=== PATIENT | male | born 1930 | race Caucasian/White ===

== ENCOUNTER 2016-11-01 16:31 | Inpatient (IN) | payer MEDICARE, OTHER ==
[~2016-11-01] VITALS: Ht 188 cm; Wt 74.1 kg
[2016-11-01] VITALS (8 sets, daily range): BP systolic 102–146; BP diastolic 54–77
[~2016-11-01 16:31] MED LIST: AC500T; ACET-2303; ACHD5005 PO; AMIO100T4 PO; AMIO200T PO; AMIO200T10; AMIO200T50 PO; AMIO400T5 PO; AMOX500C2; APIX5TAB2 PO; AREDS PO; ASP325T PO; ATOR80TA; ATRV10T PO; CALC60OI6 TP; CEFD300C PO; CEPH-507 PO; CLOP75TA; CYAN10006 PO; DIGO250T; DIGO250T15 PO; DIGO250T96; DILT120C PO; DILT300C51 PO; FLEC100T PO; FLEC100T2 PO; FLEC150T PO; FLEC50TA2 PO; FOLI0.8T PO; FOLIC ACID; FURO20TA4 PO; FURO40TA4; HYDR-757 PO; HYDR15CR36 TP; HYDR28CR45 TP; KCL20TCR; LACT1CAP62 PO; LASIX; LEVE500T PO; LISI10TA; LISI10TA2; LISI2.5T PO; LVT.05T PO; METH1TAB59 PO; MTF500T; MTP25TSR; MULT-608 PO; MULT1TAB53 PO; NEBI2.5T5; NF-METANX PO; NTR.4SL SL; PANT40TA PO; PNT40TEC PO; POTA10TA36 PO; PRD10T PO; PRD20T PO; PROBIOTIC; PROBIOTIC ADVANTAGE; SENN-36 PO; SENN1TAB76 PO; SNN187T; SULF1TAB38 PO; TACLONEX TOP; THYROID MEDICATION; VIT B 12; VIT1CAPS44 PO; VITAMIN B-12; WRF5T; [UNRECOGNIZED DRUG - CODE]
--- NOTE | 2016-11-01 17:46 | Diagnostic Imaging Report ---
INDICATION: Left rib pain after a fall approximately one hour ago. COMPARISON STUDY: Chest from April 23. FINDINGS: Frontal view of the chest demonstrates chronic fibrosis along the right minor fissure. Chronic interstitial disease is present, greatest in the lung bases. A left subclavian central venous catheter remains in place. Mild cardiomegaly, tortuosity and calcification of the aorta are again identified. IMPRESSION: Chronic lung disease with no acute findings. Dictated by: Dictated on workstation # [id number]
[2016-11-01] MEDS: SCOPOLAMINE 1.5 MG (TRANSDERM-SCOP) PATCH TD ONE ×2 (18:11→18:32)
[2016-11-01] MEDS: fentaNYL INJECTION 100 MCG/2 ML AMP IVP STA ×2 (18:11→18:32)
[2016-11-01] MEDS: ONDANSETRON 4 MG/2 ML (SDV) Z0FRAN IVP ONE ×2 (18:11→18:32)
[2016-11-01 18:12] LABS: BASOPHILS % (AUTO) 0 % (0-10); EOSINOPHILS # (AUTO) 0.2 10^3/uL (0.0-0.3); EOSINOPHILS % (AUTO) 1 % (0-10); LYMPHOCYTES # (AUTO) 1.8 X 10^3 (1.0-4.0); LYMPHOCYTES % (AUTO) 12 % (12-44); MEAN CORPUSCULAR HEMOGLOBIN 32 PG (25-34); MEAN CORPUSCULAR HGB CONC 34 G/DL (32-36); MEAN CORPUSCULAR VOLUME 93 FL (80-99); MEAN PLATELET VOLUME 10.7 FL (7.4-10.4); MONOCYTES # (AUTO) 0.9 X 10^3 (0.0-1.0); MONOCYTES % (AUTO) 6 % (0-12); NEUTROPHILS # (AUTO) 12.1 X 10^3 (1.8-7.8); NEUTROPHILS % (AUTO) 81 % (42-75); PLATELET COUNT 194 10^3/uL (130-400); RED BLOOD COUNT 4.29 10^6/uL (4.35-5.85); RED CELL DISTRIBUTION WIDTH 13.3 % (10.0-14.5); WHITE BLOOD COUNT 15.1 10^3/uL (4.3-11.0)
[2016-11-01 18:28] LABS: BAND NEUTROPHILS 4 %; BASOPHILS % (MANUAL) 1 %; EOSINOPHILS % (MANUAL) 2 %; INR 1.1 (0.8-1.4); LYMPHOCYTES % (MANUAL) 11 %; NEUTROPHILS % (MANUAL) 77 %; PROTHROMBIN TIME PATIENT 13.5 SEC (12.2-14.7)
[2016-11-01 18:39] LABS: ALANINE AMINOTRANSFERASE 17 U/L (0-55); AMYLASE 353 U/L (25-125); ANION GAP 11 MMOL/L (5-14); ASPARTATE AMINO TRANSFERASE 17 U/L (5-34); BILIRUBIN,TOTAL 0.7 MG/DL (0.1-1.0); BLOOD UREA NITROGEN 29 MG/DL (7-18); BUN/CREATININE RATIO 31; CALCIUM 9.6 MG/DL (8.5-10.1); CARBON DIOXIDE 25 MMOL/L (21-32); CHLORIDE 102 MMOL/L (98-107); CREATININE SERUM 0.93 MG/DL (0.60-1.30); GFR ESTIMATED > 60; GLUCOSE 143 MG/DL (70-105); LIPASE 39 U/L (8-78); MAGNESIUM 1.7 MG/DL (1.8-2.4); POTASSIUM 4.8 MMOL/L (3.6-5.0); SODIUM 138 MMOL/L (135-145); TOTAL PROTEIN 6.9 G/DL (6.4-8.2)
[2016-11-01 18:45] LABS: TROPONIN I < 0.30 NG/ML (<0.30)
[2016-11-01] MEDS ORDERED: NS 100 ML (IVPB) BAG IV ONE (19:00)
[2016-11-01] MEDS ORDERED: IOHEXOL 350 MG/ML 100 ML (OMNIPAQUE 350) VIAL IV ONE (19:00)
--- NOTE | 2016-11-01 19:24 | Diagnostic Imaging Report ---
PROCEDURE: CT head without contrast. TECHNIQUE: Multiple contiguous axial images were obtained through the brain without the use of intravenous contrast. INDICATION: Patient fell this evening COMPARISON STUDY: CT scan of the head from December 14, 2014. FINDINGS: A previous right frontal parietal temporal craniotomy is present. No mass effect, midline shift, hemorrhage or extra-axial fluid collections are seen. There is age-appropriate atrophy. No focal areas of ischemia are present. No fractures are present. The mastoid air cells and paranasal sinuses are clear. IMPRESSION: There are no acute findings. Dictated by: Dictated on workstation # [id number]
--- NOTE | 2016-11-01 19:47 | Diagnostic Imaging Report ---
INDICATION: Patient fell this p.m. on the left side, rib and back pain. FINDINGS: Postcontrast CT of the chest is compared to a chest from 06/05/16. Diffuse interstitial lung disease, subpleural blebs are present. Some small nodularities appear stable. There is a small area of nodularity in the right apex, measuring 12 x 5 mm. This was not present previously. Recommend a 3-4 month followup exam. Small left pleural effusion has developed. There is no pneumothorax. There are posterior left 12th, 11th, 10th and 9th rib fractures. Lateral 10th, 9th, 8th and 7th rib fractures are present. There are old right rib fractures. No pneumothorax is present. Dense calcification of the coronary arteries are present. 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 Calcifications are present in the aortic valve. Postcontrast CT of the abdomen and pelvis demonstrates an obstructing 11.6 mm calculus in the left ureteropelvic junction with left-sided hydronephrosis. A couple small calculi are present in the inferior pole of the left kidney. Several calculi are present in the right kidney without hydronephrosis or inflammation. The liver, gallbladder, spleen, pancreas and adrenal glands appear normal. No ascites or free air is present. Diverticula are present. Urinary bladder is normal. Degenerative changes are present in the spine with previous kyphoplasty changes. Diffuse arterial sclerosis is present. IMPRESSION: 1. Diffuse emphysematous changes with some stable nodules. There is a new small nodule in the right lung apex. Recommend a three-month followup. 2. Multiple left rib fractures with a small left pleural effusion. 3. Arterial sclerosis with dense calcifications of the coronary arteries and significant stenosis of the left subclavian artery. 4. Bilateral renolithiasis with an obstructing calculus in the left ureteropelvic junction. Dictated by: Dictated on workstation # [id number]
[2016-11-01] MEDS ORDERED: fentaNYL INJECTION 100 MCG/2 ML AMP IVP STA (20:04)
[2016-11-01] MEDS ORDERED: cefTRIAXone INJECTION 1,000 MG in NS (IVPB) 50 ML IV ONE (20:15)
[2016-11-01] MEDS: SCOPOLAMINE 1.5 MG (TRANSDERM-SCOP) PATCH TOP SCH (20:53)
[2016-11-01] MEDS ORDERED: D5 1/2 NS 1000 ML IV SOLUTION 1,000 ML IV ONE (21:13)
[2016-11-01] MEDS: D5 1/2 NS 1000 ML IV SOLUTION 1,000 ML IV SCH (21:44)
[2016-11-01 22:39] LABS: BILIRUBIN,URINE NEGATIVE (NEGATIVE); KETONES,URINE NEGATIVE (NEGATIVE); LEUKOCYTE ESTERASE ,URINE 3+ (NEGATIVE); NITRITE,URINE NEGATIVE (NEGATIVE); PH,URINE 6 (5-9); PROTEIN,URINE 1+ (NEGATIVE); UROBILINOGEN,URINE NORMAL (NORMAL)
[2016-11-01 22:47] LABS: WBC,URINE 50-100 /HPF; YEAST,URINE FEW /HPF
[2016-11-01] MEDS ORDERED: ONDANSETRON 4 MG/2 ML (SDV) Z0FRAN IV PRN (23:15)
[2016-11-01] MEDS ORDERED: AZITHROMYCIN 500 MG/NS 250 ML IVPB IV ONE ×2 (23:15)
[2016-11-01] MEDS ORDERED: CATHETER FLUSH 10 ML SYR IV PRN (23:15)
[2016-11-01] MEDS: fentaNYL INJECTION 100 MCG/2 ML AMP IV PRN (23:34)
[2016-11-02] VITALS (12 sets, daily range): BP systolic 91–149; BP diastolic 53–78
[2016-11-02] MEDS: fentaNYL INJECTION 100 MCG/2 ML AMP IV PRN ×6 (00:53→22:44)
[2016-11-02 04:51] LABS: BASOPHILS % (AUTO) 0 % (0-10); EOSINOPHILS # (AUTO) 0.1 10^3/uL (0.0-0.3); EOSINOPHILS % (AUTO) 1 % (0-10); LYMPHOCYTES # (AUTO) 1.5 X 10^3 (1.0-4.0); LYMPHOCYTES % (AUTO) 17 % (12-44); MEAN CORPUSCULAR HEMOGLOBIN 32 PG (25-34); MEAN CORPUSCULAR HGB CONC 34 G/DL (32-36); MEAN CORPUSCULAR VOLUME 94 FL (80-99); MEAN PLATELET VOLUME 10.6 FL (7.4-10.4); MONOCYTES # (AUTO) 0.7 X 10^3 (0.0-1.0); MONOCYTES % (AUTO) 7 % (0-12); NEUTROPHILS # (AUTO) 6.7 X 10^3 (1.8-7.8); NEUTROPHILS % (AUTO) 75 % (42-75); PLATELET COUNT 148 10^3/uL (130-400); RED BLOOD COUNT 3.62 10^6/uL (4.35-5.85); RED CELL DISTRIBUTION WIDTH 13.2 % (10.0-14.5); WHITE BLOOD COUNT 8.9 10^3/uL (4.3-11.0)
[2016-11-02 05:13] LABS: ALANINE AMINOTRANSFERASE 12 U/L (0-55); ALBUMIN 3.2 G/DL (3.2-4.5); ANION GAP 11 MMOL/L (5-14); ASPARTATE AMINO TRANSFERASE 15 U/L (5-34); BILIRUBIN,TOTAL 0.6 MG/DL (0.1-1.0); BLOOD UREA NITROGEN 20 MG/DL (7-18); BUN/CREATININE RATIO 26; CALCIUM 8.3 MG/DL (8.5-10.1); CARBON DIOXIDE 24 MMOL/L (21-32); CHLORIDE 102 MMOL/L (98-107); CREATININE SERUM 0.78 MG/DL (0.60-1.30); GFR ESTIMATED > 60; GLUCOSE 173 MG/DL (70-105); MAGNESIUM 1.6 MG/DL (1.8-2.4); SODIUM 137 MMOL/L (135-145); TOTAL PROTEIN 5.7 G/DL (6.4-8.2)
[2016-11-02] MEDS: CATHETER FLUSH 10 ML SYR IV SCH ×3 (06:00→22:00)
[2016-11-02] MEDS ORDERED: POTASSIUM CL 10MEQ/50ML IVPB 50 ML IV SCH (06:00)
[2016-11-02] MEDS ORDERED: MAGNESIUM 1 GM/100 ML IVPB 100 ML IV SCH (06:00)
[2016-11-02] MEDS ORDERED: KCL 20 MEQ TAB (K-DUR) PO SCH (06:00)
--- NOTE | 2016-11-02 06:14 | ED Fall/Injury ---
General Chief Complaint: Chest Wall/Rib Pain Stated Complaint: S/P FALL; MULT L RIB FXS; RECENT PNEUMONIA Nursing Triage Note: Pt reports falling approx 1 hour ago and hitting L ribs on a generator. Pt advises he thinks he may have broken several ribs. Source: patient History of Present Illness Time seen by provider: 17:55 Initial Comments PT ARRIVES VIA POV FROM HOME STATES HE HAS CHRONIC POOR BALANCE (SINCE HE HAD SUBDURAL HEMATOMA AND SUBSEQUENT CRANIOTOMY AND EVACUATION OF HEMATOMA, AND PRIOR EPISODE OF SEPSIS) AND TODAY WAS WALKING AND LOST BALANCE AND TRIPPED, AND FELL BACK, HITTING HIS LEFT CHEST/BACK ON THE GAS TANK OF A GENERATOR OCCURRED AT 1630 TODAY AT HOME DID NOT HIT HEAD AND NO LOSS OF CONSCIOUSNESS DENIES ANY OTHER INJURIES C/O PAIN TO ENTIRE LEFT SIDE OF TRUNK AND BACK, AND HURTS TO BREATHE OR COUGH DOES FEEL SHORT OF BREATH HAS HAD NAUSEA AND VOMITED ON ARRIVAL DENIES DIZZINESS PT STATES HE WAS DX WITH PNEUMONIA 2 WEEKS AGO AND IS STILL TAKING ANTIBIOTICS-- THOSE SYMPTOMS ARE BETTER, NOW WITH ONLY A MILD COUGH AND NO FEVER, AND NO SHORTNESS OF BREATH PRIOR TO THIS EPISODE PT HAS HISTORY OF LUNG CANCER, BUT WAS "CLEARED" LAST SUMMER PCP: DR. PHAM Allergies and Home Medications Allergies Coded Allergies: No Known Drug Allergies (Verified , 12/14/14) Home Medications Atorvastatin Calcium 10 Mg Tablet 10 MG PO HS (Reported) Calcipotriene/Betamethasone 60 Gm Oint...g. TP DAILY PRN PRN PSORIASIS (Reported ) Cyanocobalamin 1,000 Mcg Tablet 1,000 MCG PO DAILY (Reported) Digoxin 250 Mcg Tablet #30 0.25 MG PO DAILY Prescribed by: GUTIERREZ PHAM on 08/30/15 1053 Diltiazem HCl 300 Mg Cap.er.24h #30 300 MG PO DAILY Prescribed by: GUTIERREZ PHAM on 08/30/15 1053 Flecainide Acetate 100 Mg Tablet #30 50 MG PO BID pt to take 1/2 of the 100mg pill twice daily (total dose of 50mg daily) Prescribed by: GUTIERREZ PHAM on 08/30/15 1053 Folic Acid 0.8 Mg Tablet 0.8 MG PO DAILY (Reported) Hydrocortisone Valerate 15 Gm Cream..g. TP DAILY (Reported) USES DAILY BEHIND EARS Lactobacillus Acidophilus 1 Each Capsule 1 CAP PO DAILY (Reported) Levetiracetam 500 Mg Tab 250 MG PO BID (Reported) TAKES 1/2 OF A (500 MG) TABLET Levothyroxine Sodium 50 Mcg Tablet 50 MCG PO DAILY (Reported) TAKE ON EMPTY STOMACH Methyl-B12/L-Mefolate/B6 Phos 1 Each Tablet 1 TAB PO DAILY (Reported) Nitroglycerin 0.4 Mg Tab 0 SL UD PRN PRN CHEST PAIN (Reported) 1 TABLET EVERY 5 MINUTES X 3 DOSES NEEDED FOR CHEST PAIN Pantoprazole Sodium 40 Mg Tablet.dr 40 MG PO HS (Reported) Sennosides 8.6 Mg Tablet 8.6 MG PO DAILY (Reported) Vit C/E/Zn/Coppr/Lutein/Zeaxan 1 Each Capsule 1 CAP PO BID (Reported) Constitutional: see HPINo dizziness, other (CHRONICALLY OFF BALANCE) Eyes: No Symptoms Reported Ears, Nose, Mouth, Throat: no symptoms reported Respiratory: see HPI cough short of breathNo wheezing Cardiovascular: see HPI chest pain (LEFT LATERAL AND POSTERIOR CHEST)No edema , No palpitations, No syncope, No vascular heart diseas Gastrointestinal: see HPINo abdominal pain, nausea vomiting Genitourinary: no symptoms reported Musculoskeletal: see HPI back painNo neck pain Skin: no symptoms reported Psychiatric/Neurological: See HPI (CHRONIC POOR BALANCE)Denies Headache, Denies Numbness, Denies Paresthesia, Denies Seizure, Denies Tingling, Denies Tremors, Denies Weakness Past Llrwjsd-Tejoyp-Cdhakh Hx Patient Social History Alcohol Use: Denies Use Recreational Drug Use: No Smoking Status: Former Smoker Type Used: Pipe Former Smoker/When Quit: Sep 27, 1996 2nd Hand Smoke Exposure: No Recent Foreign Travel: No Contact w/Someone Who Travel: No Recent Infectious Disease Expo: No Recent Hopitalizations: No Physical Abuse Screen: No Sexual Abuse: No Immunizations Up To Date Tetanus Booster (TDap): More than 5yrs PED Vaccines UTD: No Date of Pneumonia Vaccine: Jul 17, 2012 Date of Influenza Vaccine: Aug 27, 2016 Seasonal Allergies Seasonal Allergies: No Surgeries HX Surgeries: Yes (VASECTOMY,HAND SURGERY, CARDIAC STENTS X 4 AT [facility] [place] LEFT CHEST, PROSTATE; CRANIOTOMY WITH EVACUTION OF SUBDURAL HEMATOMA) Surgeries: Cardiac, Coronary Stent, Neurological, Orthopedic, Transurethral Resection, Vasectomy Respiratory Hx Respiratory Disorders: Yes Respiratory Disorders: Pneumonia Cardiovascular Hx Cardiac Disorders: Yes (MITRAL REGURGITATION, STENTS X4) Cardiac Disorders: Atrial Fibrillation, Coronary Artery Disease, Hypertension Neurological Hx Neurological Disorders: Yes (SUBDURAL HEMATOMA WITH CRANIOTOMY AND EVACUATION OF HEMATOMA) Neurological Disorders: Traumatic Brain Injury, Vertigo Reproductive System Hx Reproductive Disorders: No Sexually Transmitted Disease: No HIV/AIDS: No Genitourinary Hx Genitourinary Disorders: Yes (BLADDER/PROSTATE CANCER) Genitourinary Disorders: Prostate Problems Gastrointestinal Hx Gastrointestinal Disorders: No Musculoskeletal Hx Musculoskeletal Disorders: Yes (L1 COMPRESSION FRACTURE) Musculoskeletal Disorders: Fractures Endocrine Hx Endocrine Disorders: Yes Endocrine Disorders: Diabetes, Non-Insulin dep HEENT HX ENT Disorders: Yes (MISSING TEETH) HEENT Disorders: Cataract Loss of Vision: Denies Hearing Impairment: Hard of Hearing Cancer Hx Cancer: Yes Cancer: Bladder, Prostate, Lung Psychosocial Hx Psychiatric Problems: Yes Behavioral Health Disorders: Anxiety Integumentary HX Skin/Integumentary Disorder: Yes (SKIN CANCER) Skin/Integumentary Disorders: Psoriasis Blood Transfusions Hx Blood Disorders: No Adverse Reaction to a Blood Tr: No Family Medical History Significant Family History: Heart Disease, Hypertension Family Medial History: Chest pain 03 FATHER, Onset:Unknown Myocardial infarction 03 FATHER, Onset:60 years & older Physical Exam Vital Signs Vital Sign - Last 12Hours 11/01/16 17:02 Temp 98.2 Pulse 90 Resp 18 B/P 159/82 Pulse Ox 96 O2 Delivery Room Air Capillary Refill : Less Than 3 Seconds General Appearance: no apparent distress thin HEENT: PERRL/EOMI other (MISSING TEETH) Neck: non-tender full range of motion supple normal inspection Cardiovascular: normal peripheral pulses regular rate, rhythm no edema no JVD no murmur Respiratory: no respiratory distress no accessory muscle use rales rhonchi plerual rub other (MARKED LEFT LATERAL AND POSTERIOR CHEST TENDERNESS, WITH BONY CREPITANCE NOTED POSTERIORLY. NO SUBQ AIR NOTED. FAINT ERYTHEMA TO LEFT POSTERIOR CHEST. NO OPEN WOUNDS. ) Gastrointestinal: normal bowel sounds soft tenderness (LEFT LATERAL ABDOMEN AND LEFT FLANK WITH SIGNIFICANT TENDERNESS) Back: no vertebral tenderness CVA tenderness (L) decreased range of motionNo vertebral tenderness Extremities: normal range of motion non-tender normal inspection no pedal edema no calf tenderness normal capillary refill Neurologic/Psychiatric: jig borer II-XII nml as tested no motor/sensory deficits alert normal mood/affect oriented x 3 Skin: normal color warm/dry [place] Coma Score Best Eye Response: (4) Open Spontaneously Best Verbal Response: (5) Oriented Best Motor Response: (6) Obeys Commands [place] Total: 15 Progress/Results/Core Measures Results/Orders Lab Results Laboratory Tests Test 11/01/16 18:00 Range/Units Activated Partial Thromboplast Time 35 24-35 SEC Alanine Aminotransferase (ALT/SGPT) 17 0-55 U/L Albumin 4.0 3.2-4.5 G/DL Alkaline Phosphatase 81 40-136 U/L Amylase Level 353 H 25-125 U/L Anion Gap 11 5-14 MMOL/L Aspartate Amino Transf (AST/SGOT) 17 5-34 U/L BUN/Creatinine Ratio 31 Band Neutrophils 4 % Basophils # (Auto) 0.0 0.0-0.1 10^3/uL Basophils % (Manual) 1 % Basophils (%) (Auto) 0 0-10 % Blood Morphology Comment NORMAL Blood Urea Nitrogen 29 H 7-18 MG/DL Calcium Level 9.6 8.5-10.1 MG/DL Carbon Dioxide Level 25 21-32 MMOL/L Chloride Level 102 98-107 MMOL/L Creatinine 0.93 0.60-1.30 MG/DL Digoxin Level < 0.30 L 0.80-2.00 NG/ML Eosinophils # (Auto) 0.2 0.0-0.3 10^3/uL Eosinophils % (Manual) 2 % Eosinophils (%) (Auto) 1 0-10 % Estimat Glomerular Filtration Rate > 60 Glucose Level 143 H 70-105 MG/DL Hematocrit 40 40-54 % Hemoglobin 13.6 13.3-17.7 G/DL INR Comment 1.1 0.8-1.4 Lipase 39 8-78 U/L Lymphocytes # (Auto) 1.8 1.0-4.0 X 10^3 Lymphocytes % (Manual) 11 % Lymphocytes (%) (Auto) 12 12-44 % Magnesium Level 1.7 L 1.8-2.4 MG/DL Mean Corpuscular Hemoglobin 32 25-34 PG Mean Corpuscular Hemoglobin Concent 34 32-36 G/DL Mean Corpuscular Volume 93 80-99 FL Mean Platelet Volume 10.7 H 7.4-10.4 FL Monocytes # (Auto) 0.9 0.0-1.0 X 10^3 Monocytes % (Manual) 5 % Monocytes (%) (Auto) 6 0-12 % Neutrophils # (Auto) 12.1 H 1.8-7.8 X 10^3 Neutrophils % (Manual) 77 % Neutrophils (%) (Auto) 81 H 42-75 % Platelet Count 194 130-400 10^3/uL Potassium Level 4.8 3.6-5.0 MMOL/L Prothrombin Time 13.5 12.2-14.7 SEC Red Blood Count 4.29 L 4.35-5.85 10^6/uL Red Cell Distribution Width 13.3 10.0-14.5 % Sodium Level 138 135-145 MMOL/L Total Bilirubin 0.7 0.1-1.0 MG/DL Total Protein 6.9 6.4-8.2 G/DL Troponin I < 0.30 <0.30 NG/ML White Blood Count 15.1 H 4.3-11.0 10^3/uL My Orders Orders-ILDA SHAH DO Saline Lock/Iv-Start (11/01/16 18:04) Ekg Tracing (11/01/16 18:04) O2 (11/01/16 18:04) Monitor-Rhythm Ecg Trace Only (11/01/16 18:04) Ct Head Wo (11/01/16 18:04) Ondansetron Injection (Zofran Injectio (11/01/16 18:15) Amylase (11/01/16 18:04) Lipase (11/01/16 18:04) Magnesium (11/01/16 18:04) Protime With Inr (11/01/16 18:04) Partial Thromboplastin Time (11/01/16 18:04) Troponin I (11/01/16 18:04) Ua Culture If Indicated (11/01/16 18:04) Scopolamine Patch (Transderm-Scop Patch) (11/01/16 18:15) Ct Chest/Abdomen/Pelvis W (11/01/16 18:04) Fentanyl Injection (Sublimaze Injection (11/01/16 18:04) Iohexol Injection (Omnipaque 350 Mg/Ml 1 (11/01/16 19:00) Ns (Ivpb) (Sodium Chloride 0.9% Ivpb Bag (11/01/16 19:00) Digoxin (11/01/16 19:25) Medications Given in ED Current Medications Medications Dose Ordered Sig/Colt Route Start Time Stop Time Status Last Admin Dose Admin Iohexol 100 ml ONCE ONCE IV 11/01/16 19:00 11/01/16 23:01 DC 11/01/16 19:03 100 ML Sodium Chloride 100 ml ONCE ONCE IV 11/01/16 19:00 11/01/16 23:01 DC 11/01/16 19:04 80 ML Vital Signs/I&O Vital Sign - Last 12Hours 11/01/16 17:02 Temp 98.2 Pulse 90 Resp 18 B/P 159/82 Pulse Ox 96 O2 Delivery Room Air Blood Pressure Mean: 90 Progress Note : Progress Note NO DETERIORATION IN PT'S CONDITION DURING ER STAY ECG Initial ECG Impression Time: 18:34 Initial ECG Rate: 104 Initial ECG Rhythm: Normal Sinus Initial ECG Impression: Nonspecific Changes Initial ECG Comparisson: Unchanged Diagnostic Imaging Comments CXR--NO ACUTE PROCESS, PER RADIOLOGIST REPORT CT CHEST / ABDOMEN / PELVIS--POSTERIOR RIB FRACTURES OF 9,10,11,12; LATERAL RIB FRACTURES OF 7,8,9,10; SMALL LEFT PLEURAL EFFUSION; 12 X 5 MM NODULE RIGHT APEX ; BILATERAL RENAL LITHIASIS WITH 11.6 MM OBSTRUCTING STONE AT LEFT UPJ; ASVD-- PER RADIOLOGIST REPORT @ 1953 CT HEAD--NO ACUTE PROCESS, PER RADIOLOGIST REPORT @ 1953 Reviewed: Reviewed by Me Departure Communication Progress Notes 1954--SPOKE WITH DR. ALBARRAN, ACCEPTS PT FOR ADMIT 1955--SPOKE WITH DR. PHAM FOR MEDICAL MANAGEMENT. WILL GIVE IV ANTIBIOTICS IN LIGHT OF RECENT PNEUMONIA WITH ACUTE RIB FRACTURES, AND UTI Impression Impression: Primary Impression: Status post fall Additional Impressions: MULTIPLE LEFT RIB FRACTURES RECENT PNEUMONIA History of lung cancer COPD (chronic obstructive pulmonary disease) UTI (urinary tract infection) URETERAL LITHIASIS Disposition: ADMITTED INPATIENT Condition: Stable Decision to Admit Reason: Admit from ER (Trauma) Decision to Admit/Date: Nov 01, 2016 Time/Decision to Admit Time: 19:55 Departure-Patient Inst. Referrals: GUTIERREZ PHAM MD (PCP) Primary Care Physician ILDA SHAH DO Nov 02, 2016 06:14
[2016-11-02] MEDS: MAGNESIUM 1 GM/100 ML IVPB 100 ML IV SCH ×2 (06:15→07:26)
[2016-11-02] MEDS: HYDROcodone/APAP 5 MG/325 MG (LORTAB) TAB PO PRN ×4 (08:29→22:45)
[2016-11-02] MEDS: D5 1/2 NS 1000 ML IV SOLUTION 1,000 ML IV SCH ×2 (08:30→17:59)
[2016-11-02] MEDS ORDERED: METF500T4 PO (08:49)
[2016-11-02] MEDS ORDERED: PANT40TA3 PO (08:49)
[2016-11-02] MEDS ORDERED: ATOR10TA66 PO (08:49)
[2016-11-02] MEDS ORDERED: SOTA80TA PO (08:49)
[2016-11-02] MEDS ORDERED: CEFD300C3 PO (08:49)
[2016-11-02] MEDS ORDERED: DOCU100C37 PO (08:49)
[2016-11-02] MEDS ORDERED: LEVE500T6 PO (08:49)
[2016-11-02] MEDS ORDERED: LEVO50TA6 PO (08:49)
--- NOTE | 2016-11-02 08:55 | Diagnostic Imaging Report ---
INDICATION: Rib fracture. COMPARISON: 11/01/2016. FINDINGS: There are some worsened Eder B lines, likely interstitial edema. There is some discoid opacity in the right midlung, unchanged. The upper limits heart size is stable. There is no pneumothorax. IMPRESSION: Interstitial changes bilaterally show mild progression. The change itself is suspicious for at least mild interstitial edema. No acute pleural pathology. Dictated by: Dictated on workstation # [id number]
--- NOTE | 2016-11-02 10:41 | History & Physicial ---
History of Present Illness History of Present Illness Reason for visit/HPI fell at home, sustaining fracture of ribs on the left side requiring intubation management for pain control Date of Admission Nov 01, 2016 at 7:55 pm I consulted on this patient on 11/02/16 10:38 Attending Physician Monisha Lerma MD Admitting Physician Monisha Lerma MD Consult Allergies and Home Medications Allergies Coded Allergies: No Known Drug Allergies (Verified , 12/14/14) Home Medications Atorvastatin Calcium 10 Mg Tablet 10 MG PO HS (Reported) Calcipotriene/Betamethasone 60 Gm Oint...g. TP DAILY PRN PRN PSORIASIS (Reported ) Cefdinir 300 Mg Capsule 300 MG PO BID (Reported) FILLED 10/26/16 #10 FOR A 5 DAY THERAPY Cyanocobalamin 1,000 Mcg Tablet 1,000 MCG PO DAILY (Reported) Docusate Sodium 100 Mg Capsule 100 MG PO DAILY (Reported) Folic Acid 0.8 Mg Tablet 0.8 MG PO DAILY (Reported) Hydrocortisone Valerate 15 Gm Cream..g. TP DAILY (Reported) USES DAILY BEHIND EARS Lactobacillus Acidophilus 1 Each Capsule 1 CAP PO DAILY (Reported) Levetiracetam 500 Mg Tablet 250 MG PO BID (Reported) Levothyroxine Sodium 50 Mcg Tablet 25 MCG PO SuWe (Reported) TAKES 1/2 OF A (50 MCG) TABLET Levothyroxine Sodium 50 Mcg Tablet 50 MCG PO MoTuThFrSa (Reported) Metformin HCl 500 Mg Tablet 500 MG PO BID (Reported) Methyl-B12/L-Mefolate/B6 Phos 1 Each Tablet 1 TAB PO DAILY (Reported) Nitroglycerin 0.4 Mg Tab 0 SL UD PRN PRN CHEST PAIN (Reported) 1 TABLET EVERY 5 MINUTES X 3 DOSES NEEDED FOR CHEST PAIN Pantoprazole Sodium 40 Mg Tablet.dr 40 MG PO HS (Reported) Sotalol HCl 80 Mg Tablet 40 MG PO BID (Reported) Vit C/E/Zn/Coppr/Lutein/Zeaxan 1 Each Capsule 1 CAP PO BID (Reported) Past Impemhq-Zazbuk-Nphvgy Hx Patient Social History Marrital Status: Employed/Student: retired Alcohol Use: Denies Use Recreational Drug Use: No Smoking Status: Never a Smoker Former smoker/When Quit: Sep 27, 1996 Type Used: Pipe 2nd Hand Smoke Exposure: No Physical Abuse Screen: No Sexual Abuse: No Recent Foreign Travel: No Contact w/other who traveled: No Recent Hopitalizations: No Recent Infectious Disease Expo: No Immunizations Up To Date Tetanus Booster (TDap): More than 5yrs Date of Pneumonia Vaccine: Jul 17, 2012 Date of Influenza Vaccine: Aug 27, 2016 Seasonal Allergies Seasonal Allergies: No Surgeries HX Surgeries: Yes (VASECTOMY,[facility] [place] LEFT CHEST, PROSTATE; CRANIOTOMY WITH EVACUTION OF SUBDURAL HEMATOMA) Surgeries: Cardiac, Coronary Stent, Neurological, Orthopedic, Transurethral Resection, Vasectomy Respiratory Hx Respiratory Disorders: Yes Respiratory Disorders: COPD Cardiovascular Hx Cardiovascular Disorders: Yes (MITRAL REGURGITATION, STENTS X4) Cardiac Disorders: Atrial Fibrillation, Coronary Artery Disease, Hypertension Neurological Hx Neurological Disorders: Yes (SUBDURAL HEMATOMA WITH CRANIOTOMY AND EVACUATION OF HEMATOMA) Neurological Disorders: Traumatic Brain Injury, Vertigo Reproductive System Hx Reproductive Disorders: No Sexually Transmitted Disease: No HIV/AIDS: No Genitourinary Hx Genitourinary Disorders: Yes (BLADDER/PROSTATE CANCER) Genitourinary Disorders: Prostate Problems Gastrointestinal Hx Gastrointestinal Disorders: No Musculoskeletal Hx Musculoskeletal Disorders: Yes (L1 COMPRESSION FRACTURE) Musculoskeletal Disorders: Fractures Endocrine Hx Endocrine Disorders: Yes Endocrine Disorders: Diabetes, Non-Insulin dep HEENT HX ENT Disorders: Yes (MISSING TEETH) HEENT Disorders: Cataract Loss of Vision: Denies Hearing Impairment: Hard of Hearing Cancer Hx Cancer: Yes Cancer: Bladder, Prostate, Lung Psychosocial Hx Psychiatric Problems: Yes Behavioral Health Disorders: Anxiety Integumentary HX Skin/Integumentary Disorder: Yes (SKIN CANCER) Skin/Integumentary Disorders: Psoriasis Blood Transfusions Hx Blood Disorders: No Adverse Reaction to a Blood Tr: No Family Medical History Significant Family History: Heart Disease, Hypertension Family Hx: Chest pain 03 FATHER, Onset:Unknown Myocardial infarction 03 FATHER, Onset:60 years & older Constitutional: no symptoms reported EENTM: no symptoms reported Respiratory: cough dyspnea on exertion Cardiovascular: no symptoms reported Gastrointestinal: see HPI Genitourinary: see HPI Musculoskeletal: back pain muscle pain Skin: no symptoms reported Psychiatric/Neurological: No Symptoms Reported Physical Exam Vital Signs Vital Sign - Last 12Hours 11/01/16 11/01/16 17:02 20:46 Temp 98.2 Pulse 90 Resp 18 B/P 159/82 Pulse Ox 96 O2 Delivery Room Air O2 Flow Rate 2 Capillary Refill : Less Than 3 Seconds General Appearance: Mild Distress HEENT: PERRL/EOMI Neck: Normal Inspection Respiratory: Decreased Breath Sounds Cardiovascular: Regular Rate, Rhythm Gastrointestinal: Non Tender Soft Back: Normal Inspection Extremity: Normal Inspection Neurologic/Psychiatric: Alert Oriented x3 Skin: Warm/Dry Assessment/Plan Assessment and Plan gentleman with left-sided fractures. Small pleural effusion/hemothorax. No pneumothorax. Resolving pneumonia. Advanced age. Continue pain management and encourage using incentive spirometry. Physical therapy to help with recovery. Admission Diagnosis fracture of ribs on the left side 4 Clinical Quality Measures DVT/VTE Risk/Contraindication: Risk Factor Score Per Nursin RFS Level Per Nursing on Admit: 4+=Very High SINDY ALBARRAN MD Nov 02, 2016 10:41 am
[2016-11-02] MEDS ORDERED: PATIENT MAY USE OWN MED,SINGLE MED PO SCH (11:15)
[2016-11-02] MEDS ORDERED: NITROGLYCERIN SUBLINGUAL 0.4 MG TAB (NITROSTAT) SL PRN (11:15)
--- NOTE | 2016-11-02 11:19 | Consultation ---
History of Present Illness History of Present Illness Patient Consulted On(alonzo/time) 11/02/16 11:12 Date of Admission 11/01/16 Reason for Visit: FALL AT HOME History of Present Illness PT IS AN 86 Y/O MALE WHO IS KNOWN TO ME FROM CLINIC. NELA HAS RECENTLY BEEN DEALING WITH PNEUMONIA, HAS BEEN HAVING INCREASED TROUBLE WITH DYSPNEA, AND WAS WALKING INTO HIS GARAGE, TURNING AROUND, LOST HIS BALANCE AND FELL INTO A GENERATOR AND GAS CAN IMMEDIATELY FEELING PAIN IN HIS RIBS. HE STATES THAT HE IS STILL HAVING QUITE A BIT OF PAIN, TROUBLE WITH DEEP INSPIRATION. Allergies and Home Medications Allergies Coded Allergies: No Known Drug Allergies (Verified , 12/14/14) Home Medications Atorvastatin Calcium 10 Mg Tablet 10 MG PO HS (Reported) Calcipotriene/Betamethasone 60 Gm Oint...g. TP DAILY PRN PRN PSORIASIS (Reported ) Cefdinir 300 Mg Capsule 300 MG PO BID (Reported) FILLED 10/26/16 #10 FOR A 5 DAY THERAPY Cyanocobalamin 1,000 Mcg Tablet 1,000 MCG PO DAILY (Reported) Docusate Sodium 100 Mg Capsule 100 MG PO DAILY (Reported) Folic Acid 0.8 Mg Tablet 0.8 MG PO DAILY (Reported) Hydrocortisone Valerate 15 Gm Cream..g. TP DAILY (Reported) USES DAILY BEHIND EARS Lactobacillus Acidophilus 1 Each Capsule 1 CAP PO DAILY (Reported) Levetiracetam 500 Mg Tablet 250 MG PO BID (Reported) Levothyroxine Sodium 50 Mcg Tablet 25 MCG PO SuWe (Reported) TAKES 1/2 OF A (50 MCG) TABLET Levothyroxine Sodium 50 Mcg Tablet 50 MCG PO MoTuThFrSa (Reported) Metformin HCl 500 Mg Tablet 500 MG PO BID (Reported) Methyl-B12/L-Mefolate/B6 Phos 1 Each Tablet 1 TAB PO DAILY (Reported) Nitroglycerin 0.4 Mg Tab 0 SL UD PRN PRN CHEST PAIN (Reported) 1 TABLET EVERY 5 MINUTES X 3 DOSES NEEDED FOR CHEST PAIN Pantoprazole Sodium 40 Mg Tablet.dr 40 MG PO HS (Reported) Sotalol HCl 80 Mg Tablet 40 MG PO BID (Reported) Vit C/E/Zn/Coppr/Lutein/Zeaxan 1 Each Capsule 1 CAP PO BID (Reported) Past Cwfyiof-Ojuxbk-Ggywaz Hx Patient Social History Alcohol Use: Denies Use Recreational Drug Use: No Smoking Status: Never a Smoker Type Used: Pipe Former Smoker/When Quit: Sep 27, 1996 2nd Hand Smoke Exposure: No Recent Foreign Travel: No Contact w/Someone Who Travel: No Recent Infectious Disease Expo: No Recent Hopitalizations: No Physical Abuse Screen: No Sexual Abuse: No Immunizations Up To Date Tetanus Booster (TDap): More than 5yrs PED Vaccines UTD: No Date of Pneumonia Vaccine: Jul 17, 2012 Date of Influenza Vaccine: Aug 27, 2016 Seasonal Allergies Seasonal Allergies: No Surgeries HX Surgeries: Yes (VASECTOMY,HAND SURGERY, CARDIAC STENTS X 4 AT [facility] [place] LEFT CHEST, PROSTATE; CRANIOTOMY WITH EVACUTION OF SUBDURAL HEMATOMA) Surgeries: Cardiac, Coronary Stent, Neurological, Orthopedic, Transurethral Resection, Vasectomy Respiratory Hx Respiratory Disorders: Yes Respiratory Disorders: Pneumonia Cardiovascular Hx Cardiac Disorders: Yes (MITRAL REGURGITATION, STENTS X4) Cardiac Disorders: Atrial Fibrillation, Coronary Artery Disease, Hypertension Neurological Hx Neurological Disorders: Yes (SUBDURAL HEMATOMA WITH CRANIOTOMY AND EVACUATION OF HEMATOMA) Neurological Disorders: Traumatic Brain Injury, Vertigo Reproductive System Hx Reproductive Disorders: No Sexually Transmitted Disease: No HIV/AIDS: No Genitourinary Hx Genitourinary Disorders: Yes (BLADDER/PROSTATE CANCER) Genitourinary Disorders: Prostate Problems Gastrointestinal Hx Gastrointestinal Disorders: No Musculoskeletal Hx Musculoskeletal Disorders: Yes (L1 COMPRESSION FRACTURE) Musculoskeletal Disorders: Fractures Endocrine Hx Endocrine Disorders: Yes Endocrine Disorders: Diabetes, Non-Insulin dep HEENT HX ENT Disorders: Yes (MISSING TEETH) HEENT Disorders: Cataract Loss of Vision: Denies Hearing Impairment: Hard of Hearing Cancer Hx Cancer: Yes Cancer: Bladder, Prostate, Lung Psychosocial Hx Psychiatric Problems: Yes Behavioral Health Disorders: Anxiety Integumentary HX Skin/Integumentary Disorder: Yes (SKIN CANCER) Skin/Integumentary Disorders: Psoriasis Blood Transfusions Hx Blood Disorders: No Adverse Reaction to a Blood Tr: No Reviewed Nursing Assessment Reviewed/Agree w Nursing PMH: Yes Family Medical History Significant Family History: Heart Disease, Hypertension Family Medial History: Chest pain 03 FATHER, Onset:Unknown Myocardial infarction 03 FATHER, Onset:60 years & older Review of Systems-General Constitutional: No chills, No diaphoresis, No fever, malaise weakness EENTM: hearing lossNo hoarseness, No mouth pain, No throat pain, No throat swelling Respiratory: cough dyspnea on exertion Cardiovascular: No chest pain, No edema Gastrointestinal: No abdominal pain, No loss of appetite, No nausea, No vomiting Genitourinary: no symptoms reported Musculoskeletal: back pain muscle weakness Skin: no symptoms reported Psychiatric/Neurological: Denies Anxiety, Denies Depressed All Other Systems Reviewed Negative Unless Noted: Yes Physical Exam-General Problems Physical Exam Vital Signs Vital Sign - Last 12Hours 11/01/16 11/01/16 17:02 20:46 Temp 98.2 Pulse 90 Resp 18 B/P 159/82 Pulse Ox 96 O2 Delivery Room Air O2 Flow Rate 2 Capillary Refill : Less Than 3 Seconds General Appearance: WD/WN no apparent distress Eyes: Bilateral Eye EOMI, Bilateral Eye Normal Inspection, Bilateral Eye PERRL HEENT: PERRL/EOMI pharynx normal Neck: non-tender normal inspection Respiratory: decreased breath sounds other (TTP OVER LEFT CHEST WALL) Cardiovascular: regular rate, rhythm no edema Gastrointestinal: normal bowel sounds non tender soft no organomegaly no pulsatile mass Rectal: deferred Extremities: non-tender no pedal edema Neurologic/Psychiatric: loan analyst II-XII nml as tested no motor/sensory deficits alert normal mood/affect oriented x 3 Skin: normal color warm/dry Lymphatic: no adenopathy Assessment/Plan Assessment/Plan Admission Diagnosis/Plan PNEUMONIA RIB PAIN ON LEFT RIB FRACTURES ATRIAL FIBRILLATION DIABETES MELLITUS 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 ATRIAL FIBRILLATION - RESTARTED HOME MEDS DIABETES MELLITUS - RESTARTED HOME MEDS - ACCU CHECKS BID HX LUNG CANCER WITH NEW NODULE ON CT SCAN CHRONIC DIZZINESS - WILL START THERAPY AGREE WITH TRANSFER TO THE FLOOR - WILL NEED TO CONSIDER INPATIENT REHAB VERSUS SENIOR CARE FOR SHORT STAY PT RESIDES AT HOME ALONE. Clinical Quality Measures DVT/VTE Risk/Contraindication: Risk Factor Score Per Nursin RFS Level Per Nursing on Admit: 4+=Very High GUTIERREZ PHAM MD Nov 02, 2016 11:19
--- NOTE | 2016-11-02 11:48 | Physical Therapy Evaluation ---
PT Evaluation-General Medical Diagnosis Admission Date Nov 01, 2016 at 19:55 Medical Diagnosis: rib fractures Onset Date: Nov 01, 2016 Therapy Diagnosis Therapy Diagnosis: debility Height/Weight Height (Feet): 6 Height (Inches): 2.00 Weight (Pounds): 165 Weight (Ounces): 2.0 Precautions Precautions/Isolations: Standard Precautions Referral Physician: Emeka Reason for Referral: Evaluation/Treatment Medical History Pertinent Medical History: Atrial Fib, CAD, COPD, DM, Prostate CA, Smoking, TBI Additional Medical History TBI (subdural hematoma with evacuation); lung cancer Current History Patient stated he was walking in his garage, which is cluttered, using his cane and fell over generator tank Reviewed History: Yes Social History Home: Single Level Current Living Status: Alone Entry Into Home: Stairs Without Railing PT Steps Into Home: 3 Prior/Core FIM Prior Level of Function Functional [place] Measure 0=Not Assessed/NA 4=Minimal Assistance 1=Total Assistance 5=Supervision or Setup 2=Maximal Assistance 6=Modified [place] 3=Moderate Assistance 7=Complete [place] Bed Mobility: 6 Transfers (B,C,W/C) (FIM): 6 Gait: 6 uses FWW in the home and cane outside the home PT Evaluation-Current Subjective Patient initially declined PT, however, PT educated patient on possible negative side effects of not increasing activity to prevent pneumonia and blood clots. Patient states, "I already have pneumonia." Pain Numeric Pain Scale: 5-Moderate Pain Location: Right Location Body Site: Side Pain Description: Acute Pt/Family Goals dismiss to NH Objective Patient Orientation: Person, Time, Situation Problem Solving: Good Attachments: Oxygen, IV ROM/Strength ROM Lower Extremities bilateral LE WFL Strenght Lower Extremities bilateral LE WNL Integumentary/Posture Integumentary refer to nursing notes Bowel Incontinence: No Bladder Incontinence: No Posture slightly kyphotic posture with FWW Neuromuscular (Tone, Coordination, Reflexes) slightly diminished coordination Sensory Vision: Functional Hearing: Impaired Sensation Right Lower Extremit: Impaired Sensation Left Lower Extremity: Impaired Transfers Functional [place] Measure 0=Not Assessed/NA 4=Minimal Assistance 1=Total Assistance 5=Supervision or Setup 2=Maximal Assistance 6=Modified [place] 3=Moderate Assistance 7=Complete [place] Transfers (B, C, W/C) (FIM): 5 Scootin Supine to/from Sit: 5 Sit to/from Stand: 5 patient adamantly declined use of gait belt for transfers and demanded no one touch him Gait Mode of Locomotion: Walk Anticipated Mode of Locomotion: Walk Gait (FIM): 1 Distance (FIM): 1=up to 49 ft Distance: 5 steps Gait Level of Assist: 5 Gait Persons Needed: 1 Gait Assistive Device: FWW Comments/Gait Description slow, steady Balance Sitting Static: Normal Sitting Dynamic: Normal Standing Static: Normal Standing Dynamic: Normal Assessment/Needs 86 y.o. independent male, will benefit from short term skilled PT to address functional mobility to ensure safe return to home or care facility. Patient has had multiple fall at home per his report and is very adamant to perform gross motor skills as independently as possible. Rehab Potential: Fair Post Rehab Potential-Barriers: compliance PT Combatant Swimmer Goals Combatant Swimmer Goals PT Combatant Swimmer Goals Time Frame: Nov 09, 2016 Transfers (B,C,W/C) (FIM): 5 Gait (FIM): 2 Gait distance (FIM): 7=328-50 ft Distance: 75' Gait Level of Assist: 5 Gait Assistive Device: FWW, Cane Single Point PT Plan Problem List Problem List: Activity Tolerance, Safety, Gait Treatment/Plan Treatment Plan: Continue Plan of Care Treatment Plan: Education, Functional Activity Sherrell, Functional Strength, Gait , Safety, Therapeutic Exercise Treatment Duration: Nov 09, 2016 # of days/week 5-6 Visits Per Week: 5-6 Pt/Family Agrees w/Plan: Yes Safety Risks/Education Patient Education: Safety Issues Teaching Recipient: Patient Teaching Methods: Discussion Response to Teaching: Verbalize Understanding Discharge Recommendations Therapy D/C Recommendations: Shelter (TCU/NH) Time/GCodes Time In: 1030 Time Out: 1050 Total Billed Treatment Time: 20 Total Billed Treatment 1 visit EVLowC 20 min G Codes Necessary: SAVAGE Marcos PT Nov 02, 2016 11:48
[2016-11-02] MEDS: LEVETIRACETAM 500 MG (KEPPRA) TAB PO SCH ×2 (12:55→22:44)
[2016-11-02] MEDS: AZITHROMYCIN 250 MG TAB (ZITHROMAX) PO SCH (12:55)
[2016-11-02] MEDS: LEVOTHYROXINE 50 MCG (LEVOTHROID) TAB PO SCH (12:55)
--- NOTE | 2016-11-02 14:30 | Diagnostic Imaging Report ---
INDICATION: Injury from a fall. Portable chest 2:20 PM. There is some linear atelectasis in the right midlung. 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 Left subclavian Port-A-Cath tip projects over the SVC. IMPRESSION: Interstitial fibrosis. No significant change compared to exam from earlier in the day. There appear to be nondisplaced fractures of the left lateral seventh, eighth, and ninth ribs. Dictated by: Dictated on workstation # [id number]
[2016-11-02] MEDS: CYANOCOBALAMIN 500 MCG TAB (VITAMIN B-12) PO SCH (17:59)
[2016-11-02] MEDS: HYDROCORTISONE 2.5% CREAM (ANUSOL-HC) 30 GM TOP SCH (22:30)
[2016-11-02] MEDS: ATORVASTATIN 10 MG (LIPITOR) TABLET PO SCH (22:45)
[2016-11-02] MEDS: PANTOPRAZOLE 40 MG (PROTONIX) TAB PO SCH (22:45)
[2016-11-02] MEDS: SOTALOL 80 MG (BETAPACE) TAB PO SCH (22:46)
[2016-11-02] MEDS: cefTRIAXone INJECTION 1,000 MG in NS (IVPB) 50 ML IV SCH (22:47)
[2016-11-02] MEDS: metFORMIN 500 MG (GLUCOPHAGE) TAB PO SCH (22:47)
[2016-11-03 00:10] VITALS: BP 122/62
[2016-11-03] MEDS: fentaNYL INJECTION 100 MCG/2 ML AMP IV PRN ×4 (01:54→11:37)
[2016-11-03 04:00] VITALS: BP 100/53
[2016-11-03 04:32] LABS: BASOPHILS % (AUTO) 0 % (0-10); EOSINOPHILS # (AUTO) 0.2 10^3/uL (0.0-0.3); EOSINOPHILS % (AUTO) 2 % (0-10); LYMPHOCYTES # (AUTO) 1.4 X 10^3 (1.0-4.0); LYMPHOCYTES % (AUTO) 14 % (12-44); MEAN CORPUSCULAR HEMOGLOBIN 32 PG (25-34); MEAN CORPUSCULAR HGB CONC 34 G/DL (32-36); MEAN CORPUSCULAR VOLUME 94 FL (80-99); MEAN PLATELET VOLUME 10.5 FL (7.4-10.4); MONOCYTES # (AUTO) 0.8 X 10^3 (0.0-1.0); MONOCYTES % (AUTO) 8 % (0-12); NEUTROPHILS # (AUTO) 7.7 X 10^3 (1.8-7.8); NEUTROPHILS % (AUTO) 76 % (42-75); PLATELET COUNT 148 10^3/uL (130-400); RED BLOOD COUNT 3.55 10^6/uL (4.35-5.85); RED CELL DISTRIBUTION WIDTH 13.3 % (10.0-14.5); WHITE BLOOD COUNT 10.1 10^3/uL (4.3-11.0)
[2016-11-03 05:00] LABS: ALANINE AMINOTRANSFERASE 14 U/L (0-55); ALBUMIN 3.1 G/DL (3.2-4.5); ANION GAP 7 MMOL/L (5-14); ASPARTATE AMINO TRANSFERASE 16 U/L (5-34); BILIRUBIN,TOTAL 0.6 MG/DL (0.1-1.0); BLOOD UREA NITROGEN 15 MG/DL (7-18); BUN/CREATININE RATIO 18; CALCIUM 8.2 MG/DL (8.5-10.1); CARBON DIOXIDE 25 MMOL/L (21-32); CHLORIDE 101 MMOL/L (98-107); CREATININE SERUM 0.82 MG/DL (0.60-1.30); GFR ESTIMATED > 60; GLUCOSE 162 MG/DL (70-105); MAGNESIUM 1.7 MG/DL (1.8-2.4); PHOSPHORUS 2.6 MG/DL (2.3-4.7); POTASSIUM 4.3 MMOL/L (3.6-5.0); SODIUM 133 MMOL/L (135-145); TOTAL PROTEIN 5.5 G/DL (6.4-8.2)
[2016-11-03] MEDS: D5 1/2 NS 1000 ML IV SOLUTION 1,000 ML IV SCH ×3 (05:04→23:29)
[2016-11-03] MEDS: CATHETER FLUSH 10 ML SYR IV SCH ×3 (06:00→21:50)
[2016-11-03] MEDS: CYANOCOBALAMIN 500 MCG TAB (VITAMIN B-12) PO SCH (06:44)
[2016-11-03] MEDS: MULTIVIT W/MINERALS TAB (THERAGRAN M) PO SCH (06:45)
[2016-11-03] MEDS: HYDROcodone/APAP 5 MG/325 MG (LORTAB) TAB PO PRN ×3 (06:45→18:07)
[2016-11-03 08:15] VITALS: BP 164/72
[2016-11-03] MEDS: FOLIC ACID 1 MG TAB PO SCH (08:55)
[2016-11-03] MEDS: LACTOBACILLUS Acidoph/Bulgar (LACTINEX/FLORANEX) TAB PO SCH (08:55)
[2016-11-03] MEDS: AZITHROMYCIN 250 MG TAB (ZITHROMAX) PO SCH (08:55)
[2016-11-03] MEDS: DOCUSATE SODIUM 100 MG (COLACE) CAP PO SCH (08:55)
[2016-11-03] MEDS: SOTALOL 80 MG (BETAPACE) TAB PO SCH ×2 (08:56→21:43)
[2016-11-03] MEDS: metFORMIN 500 MG (GLUCOPHAGE) TAB PO SCH ×2 (08:56→21:42)
[2016-11-03] MEDS: LEVETIRACETAM 500 MG (KEPPRA) TAB PO SCH ×2 (08:56→21:43)
[2016-11-03] MEDS: LIDOCAINE (LIDODERM) 5% PATCH TOP SCH (08:57)
[2016-11-03] MEDS: HYDROCORTISONE 2.5% CREAM (ANUSOL-HC) 30 GM TOP SCH ×2 (09:00→21:45)
--- NOTE | 2016-11-03 09:33 | Progress Note (SOAP) ---
Subjective Subjective/Events-last exam PT REPORTS THAT HE IS STILL HAVING QUITE A BIT OF PAIN - DOES NOT REMEMBER THE LIDODERM PATCH BEING PLACED. HE STATES THAT HE IS WILLING TO GO TO THEN [facility] THIS WEEK. Review of Systems General: Fatigue HEENT: No Head Aches Pulmonary: Dyspnea Cough Pleuritic Chest Pain Cardiovascular: No: Chest Pain Gastrointestinal: No: Abdominal Pain, Nausea Genitourinary: No Dysuria Neurological: : Weakness Objective Exam Vital Signs Date Time Temp Pulse Resp B/P Pulse Ox O2 Delivery O2 Flow Rate FiO2 11/03/16 08:15 98.4 86 20 164/72 94 Nasal Cannula 2.00 11/03/16 07:15 98.8 11/03/16 06:25 93 2.00 11/03/16 04:00 98.8 91 22 100/53 92 Nasal Cannula 2.00 11/03/16 00:10 97.4 99 20 122/62 92 Nasal Cannula 2.00 11/02/16 22:24 1.00 11/02/16 20:00 97.5 106 18 91/53 91 Nasal Cannula 2.00 11/02/16 16:39 97.3 77 18 101/58 92 Nasal Cannula 1.50 11/02/16 14:30 1.50 11/02/16 12:00 98.6 Nasal Cannula 1.50 11/02/16 12:00 95 1.50 11/02/16 09:37 96 1.00 I & O 11/03/16 07:00 Intake Total 3740 ml Output Total 650 ml Balance 3090 ml Capillary Refill : Less Than 3 Seconds General Appearance: WD/WN Mild Distress Neck: Full Range of Motion Supple Respiratory: Chest Non Tender Crackles Decreased Breath Sounds Cardiovascular: Regular Rate, Rhythm Gastrointestinal: normal bowel sounds non tender soft Extremity: Normal Capillary Refill No Pedal Edema Neurologic/Psychiatric: Alert Oriented x3 No Motor/Sensory Deficits Normal Mood/Affect Skin: Warm/Dry Lymphatic: No Adenopathy Results Lab Laboratory Tests 11/03/16 04:15: Alanine Aminotransferase (ALT/SGPT) 14, Albumin 3.1L, Alkaline Phosphatase 62, Anion Gap 7, Aspartate Amino Transf (AST/SGOT) 16, BUN/Creatinine Ratio 18, Basophils # (Auto) 0.0, Basophils (%) (Auto) 0, Blood Urea Nitrogen 15, Calcium Level 8.2L, Carbon Dioxide Level 25, Chloride Level 101, Creatinine 0.82, Eosinophils # (Auto) 0.2, Eosinophils (%) (Auto) 2, Estimat Glomerular Filtration Rate > 60, Glucose Level 162H, Hematocrit 34L, Hemoglobin 11.3L, Lymphocytes # (Auto) 1.4, Lymphocytes (%) (Auto) 14, Magnesium Level 1.7L, Mean Corpuscular Hemoglobin 32, Mean Corpuscular Hemoglobin Concent 34, Mean Corpuscular Volume 94, Mean Platelet Volume 10.5H, Monocytes # (Auto) 0.8, Monocytes (%) (Auto) 8, Neutrophils # (Auto) 7.7, Neutrophils (%) (Auto) 76H, Phosphorus Level 2.6, Platelet Count 148, Potassium Level 4.3, Red Blood Count 3.55L, Red Cell Distribution Width 13.3, Sodium Level 133L, Total Bilirubin 0.6 , Total Protein 5.5L, White Blood Count 10.1 Microbiology 11/01/16 Urine Culture - Preliminary, Resulted Assessment/Plan Assessment/Plan Assess & Plan/Chief Complaint PNEUMONIA RIB PAIN ON LEFT RIB FRACTURES ATRIAL FIBRILLATION DIABETES MELLITUS 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 ATRIAL FIBRILLATION - RESTARTED HOME MEDS DIABETES MELLITUS - RESTARTED HOME MEDS - ACCU CHECKS BID HX LUNG CANCER WITH NEW NODULE ON CT SCAN CHRONIC DIZZINESS - WILL START THERAPY AGREE WITH TRANSFER TO THE FLOOR - WILL NEED TO CONSIDER INPATIENT REHAB VERSUS LONG-TERM FOR SHORT STAY PT RESIDES AT HOME ALONE. Diagnosis/Problems: Clinical Quality Measures DVT/VTE Risk/Contraindication: Risk Factor Score Per Nursin RFS Level Per Nursing on Admit: 4+=Very High GUTIERREZ PHAM MD Nov 03, 2016 09:33
--- NOTE | 2016-11-03 10:17 | Physical Therapy Progress Note ---
Therapy Progress Note Patient is in bed and adamantly declined PT due to uncontrolled right side pain from rib fractures. Patient had been issued pain medication ~1hr prior to PT attempt. Patient states his pain is too intense to ambulate or exercise. Patient is on O2 and presents with a wet cough. PT educated patient on importance of mobility to prevent pneumonia and improve circulation, however, patient continued to decline PT. RN notified of patient c/o pain and PT refusal. 1 ref SAVAGE TREVINO PT Nov 03, 2016 10:17
--- NOTE | 2016-11-03 10:25 | Progress Note (SOAP) ---
Subjective Subjective/Events-last exam Pain from the fracture ribs continues. Review of Systems General: No Chills, No Night Sweats, No Fatigue, No Malaise HEENT: No Head Aches, No Eye Pain, No Ear Pain, No Dysphasia, No Sinus Congestion, No Post Nasal Drip, No Sore Throat Pulmonary: Dyspnea Cough Cardiovascular: No: Chest Pain, Edema, Lt Headedness, Orthopnea, Palpitations, Paroxysmal Noc. Dyspnea Gastrointestinal: No: Abdominal Pain, Constipation, Diarrhea, Hematochezia, Melena, Nausea, Vomiting Genitourinary: No Dysuria, No Frequency, No Incontinence, No Hematuria, No Retention Musculoskeletal: No: arm pain, back pain, foot pain, hand pain, leg pain, neck pain, other, shoulder pain Neurological: No: Change in speech, Confusion, Incoordination, Numbness, Other , Seizures, Weakness Objective Exam Vital Signs Date Time Temp Pulse Resp B/P Pulse Ox O2 Delivery O2 Flow Rate FiO2 11/03/16 09:26 98.4 11/03/16 08:15 98.4 86 20 164/72 94 Nasal Cannula 2.00 11/03/16 07:15 98.8 11/03/16 06:25 93 2.00 11/03/16 04:00 98.8 91 22 100/53 92 Nasal Cannula 2.00 11/03/16 00:10 97.4 99 20 122/62 92 Nasal Cannula 2.00 11/02/16 22:24 1.00 11/02/16 20:05 1.50 11/02/16 20:00 97.5 106 18 91/53 91 Nasal Cannula 2.00 11/02/16 16:39 97.3 77 18 101/58 92 Nasal Cannula 1.50 11/02/16 14:30 1.50 11/02/16 12:00 98.6 Nasal Cannula 1.50 11/02/16 12:00 95 1.50 I & O 11/03/16 07:00 Intake Total 4460 ml Output Total 1300 ml Balance 3160 ml Capillary Refill : Less Than 3 Seconds General Appearance: Mild Distress Neck: Normal Inspection Respiratory: Decreased Breath Sounds Cardiovascular: Regular Rate, Rhythm Gastrointestinal: non tender soft Extremity: Normal Inspection Results Lab Laboratory Tests 11/03/16 04:15: Alanine Aminotransferase (ALT/SGPT) 14, Albumin 3.1L, Alkaline Phosphatase 62, Anion Gap 7, Aspartate Amino Transf (AST/SGOT) 16, BUN/Creatinine Ratio 18, Basophils # (Auto) 0.0, Basophils (%) (Auto) 0, Blood Urea Nitrogen 15, Calcium Level 8.2L, Carbon Dioxide Level 25, Chloride Level 101, Creatinine 0.82, Eosinophils # (Auto) 0.2, Eosinophils (%) (Auto) 2, Estimat Glomerular Filtration Rate > 60, Glucose Level 162H, Hematocrit 34L, Hemoglobin 11.3L, Lymphocytes # (Auto) 1.4, Lymphocytes (%) (Auto) 14, Magnesium Level 1.7L, Mean Corpuscular Hemoglobin 32, Mean Corpuscular Hemoglobin Concent 34, Mean Corpuscular Volume 94, Mean Platelet Volume 10.5H, Monocytes # (Auto) 0.8, Monocytes (%) (Auto) 8, Neutrophils # (Auto) 7.7, Neutrophils (%) (Auto) 76H, Phosphorus Level 2.6, Platelet Count 148, Potassium Level 4.3, Red Blood Count 3.55L, Red Cell Distribution Width 13.3, Sodium Level 133L, Total Bilirubin 0.6 , Total Protein 5.5L, White Blood Count 10.1 Microbiology 11/01/16 Urine Culture - Preliminary, Resulted Assessment/Plan Assessment/Plan Assess & Plan/Chief Complaint Gentleman with fractured ribs on the left side. Previous lung carcinoma and recent pneumonia. Continue pain management. Physical therapy in progress. Diagnosis/Problems: Final Diagnosis Fracture of ribs on the left side Clinical Quality Measures DVT/VTE Risk/Contraindication: Risk Factor Score Per Nursin RFS Level Per Nursing on Admit: 4+=Very High SINDY ALBARRAN MD Nov 03, 2016 10:25
--- NOTE | 2016-11-03 11:50 | Physical Therapy Daily Note ---
PT Daily Note-Current Subjective Agrees to PT after much encouragement and after administration of pain meds. Reports moving hurts, hurting causing coughing and coughing causes more pain. Verbalized understanding of need to get out of bed but it is painful. Pain Numeric Pain Scale: 8 Location: Left Location Body Site: Side Pain Description: Stabbing Comment: specifically with movement Mental Status Patient Orientation: Person, Place, Time, Situation Transfers Functional [place] Measure 0=Not Assessed/NA 4=Minimal Assistance 1=Total Assistance 5=Supervision or Setup 2=Maximal Assistance 6=Modified [place] 3=Moderate Assistance 7=Complete IndependenceIRFPAI Quality Coding Scale 6 Independent with activity with or without an assistive device 5 Patient requires set up or clean up by helper. Patient completes activity by themselves 4 Supervision or touching assist (CGA). [place] provide cues , steadying assist 3 The helper provides less than half the effort to complete the activity 2 The helper provides more than half the effort to complete the activity 1 Dependent. The helper does all the effort to complete an activity 7 Patient refused to complete or attempt activity 9 The patient did not perform the activity before the current illness or injury 88 Not attempted due to Medical conditions or safety concerns Transfers (B, C, W/C) (FIM): 4 (CGA) Rollin Supine to/from Sit: 4 (steadying assist) Sit to/from Stand: 4 (CGA) CGA for safety and to steady his balance. Gait Training Gait (FIM): 4 Distance: 220 ft Gait Level of Assist: 4 (CGA for safety and balance) Gait Assistive Device: FWW wide DAVE; no noted LOB Treatments Spend much time educating on importance of getting out of bed to reduce the risk of pneumonia as well as optimal skin health. initially assisted with scooting up in bed and then finally convinced him to get up and sit in the chair. IV pain meds given by nursing and then pt agreeable. Pt in chair post treatment with needs met and oxygen in situ. Pt to request oral pain meds in approx 30 min and then return to bed when ready. Assessment Current Status: Good Progress Pain is significant limiting factor and makes movement difficult. high risk for pneumonia due to decreased mobility and difficulty with coughing. PT Shore Working Supervisor Goals Residential Goals PT Residential Goals Time Frame: Nov 09, 2016 Transfers (B,C,W/C) (FIM): 5 Gait (FIM): 2 Gait distance (FIM): 5=697-40 ft Distance: 75' Gait Level of Assist: 5 Gait Assistive Device: FWW, Cane Single Point PT Plan Problem List Problem List: Activity Tolerance, Functional Strength Treatment/Plan Treatment Plan: Continue Plan of Care Treatment Plan: Education, Functional Activity Sherrell, Functional Strength, Gait , Safety, Therapeutic Exercise Treatment Duration: Nov 09, 2016 Visits Per Week: 5-6 Safety Risks/Education Patient Education: Disease Process, Safety Issues Teaching Recipient: Patient Teaching Methods: Discussion Response to Teaching: Verbalize Understanding Discharge Recommendations Plan Pre medicate before therapy services. Time/GCodes Time In: 1115 Time Out: 1200 Total Billed Treatment Time: 45 Total Billed Treatment vsiit FA 45 ERIC MARI PT Nov 03, 2016 11:50
[2016-11-03 12:00] VITALS: BP 130/61
[2016-11-03] MEDS: KETOROLAC 15 MG/ML VIAL IVP SCH ×3 (12:09→23:29)
[2016-11-03] MEDS: LEVOTHYROXINE 50 MCG (LEVOTHROID) TAB PO SCH (12:19)
[2016-11-03] MEDS ORDERED: fentaNYL INJECTION 100 MCG/2 ML AMP IV PRN (14:00)
[2016-11-03 20:00] VITALS: BP 110/53
[2016-11-03] MEDS: cefTRIAXone INJECTION 1,000 MG in NS (IVPB) 50 ML IV SCH (21:39)
[2016-11-03] MEDS: ATORVASTATIN 10 MG (LIPITOR) TABLET PO SCH (21:42)
[2016-11-03] MEDS: PANTOPRAZOLE 40 MG (PROTONIX) TAB PO SCH (21:42)
[2016-11-03] MEDS: LIDOCAINE PATCH REMOVAL TP SCH (21:48)
[2016-11-04] VITALS: BP 119/56
[2016-11-04 04:00] VITALS: BP 130/58
[2016-11-04] MEDS: CATHETER FLUSH 10 ML SYR IV SCH ×3 (06:00→21:34)
[2016-11-04] MEDS: MULTIVIT W/MINERALS TAB (THERAGRAN M) PO SCH (06:50)
[2016-11-04] MEDS: KETOROLAC 15 MG/ML VIAL IVP SCH ×3 (06:50→18:52)
[2016-11-04] MEDS: CYANOCOBALAMIN 500 MCG TAB (VITAMIN B-12) PO SCH (06:50)
[2016-11-04 07:05] LABS: BASOPHILS % (AUTO) 0 % (0-10); EOSINOPHILS # (AUTO) 0.2 10^3/uL (0.0-0.3); EOSINOPHILS % (AUTO) 3 % (0-10); LYMPHOCYTES # (AUTO) 1.2 X 10^3 (1.0-4.0); LYMPHOCYTES % (AUTO) 16 % (12-44); MEAN CORPUSCULAR HEMOGLOBIN 32 PG (25-34); MEAN CORPUSCULAR HGB CONC 34 G/DL (32-36); MEAN CORPUSCULAR VOLUME 94 FL (80-99); MEAN PLATELET VOLUME 10.9 FL (7.4-10.4); MONOCYTES # (AUTO) 0.6 X 10^3 (0.0-1.0); MONOCYTES % (AUTO) 7 % (0-12); NEUTROPHILS # (AUTO) 5.5 X 10^3 (1.8-7.8); NEUTROPHILS % (AUTO) 74 % (42-75); PLATELET COUNT 132 10^3/uL (130-400); RED BLOOD COUNT 3.25 10^6/uL (4.35-5.85); RED CELL DISTRIBUTION WIDTH 12.9 % (10.0-14.5); WHITE BLOOD COUNT 7.5 10^3/uL (4.3-11.0)
[2016-11-04 07:29] LABS: ALANINE AMINOTRANSFERASE 12 U/L (0-55); ALBUMIN 2.9 G/DL (3.2-4.5); ANION GAP 8 MMOL/L (5-14); ASPARTATE AMINO TRANSFERASE 16 U/L (5-34); BILIRUBIN,TOTAL 0.7 MG/DL (0.1-1.0); BLOOD UREA NITROGEN 18 MG/DL (7-18); BUN/CREATININE RATIO 21; CALCIUM 8.2 MG/DL (8.5-10.1); CARBON DIOXIDE 25 MMOL/L (21-32); CHLORIDE 102 MMOL/L (98-107); CREATININE SERUM 0.85 MG/DL (0.60-1.30); GFR ESTIMATED > 60; GLUCOSE 149 MG/DL (70-105); MAGNESIUM 1.5 MG/DL (1.8-2.4); PHOSPHORUS 2.7 MG/DL (2.3-4.7); SODIUM 135 MMOL/L (135-145); TOTAL PROTEIN 5.2 G/DL (6.4-8.2)
[2016-11-04 08:00] VITALS: BP 134/60
--- NOTE | 2016-11-04 09:27 | Physical Therapy Daily Note ---
PT Daily Note-Current Subjective Agrees to PT. Complains of constipation. notified. Pain Numeric Pain Scale: 6 Location: Left Location Body Site: Side Pain Description: Stabbing Comment: took pain meds approx 45 min before Mental Status Patient Orientation: Person, Place, Time, Situation Transfers Functional Clarence Measure 0=Not Assessed/NA 4=Minimal Assistance 1=Total Assistance 5=Supervision or Setup 2=Maximal Assistance 6=Modified [place] 3=Moderate Assistance 7=Complete IndependenceIRFPAI Quality Coding Scale 6 Independent with activity with or without an assistive device 5 Patient requires set up or clean up by helper. Patient completes activity by themselves 4 Supervision or touching assist (CGA). [place] provide cues , steadying assist 3 The helper provides less than half the effort to complete the activity 2 The helper provides more than half the effort to complete the activity 1 Dependent. The helper does all the effort to complete an activity 7 Patient refused to complete or attempt activity 9 The patient did not perform the activity before the current illness or injury 88 Not attempted due to Medical conditions or safety concerns Treatments Pt agreeable to get out of bed and walk. Pt is SBA with bed mobility and transfers. Pt able to ambulate x 300 ft with fWW with wide DAVE with SBA. Pt able to manage turns and narrow path at foot of bed with FWW with sBA. Pt up in chair post treatment with needs met. Assessment Current Status: Good Progress Seems to feel a bit better this morning but notes the pain meds help. PT Intermediate Goals Intermediate Goals PT Intermediate Goals Time Frame: Nov 09, 2016 Transfers (B,C,W/C) (FIM): 5 Gait (FIM): 2 Gait distance (FIM): 7=349-48 ft Distance: 75' Gait Level of Assist: 5 Gait Assistive Device: FWW, Cane Single Point PT Plan Problem List Problem List: Activity Tolerance, Functional Strength Treatment/Plan Treatment Plan: Continue Plan of Care Treatment Plan: Education, Functional Activity Sherrell, Functional Strength, Gait , Safety, Therapeutic Exercise Treatment Duration: Nov 09, 2016 Visits Per Week: 5-6 Safety Risks/Education Patient Education: Safety Issues Teaching Recipient: Patient Teaching Methods: Discussion Response to Teaching: Reinforcement Needed Time/GCodes Time In: 858 Time Out: 924 Total Billed Treatment Time: 26 Total Billed Treatment visit GT 26 ERIC MARI PT Nov 04, 2016 09:27
[2016-11-04] MEDS: FOLIC ACID 1 MG TAB PO SCH (09:28)
[2016-11-04] MEDS: DOCUSATE SODIUM 100 MG (COLACE) CAP PO SCH (09:28)
[2016-11-04] MEDS: AZITHROMYCIN 250 MG TAB (ZITHROMAX) PO SCH (09:28)
[2016-11-04] MEDS: SOTALOL 80 MG (BETAPACE) TAB PO SCH ×2 (09:28→21:33)
[2016-11-04] MEDS: LACTOBACILLUS Acidoph/Bulgar (LACTINEX/FLORANEX) TAB PO SCH (09:28)
[2016-11-04] MEDS: LEVETIRACETAM 500 MG (KEPPRA) TAB PO SCH ×2 (09:28→21:34)
[2016-11-04] MEDS: metFORMIN 500 MG (GLUCOPHAGE) TAB PO SCH ×2 (09:28→21:34)
[2016-11-04] MEDS: D5 1/2 NS 1000 ML IV SOLUTION 1,000 ML IV SCH ×2 (09:29→20:02)
[2016-11-04] MEDS: LIDOCAINE (LIDODERM) 5% PATCH TOP SCH (09:31)
[2016-11-04] MEDS: HYDROCORTISONE 2.5% CREAM (ANUSOL-HC) 30 GM TOP SCH ×2 (09:34→21:34)
[2016-11-04] MEDS ORDERED: MINERAL OIL ENEMA 133 ML BTL PR PRN ×2 (10:30→17:15)
--- NOTE | 2016-11-04 10:33 | Progress Note (SOAP) ---
Objective Exam Vital Signs Date Time Temp Pulse Resp B/P Pulse Ox O2 Delivery O2 Flow Rate FiO2 11/04/16 09:27 94 11/04/16 09:27 94 2.00 11/04/16 04:00 97.6 72 20 130/58 96 Room Air 11/04/16 00:00 98.7 89 20 119/56 92 Room Air 11/03/16 23:01 2.00 11/03/16 20:00 1.50 11/03/16 20:00 98.6 78 18 110/53 95 Nasal Cannula 2.00 11/03/16 12:10 98.4 11/03/16 12:09 98.4 11/03/16 12:00 98.7 92 20 130/61 94 Nasal Cannula 2.00 I & O 11/04/16 07:00 Intake Total 3700 ml Output Total 1025 ml Balance 2675 ml Capillary Refill : Less Than 3 Seconds General Appearance: WD/WN Mild Distress Neck: Full Range of Motion Supple Respiratory: Chest Non Tender Lungs Clear Normal Breath Sounds Cardiovascular: Regular Rate, Rhythm Gastrointestinal: distended tenderness Extremity: Normal Capillary Refill No Pedal Edema Neurologic/Psychiatric: Alert Oriented x3 No Motor/Sensory Deficits Normal Mood/Affect Skin: Warm/Dry Lymphatic: No Adenopathy Results Lab Laboratory Tests 11/04/16 06:30: Alanine Aminotransferase (ALT/SGPT) 12, Albumin 2.9L, Alkaline Phosphatase 68, Anion Gap 8, Aspartate Amino Transf (AST/SGOT) 16, BUN/Creatinine Ratio 21, Basophils # (Auto) 0.0, Basophils (%) (Auto) 0, Blood Urea Nitrogen 18, Calcium Level 8.2L, Carbon Dioxide Level 25, Chloride Level 102, Creatinine 0.85, Eosinophils # (Auto) 0.2, Eosinophils (%) (Auto) 3, Estimat Glomerular Filtration Rate > 60, Glucose Level 149H, Hematocrit 31L, Hemoglobin 10.3L, Lymphocytes # (Auto) 1.2, Lymphocytes (%) (Auto) 16, Magnesium Level 1.5L, Mean Corpuscular Hemoglobin 32, Mean Corpuscular Hemoglobin Concent 34, Mean Corpuscular Volume 94, Mean Platelet Volume 10.9H, Monocytes # (Auto) 0.6, Monocytes (%) (Auto) 7, Neutrophils # (Auto) 5.5, Neutrophils (%) (Auto) 74, Phosphorus Level 2.7, Platelet Count 132, Potassium Level 4.0, Red Blood Count 3.25L, Red Cell Distribution Width 12.9, Sodium Level 135, Total Bilirubin 0.7, Total Protein 5.2L, White Blood Count 7.5 Microbiology 11/01/16 MRSA Screen - Final, Complete 11/01/16 Urine Culture - Final, Complete Yeast Species Assessment/Plan Assessment/Plan Assess & Plan/Chief Complaint PNEUMONIA RIB PAIN ON LEFT RIB FRACTURES ATRIAL FIBRILLATION DIABETES MELLITUS 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 Diagnosis/Problems: Clinical Quality Measures DVT/VTE Risk/Contraindication: Risk Factor Score Per Nursin RFS Level Per Nursing on Admit: 4+=Very High GUTIERREZ PHAM MD Nov 04, 2016 10:33
[2016-11-04] MEDS ORDERED: SENNA W/DOCUSATE (SENOKOT S) TABLET PO NR (10:40)
[2016-11-04] MEDS ORDERED: BISACODYL 10 MG SUPP (DULCOLAX) PR NR (10:41)
[2016-11-04] MEDS ORDERED: LEVOTHYROXINE 25 MCG (LEVOTHROID) TAB PO SCH (11:15)
[2016-11-04 12:00] VITALS: BP 149/70
[2016-11-04] MEDS: HYDROcodone/APAP 5 MG/325 MG (LORTAB) TAB PO PRN ×2 (12:19→18:53)
--- NOTE | 2016-11-04 15:12 | Progress Note-Standard ---
Standard Progress Note Progress Notes/Assess & Plan Progress/Assessment & Plan 11/04/16:pain control better. Reasonable to transfer care to Dr. Lerma, who was admitted to take O Final Diagnosis fractured ribs. Carcinoma lung. SINDY ALBARRAN MD Nov 04, 2016 3:12 pm
[2016-11-04 16:00] VITALS: BP 136/65
[2016-11-04] MEDS: SCOPOLAMINE 1.5 MG (TRANSDERM-SCOP) PATCH TOP SCH (21:31)
[2016-11-04] MEDS: cefTRIAXone INJECTION 1,000 MG in NS (IVPB) 50 ML IV SCH (21:32)
[2016-11-04] MEDS: ATORVASTATIN 10 MG (LIPITOR) TABLET PO SCH (21:33)
[2016-11-04] MEDS: SENNA W/DOCUSATE (SENOKOT S) TABLET PO SCH (21:33)
[2016-11-04] MEDS: PANTOPRAZOLE 40 MG (PROTONIX) TAB PO SCH (21:34)
[2016-11-04] MEDS: LIDOCAINE PATCH REMOVAL TP SCH (21:34)
[2016-11-05] VITALS: BP 115/58
[2016-11-05] MEDS: KETOROLAC 15 MG/ML VIAL IVP SCH ×3 (00:21→12:56)
[2016-11-05] MEDS: HYDROcodone/APAP 5 MG/325 MG (LORTAB) TAB PO PRN ×2 (00:21→04:17)
[2016-11-05] MEDS: D5 1/2 NS 1000 ML IV SOLUTION 1,000 ML IV SCH (06:12)
[2016-11-05] MEDS: MULTIVIT W/MINERALS TAB (THERAGRAN M) PO SCH (06:13)
[2016-11-05] MEDS: CYANOCOBALAMIN 500 MCG TAB (VITAMIN B-12) PO SCH (06:13)
[2016-11-05] MEDS: CATHETER FLUSH 10 ML SYR IV SCH (06:13)
[2016-11-05 06:35] LABS: BASOPHILS % (AUTO) 0 % (0-10); EOSINOPHILS # (AUTO) 0.3 10^3/uL (0.0-0.3); EOSINOPHILS % (AUTO) 4 % (0-10); LYMPHOCYTES # (AUTO) 1.2 X 10^3 (1.0-4.0); LYMPHOCYTES % (AUTO) 17 % (12-44); MEAN CORPUSCULAR HEMOGLOBIN 32 PG (25-34); MEAN CORPUSCULAR HGB CONC 34 G/DL (32-36); MEAN CORPUSCULAR VOLUME 94 FL (80-99); MEAN PLATELET VOLUME 10.7 FL (7.4-10.4); MONOCYTES # (AUTO) 0.6 X 10^3 (0.0-1.0); MONOCYTES % (AUTO) 9 % (0-12); NEUTROPHILS # (AUTO) 4.8 X 10^3 (1.8-7.8); NEUTROPHILS % (AUTO) 70 % (42-75); PLATELET COUNT 138 10^3/uL (130-400); RED BLOOD COUNT 3.25 10^6/uL (4.35-5.85); RED CELL DISTRIBUTION WIDTH 12.9 % (10.0-14.5); WHITE BLOOD COUNT 6.8 10^3/uL (4.3-11.0)
[2016-11-05 07:07] LABS: ALANINE AMINOTRANSFERASE 14 U/L (0-55); ALBUMIN 2.7 G/DL (3.2-4.5); ANION GAP 7 MMOL/L (5-14); ASPARTATE AMINO TRANSFERASE 24 U/L (5-34); BILIRUBIN,TOTAL 0.7 MG/DL (0.1-1.0); BLOOD UREA NITROGEN 14 MG/DL (7-18); BUN/CREATININE RATIO 18; CALCIUM 7.9 MG/DL (8.5-10.1); CARBON DIOXIDE 24 MMOL/L (21-32); CHLORIDE 104 MMOL/L (98-107); CREATININE SERUM 0.76 MG/DL (0.60-1.30); GFR ESTIMATED > 60; GLUCOSE 125 MG/DL (70-105); MAGNESIUM 1.5 MG/DL (1.8-2.4); PHOSPHORUS 2.6 MG/DL (2.3-4.7); POTASSIUM 4.3 MMOL/L (3.6-5.0); SODIUM 135 MMOL/L (135-145); TOTAL PROTEIN 5.1 G/DL (6.4-8.2)
[2016-11-05 08:00] VITALS: BP 99/52
--- NOTE | 2016-11-05 08:29 | Discharge Summary ---
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 NELA HAS RECENTLY BEEN DEALING WITH PNEUMONIA, HAS BEEN HAVING INCREASED TROUBLE WITH DYSPNEA, AND WAS WALKING INTO HIS GARAGE, TURNING AROUND, LOST HIS BALANCE AND FELL INTO A GENERATOR AND GAS CAN IMMEDIATELY FEELING PAIN IN HIS RIBS. HE STATES THAT HE IS STILL HAVING QUITE A BIT OF PAIN, TROUBLE WITH DEEP INSPIRATION. 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 Pending Labs Discharge Condition at discharge NEEDS THERAPY Instructions to patient/family Please see electonic discharge instructions given to patient. Discharge Medications Reviewed and agree with Discharge Medication list on patient's Discharge Instruction sheet Clinical Quality Measures DVT/VTE Risk/Contraindication: Risk Factor Score Per Nursin RFS Level Per Nursing on Admit: 4+=Very High GUTIERREZ PHAM MD Nov 05, 2016 08:29
[2016-11-05] MEDS ORDERED: AZIT250T5 PO (08:36)
[2016-11-05] MEDS ORDERED: LIDOCAINE 4% TOP (08:36)
[2016-11-05] MEDS ORDERED: HYDR-3812 PO (08:36)
[2016-11-05] MEDS ORDERED: SENN-20 PO (08:36)
[2016-11-05] MEDS ORDERED: IBUP-1773 PO (08:36)
[2016-11-05] MEDS ORDERED: lidocain (08:36)
--- NOTE | 2016-11-05 08:38 | Discharge Inst-Skilled Nursing ---
Discharge Inst-Skilled NF Patient Instructions Patient Problems: rib fracture status post fall pneumonia weakness gait instability - chronic hx lung cancer atrial fibrillation diabetes mellitus Consult/Follow Up/Orders Follow Up Appt.: 1 week with suni Persaud NF Admit to: [facility] ([facility]) I certify that SNF services are required to be given on an inpatient basis because of the above named patient's need for retirement care on a continuing basis for the conditions(s) for which he/she was receiving inpatient hospital services prior to his/her transfer to the SNF. Care Home Facility Order: Nursing Services, Hand Surgeon-Evaluate & Treat, Physical Therapy-Evaluate & Treat Discharge Diet: Regular Diet Daily Activity as Tolerated: Yes New & Resume Previous Orders Gutierrez Lerma Nov 05, 2016 08:37 Medication List: Active Scripts Active Ibuprofen 600 Mg Tablet 600 Mg PO Q6H Senna-Time S Tablet (Sennosides/Docusate Sodium) 1 Each Tablet 1 Ea PO BID [lidocaine4% patch] 2 Patch TOP DAILY salanpas OTC lidocaine4% patch; apply to skin in morning over site of rib fx (pt to direct placement) off at bedtime Hydrocodon -Acetaminophen 5-325 (Hydrocodone/Acetaminophen) 1 Each Tablet 1-2 Tab PO Q4H PRN Azithromycin 250 Mg Tablet 250 Mg PO DAILY Reported Docusate Sodium 100 Mg Capsule 100 Mg PO DAILY Cefdinir 300 Mg Capsule 300 Mg PO BID FILLED 10/26/16 #10 FOR A 5 DAY THERAPY Levothyroxine Sodium 50 Mcg Tablet 50 Mcg PO MOTUTHFRSA Metformin HCl 500 Mg Tablet 500 Mg PO BID Atorvastatin Calcium 10 Mg Tablet 10 Mg PO HS Pantoprazole Sodium 40 Mg Tablet.dr 40 Mg PO HS Levetiracetam 500 Mg Tablet 250 Mg PO BID Sotalol (Sotalol HCl) 80 Mg Tablet 40 Mg PO BID Hydrocortisone Valerate 15 Gm Cream..g. TP DAILY USES DAILY BEHIND EARS Preservision Areds 2 Softgel (Vit C/E/Zn/Coppr/Lutein/Zeaxan) 1 Each Capsule 1 Cap PO BID Calcipotriene-Betameth Dp Oint (Calcipotriene/Betamethasone) 60 Gm Oint...g. TP DAILY PRN Levothyroxine 50 Mcg Tab (Levothyroxine Sodium) 50 Mcg Tablet 25 Mcg PO SUWE TAKES 1/2 OF A (50 MCG) TABLET Nitrostat (Nitroglycerin) 0.4 Mg Tab 0 SL UD PRN 1 TABLET EVERY 5 MINUTES X 3 DOSES NEEDED FOR CHEST PAIN Vitamin B-12 (Cyanocobalamin) 1,000 Mcg Tablet 1,000 Mcg PO DAILY Foltanx Tablet (Methyl-B12/L-Mefolate/B6 Phos) 1 Each Tablet 1 Tab PO DAILY Folic Acid 0.8 Mg Tablet 0.8 Mg PO DAILY Probiotic (Lactobacillus Acidophilus) 1 Each Capsule 1 Cap PO DAILY Lab results: Laboratory Tests Test 11/04/16 21:02 11/05/16 06:07 Range/Units Glucometer 162 H 70-110 MG/DL Alanine Aminotransferase (ALT/SGPT) 14 0-55 U/L Albumin 2.7 L 3.2-4.5 G/DL Alkaline Phosphatase 61 40-136 U/L Anion Gap 7 5-14 MMOL/L Aspartate Amino Transf (AST/SGOT) 24 5-34 U/L BUN/Creatinine Ratio 18 Basophils # (Auto) 0.0 0.0-0.1 10^3/uL Basophils (%) (Auto) 0 0-10 % Blood Urea Nitrogen 14 7-18 MG/DL Calcium Level 7.9 L 8.5-10.1 MG/DL Carbon Dioxide Level 24 21-32 MMOL/L Chloride Level 104 98-107 MMOL/L Creatinine 0.76 0.60-1.30 MG/DL Eosinophils # (Auto) 0.3 0.0-0.3 10^3/uL Eosinophils (%) (Auto) 4 0-10 % Estimat Glomerular Filtration Rate > 60 Glucose Level 125 H 70-105 MG/DL Hematocrit 31 L 40-54 % Hemoglobin 10.4 L 13.3-17.7 G/DL Lymphocytes # (Auto) 1.2 1.0-4.0 X 10^3 Lymphocytes (%) (Auto) 17 12-44 % Magnesium Level 1.5 L 1.8-2.4 MG/DL Mean Corpuscular Hemoglobin 32 25-34 PG Mean Corpuscular Hemoglobin Concent 34 32-36 G/DL Mean Corpuscular Volume 94 80-99 FL Mean Platelet Volume 10.7 H 7.4-10.4 FL Monocytes # (Auto) 0.6 0.0-1.0 X 10^3 Monocytes (%) (Auto) 9 0-12 % Neutrophils # (Auto) 4.8 1.8-7.8 X 10^3 Neutrophils (%) (Auto) 70 42-75 % Phosphorus Level 2.6 2.3-4.7 MG/DL Platelet Count 138 130-400 10^3/uL Potassium Level 4.3 3.6-5.0 MMOL/L Red Blood Count 3.25 L 4.35-5.85 10^6/uL Red Cell Distribution Width 12.9 10.0-14.5 % Sodium Level 135 135-145 MMOL/L Total Bilirubin 0.7 0.1-1.0 MG/DL Total Protein 5.1 L 6.4-8.2 G/DL White Blood Count 6.8 4.3-11.0 10^3/uL My orders: Orders-GUTIERREZ LERMA MD Senna S Tablet (Senokot S Tablet) (11/04/16 10:40) Senna S Tablet (Senokot S Tablet) (11/04/16 21:00) Bisacodyl Suppository (Dulcolax Supposit (11/04/16 10:41) Mineral Oil Enema (Fleet Oil Enema) (11/04/16 10:30) Patient Visit (11/04/16 ) Gait Training, Ea 15 Min (11/04/16 ) Mineral Oil Enema (Fleet Oil Enema) (11/04/16 17:15) Attending Discharge (11/05/16 08:36) GUTIERREZ LERMA MD Nov 05, 2016 08:38
[2016-11-05] MEDS: DOCUSATE SODIUM 100 MG (COLACE) CAP PO SCH (09:00)
[2016-11-05] MEDS: LACTOBACILLUS Acidoph/Bulgar (LACTINEX/FLORANEX) TAB PO SCH (09:04)
[2016-11-05] MEDS: metFORMIN 500 MG (GLUCOPHAGE) TAB PO SCH (09:04)
[2016-11-05] MEDS: SENNA W/DOCUSATE (SENOKOT S) TABLET PO SCH (09:04)
[2016-11-05] MEDS: SOTALOL 80 MG (BETAPACE) TAB PO SCH (09:04)
[2016-11-05] MEDS: LEVETIRACETAM 500 MG (KEPPRA) TAB PO SCH (09:05)
[2016-11-05] MEDS: FOLIC ACID 1 MG TAB PO SCH (09:05)
[2016-11-05] MEDS: AZITHROMYCIN 250 MG TAB (ZITHROMAX) PO SCH (09:05)
[2016-11-05] MEDS: HYDROCORTISONE 2.5% CREAM (ANUSOL-HC) 30 GM TOP SCH (09:06)
[2016-11-05] MEDS: LIDOCAINE (LIDODERM) 5% PATCH TOP SCH (09:06)
[2016-11-05] MEDS: LEVOTHYROXINE 50 MCG (LEVOTHROID) TAB PO SCH (12:55)
[2016-11-05 13:43] VITALS: BP 99/52
[2016-11-17] MEDS ORDERED: LUTE20CA13 PO (14:29)
[2016-11-17] MEDS ORDERED: HYDR-3820 PO (14:29)
[2016-11-17] MEDS ORDERED: HYDR-3812 PO (14:29)
[2016-11-17] MEDS ORDERED: IPRA3AMP IH ×2 (14:29)
[2016-11-17] MEDS ORDERED: SENN-1 PO (14:29)
[2016-11-17] MEDS ORDERED: MAGN400O7 PO (14:29)
[2016-11-17] MEDS ORDERED: LIDO700A6 TP (14:29)
[2016-11-17] MEDS ORDERED: IBUP-1773 PO (14:29)
[2016-12-11] MEDS ORDERED: DILT180C84 PO (09:24)
[2016-12-11] MEDS ORDERED: ACID1TAB PO (09:24)
[2016-12-11] MEDS ORDERED: AMOX-358 PO (09:24)
[2016-12-11] MEDS ORDERED: GUAI600T43 PO (09:24)
[2016-12-11] MEDS ORDERED: NYST1000 PO (09:24)
[2016-12-11] MEDS ORDERED: HYDR-3820 PO (09:24)
[2016-12-11] MEDS ORDERED: Sotalol Hcl PO (09:24)
== END 2016-11-05 13:43 | DRG 183 ==
LOC: EDUNIT# 16:31 → ER 16:32 → ICU 19:55 → 4TH 11-02 13:53
PROVIDERS: ADMIT Surgery; ATTEND Family Medicine
DX: S22.42XA Multiple fractures of ribs, left side, initial encounter for closed fracture (principal); J44.0 Chronic obstructive pulmonary disease with (acute) lower respiratory infection; J18.9 Pneumonia, unspecified organism; I48.91 Unspecified atrial fibrillation; E11.9 Type 2 diabetes mellitus without complications; R11.2 Nausea with vomiting, unspecified; R91.1 Solitary pulmonary nodule; I25.10 Atherosclerotic heart disease of native coronary artery without angina pectoris; I10 Essential (primary) hypertension; F41.9 Anxiety disorder, unspecified; R42 Dizziness and giddiness; L40.9 Psoriasis, unspecified; Z85.118 Personal history of other malignant neoplasm of bronchus and lung; Z87.820 Personal history of traumatic brain injury; Z79.84 Long term (current) use of oral hypoglycemic drugs; Z87.891 Personal history of nicotine dependence; Z85.46 Personal history of malignant neoplasm of prostate; Z85.51 Personal history of malignant neoplasm of bladder; Z95.5 Presence of coronary angioplasty implant and graft; W01.111A Fall on same level from slipping, tripping and stumbling with subsequent striking against power tool or machine, initial encounter; Y92.008 Other place in unspecified non-institutional (private) residence as the place of occurrence of the external cause; Y99.8 Other external cause status
CPT/HCPCS: 36415; 70450; 71010; 71260; 74177; 80053; 80162; 81000; 82150; 82962; 83690; 83735; 84100; 84484; 85007; 85025; 85027; 85610; 85730; 87081; 87088; 93005; 93041; 94760; 96374; 96375; 96376

== ENCOUNTER → 2016-11-13 | Day surgery (SDC) | payer MEDICARE, OTHER ==
[~2016-11-13] MED LIST changes: +ACID1TAB PO; +AMOX-358 PO; +AMOX1TAB12 PO; +ATOR10TA66 PO; +ATOR20TA66 PO; +AZIT250T5 PO; +CEFD300C3 PO; +DILT180C PO; +DILT180C84 PO; +DOCU100C37 PO; +GUAI600T43 PO; +GUAI600T59 PO; +HYDR-3812 PO; +HYDR-3820 PO; +IBUP-1773 PO; +IPRA3AMP IH; +LEVE250T5 PO; +LEVE500T6 PO; +LEVO1CAP11 PO; +LEVO50TA6 PO; +LIDO700A6 TP; +LIDOCAINE 4% TOP; +LUTE20CA13 PO; +MAGN400O7 PO; +METF500T4 PO; +NYST1000 PO; +PANT40TA3 PO; +SENN-1 PO; +SENN-20 PO; +SOTA80TA PO; +Sotalol Hcl PO; +lidocain
--- NOTE | 2016-11-13 11:26 | Progress Note-Standard ---
Standard Progress Note Progress Notes/Assess & Plan Progress/Assessment & Plan Anesthesia Note Pt here for intercostal nerve block due to rib fractures. According to the patient, he fell on Oct.29 and sustained 5 rib fractures on the left. He said in the last week his pain has continued to improve, and he recently went 30 hours without a hydrocodone. I explained the intercostal nerve block procedure to the patient and he said he wanted no part of an injection, and that his pain has been improving. He has been constipated and all he wants is a "washout" per patient. He thought he was coming for an enema and does not wish to proceed with the intercostal nerve block at this time. I spoke with Paola at Dr. Lerma's office and explained the situation to her and she was aware and would try to get him an enema back at the long-term. Pt was aware and happy with that. We will arrange for transportation back to long-term and be available if needed in the future. IVANNA COREAS DO Nov 13, 2016 11:26
== END | disposition home or self-care (01) ==
LOC: SDC 10:25
PROVIDERS: ATTEND Anesthesiology
DX: S22.42XA Multiple fractures of ribs, left side, initial encounter for closed fracture (principal); W01.111A Fall on same level from slipping, tripping and stumbling with subsequent striking against power tool or machine, initial encounter; Y99.8 Other external cause status; Z53.20 Procedure and treatment not carried out because of patient's decision for unspecified reasons

== ENCOUNTER 2016-11-17 09:46 | Inpatient (IN) | payer MEDICARE, OTHER ==
[2016-11-17] VITALS (9 sets, daily range): BP systolic 91–129; BP diastolic 53–82
[~2016-11-17] VITALS: Ht 188 cm; Wt 78.5 kg
[~2016-11-17 09:46] MED LIST changes: -ACID1TAB PO; -AMOX-358 PO; -AMOX1TAB12 PO; -ATOR20TA66 PO; -DILT180C PO; -DILT180C84 PO; -GUAI600T43 PO; -GUAI600T59 PO; -HYDR-3820 PO; -IPRA3AMP IH; -LEVE250T5 PO; -LEVO1CAP11 PO; -LIDO700A6 TP; -LUTE20CA13 PO; -MAGN400O7 PO; -NYST1000 PO; -SENN-1 PO; -Sotalol Hcl PO
[2016-11-17] MEDS ORDERED: NS IV 1000 ML 1,000 ML IV ONE ×2 (10:19→11:00)
[2016-11-17 10:28] LABS: BASOPHILS % (AUTO) 0 % (0-10); EOSINOPHILS # (AUTO) 0.3 10^3/uL (0.0-0.3); EOSINOPHILS % (AUTO) 3 % (0-10); LYMPHOCYTES # (AUTO) 1.7 X 10^3 (1.0-4.0); LYMPHOCYTES % (AUTO) 19 % (12-44); MEAN CORPUSCULAR HEMOGLOBIN 32 PG (25-34); MEAN CORPUSCULAR HGB CONC 33 G/DL (32-36); MEAN CORPUSCULAR VOLUME 97 FL (80-99); MONOCYTES # (AUTO) 0.7 X 10^3 (0.0-1.0); MONOCYTES % (AUTO) 8 % (0-12); NEUTROPHILS # (AUTO) 6.2 X 10^3 (1.8-7.8); NEUTROPHILS % (AUTO) 69 % (42-75); PLATELET COUNT 334 10^3/uL (130-400); RED BLOOD COUNT 3.46 10^6/uL (4.35-5.85); RED CELL DISTRIBUTION WIDTH 14.5 % (10.0-14.5)
[2016-11-17] MEDS ORDERED: RT-ALBUTEROL/IPRATROPIUM 3 ML (DUONEB) VIAL ONE ×2 (10:29→12:54)
[2016-11-17] MEDS ORDERED: RT-ALBUTEROL/IPRATROPIUM 3 ML (DUONEB) VIAL INH ONE ×2 (10:30→13:00)
[2016-11-17] MEDS ORDERED: ASPIRIN 81 MG CHEW (CHILDREN'S ASA) PO ONE (10:30)
[2016-11-17] MEDS ORDERED: RX-NITROGLYCERIN 0.4 MG TAB BTL 25'S SL PRN (10:30)
[2016-11-17 10:31] LABS: PROTHROMBIN TIME PATIENT 13.2 SEC (12.2-14.7)
[2016-11-17 10:40] LABS: ALANINE AMINOTRANSFERASE 19 U/L (0-55); ALBUMIN 3.2 G/DL (3.2-4.5); AMYLASE 164 U/L (25-125); ANION GAP 11 MMOL/L (5-14); ASPARTATE AMINO TRANSFERASE 22 U/L (5-34); BILIRUBIN,TOTAL 0.7 MG/DL (0.1-1.0); BLOOD UREA NITROGEN 23 MG/DL (7-18); BUN/CREATININE RATIO 23; CALCIUM 8.7 MG/DL (8.5-10.1); CARBON DIOXIDE 27 MMOL/L (21-32); CHLORIDE 106 MMOL/L (98-107); CREATINE KINASE 40 U/L (30-200); CREATININE SERUM 0.98 MG/DL (0.60-1.30); GFR ESTIMATED > 60; GLUCOSE 231 MG/DL (70-105); LIPASE 22 U/L (8-78); MAGNESIUM 1.5 MG/DL (1.8-2.4); POTASSIUM 3.4 MMOL/L (3.6-5.0); SODIUM 144 MMOL/L (135-145); TOTAL PROTEIN 5.9 G/DL (6.4-8.2)
--- NOTE | 2016-11-17 10:40 | Diagnostic Imaging Report ---
INDICATION: Shortness of breath, irregular heart rate. EXAMINATION: Frontal chest obtained at 10:29 hrs am, and compared to 11/02/16. There is cardiomegaly. There is parenchymal scarring versus nodule in the right midlung similar to the prior study. There is worsening infiltrate in both lung bases compared to the prior study. There is no pneumothorax. There is some pleural fluid on the left side which has increased. Port-A-Cath is unchanged. IMPRESSION: Increasing bibasilar infiltrates compared to the previous study. Cardiomegaly is again noted. Increasing left pleural fluid. Stable scarring versus nodule in right midlung. Dictated by: Dictated on workstation # [id number]
[2016-11-17 11:00] LABS: TROPONIN I < 0.30 NG/ML (<0.30)
[2016-11-17] MEDS ORDERED: LEVOFLOXACIN 750 MG/150 ML IV 150 ML IV STA (11:10)
[2016-11-17] MEDS ORDERED: PIPERACILLIN/TAZOBACTAM 4.5 GM/NS 100 ML IV NR ×2 (14:00)
[2016-11-17] MEDS ORDERED: fentaNYL INJECTION 100 MCG/2 ML AMP IV PRN (14:15)
[2016-11-17] MEDS ORDERED: SENN-1 PO ×2 (14:29)
[2016-11-17] MEDS ORDERED: HYDR-3812 PO ×2 (14:29)
[2016-11-17] MEDS ORDERED: LIDO700A6 TP ×2 (14:29)
[2016-11-17] MEDS ORDERED: IPRA3AMP IH ×4 (14:29)
[2016-11-17] MEDS ORDERED: MAGN400O7 PO ×2 (14:29)
[2016-11-17] MEDS ORDERED: LUTE20CA13 PO ×2 (14:29)
[2016-11-17] MEDS ORDERED: HYDR-3820 PO ×2 (14:29)
[2016-11-17] MEDS ORDERED: IBUP-1773 PO ×2 (14:29)
[2016-11-17] MEDS ORDERED: CATHETER FLUSH 10 ML SYR IV PRN (14:30)
[2016-11-17] MEDS ORDERED: DILTIAZEM DRIP 100 MG in SODIUM CHLORIDE (ADD-VANTAGE) 100 ML IV SCH (14:30)
--- NOTE | 2016-11-17 15:21 | Consultation-Cardiology ---
HPI-Cardiology Cardiology Consultation: Date of Consultation 11/17/16 Date of Admission 11/17/16 Attending Physician Monisha Lerma MD Admitting Physician Monisha Lerma MD Consulting Physician ERIK DOWLING MD, FACP, FACC, FSCAI, CCDS HPI: Chief Complaint: Reason for consultation: Tachycardia 86 yo man who has been residing at a local [place] admitted to Dr Lerma with increasing malaise, shortness of breath and cough productive of yellowish sputum. Reports a feeling or palpitations consisting of a rapid irreg heart beat. Denies cp Review of Systems-Cardiology Review of Systems Constitutional: No malaise, No tiredness, No weight loss, No weight gain Eyes: No vision change Ears/Nose/Throat: No ear discharge, No nasal drainage, No recent hearing loss Respiratory: As described under HPI Cardiovascular: As described under HPI Gastrointestinal: No diarrhea, No nausea, No vomiting Genitourinary: No dysuria, No hematuria Musculoskeletal: back pain (Chronic back pain) other (Rib cage pain following a nonsyncopal fall leading to rib contusions/fractres recently, managed by pcp) Skin: No rash, No ulcerations Psychiatric/Neurological: No focal weakness, No seizure, No syncope Hematologic: No bleeding abnormalities KEY-[id number] Hx Patient Social History Alcohol Use: Denies Use Recreational Drug Use: No Smoking Status: Current Everyday Smoker Former smoker/When Quit: Sep 27, 1996 Type Used: Pipe 2nd Hand Smoke Exposure: No Recent Foreign Travel: No Recent Infectious Disease Expo: No Hospitalization with Isolation: Denies Immunizations Up To Date Tetanus Booster (TDap): More than 5yrs Date of Pneumonia Vaccine: Jul 17, 2012 Date of Influenza Vaccine: Aug 27, 2016 Past Medical History PMH As described under Assessment. Family Medical History Family History: Chest pain 03 FATHER, Onset:Unknown Myocardial infarction 03 FATHER, Onset:60 years & older Allergies and Home Medications Allergies Coded Allergies: No Known Drug Allergies (Verified , 12/14/14) Home Medications Atorvastatin Calcium 10 Mg Tablet 10 MG PO HS (Reported) Calcipotriene/Betamethasone 60 Gm Oint...g. TP DAILY PRN PRN PSORIASIS (Reported ) Cyanocobalamin 1,000 Mcg Tablet 1,000 MCG PO DAILY (Reported) Docusate Sodium 100 Mg Capsule 100 MG PO DAILY (Reported) Folic Acid 0.8 Mg Tablet 0.8 MG PO DAILY (Reported) Hydrocodone/Acetaminophen 1 Each Tablet 1 TAB PO Q4H PRN PRN PAIN (Reported) Hydrocodone/Acetaminophen 1 Each Tablet 1 TAB PO Q4H PRN PRN PAIN (Reported) Hydrocortisone Valerate 15 Gm Cream..g. TP DAILY (Reported) USES DAILY BEHIND EARS Ibuprofen 600 Mg Tablet 600 MG PO QID (Reported) Ipratropium/Albuterol Sulfate 3 Ml Ampul.neb 3 ML IH Q4H PRN PRN SHORTNESS OF BREATH (Reported) Ipratropium/Albuterol Sulfate 3 Ml Ampul.neb 3 ML IH TID (Reported) Lactobacillus Acidophilus 1 Each Capsule 1 CAP PO DAILY (Reported) Levetiracetam 500 Mg Tablet 250 MG PO BID (Reported) TAKES 1/2 (500MG) TABLET Levothyroxine Sodium 50 Mcg Tablet 25 MCG PO SuWe (Reported) TAKES 1/2 (50 MCG) TABLET Levothyroxine Sodium 50 Mcg Tablet 50 MCG PO MoTuThFrSa (Reported) Lidocaine 700 Mg Adh..patch TP DAILY (Reported) APPLY TO RIB FX SITE IN THE MORNING AND REMOVE AT BEDTIME Lutein 20 Mg Capsule 20 MG PO BID (Reported) Magnesium Hydroxide 400 Mg/5 Ml Oral.susp 30 ML PO DAILY PRN PRN CONSTIPATION ( Reported) Metformin HCl 500 Mg Tablet 500 MG PO BID (Reported) Methyl-B12/L-Mefolate/B6 Phos 1 Each Tablet 1 TAB PO DAILY (Reported) Nitroglycerin 0.4 Mg Tab 0.4 MG SL UD PRN PRN CHEST PAIN (Reported) 1 TABLET EVERY 5 MINUTES X 3 DOSES NEEDED FOR CHEST PAIN Pantoprazole Sodium 40 Mg Tablet.dr 40 MG PO HS (Reported) Sennosides/Docusate Sodium 1 Each Tablet 1 TAB PO BID (Reported) Sotalol HCl 80 Mg Tablet 40 MG PO BID (Reported) TAKES 1/2 (80MG) TABLET Physical Exam-Cardiology Physical Exam Vital Signs/I&O Vital Sign - Last 12Hours 11/17/16 11/17/16 11/17/16 11/17/16 09:55 09:58 10:34 12:58 Temp 98.6 Pulse 155 Resp 25 B/P 89/57 Pulse Ox 97 92 95 97 O2 Delivery Nasal Cannula Nasal Cannula O2 Flow Rate 2 2 2 11/17/16 13:25 Temp 98.6 Pulse 141 Resp 20 Pulse Ox 97 O2 Flow Rate 2 Capillary Refill : Less Than 3 Seconds Constitutional: AAO x 3 well-developed well-nourished HEENT: PERRL EOMINo hearing is well preserved, No xanthelasmas are seen Neck: No carotid bruit, carotid pulses are 2 + bilaterally with good upstrokes Respiratory: No accessory muscle use, other (good air entry, but diminished at bases with coarse basal crackles) Cardiovascular: irregularly irregular tachycardia S1 and S2 systolic murmur ( faint PABLO at cardiac base) Gastrointestinal: No tender, softNo guarding, No rebound, audible bowel sounds Extremities: No clubbing, No cyanosis, No significant edema Neurologic/Psychiatric: grossly intact power is 5/5 both on sides Skin: No rash on exposed areas, No ulcerations on exposed areas Data Review Labs Laboratory Tests 11/17/16 10:05: Activated Partial Thromboplast Time 29, Alanine Aminotransferase (ALT/SGPT) 19, Albumin 3.2, Alkaline Phosphatase 100, Amylase Level 164H, Anion Gap 11, Aspartate Amino Transf (AST/SGOT) 22, B-Type Natriuretic Peptide 681.0H, BUN/ Creatinine Ratio 23, Basophils # (Auto) 0.0, Basophils (%) (Auto) 0, Blood Urea Nitrogen 23H, Calcium Level 8.7, Carbon Dioxide Level 27, Chloride Level 106, Creatine Kinase MB 2.2, Creatinine 0.98, Eosinophils # (Auto) 0.3, Eosinophils ( %) (Auto) 3, Estimat Glomerular Filtration Rate > 60, Free Thyroxine 1.21, Glucose Level 231H, Hematocrit 34L, Hemoglobin 11.1L, INR Comment 1.0, Lactic Acid Level 1.7, Lipase 22, Lymphocytes # (Auto) 1.7, Lymphocytes (%) (Auto) 19, Magnesium Level 1.5L, Mean Corpuscular Hemoglobin 32, Mean Corpuscular Hemoglobin Concent 33, Mean Corpuscular Volume 97, Mean Platelet Volume 10.0, Monocytes # (Auto) 0.7, Monocytes (%) (Auto) 8, Neutrophils # (Auto) 6.2, Neutrophils (%) (Auto) 69, Platelet Count 334, Potassium Level 3.4L, Prothrombin Time 13.2, Red Blood Count 3.46L, Red Cell Distribution Width 14.5, Sodium Level 144, TSH Early Testing 5.06H, Total Bilirubin 0.7, Total Creatine Kinase 40, Total Protein 5.9L, Troponin I < 0.30, White Blood Count 9.0 Microbiology 11/17/16 Influenza Types A,B Antigen (HUY) - Final, Complete Laboratory Tests 11/17/16 10:05 A/P-Cardiology Assessment/Admission Diagnosis Atrial fibrillation with RVR. Has h/o PAF that is followed by Dr. Marsh at [facility] in [place], [place] Pneumonia with septicemia Hypokalemia R lung squamous cell CA diagnosed in 2014 that has been treated surgically in [place], according to the patient. Apparently a new lung nodule is being followed by pcp CAD with h/o stent placement to left Cx in August [address] Christensen in [place], [place] Echocardiogram from November [address] Guy showed LVEF 50-55%. mIld MR. Aortic valve sclerosis without evidence of stenosis H/o previous intracranial bleeding the details of which are unclear Propensity to falls (non-syncopal). A recent fall has led to rib contusions Discussion and Recomendations * Relatively complex management due to multiple comorbidities * iv dilt for vent rate control * Will provide stroke prophylaxis only with aspirin, given previous (albeit vague) history of ic bleeds and also given propensity to falls * Replenish K * Monitor labs * Management of pneumonia and lung CA and septicemia is with the Medical Service ERIK DOWLING MD FACP FAC CCDS Nov 17, 2016 15:21
[2016-11-17] MEDS: D5 1/2 NS 1000 ML IV SOLUTION 1,000 ML IV SCH ×2 (15:29→21:00)
[2016-11-17] MEDS ORDERED: KCL 20 MEQ TAB (K-DUR) PO NR (15:45)
[2016-11-17] MEDS ORDERED: ASPIRIN 81 MG CHEW (CHILDREN'S ASA) PO NR (15:45)
[2016-11-17] MEDS ORDERED: RT-ALBUTEROL SULF 2.5 MG/3 ML PRE-MIX VIAL INH PRN (16:15)
--- NOTE | 2016-11-17 17:55 | ED Respiratory ---
General Chief Complaint: Respiratory Problems Stated Complaint: BILATERAL PNEUMONIA SEPSIS RECENT RIB FXS Nursing Triage Note: [facility] WITH C/O SOA AND IRREGULAR HEART RATE. PT REPORTS HE BEGAN HAVING INCREASED SOA OVERNIGHT AND SNF STAFF PUT HIM ON 2L NC. PT REPORTS WHILE HE WAS EATING BREAKFAST THIS AM HE BECAME INCREASINGLY SOA. PT DOES NOT NORMALLY WEAR O2, BUT HAS RECENT HX OF RIB FX. Source: patient History of Present Illness Time seen by provider: 10:15 Initial Comments PT ARRIVES VIA POV FROM [facility] PT STATES SHE HAS BEEN SHORT OF BREATH SINCE 0800 THIS AM, WAS A LITTLE SHORT OF BREATH LAST NIGHT, THEN GOT MUCH WORSE AT 0800 TODAY HAS HAD IRREGULAR HEART RATE TODAY--PT WITH CHRONIC ATRIAL FIBRILLATION PT STATES HE HAS HAD A VERY WET COUGH SINCE SEPTEMBER--HAS BEEN RECENTLY TREATED FOR PNEUMONIA AND WAS GETTING BETTER, THEN FELL AND BROKE MULTIPLE LEFT RIBS. PT WAS SET UP TO HAVE EPIDURAL/NERVE BLOCK FOR RIB FRACTURES, THEN PT REFUSED. PT HAS NOT BEEN TAKING HIS PAIN MEDICATIONS BECAUSE OF CONSTIPATION THAT THEY CAUSE HAS BEEN SWEATY AND CLAMMY TODAY NO CHEST PAIN NO SWELLING IN LEGS/ FEET OR PAIN IN CALVES PT IS DNR/DNI PCP: DR. PHAM Allergies and Home Medications Allergies Coded Allergies: No Known Drug Allergies (Verified , 12/14/14) Home Medications Atorvastatin Calcium 10 Mg Tablet 10 MG PO HS (Reported) Calcipotriene/Betamethasone 60 Gm Oint...g. TP DAILY PRN PRN PSORIASIS (Reported ) Cyanocobalamin 1,000 Mcg Tablet 1,000 MCG PO DAILY (Reported) Docusate Sodium 100 Mg Capsule 100 MG PO DAILY (Reported) Folic Acid 0.8 Mg Tablet 0.8 MG PO DAILY (Reported) Hydrocodone/Acetaminophen 1 Each Tablet 1 TAB PO Q4H PRN PRN PAIN (Reported) Hydrocodone/Acetaminophen 1 Each Tablet 1 TAB PO Q4H PRN PRN PAIN (Reported) Hydrocortisone Valerate 15 Gm Cream..g. TP DAILY (Reported) USES DAILY BEHIND EARS Ibuprofen 600 Mg Tablet 600 MG PO QID (Reported) Ipratropium/Albuterol Sulfate 3 Ml Ampul.neb 3 ML IH Q4H PRN PRN SHORTNESS OF BREATH (Reported) Ipratropium/Albuterol Sulfate 3 Ml Ampul.neb 3 ML IH TID (Reported) Lactobacillus Acidophilus 1 Each Capsule 1 CAP PO DAILY (Reported) Levetiracetam 500 Mg Tablet 250 MG PO BID (Reported) TAKES 1/2 (500MG) TABLET Levothyroxine Sodium 50 Mcg Tablet 25 MCG PO SuWe (Reported) TAKES 1/2 (50 MCG) TABLET Levothyroxine Sodium 50 Mcg Tablet 50 MCG PO MoTuThFrSa (Reported) Lidocaine 700 Mg Adh..patch TP DAILY (Reported) APPLY TO RIB FX SITE IN THE MORNING AND REMOVE AT BEDTIME Lutein 20 Mg Capsule 20 MG PO BID (Reported) Magnesium Hydroxide 400 Mg/5 Ml Oral.susp 30 ML PO DAILY PRN PRN CONSTIPATION ( Reported) Metformin HCl 500 Mg Tablet 500 MG PO BID (Reported) Methyl-B12/L-Mefolate/B6 Phos 1 Each Tablet 1 TAB PO DAILY (Reported) Nitroglycerin 0.4 Mg Tab 0.4 MG SL UD PRN PRN CHEST PAIN (Reported) 1 TABLET EVERY 5 MINUTES X 3 DOSES NEEDED FOR CHEST PAIN Pantoprazole Sodium 40 Mg Tablet.dr 40 MG PO HS (Reported) Sennosides/Docusate Sodium 1 Each Tablet 1 TAB PO BID (Reported) Sotalol HCl 80 Mg Tablet 40 MG PO BID (Reported) TAKES 1/2 (80MG) TABLET Constitutional: weakness Respiratory: see HPI cough short of breath Cardiovascular: see HPI palpitations Gastrointestinal: no symptoms reportedNo abdominal pain, No nausea, No vomiting Genitourinary: no symptoms reported Musculoskeletal: see HPI Skin: other (ONGOING DECUBITUS ON SACRAL AREA. ) Psychiatric/Neurological: No Symptoms Reported Hematologic/Lymphatic: No Symptoms Reported Immunological/Allergic: no symptoms reported Past Apesksj-Kxfdxh-Vjohly Hx Patient Social History Alcohol Use: Denies Use Recreational Drug Use: No Smoking Status: Current Everyday Smoker Type Used: Pipe Former Smoker/When Quit: Sep 27, 1996 2nd Hand Smoke Exposure: No Recent Foreign Travel: No Contact w/Someone Who Travel: No Recent Infectious Disease Expo: No Recent Hopitalizations: No Physical Abuse Screen: No Sexual Abuse: No Immunizations Up To Date Tetanus Booster (TDap): More than 5yrs PED Vaccines UTD: No Date of Pneumonia Vaccine: Jul 17, 2012 Date of Influenza Vaccine: Aug 27, 2016 Seasonal Allergies Seasonal Allergies: No Surgeries HX Surgeries: Yes Surgeries: Cardiac, Coronary Stent, Neurological, Orthopedic, Transurethral Resection, Vasectomy Respiratory Hx Respiratory Disorders: Yes Respiratory Disorders: Pneumonia Cardiovascular Hx Cardiac Disorders: Yes (MITRAL REGURGITATION, STENTS X4) Cardiac Disorders: Atrial Fibrillation, Coronary Artery Disease, High Cholesterol, Hypertension Neurological Hx Neurological Disorders: Yes (SUBDURAL HEMATOMA WITH CRANIOTOMY AND EVACUATION OF HEMATOMA) Neurological Disorders: Seizure Disorder, Traumatic Brain Injury, Vertigo Reproductive System Hx Reproductive Disorders: No Sexually Transmitted Disease: No HIV/AIDS: No Genitourinary Hx Genitourinary Disorders: Yes (BLADDER/PROSTATE CANCER) Genitourinary Disorders: Prostate Problems Gastrointestinal Hx Gastrointestinal Disorders: Yes Gastrointestinal Disorders: Gastroesophageal Reflux, Chronic Constipation Musculoskeletal Hx Musculoskeletal Disorders: Yes (L1 COMPRESSION FRACTURE; MULTIPLE LEFT RIB FX'S 10/2016; GENERALIZED WEAKNESS) Musculoskeletal Disorders: Fractures Endocrine Hx Endocrine Disorders: Yes Endocrine Disorders: Hypothyroidsim, Diabetes, Non-Insulin dep HEENT HX ENT Disorders: Yes (MISSING TEETH) HEENT Disorders: Cataract Loss of Vision: Denies Hearing Impairment: Hard of Hearing Cancer Hx Cancer: Yes Cancer: Bladder, Prostate, Lung, Skin Psychosocial Hx Psychiatric Problems: Yes Behavioral Health Disorders: Anxiety Integumentary HX Skin/Integumentary Disorder: Yes (SKIN CANCER) Skin/Integumentary Disorders: Psoriasis Blood Transfusions Hx Blood Disorders: No Adverse Reaction to a Blood Tr: No Family Medical History Significant Family History: Heart Disease, Hypertension Family Medial History: Chest pain 03 FATHER, Onset:Unknown Myocardial infarction 03 FATHER, Onset:60 years & older Physical Exam Vital Signs Vital Sign - Last 12Hours 11/17/16 11/17/16 09:55 09:58 Temp 98.6 Pulse 155 Resp 25 B/P 89/57 Pulse Ox 97 O2 Delivery Nasal Cannula O2 Flow Rate 2 Capillary Refill : Less Than 3 SecondsLess Than 3 Seconds General Appearance: other (MILDLY LETHARGIC, MILDLY DYSPNEIC. PALE, CLAMMY) thin HEENT: PERRL/EOMI Neck: normal inspection Respiratory: decreased breath sounds (IN BASES BILATERALLY) rhonchi (DIFFUSE) other (MILDLY DYSPNEIC, LEFT CHEST WALL TENDERNESS OVER SITE OF RECENT RIB FRACTURES. ) Cardiovascular: no JVD tachycardia irregularly irregular Gastrointestinal: normal bowel sounds non tender soft no organomegaly Extremities: no pedal edema no calf tenderness normal capillary refill Neurologic/Psychiatric: no motor/sensory deficits alert oriented x 3 other ( MILDLY LETHARGIC) Skin: rash other (CLAMMY; REPORTED DECUBITUS ON SACRAL AREA) Progress/Results/Core Measures Results/Orders Lab Results Laboratory Tests Test 11/17/16 10:05 Range/Units Activated Partial Thromboplast Time 29 24-35 SEC Alanine Aminotransferase (ALT/SGPT) 19 0-55 U/L Albumin 3.2 3.2-4.5 G/DL Alkaline Phosphatase 100 40-136 U/L Amylase Level 164 H 25-125 U/L Anion Gap 11 5-14 MMOL/L Aspartate Amino Transf (AST/SGOT) 22 5-34 U/L B-Type Natriuretic Peptide 681.0 H <100.0 PG/ML BUN/Creatinine Ratio 23 Basophils # (Auto) 0.0 0.0-0.1 10^3/uL Basophils (%) (Auto) 0 0-10 % Blood Urea Nitrogen 23 H 7-18 MG/DL Calcium Level 8.7 8.5-10.1 MG/DL Carbon Dioxide Level 27 21-32 MMOL/L Chloride Level 106 98-107 MMOL/L Creatine Kinase MB 2.2 <6.6 NG/ML Creatinine 0.98 0.60-1.30 MG/DL Eosinophils # (Auto) 0.3 0.0-0.3 10^3/uL Eosinophils (%) (Auto) 3 0-10 % Estimat Glomerular Filtration Rate > 60 Free Thyroxine 1.21 0.70-1.48 NG/DL Glucose Level 231 H 70-105 MG/DL Hematocrit 34 L 40-54 % Hemoglobin 11.1 L 13.3-17.7 G/DL INR Comment 1.0 0.8-1.4 Lactic Acid Level 1.7 0.5-2.0 MMOL/L Lipase 22 8-78 U/L Lymphocytes # (Auto) 1.7 1.0-4.0 X 10^3 Lymphocytes (%) (Auto) 19 12-44 % Magnesium Level 1.5 L 1.8-2.4 MG/DL Mean Corpuscular Hemoglobin 32 25-34 PG Mean Corpuscular Hemoglobin Concent 33 32-36 G/DL Mean Corpuscular Volume 97 80-99 FL Mean Platelet Volume 10.0 7.4-10.4 FL Monocytes # (Auto) 0.7 0.0-1.0 X 10^3 Monocytes (%) (Auto) 8 0-12 % Neutrophils # (Auto) 6.2 1.8-7.8 X 10^3 Neutrophils (%) (Auto) 69 42-75 % Platelet Count 334 130-400 10^3/uL Potassium Level 3.4 L 3.6-5.0 MMOL/L Prothrombin Time 13.2 12.2-14.7 SEC Red Blood Count 3.46 L 4.35-5.85 10^6/uL Red Cell Distribution Width 14.5 10.0-14.5 % Sodium Level 144 135-145 MMOL/L TSH [place] Testing 5.06 H 0.35-4.94 UIU/ML Total Bilirubin 0.7 0.1-1.0 MG/DL Total Creatine Kinase 40 30-200 U/L Total Protein 5.9 L 6.4-8.2 G/DL Troponin I < 0.30 <0.30 NG/ML White Blood Count 9.0 4.3-11.0 10^3/uL Micro Results Microbiology 11/17/16 Influenza Types A,B Antigen (HUY) - Final, Complete My Orders Orders-ILDA SHAH DO Amylase (11/17/16 10:19) Cbc With Automated Diff (11/17/16 10:19) Comprehensive Metabolic Panel (11/17/16 10:19) Creatine Kinase (11/17/16 10:19) Creatine Kinase Mb (11/17/16 10:19) Lipase (11/17/16 10:19) Partial Thromboplastin Time (11/17/16 10:19) Protime With Inr (11/17/16 10:19) Troponin I (11/17/16 10:19) Chest 1 View, Ap/Pa Only (11/17/16 10:19) O2 (11/17/16 10:19) Ekg Tracing (11/17/16 10:19) Aspirin Chewable Tablet (Baby Aspirin Ch (11/17/16 10:30) Rx-Nitroglycerin Sl Tabs (Rx-Nitrostat S (11/17/16 10:30) BNP (11/17/16 10:19) Monitor-Rhythm Ecg Trace Only (11/17/16 10:19) Saline Lock/Iv-Start (11/17/16 10:19) Magnesium (11/17/16 10:19) Thyroid Analyzer (11/17/16 10:19) Saline Lock/Iv-Start (11/17/16 10:19) Ns Iv 1000 Ml (Sodium Chloride 0.9%) (11/17/16 10:19) Influenza A And B Antigens (11/17/16 10:28) Albuterol/Ipra Inhalation Soln (Duoneb I (11/17/16 10:30) Rt Request For Service (11/17/16 10:28) Svn Sm Volume Nebulizer Rt-Rfs (11/17/16 10:28) Albuterol/Ipra Inhalation Soln (Duoneb I (11/17/16 10:29) Free T4 (Free Thyroxine) (11/17/16 10:05) Lactic Acid Analyzer (11/17/16 11:00) Blood Culture (11/17/16 11:00) Saline Lock/Iv-Start (11/17/16 11:00) Ns Iv 1000 Ml (Sodium Chloride 0.9%) (11/17/16 11:00) Levofloxacin 750 Mg/150 Ml Iv (Levaquin (11/17/16 11:10) Medications Given in ED Current Medications Medications Dose Ordered Sig/Colt Route Start Time Stop Time Status Last Admin Dose Admin Albuterol/ Ipratropium 3 ml 3 ml STK-MED ONCE .ROUTE 11/17/16 10:29 11/17/16 10:32 DC 11/17/16 10:33 3 ML Sodium Chloride 1,000 ml @ 0 mls/hr Q0M ONCE IV 11/17/16 10:19 11/17/16 10:21 DC 11/17/16 10:26 0 MLS/HR Sodium Chloride 1,000 ml @ 0 mls/hr Q0M ONCE IV 11/17/16 11:00 11/17/16 11:04 DC 11/17/16 11:47 0 MLS/HR Vital Signs/I&O Vital Sign - Last 12Hours 11/17/16 11/17/16 11/17/16 09:55 09:58 10:34 Temp 98.6 Pulse 155 Resp 25 B/P 89/57 Pulse Ox 97 92 95 O2 Delivery Nasal Cannula Nasal Cannula O2 Flow Rate 2 2 Blood Pressure Mean: 72 Progress Note : Progress Note PT REPEATEDLY HAD DROPS IN BP INTO 70'S AND WAS GIVEN MULTIPLE FLUID BOLUSES. SYSTOLIC BP > 100 ON MULTIPLE READINGS PRIOR TO BEING TRANSFERRED TO FLOOR. HEART RATE DOWN O2 SATS REMAINED IN MID 90'S PT BEGAN TO HAVE WHEEZING AND INCREASED DYSPNEA AND WAS GIVEN NEB TREATMENT WITH DECREASED WHEEZING AND DECREASED DYSPNEA ECG Initial ECG Impression Time: 09:58 Initial ECG Rate: 147 Initial ECG Rhythm: A Fib/Flutter (WITH RVR) Initial ECG Comparisson: Unchanged (CHRONIC AFIB, NOT ALWAYS WITH RVR) Diagnostic Imaging Comments CXR--INCREASING BILATERAL INFILTRATES WITH PLEURAL EFFUSION--PER RADIOLOGIST REPORT @ 1058 Reviewed: Reviewed by Me Departure Communication Progress Notes 1100--SPOKE WITH DR. PHAM, ACCEPTS PT FOR ADMIT Impression Impression: Primary Impression: Bilateral pneumonia Additional Impressions: Severe sepsis RECENT LEFT RIB FRACTURES NIDDM Disposition: ADMITTED INPATIENT Condition: Stable Decision to Admit Reason: Admit from ER (General) Decision to Admit/Date: Nov 17, 2016 Time/Decision to Admit Time: 11:00 Departure-Patient Inst. Referrals: GUTIERREZ PHAM MD (PCP) Primary Care Physician ILDA SHAH DO Nov 17, 2016 17:54
--- NOTE | 2016-11-17 17:56 | History & Physicial ---
History of Present Illness History of Present Illness Reason for visit/HPI PT IS AN 86 Y/O MALE WHO IS KNOWN TO ME FROM CLINIC. NELA WAS DISCHARGED TO THE [facility] FOR [facility] AFTER FALLING AT HOME AND SUSTAINING RIB FRACTURES. NELA HAS KNOWN ATRIAL FIBRILLATION AND WAS HAVING AN ACUTE EPISODE OF AFIB AT THE [facility]IOR L[facility] WITH BLOOD PRESSURES IN THE 80/40'S. HE HAD A HEART RATE IN THE 150'S ON PRESENTATION TO THE HOSPITAL AND HAD OXYGEN SATURATION IN THE 80' S. HE HAD A CHEST XRAY THAT SHOWED BILATERAL PNEUMONIA. HE WAS STARTED ON SEPSIS PROTOCOL, PNEUMONIA PROTOCOL. HE STATES THAT HIS RIB FRACTURE PAIN IS SIGNIFICANTLY IMPROVED AND HE DOES NOT WANT TO GO BACK TO THE [facility]IOR [facility] ON DISCHARGE. Date of Admission Nov 17, 2016 at 11:32 I consulted on this patient on 11/17/16 17:56 Attending Physician Gutierrez Lerma MD Admitting Physician Gutierrez Lerma MD Consult ERIK DOWLING MD Allergies and Home Medications Allergies Coded Allergies: No Known Drug Allergies (Verified , 12/14/14) Home Medications Atorvastatin Calcium 10 Mg Tablet 10 MG PO HS (Reported) Calcipotriene/Betamethasone 60 Gm Oint...g. TP DAILY PRN PRN PSORIASIS (Reported ) Cyanocobalamin 1,000 Mcg Tablet 1,000 MCG PO DAILY (Reported) Docusate Sodium 100 Mg Capsule 100 MG PO DAILY (Reported) Folic Acid 0.8 Mg Tablet 0.8 MG PO DAILY (Reported) Hydrocodone/Acetaminophen 1 Each Tablet 1 TAB PO Q4H PRN PRN PAIN (Reported) Hydrocodone/Acetaminophen 1 Each Tablet 1 TAB PO Q4H PRN PRN PAIN (Reported) Hydrocortisone Valerate 15 Gm Cream..g. TP DAILY (Reported) USES DAILY BEHIND EARS Ibuprofen 600 Mg Tablet 600 MG PO QID (Reported) Ipratropium/Albuterol Sulfate 3 Ml Ampul.neb 3 ML IH Q4H PRN PRN SHORTNESS OF BREATH (Reported) Ipratropium/Albuterol Sulfate 3 Ml Ampul.neb 3 ML IH TID (Reported) Lactobacillus Acidophilus 1 Each Capsule 1 CAP PO DAILY (Reported) Levetiracetam 500 Mg Tablet 250 MG PO BID (Reported) TAKES 1/2 (500MG) TABLET Levothyroxine Sodium 50 Mcg Tablet 25 MCG PO SuWe (Reported) TAKES 1/2 (50 MCG) TABLET Levothyroxine Sodium 50 Mcg Tablet 50 MCG PO MoTuThFrSa (Reported) Lidocaine 700 Mg Adh..patch TP DAILY (Reported) APPLY TO RIB FX SITE IN THE MORNING AND REMOVE AT BEDTIME Lutein 20 Mg Capsule 20 MG PO BID (Reported) Magnesium Hydroxide 400 Mg/5 Ml Oral.susp 30 ML PO DAILY PRN PRN CONSTIPATION ( Reported) Metformin HCl 500 Mg Tablet 500 MG PO BID (Reported) Methyl-B12/L-Mefolate/B6 Phos 1 Each Tablet 1 TAB PO DAILY (Reported) Nitroglycerin 0.4 Mg Tab 0.4 MG SL UD PRN PRN CHEST PAIN (Reported) 1 TABLET EVERY 5 MINUTES X 3 DOSES NEEDED FOR CHEST PAIN Pantoprazole Sodium 40 Mg Tablet.dr 40 MG PO HS (Reported) Sennosides/Docusate Sodium 1 Each Tablet 1 TAB PO BID (Reported) Sotalol HCl 80 Mg Tablet 40 MG PO BID (Reported) TAKES 1/2 (80MG) TABLET Past Rqsurfa-Ntvxsk-Mvemgc Hx Patient Social History Marrital Status: Living Status: LIVES AT HOME ALONE [place] 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) Alcohol Use: Denies Use Recreational Drug Use: No Smoking Status: Former Smoker Former smoker/When Quit: Sep 27, 1996 Type Used: Pipe 2nd Hand Smoke Exposure: No Physical Abuse Screen: No Sexual Abuse: No Recent Foreign Travel: No Contact w/other who traveled: No Recent Hopitalizations: No Recent Infectious Disease Expo: No Immunizations Up To Date Tetanus Booster (TDap): More than 5yrs Date of Pneumonia Vaccine: Jul 17, 2012 Date of Influenza Vaccine: Aug 27, 2016 Seasonal Allergies Seasonal Allergies: No Surgeries HX Surgeries: Yes Surgeries: Cardiac, Coronary Stent, Neurological, Orthopedic, Transurethral Resection, Vasectomy Respiratory Hx Respiratory Disorders: Yes Respiratory Disorders: COPD Cardiovascular Hx Cardiovascular Disorders: Yes (MITRAL REGURGITATION, STENTS X4) Cardiac Disorders: Atrial Fibrillation, Coronary Artery Disease, Hypertension Neurological Hx Neurological Disorders: Yes (SUBDURAL HEMATOMA WITH CRANIOTOMY AND EVACUATION OF HEMATOMA) Neurological Disorders: Traumatic Brain Injury, Vertigo Reproductive System Hx Reproductive Disorders: No Sexually Transmitted Disease: No HIV/AIDS: No Genitourinary Hx Genitourinary Disorders: Yes (BLADDER/PROSTATE CANCER) Genitourinary Disorders: Prostate Problems Gastrointestinal Hx Gastrointestinal Disorders: No Musculoskeletal Hx Musculoskeletal Disorders: Yes (L1 COMPRESSION FRACTURE) Musculoskeletal Disorders: Fractures Endocrine Hx Endocrine Disorders: Yes Endocrine Disorders: Diabetes, Non-Insulin dep HEENT HX ENT Disorders: Yes (MISSING TEETH) HEENT Disorders: Cataract Loss of Vision: Denies Hearing Impairment: Hard of Hearing Cancer Hx Cancer: Yes Cancer: Bladder, Prostate, Lung Psychosocial Hx Psychiatric Problems: Yes Behavioral Health Disorders: Anxiety Integumentary HX Skin/Integumentary Disorder: Yes (SKIN CANCER) Skin/Integumentary Disorders: Psoriasis Blood Transfusions Hx Blood Disorders: No Adverse Reaction to a Blood Tr: No Reviewed Nursing Assessment Reviewed/Agree w Nursing PMH: Yes Family Medical History Significant Family History: Heart Disease, Hypertension Family Hx: Chest pain 03 FATHER, Onset:Unknown Myocardial infarction 03 FATHER, Onset:60 years & older Constitutional: No chills, No diaphoresis, No fever, malaise weakness EENTM: No hoarseness, No mouth pain, No nose pain, No throat pain, No throat swelling Respiratory: cough dyspnea on exertion short of breath (IMPROVED FROM ADMISSION) Cardiovascular: No chest pain, palpitations Gastrointestinal: No abdominal pain, constipationNo diarrhea Genitourinary: No frequency, No nocturia Musculoskeletal: No back pain, No joint pain Skin: other (SORE ON BUTTOCK) Psychiatric/Neurological: 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) Weakness All Other Systems Reviewed Negative Unless Noted: Yes Physical Exam Vital Signs Vital Sign - Last 12Hours 11/17/16 11/17/16 09:55 09:58 Temp 98.6 Pulse 155 Resp 25 B/P 89/57 Pulse Ox 97 O2 Delivery Nasal Cannula O2 Flow Rate 2 Capillary Refill : Less Than 3 SecondsLess Than 3 Seconds General Appearance: No Apparent Distress WD/WN Eyes: Bilateral Eye EOMI, Bilateral Eye Normal Inspection, Bilateral Eye PERRL HEENT: PERRL/EOMI Neck: Full Range of Motion Supple Respiratory: Chest Non Tender Crackles (IN BASES BILATERALLY) Decreased Breath Sounds Cardiovascular: Irregularly Irregular Gastrointestinal: Normal Bowel Sounds No Organomegaly Soft Rectal: Deferred Extremity: Normal Capillary Refill Normal Inspection Normal Range of Motion Non Tender No Calf Tenderness No Pedal Edema Neurologic/Psychiatric: Alert Oriented x3 No Motor/Sensory Deficits Normal 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 RIB PAIN ON LEFT - DUE TO RIB FRACTURES - LIDODERM PATCH, CONTINUE WITH PRN ORAL PAIN MEDICATIONS PT WITH IMPROVED SYMPTOMS. 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
[2016-11-17] MEDS ORDERED: NITROGLYCERIN SUBLINGUAL 0.4 MG TAB (NITROSTAT) SL PRN (18:30)
[2016-11-17] MEDS ORDERED: MILK OF MAGNESIA 400 MG/5 ML 30 ML UDC PO PRN (18:30)
[2016-11-17] MEDS ORDERED: RT-ALBUTEROL/IPRATROPIUM 3 ML (DUONEB) VIAL IH PRN (18:30)
[2016-11-17] MEDS ORDERED: PATIENT MAY USE OWN MED,SINGLE MED PO SCH (18:30)
[2016-11-17] MEDS ORDERED: HYDROcodone/APAP 10 MG/325 MG (LORTAB) TAB PO PRN (18:30)
[2016-11-17] MEDS ORDERED: RT-ALBUTEROL SULF 2.5 MG/3 ML PRE-MIX VIAL INH SCH (19:00)
[2016-11-17] MEDS: RT-ALBUTEROL/IPRATROPIUM 3 ML (DUONEB) VIAL IH SCH (19:15)
[2016-11-17] MEDS: metFORMIN 500 MG (GLUCOPHAGE) TAB PO SCH (19:34)
[2016-11-17] MEDS: PIPERACILLIN/TAZOBACTAM 4.5 GM/NS 100 ML IVPB IV SCH ×2 (19:34)
[2016-11-17] MEDS ORDERED: LUTEIN 20 MG PO SCH (21:00)
[2016-11-17] MEDS: IBUPROFEN 600 MG (MOTRIN) TAB PO SCH (21:01)
[2016-11-17] MEDS: SOTALOL 80 MG (BETAPACE) TAB PO SCH (21:01)
[2016-11-17] MEDS: ATORVASTATIN 10 MG (LIPITOR) TABLET PO SCH (21:01)
[2016-11-17] MEDS: POLYETHYLENE GLYCOL 17 GM (MIRALAX) PACK PO SCH (21:01)
[2016-11-17] MEDS: SENNA W/DOCUSATE (SENOKOT S) TABLET PO SCH (21:01)
[2016-11-17] MEDS: LEVETIRACETAM 500 MG (KEPPRA) TAB PO SCH (21:01)
[2016-11-17] MEDS: PANTOPRAZOLE 40 MG (PROTONIX) TAB PO SCH (21:01)
[2016-11-17] MEDS: LIDODERM PATCH REMOVAL TP SCH (21:02)
[2016-11-18] VITALS (7 sets, daily range): BP systolic 122–155; BP diastolic 69–81
[2016-11-18] MEDS: D5 1/2 NS 1000 ML IV SOLUTION 1,000 ML IV SCH ×3 (03:41→17:10)
[2016-11-18] MEDS: PIPERACILLIN/TAZOBACTAM 4.5 GM/NS 100 ML IVPB IV SCH ×2 (03:41)
[2016-11-18 04:51] LABS: BASOPHILS % (AUTO) 0 % (0-10); EOSINOPHILS # (AUTO) 0.3 10^3/uL (0.0-0.3); EOSINOPHILS % (AUTO) 4 % (0-10); LYMPHOCYTES # (AUTO) 1.2 X 10^3 (1.0-4.0); LYMPHOCYTES % (AUTO) 17 % (12-44); MEAN CORPUSCULAR HEMOGLOBIN 32 PG (25-34); MEAN CORPUSCULAR HGB CONC 33 G/DL (32-36); MEAN CORPUSCULAR VOLUME 98 FL (80-99); MEAN PLATELET VOLUME 9.8 FL (7.4-10.4); MONOCYTES # (AUTO) 0.8 X 10^3 (0.0-1.0); MONOCYTES % (AUTO) 11 % (0-12); NEUTROPHILS # (AUTO) 4.8 X 10^3 (1.8-7.8); NEUTROPHILS % (AUTO) 68 % (42-75); PLATELET COUNT 235 10^3/uL (130-400); RED BLOOD COUNT 2.79 10^6/uL (4.35-5.85); RED CELL DISTRIBUTION WIDTH 14.4 % (10.0-14.5); WHITE BLOOD COUNT 7.1 10^3/uL (4.3-11.0)
[2016-11-18 05:15] LABS: ALANINE AMINOTRANSFERASE 15 U/L (0-55); ALBUMIN 2.7 G/DL (3.2-4.5); ANION GAP 11 MMOL/L (5-14); ASPARTATE AMINO TRANSFERASE 17 U/L (5-34); BILIRUBIN,TOTAL 0.5 MG/DL (0.1-1.0); BLOOD UREA NITROGEN 20 MG/DL (7-18); BUN/CREATININE RATIO 27; CALCIUM 7.6 MG/DL (8.5-10.1); CARBON DIOXIDE 22 MMOL/L (21-32); CHLORIDE 108 MMOL/L (98-107); CREATININE SERUM 0.73 MG/DL (0.60-1.30); GFR ESTIMATED > 60; GLUCOSE 153 MG/DL (70-105); POTASSIUM 3.7 MMOL/L (3.6-5.0); SODIUM 141 MMOL/L (135-145); TOTAL PROTEIN 4.8 G/DL (6.4-8.2)
[2016-11-18] MEDS ORDERED: LEVOTHYROXINE 50 MCG (LEVOTHROID) TAB PO SCH (06:30)
--- NOTE | 2016-11-18 06:50 | Pulmonary Consultation ---
History of Present Illness History of Present Illness Date of Consultation 11/18/16 06:45 Date of Admission History of Present Illness 86yo from [facility]CF presented secondary to increasing SOB, weakness, palpitations. He was found to be hypoxic and Afib RVR. He was found to have bilateral pneumonia and hypotension in the 80/40's. PT converted back to sinus and is currently cardiac stepdown status. Hypotension is now also resolved. I am consulted for pulmonary management. Allergies and Home Medications Allergies Coded Allergies: No Known Drug Allergies (Verified , 12/14/14) Home Medications Atorvastatin Calcium 10 Mg Tablet 10 MG PO HS (Reported) Calcipotriene/Betamethasone 60 Gm Oint...g. TP DAILY PRN PRN PSORIASIS (Reported ) Cyanocobalamin 1,000 Mcg Tablet 1,000 MCG PO DAILY (Reported) Docusate Sodium 100 Mg Capsule 100 MG PO DAILY (Reported) Folic Acid 0.8 Mg Tablet 0.8 MG PO DAILY (Reported) Hydrocodone/Acetaminophen 1 Each Tablet 1 TAB PO Q4H PRN PRN PAIN (Reported) Hydrocodone/Acetaminophen 1 Each Tablet 1 TAB PO Q4H PRN PRN PAIN (Reported) Hydrocortisone Valerate 15 Gm Cream..g. TP DAILY (Reported) USES DAILY BEHIND EARS Ibuprofen 600 Mg Tablet 600 MG PO QID (Reported) Ipratropium/Albuterol Sulfate 3 Ml Ampul.neb 3 ML IH Q4H PRN PRN SHORTNESS OF BREATH (Reported) Ipratropium/Albuterol Sulfate 3 Ml Ampul.neb 3 ML IH TID (Reported) Lactobacillus Acidophilus 1 Each Capsule 1 CAP PO DAILY (Reported) Levetiracetam 500 Mg Tablet 250 MG PO BID (Reported) TAKES 1/2 (500MG) TABLET Levothyroxine Sodium 50 Mcg Tablet 25 MCG PO SuWe (Reported) TAKES 1/2 (50 MCG) TABLET Levothyroxine Sodium 50 Mcg Tablet 50 MCG PO MoTuThFrSa (Reported) Lidocaine 700 Mg Adh..patch TP DAILY (Reported) APPLY TO RIB FX SITE IN THE MORNING AND REMOVE AT BEDTIME Lutein 20 Mg Capsule 20 MG PO BID (Reported) Magnesium Hydroxide 400 Mg/5 Ml Oral.susp 30 ML PO DAILY PRN PRN CONSTIPATION ( Reported) Metformin HCl 500 Mg Tablet 500 MG PO BID (Reported) Methyl-B12/L-Mefolate/B6 Phos 1 Each Tablet 1 TAB PO DAILY (Reported) Nitroglycerin 0.4 Mg Tab 0.4 MG SL UD PRN PRN CHEST PAIN (Reported) 1 TABLET EVERY 5 MINUTES X 3 DOSES NEEDED FOR CHEST PAIN Pantoprazole Sodium 40 Mg Tablet.dr 40 MG PO HS (Reported) Sennosides/Docusate Sodium 1 Each Tablet 1 TAB PO BID (Reported) Sotalol HCl 80 Mg Tablet 40 MG PO BID (Reported) TAKES 1/2 (80MG) TABLET Past Catsmfc-Spghin-Mqflcf Hx Patient Social History Alcohol Use: Denies Use Recreational Drug Use: No Smoking Status: Former Smoker Type Used: Pipe Former Smoker/When Quit: Sep 27, 1996 2nd Hand Smoke Exposure: No Recent Foreign Travel: No Contact w/Someone Who Travel: No Recent Infectious Disease Expo: No Recent Hopitalizations: No Physical Abuse Screen: No Sexual Abuse: No Immunizations Up To Date Tetanus Booster (TDap): More than 5yrs PED Vaccines UTD: No Date of Pneumonia Vaccine: Jul 17, 2012 Date of Influenza Vaccine: Aug 27, 2016 Seasonal Allergies Seasonal Allergies: No Surgeries HX Surgeries: Yes Surgeries: Cardiac, Coronary Stent, Neurological, Orthopedic, Transurethral Resection, Vasectomy Respiratory Hx Respiratory Disorders: Yes Respiratory Disorders: Pneumonia Cardiovascular Hx Cardiac Disorders: Yes (MITRAL REGURGITATION, STENTS X4) Cardiac Disorders: Atrial Fibrillation, Coronary Artery Disease, High Cholesterol, Hypertension Neurological Hx Neurological Disorders: Yes (SUBDURAL HEMATOMA WITH CRANIOTOMY AND EVACUATION OF HEMATOMA) Neurological Disorders: Seizure Disorder, Traumatic Brain Injury, Vertigo Reproductive System Hx Reproductive Disorders: No Sexually Transmitted Disease: No HIV/AIDS: No Genitourinary Hx Genitourinary Disorders: Yes (BLADDER/PROSTATE CANCER) Genitourinary Disorders: Prostate Problems Gastrointestinal Hx Gastrointestinal Disorders: Yes Gastrointestinal Disorders: Gastroesophageal Reflux, Chronic Constipation Musculoskeletal Hx Musculoskeletal Disorders: Yes (L1 COMPRESSION FRACTURE; MULTIPLE LEFT RIB FX'S 10/2016; GENERALIZED WEAKNESS) Musculoskeletal Disorders: Fractures Endocrine Hx Endocrine Disorders: Yes Endocrine Disorders: Hypothyroidsim, Diabetes, Non-Insulin dep HEENT HX ENT Disorders: Yes (MISSING TEETH) HEENT Disorders: Cataract Loss of Vision: Denies Hearing Impairment: Hard of Hearing Cancer Hx Cancer: Yes Cancer: Bladder, Prostate, Lung, Skin Psychosocial Hx Psychiatric Problems: Yes Behavioral Health Disorders: Anxiety Integumentary HX Skin/Integumentary Disorder: Yes (SKIN CANCER) Skin/Integumentary Disorders: Psoriasis Blood Transfusions Hx Blood Disorders: No Adverse Reaction to a Blood Tr: No Reviewed Nursing Assessment Reviewed/Agree w Nursing PMH: Yes Family Medical History Significant Family History: Heart Disease, Hypertension Family Medial History: Chest pain 03 FATHER, Onset:Unknown Myocardial infarction 03 FATHER, Onset:60 years & older Exam Exam Vital Signs Date Time Temp Pulse Resp B/P Pulse Ox O2 Delivery O2 Flow Rate FiO2 11/18/16 05:31 96 2.00 11/18/16 03:40 97.6 78 20 129/79 94 Nasal Cannula 2.00 11/18/16 01:00 70 11/18/16 00:00 79 18 137/72 95 Nasal Cannula 2.00 11/17/16 23:00 77 18 122/58 97 Nasal Cannula 2.00 11/17/16 22:00 91 20 125/67 97 Nasal Cannula 2.00 11/17/16 21:00 92 20 113/55 96 Nasal Cannula 2.00 11/17/16 20:05 96 2.00 11/17/16 20:00 88 19 105/54 96 Nasal Cannula 2.00 11/17/16 19:15 2.00 11/17/16 19:00 97.4 94 18 115/53 96 Nasal Cannula 2.00 11/17/16 19:00 99 11/17/16 18:28 99 26 129/82 97 Nasal Cannula 2.00 11/17/16 17:11 101 24 91/63 99 Nasal Cannula 2.00 11/17/16 16:25 97.9 100 24 102/58 99 Nasal Cannula 2.00 11/17/16 16:00 96 11/17/16 16:00 2.00 11/17/16 16:00 2.00 11/17/16 15:25 97.7 109 22 91/73 97 Nasal Cannula 2.00 11/17/16 13:48 139 11/17/16 13:27 2.00 11/17/16 13:25 98.6 141 20 97 2 11/17/16 12:58 97 2 11/17/16 10:34 95 11/17/16 09:58 98.6 155 25 89/57 92 Nasal Cannula 2 11/17/16 09:55 97 Nasal Cannula 2 I & O 11/18/16 07:00 Intake Total 4760 ml Output Total 1000 ml Balance 3760 ml General Appearance: No Apparent Distress WD/WN HEENT: PERRL/EOMI Neck: Full Range of Motion Supple Respiratory: Chest Non Tender Crackles (IN BASES BILATERALLY) Decreased Breath Sounds Cardiovascular: Irregularly Irregular Capillary Refill: Less Than 3 Seconds Gastrointestinal: normal bowel sounds non tender soft no organomegaly Extremity: Normal Capillary Refill Normal Inspection Normal Range of Motion Non Tender No Calf Tenderness No Pedal Edema Neurologic/Psychiatric: Alert Oriented x3 No Motor/Sensory Deficits Normal Mood/Affect stem lead former II-XII Norm as Tested Skin: Warm/Dry Lymphatic: No Adenopathy Results Lab Laboratory Tests 11/17/16 10:05 11/18/16 03:50 Assessment/Plan Assessment/Plan pulmonary infiltrates Pneumonia vs pulmonary edema (No leukocytosis or fever) -Levaquin, and Zosyn -D/C zosyn Pulmonary edema with elevated BNP and pleural effusion -start lasix 40mg daily lung nodule RUL with Hx of lung cancer -Repeat CT scan in 3mo Afib Clinical Quality Measures DVT/VTE Risk/Contraindication: Risk Factor Score Per Nursin RFS Level Per Nursing on Admit: 4+=Very High CARMEN PEÑA DO Nov 18, 2016 06:50
--- NOTE | 2016-11-18 08:12 | Progress Note (SOAP) ---
Subjective Subjective/Events-last exam PT REPORTS INCREASED WORK OF BREATHING - HE STATES THAT HE IS INCREASINGLY FATIGUED THIS MORNING. HE REPORTS THAT HE HAS A LOOSE COUGH, BUT HE IS FEELING MORE FATIGUED FROM HIS COUGHING LAST NIGHT AND THE TROUBLE BREATHING. Review of Systems General: Fatigue HEENT: No Head Aches Pulmonary: Dyspnea Cough Cardiovascular: : Chest Pain Gastrointestinal: : NauseaNo: Abdominal Pain Genitourinary: No Dysuria Neurological: : WeaknessNo: Confusion Objective Exam Vital Signs Date Time Temp Pulse Resp B/P Pulse Ox O2 Delivery O2 Flow Rate FiO2 11/18/16 05:31 96 2.00 11/18/16 03:40 97.6 78 20 129/79 94 Nasal Cannula 2.00 11/18/16 01:00 70 11/18/16 00:00 79 18 137/72 95 Nasal Cannula 2.00 11/17/16 23:00 77 18 122/58 97 Nasal Cannula 2.00 11/17/16 22:00 91 20 125/67 97 Nasal Cannula 2.00 11/17/16 21:00 92 20 113/55 96 Nasal Cannula 2.00 11/17/16 20:05 96 2.00 11/17/16 20:00 88 19 105/54 96 Nasal Cannula 2.00 11/17/16 19:15 2.00 11/17/16 19:00 97.4 94 18 115/53 96 Nasal Cannula 2.00 11/17/16 19:00 99 11/17/16 18:28 99 26 129/82 97 Nasal Cannula 2.00 11/17/16 17:11 101 24 91/63 99 Nasal Cannula 2.00 11/17/16 16:25 97.9 100 24 102/58 99 Nasal Cannula 2.00 11/17/16 16:00 96 11/17/16 16:00 2.00 11/17/16 16:00 2.00 11/17/16 15:25 97.7 109 22 91/73 97 Nasal Cannula 2.00 11/17/16 13:48 139 11/17/16 13:27 2.00 11/17/16 13:25 98.6 141 20 97 2 11/17/16 12:58 97 2 11/17/16 10:34 95 11/17/16 09:58 98.6 155 25 89/57 92 Nasal Cannula 2 11/17/16 09:55 97 Nasal Cannula 2 I & O 11/18/16 07:00 Intake Total 4760 ml Output Total 1000 ml Balance 3760 ml Capillary Refill : Less Than 3 SecondsLess Than 3 Seconds General Appearance: WD/WN Mild Distress HEENT: PERRL/EOMI Pharynx Normal Neck: Full Range of Motion Respiratory: Crackles Decreased Breath Sounds Cardiovascular: Irregularly Irregular Gastrointestinal: normal bowel sounds non tender soft no organomegaly no pulsatile mass Extremity: Pedal Edema (TRACE) Neurologic/Psychiatric: Alert Oriented x3 No Motor/Sensory Deficits Normal Mood/Affect Skin: Warm/Dry Lymphatic: No Adenopathy Results Lab Laboratory Tests 11/17/16 10:05: Activated Partial Thromboplast Time 29, Alanine Aminotransferase (ALT/SGPT) 19, Albumin 3.2, Alkaline Phosphatase 100, Amylase Level 164H, Anion Gap 11, Aspartate Amino Transf (AST/SGOT) 22, B-Type Natriuretic Peptide 681.0H, BUN/ Creatinine Ratio 23, Basophils # (Auto) 0.0, Basophils (%) (Auto) 0, Blood Urea Nitrogen 23H, Calcium Level 8.7, Carbon Dioxide Level 27, Chloride Level 106, Creatine Kinase MB 2.2, Creatinine 0.98, Eosinophils # (Auto) 0.3, Eosinophils ( %) (Auto) 3, Estimat Glomerular Filtration Rate > 60, Free Thyroxine 1.21, Glucose Level 231H, Hematocrit 34L, Hemoglobin 11.1L, INR Comment 1.0, Lactic Acid Level 1.7, Lipase 22, Lymphocytes # (Auto) 1.7, Lymphocytes (%) (Auto) 19, Magnesium Level 1.5L, Mean Corpuscular Hemoglobin 32, Mean Corpuscular Hemoglobin Concent 33, Mean Corpuscular Volume 97, Mean Platelet Volume 10.0, Monocytes # (Auto) 0.7, Monocytes (%) (Auto) 8, Neutrophils # (Auto) 6.2, Neutrophils (%) (Auto) 69, Platelet Count 334, Potassium Level 3.4L, Prothrombin Time 13.2, Red Blood Count 3.46L, Red Cell Distribution Width 14.5, Sodium Level 144, TSH Gilbert Testing 5.06H, Total Bilirubin 0.7, Total Creatine Kinase 40, Total Protein 5.9L, Troponin I < 0.30, White Blood Count 9.0 11/18/16 03:50: Alanine Aminotransferase (ALT/SGPT) 15, Albumin 2.7L, Alkaline Phosphatase 81, Anion Gap 11, Aspartate Amino Transf (AST/SGOT) 17, BUN/Creatinine Ratio 27, Basophils # (Auto) 0.0, Basophils (%) (Auto) 0, Blood Urea Nitrogen 20H, Calcium Level 7.6L, Carbon Dioxide Level 22, Chloride Level 108H, Creatinine 0.73, Eosinophils # (Auto) 0.3, Eosinophils (%) (Auto) 4, Estimat Glomerular Filtration Rate > 60, Glucose Level 153H, Hematocrit 27L, Hemoglobin 8.9L, Lymphocytes # (Auto) 1.2, Lymphocytes (%) (Auto) 17, Mean Corpuscular Hemoglobin 32, Mean Corpuscular Hemoglobin Concent 33, Mean Corpuscular Volume 98, Mean Platelet Volume 9.8, Monocytes # (Auto) 0.8, Monocytes (%) (Auto) 11, Neutrophils # (Auto) 4.8, Neutrophils (%) (Auto) 68, Platelet Count 235, Potassium Level 3.7, Red Blood Count 2.79L, Red Cell Distribution Width 14.4, Sodium Level 141, Total Bilirubin 0.5, Total Protein 4.8L, White Blood Count 7.1 Microbiology 11/17/16 Influenza Types A,B Antigen (HUY) - Final, Complete Assessment/Plan Assessment/Plan Assess & Plan/Chief Complaint PNEUMONIA RIB PAIN ON LEFT RIB FRACTURES ATRIAL FIBRILLATION DIABETES MELLITUS 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 - STARTED MUCINEX RIB PAIN ON LEFT - DUE TO RIB FRACTURES - LIDODERM PATCH, CONTINUE WITH PRN ORAL PAIN MEDICATIONS PT WITH IMPROVED SYMPTOMS. ATRIAL FIBRILLATION - RESTARTED HOME MEDS DIABETES MELLITUS - RESTARTED HOME MEDS - ACCU CHECKS BID HX LUNG CANCER WITH NEW NODULE ON CT SCAN - REPEAT SCAN IN 2 MONTHS CHRONIC DIZZINESS - STABLE CONSTIPATION - START ON SENNA, AND MIRALAX - Diagnosis/Problems: Clinical Quality Measures DVT/VTE Risk/Contraindication: Risk Factor Score Per Nursin RFS Level Per Nursing on Admit: 4+=Very High GUTIERREZ PHAM MD Nov 18, 2016 08:12
[2016-11-18] MEDS ORDERED: ONDANSETRON 4 MG/2 ML (SDV) Z0FRAN IVP PRN (08:15)
[2016-11-18] MEDS: FUROSEMIDE 40 MG/4 ML INJ (LASIX) IVP SCH (08:34)
[2016-11-18] MEDS: SOTALOL 80 MG (BETAPACE) TAB PO SCH ×2 (08:37→21:09)
[2016-11-18] MEDS: ASPIRIN 81 MG CHEW (CHILDREN'S ASA) PO SCH (08:37)
[2016-11-18] MEDS: CYANOCOBALAMIN 500 MCG TAB (VITAMIN B-12) PO SCH (08:37)
[2016-11-18] MEDS: LACTOBACILLUS Acidoph/Bulgar (LACTINEX/FLORANEX) TAB PO SCH (08:37)
[2016-11-18] MEDS: LEVETIRACETAM 500 MG (KEPPRA) TAB PO SCH ×2 (08:38→21:09)
[2016-11-18] MEDS: metFORMIN 500 MG (GLUCOPHAGE) TAB PO SCH ×2 (08:38→17:09)
[2016-11-18] MEDS: IBUPROFEN 600 MG (MOTRIN) TAB PO SCH ×4 (08:38→21:08)
[2016-11-18] MEDS: DOCUSATE SODIUM 100 MG (COLACE) CAP PO SCH (08:38)
[2016-11-18] MEDS: FOLIC ACID 1 MG TAB PO SCH (08:38)
[2016-11-18] MEDS: SENNA W/DOCUSATE (SENOKOT S) TABLET PO SCH ×2 (08:38→21:08)
[2016-11-18] MEDS: LEVOFLOXACIN 750 MG/150 ML IV 150 ML IV SCH (08:45)
[2016-11-18] MEDS: guaiFENesin (MUCINEX) 600 MG TAB PO SCH ×2 (08:45→21:09)
[2016-11-18] MEDS: LIDOCAINE (LIDODERM) 5% PATCH TP SCH (08:45)
--- NOTE | 2016-11-18 08:55 | Diagnostic Imaging Report ---
INDICATION: Pneumonia. PA and lateral chest obtained at 8:27 a.m. and compared to 11/17/16. FINDINGS: Cardiomegaly is again noted. There is central vascular congestion. There are extensive patchy bibasilar infiltrates left worse than right with some left pleural fluid appearing similar to the prior study. There are multiple left-sided rib fractures inferiorly. Overall appearance has not changed from yesterday. The patient's Port-A-Cath is unchanged. IMPRESSION: Cardiomegaly and central vascular congestion with unchanged bibasilar infiltrates left greater than right and unchanged left pleural fluid. Multiple left-sided rib fractures are again noted. There is no new abnormality. Dictated by: Dictated on workstation # [id number]
[2016-11-18] MEDS: MULTIVIT W/MINERALS TAB (THERAGRAN M) PO SCH (08:56)
[2016-11-18] MEDS ORDERED: NON-FORMULARY MEDICATION 1 EA EA (Folic Acid 0.8 MG) PO SCH (09:00)
[2016-11-18] MEDS ORDERED: CYANOCOBALAMIN 1000 MCG PO SCH (09:00)
[2016-11-18] MEDS ORDERED: NON-FORMULARY MEDICATION 1 EA EA (Lactobacillus Acidophilus (Probiotic) 1 CAP) PO SCH (09:00)
[2016-11-18] MEDS: RT-ALBUTEROL/IPRATROPIUM 3 ML (DUONEB) VIAL IH SCH ×2 (15:08→19:45)
--- NOTE | 2016-11-18 17:38 | Progress Note-Cardiology ---
Cardiology SOAP Progress Note Subjective: Feels somewhat better than yesterday. Reports malaise but no shortness of breath at rest or cp Objective: I&O/Vital Signs Vital Sign - Last 12Hours 11/18/16 11/18/16 11/18/16 11/18/16 07:00 08:40 08:40 12:09 Temp 98.2 97.7 Pulse 75 80 75 Resp 22 20 B/P 155/81 122/73 Pulse Ox 99 94 99 O2 Delivery Nasal Cannula Nasal Cannula O2 Flow Rate 3.00 3.00 3.00 11/18/16 11/18/16 11/18/16 13:00 15:09 16:16 Temp 96.8 Pulse 83 90 Resp 24 B/P 134/74 Pulse Ox 97 95 O2 Delivery Nasal Cannula O2 Flow Rate 2.00 3.00 3.00 Intake and Output 11/18/16 00:00 Intake Total 2460 ml Output Total 500 ml Balance 1960 ml Weight (Pounds): 165 Weight (Ounces): 1.0 Weight (Calculated Kilograms): [id number] Constitutional: AAO x 3 well-developed well-nourished Respiratory: No accessory muscle use, other (good air entry, but diminished at bases with coarse basal crackles) Cardiovascular: irregularly irregular tachycardia S1 and S2 systolic murmur ( faint PABLO at cardiac base) Gastrointestional: No tender, softNo guarding, No rebound, audible bowel sounds Extremities: No clubbing, No cyanosis, No significant edema Neurologic/Psychiatric: grossly intact power is 5/5 both on sides Skin: No rash on exposed areas, No ulcerations on exposed areas Results/Procedures: Labs Laboratory Tests 11/18/16 03:50: Alanine Aminotransferase (ALT/SGPT) 15, Albumin 2.7L, Alkaline Phosphatase 81, Anion Gap 11, Aspartate Amino Transf (AST/SGOT) 17, BUN/Creatinine Ratio 27, Basophils # (Auto) 0.0, Basophils (%) (Auto) 0, Blood Urea Nitrogen 20H, Calcium Level 7.6L, Carbon Dioxide Level 22, Chloride Level 108H, Creatinine 0.73, Eosinophils # (Auto) 0.3, Eosinophils (%) (Auto) 4, Estimat Glomerular Filtration Rate > 60, Glucose Level 153H, Hematocrit 27L, Hemoglobin 8.9L, Lymphocytes # (Auto) 1.2, Lymphocytes (%) (Auto) 17, Mean Corpuscular Hemoglobin 32, Mean Corpuscular Hemoglobin Concent 33, Mean Corpuscular Volume 98, Mean Platelet Volume 9.8, Monocytes # (Auto) 0.8, Monocytes (%) (Auto) 11, Neutrophils # (Auto) 4.8, Neutrophils (%) (Auto) 68, Platelet Count 235, Potassium Level 3.7, Red Blood Count 2.79L, Red Cell Distribution Width 14.4, Sodium Level 141, Total Bilirubin 0.5, Total Protein 4.8L, White Blood Count 7.1 Microbiology 11/17/16 Blood Culture - Preliminary, Resulted No growth 11/17/16 Influenza Types A,B Antigen (HUY) - Final, Complete A/P: Assessment: Atrial fibrillation with RVR. Has h/o PAF that is followed by Dr. Marsh at [facility] in [place], [place] Contraindications to full oral anticoagulation: h/o intracranial bleed, multiple recent non-syncopal falls Pneumonia with septicemia Hypokalemia R lung squamous cell CA diagnosed in 2014 that has been treated surgically in [place], according to the patient. Apparently a new lung nodule is being followed by pcp CAD with h/o stent placement to left Cx in August [address] Christensen in [place], [place] Echocardiogram from November [address] Guy showed LVEF 50-55%. mIld MR. Aortic valve sclerosis without evidence of stenosis H/o previous intracranial bleeding the details of which are unclear Propensity to falls (non-syncopal). A recent fall has led to rib contusions Plan: * Relatively complex management due to multiple comorbidities * iv dilt for vent rate control * Will provide stroke prophylaxis only with aspirin, given previous (albeit vague) history of ic bleeds and also given propensity to falls * Replenish K * Monitor labs * Management of pneumonia and lung CA and septicemia is with the Medical Service ERIK DOWLING MD [facility] CCDS Nov 18, 2016 17:38
[2016-11-18] MEDS: POLYETHYLENE GLYCOL 17 GM (MIRALAX) PACK PO SCH (21:00)
[2016-11-18] MEDS: ATORVASTATIN 10 MG (LIPITOR) TABLET PO SCH (21:08)
[2016-11-18] MEDS: PANTOPRAZOLE 40 MG (PROTONIX) TAB PO SCH (21:09)
[2016-11-18] MEDS: LIDODERM PATCH REMOVAL TP SCH (21:10)
[2016-11-19] MEDS: D5 1/2 NS 1000 ML IV SOLUTION 1,000 ML IV SCH ×2 (00:20→07:57)
[2016-11-19 03:57] VITALS: BP 135/84
[2016-11-19] MEDS: LEVOTHYROXINE 50 MCG (LEVOTHROID) TAB PO SCH (05:57)
[2016-11-19] MEDS: metFORMIN 500 MG (GLUCOPHAGE) TAB PO SCH ×2 (05:58→16:38)
--- NOTE | 2016-11-19 07:54 | Pulmonary Progress Note ---
Subjective Subjective/Events-last exam Pt appears much improved. No complications noted currently. Exam Exam Vital Signs Date Time Temp Pulse Resp B/P Pulse Ox O2 Delivery O2 Flow Rate FiO2 11/19/16 03:57 97.4 76 18 135/84 97 Nasal Cannula 2.00 11/19/16 01:00 78 11/19/16 00:55 73 11/18/16 23:55 97.9 73 18 136/69 94 Nasal Cannula 2.00 11/18/16 20:11 97.2 91 20 134/74 97 Nasal Cannula 2.00 11/18/16 19:53 97 2.00 11/18/16 19:45 94 3.00 11/18/16 19:05 76 11/18/16 19:00 91 11/18/16 16:16 96.8 90 24 134/74 95 Nasal Cannula 3.00 3.00 11/18/16 15:09 97 2.00 11/18/16 13:00 83 11/18/16 12:09 97.7 75 20 122/73 99 Nasal Cannula 3.00 11/18/16 08:40 98.2 80 22 155/81 94 Nasal Cannula 3.00 11/18/16 08:40 99 3.00 I & O 11/19/16 07:00 Intake Total 3078 ml Output Total 4225 ml Balance -1147 ml General Appearance: No Apparent Distress WD/WN HEENT: PERRL/EOMI Pharynx Normal Neck: Full Range of Motion Respiratory: Crackles Decreased Breath Sounds Cardiovascular: Irregularly Irregular Capillary Refill: Less Than 3 Seconds Gastrointestinal: normal bowel sounds non tender soft no organomegaly no pulsatile mass Extremity: Pedal Edema (TRACE) Neurologic/Psychiatric: Alert Oriented x3 No Motor/Sensory Deficits Normal Mood/Affect Skin: Warm/Dry Lymphatic: No Adenopathy Results Lab Laboratory Tests 11/17/16 10:05 11/18/16 03:50 Assessment/Plan Assessment/Plan pulmonary infiltrates Pneumonia vs pulmonary edema (No leukocytosis or fever) -Levaquin Pulmonary edema with elevated BNP and pleural effusion - lasix 40mg daily lung nodule RUL with Hx of lung cancer -Repeat CT scan in 3mo Afib Transfer pt to 4th floor. Clinical Quality Measures DVT/VTE Risk/Contraindication: Risk Factor Score Per Nursin RFS Level Per Nursing on Admit: 4+=Very High CARMEN PEÑA DO Nov 19, 2016 07:54
[2016-11-19 08:00] VITALS: BP 136/71
--- NOTE | 2016-11-19 08:27 | Progress Note (SOAP) ---
Subjective Subjective/Events-last exam PT IS AN 86 Y/O MALE WHO IS HOSPITALIZED AFTER FALL AT HOME AND RESPIRATORY DISTRESS AFTER HAVING RIB FRACTURES. HE WAS AT THE INTERMEDIATE FOR A SHORT TIME, HE WAS IMPROVING, THEN STARTED TO WORSENING DYSPNEA. HE WAS TRANSFERRED BACK TO THE HOSPITAL AFTER RECURRENT RESPIRATORY DISTRESS. HE WAS ADMITTED WITH PNEUMONIA, DYSPNEA, AND UNCONTROLLED ATRIAL FIBRILLATION. Review of Systems General: No Chills, Fatigue Malaise Pulmonary: Dyspnea Cough Pleuritic Chest Pain Gastrointestinal: No: Abdominal Pain, Nausea Genitourinary: No Dysuria Musculoskeletal: : other (RIB PAIN)No: back pain Neurological: : WeaknessNo: Confusion Objective Exam Vital Signs Date Time Temp Pulse Resp B/P Pulse Ox O2 Delivery O2 Flow Rate FiO2 11/19/16 03:57 97.4 76 18 135/84 97 Nasal Cannula 2.00 11/19/16 01:00 78 11/19/16 00:55 73 11/18/16 23:55 97.9 73 18 136/69 94 Nasal Cannula 2.00 11/18/16 20:11 97.2 91 20 134/74 97 Nasal Cannula 2.00 11/18/16 19:53 97 2.00 11/18/16 19:45 94 3.00 11/18/16 19:05 76 11/18/16 19:00 91 11/18/16 16:16 96.8 90 24 134/74 95 Nasal Cannula 3.00 3.00 11/18/16 15:09 97 2.00 11/18/16 13:00 83 11/18/16 12:09 97.7 75 20 122/73 99 Nasal Cannula 3.00 11/18/16 08:40 98.2 80 22 155/81 94 Nasal Cannula 3.00 11/18/16 08:40 99 3.00 I & O 11/19/16 07:00 Intake Total 3078 ml Output Total 4225 ml Balance -1147 ml Capillary Refill : Less Than 3 SecondsLess Than 3 Seconds General Appearance: No Apparent Distress WD/WN HEENT: PERRL/EOMI Neck: Full Range of Motion Respiratory: Chest Non Tender Crackles (IN BASE ON LEFT) Decreased Breath Sounds Cardiovascular: Irregularly Irregular Gastrointestinal: normal bowel sounds non tender soft no organomegaly no pulsatile mass Extremity: Normal Capillary Refill No Pedal Edema Neurologic/Psychiatric: Alert Oriented x3 No Motor/Sensory Deficits Normal Mood/Affect Skin: Warm/Dry Lymphatic: No Adenopathy Results Lab Microbiology 11/17/16 Blood Culture - Preliminary, Resulted No growth 11/17/16 Influenza Types A,B Antigen (HUY) - Final, Complete Assessment/Plan Assessment/Plan Assess & Plan/Chief Complaint PNEUMONIA RIB PAIN ON LEFT RIB FRACTURES ATRIAL FIBRILLATION DIABETES MELLITUS 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 - STARTED MUCINEX RIB PAIN ON LEFT - DUE TO RIB FRACTURES - LIDODERM PATCH, CONTINUE WITH PRN ORAL PAIN MEDICATIONS PT WITH IMPROVED SYMPTOMS. ATRIAL FIBRILLATION - RESTARTED HOME MEDS DIABETES MELLITUS - RESTARTED HOME MEDS - ACCU CHECKS BID HX LUNG CANCER WITH NEW NODULE ON CT SCAN - REPEAT SCAN IN 2 MONTHS CHRONIC DIZZINESS - STABLE CONSTIPATION - START ON SENNA, AND MIRALAX - Diagnosis/Problems: Clinical Quality Measures DVT/VTE Risk/Contraindication: Risk Factor Score Per Nursin RFS Level Per Nursing on Admit: 4+=Very High GUTIERREZ PHAM MD Nov 19, 2016 08:27
[2016-11-19] MEDS: RT-ALBUTEROL/IPRATROPIUM 3 ML (DUONEB) VIAL IH SCH ×3 (08:38→20:38)
[2016-11-19] MEDS: FUROSEMIDE 40 MG/4 ML INJ (LASIX) IVP SCH (08:44)
[2016-11-19] MEDS: LEVOFLOXACIN 750 MG/150 ML IV 150 ML IV SCH (08:44)
[2016-11-19] MEDS: FOLIC ACID 1 MG TAB PO SCH (08:45)
[2016-11-19] MEDS: SOTALOL 80 MG (BETAPACE) TAB PO SCH ×2 (08:45→20:00)
[2016-11-19] MEDS: IBUPROFEN 600 MG (MOTRIN) TAB PO SCH (08:45)
[2016-11-19] MEDS: SENNA W/DOCUSATE (SENOKOT S) TABLET PO SCH ×2 (08:45→20:00)
[2016-11-19] MEDS: ASPIRIN 81 MG CHEW (CHILDREN'S ASA) PO SCH (08:45)
[2016-11-19] MEDS: guaiFENesin (MUCINEX) 600 MG TAB PO SCH ×2 (08:45→19:59)
[2016-11-19] MEDS: MULTIVIT W/MINERALS TAB (THERAGRAN M) PO SCH (08:45)
[2016-11-19] MEDS: DOCUSATE SODIUM 100 MG (COLACE) CAP PO SCH (08:45)
[2016-11-19] MEDS: LEVETIRACETAM 500 MG (KEPPRA) TAB PO SCH ×2 (08:46→20:01)
[2016-11-19] MEDS: CYANOCOBALAMIN 500 MCG TAB (VITAMIN B-12) PO SCH (08:46)
[2016-11-19] MEDS: LACTOBACILLUS Acidoph/Bulgar (LACTINEX/FLORANEX) TAB PO SCH (08:46)
--- NOTE | 2016-11-19 08:55 | Progress Note-Cardiology ---
Cardiology SOAP Progress Note Subjective: Loose cough. Feels breathing is better today. No c/o CP. Objective: I&O/Vital Signs Vital Sign - Last 12Hours 11/18/16 11/19/16 11/19/16 11/19/16 23:55 00:55 01:00 03:57 Temp 97.9 97.4 Pulse 73 73 78 76 Resp 18 18 B/P 136/69 135/84 Pulse Ox 94 97 O2 Delivery Nasal Cannula Nasal Cannula O2 Flow Rate 2.00 2.00 11/19/16 11/19/16 07:00 08:41 Pulse 83 Pulse Ox 93 O2 Flow Rate 3.00 Intake and Output 11/19/16 00:00 Intake Total 1628 ml Output Total 1625 ml Balance 3 ml Weight (Pounds): 173 Weight (Ounces): 5.0 Weight (Calculated Kilograms): 78.756597 Constitutional: AAO x 3 well-developed well-nourished Respiratory: No accessory muscle use, wheezing (exp wheezes) other (good air entry, but diminished at bases with coarse basal crackles) Cardiovascular: irregularly irregular tachycardia S1 and S2 systolic murmur ( faint PABLO at cardiac base) Gastrointestional: No tender, softNo guarding, No rebound, audible bowel sounds Extremities: No clubbing, No cyanosis, No significant edema Neurologic/Psychiatric: grossly intact power is 5/5 both on sides Skin: No rash on exposed areas, No ulcerations on exposed areas Results/Procedures: Labs Microbiology 11/17/16 Blood Culture - Preliminary, Resulted No growth 11/17/16 Influenza Types A,B Antigen (HUY) - Final, Complete A/P: Assessment: Atrial fibrillation with RVR. Has h/o PAF that is followed by Dr. Marsh at [facility] in [place], [place] Contraindications to full oral anticoagulation: h/o intracranial bleed, multiple recent non-syncopal falls Pneumonia with septicemia Hypokalemia - resolved R lung squamous cell CA diagnosed in 2014 that has been treated surgically in [place], according to the patient. Apparently a new lung nodule is being followed by pcp CAD with h/o stent placement to left Cx in [place] [address] Christensen in [place], [place] Echocardiogram from November [address] Guy showed LVEF 50-55%. mIld MR. Aortic valve sclerosis without evidence of stenosis H/o previous intracranial bleeding the details of which are unclear Propensity to falls (non-syncopal). A recent fall has led to rib contusions Plan: * Relatively complex management due to multiple comorbidities * Continue Sotalol * Will provide stroke prophylaxis only with aspirin, given previous (albeit vague) history of ic bleeds and also given propensity to falls * Monitor labs * Management of pneumonia and lung CA and septicemia is with the Medical Service Physician Assessment Physician Assessment Please see my note of the same date RADHA MCMAHON Nov 19, 2016 08:55 ERIK DOWLING MD FACP FAC CCDS Nov 19, 2016 09:15
--- NOTE | 2016-11-19 08:59 | Progress Note-Cardiology ---
Cardiology SOAP Progress Note Subjective: No cp or palp or syncope. Less short of breath Objective: I&O/Vital Signs Vital Sign - Last 12Hours 11/18/16 11/19/16 11/19/16 11/19/16 23:55 00:55 01:00 03:57 Temp 97.9 97.4 Pulse 73 73 78 76 Resp 18 18 B/P 136/69 135/84 Pulse Ox 94 97 O2 Delivery Nasal Cannula Nasal Cannula O2 Flow Rate 2.00 2.00 11/19/16 11/19/16 07:00 08:41 Pulse 83 Pulse Ox 93 O2 Flow Rate 3.00 Intake and Output 11/19/16 00:00 Intake Total 1628 ml Output Total 1625 ml Balance 3 ml Weight (Pounds): 173 Weight (Ounces): 5.0 Weight (Calculated Kilograms): 78.266486 Constitutional: AAO x 3 well-developed well-nourished Respiratory: No accessory muscle use, wheezing (exp wheezes) other (good air entry, but diminished at bases with coarse basal crackles) Cardiovascular: irregularly irregular tachycardia S1 and S2 systolic murmur ( faint PABLO at cardiac base) Gastrointestional: No tender, softNo guarding, No rebound, audible bowel sounds Extremities: No clubbing, No cyanosis, No significant edema Neurologic/Psychiatric: grossly intact power is 5/5 both on sides Skin: No rash on exposed areas, No ulcerations on exposed areas Results/Procedures: Labs Microbiology 11/17/16 Blood Culture - Preliminary, Resulted No growth 11/17/16 Influenza Types A,B Antigen (HUY) - Final, Complete A/P: Assessment: Atrial fibrillation with RVR. Has h/o PAF that is followed by Dr. Marsh at [facility] in [place], [place] Contraindications to full oral anticoagulation: h/o intracranial bleed requiring surgical intervention, multiple recent non-syncopal falls Pneumonia with septicemia Hypokalemia - resolved R lung squamous cell CA diagnosed in 2014 that has been treated surgically in [place], according to the patient. Apparently a new lung nodule is being followed by pcp CAD with h/o stent placement to left Cx in August [address] Christensen in [place], [place] Echocardiogram from November [address] Guy showed LVEF 50-55%. mIld MR. Aortic valve sclerosis without evidence of stenosis H/o previous intracranial bleeding the details of which are unclear Propensity to falls (non-syncopal). A recent fall has led to rib contusions Plan: * Relatively complex management due to multiple comorbidities * Continue Sotalol * Will provide stroke prophylaxis only with aspirin, given previous h/o intracranial bleed (requiring surgical intervention) and also given propensity to falls * Monitor labs * Management of pneumonia and lung CA and septicemia is with the Medical Service ERIK DOWLING MD FACP FAC CCDS Nov 19, 2016 08:59
[2016-11-19] MEDS: LIDOCAINE (LIDODERM) 5% PATCH TP SCH (09:37)
[2016-11-19] MEDS: DILTIAZEM 180 MG (CARDIZEM CD) CAP PO SCH (09:37)
[2016-11-19 12:00] VITALS: BP 103/61
[2016-11-19] MEDS ORDERED: IBUPROFEN 600 MG (MOTRIN) TAB PO PRN (13:00)
[2016-11-19 16:54] VITALS: BP 101/51
[2016-11-19 19:22] VITALS: BP 100/52
[2016-11-19] MEDS: POLYETHYLENE GLYCOL 17 GM (MIRALAX) PACK PO SCH (19:59)
[2016-11-19] MEDS: PANTOPRAZOLE 40 MG (PROTONIX) TAB PO SCH (20:00)
[2016-11-19] MEDS: ATORVASTATIN 10 MG (LIPITOR) TABLET PO SCH (20:00)
[2016-11-19] MEDS: LIDODERM PATCH REMOVAL TP SCH (20:02)
[2016-11-20] VITALS: BP 106/64
[2016-11-20 04:15] VITALS: BP 134/63
[2016-11-20] MEDS: MULTIVIT W/MINERALS TAB (THERAGRAN M) PO SCH (06:12)
[2016-11-20] MEDS: LEVOTHYROXINE 50 MCG (LEVOTHROID) TAB PO SCH (06:12)
[2016-11-20] MEDS: metFORMIN 500 MG (GLUCOPHAGE) TAB PO SCH (06:12)
[2016-11-20 06:23] LABS: BASOPHILS % (AUTO) 0 % (0-10); EOSINOPHILS # (AUTO) 0.1 10^3/uL (0.0-0.3); EOSINOPHILS % (AUTO) 2 % (0-10); LYMPHOCYTES % (AUTO) 13 % (12-44); MEAN CORPUSCULAR HEMOGLOBIN 32 PG (25-34); MEAN CORPUSCULAR HGB CONC 33 G/DL (32-36); MEAN CORPUSCULAR VOLUME 95 FL (80-99); MEAN PLATELET VOLUME 9.6 FL (7.4-10.4); MONOCYTES # (AUTO) 0.5 X 10^3 (0.0-1.0); MONOCYTES % (AUTO) 7 % (0-12); NEUTROPHILS # (AUTO) 5.8 X 10^3 (1.8-7.8); NEUTROPHILS % (AUTO) 78 % (42-75); PLATELET COUNT 255 10^3/uL (130-400); RED BLOOD COUNT 3.25 10^6/uL (4.35-5.85); RED CELL DISTRIBUTION WIDTH 14.1 % (10.0-14.5); WHITE BLOOD COUNT 7.4 10^3/uL (4.3-11.0)
[2016-11-20 06:39] LABS: ANION GAP 8 MMOL/L (5-14); BLOOD UREA NITROGEN 15 MG/DL (7-18); BUN/CREATININE RATIO 21; CALCIUM 8.4 MG/DL (8.5-10.1); CARBON DIOXIDE 30 MMOL/L (21-32); CHLORIDE 100 MMOL/L (98-107); CREATININE SERUM 0.72 MG/DL (0.60-1.30); GFR ESTIMATED > 60; GLUCOSE 138 MG/DL (70-105); MAGNESIUM 1.1 MG/DL (1.8-2.4); POTASSIUM 3.2 MMOL/L (3.6-5.0); SODIUM 138 MMOL/L (135-145)
--- NOTE | 2016-11-20 07:08 | Pulmonary Progress Note ---
Subjective Subjective/Events-last exam NO complications noted. Exam Exam Vital Signs Date Time Temp Pulse Resp B/P Pulse Ox O2 Delivery O2 Flow Rate FiO2 11/20/16 04:15 97.9 92 22 134/63 92 Nasal Cannula 3.00 11/20/16 01:00 89 11/20/16 00:00 98.9 92 18 106/64 93 Nasal Cannula 2.00 2.00 11/19/16 20:39 92 2.00 11/19/16 20:00 3.00 11/19/16 19:22 98.9 89 18 100/52 93 Room Air 11/19/16 19:00 88 11/19/16 16:54 97.1 80 18 101/51 95 Room Air 11/19/16 14:02 92 3.00 11/19/16 13:00 81 11/19/16 12:00 96.9 90 16 103/61 93 Room Air 11/19/16 08:41 93 3.00 11/19/16 08:00 97.0 85 22 136/71 96 Nasal Cannula 2.00 11/19/16 08:00 97 2.00 I & O 11/20/16 07:00 Intake Total 890 ml Output Total 1900 ml Balance -1010 ml General Appearance: No Apparent Distress WD/WN HEENT: PERRL/EOMI Pharynx Normal Neck: Full Range of Motion Respiratory: Crackles Decreased Breath Sounds Cardiovascular: Irregularly Irregular Capillary Refill: Less Than 3 Seconds Gastrointestinal: normal bowel sounds non tender soft no organomegaly no pulsatile mass Extremity: Pedal Edema (TRACE) Neurologic/Psychiatric: Alert Oriented x3 No Motor/Sensory Deficits Normal Mood/Affect Skin: Warm/Dry Lymphatic: No Adenopathy Results Lab Laboratory Tests 11/20/16 06:14 Assessment/Plan Assessment/Plan pulmonary infiltrates Pneumonia vs pulmonary edema (No leukocytosis or fever) - doubt pneumonia -Levaquin - D/C Pulmonary edema with elevated BNP and pleural effusion - lasix 40mg daily -repeat CXR 2 view lung nodule RUL with Hx of lung cancer -Repeat CT scan in 3mo Afib IF CXR appears stable pt is ok for discharge from pulm standpoint. Clinical Quality Measures DVT/VTE Risk/Contraindication: Risk Factor Score Per Nursin RFS Level Per Nursing on Admit: 4+=Very High CARMEN PEÑA DO Nov 20, 2016 07:08
[2016-11-20] MEDS: RT-ALBUTEROL/IPRATROPIUM 3 ML (DUONEB) VIAL IH SCH (07:58)
[2016-11-20 08:00] VITALS: BP 122/62
[2016-11-20] MEDS: SENNA W/DOCUSATE (SENOKOT S) TABLET PO SCH (08:04)
[2016-11-20] MEDS: DOCUSATE SODIUM 100 MG (COLACE) CAP PO SCH (08:04)
[2016-11-20] MEDS: CYANOCOBALAMIN 500 MCG TAB (VITAMIN B-12) PO SCH (08:13)
[2016-11-20] MEDS: DILTIAZEM 180 MG (CARDIZEM CD) CAP PO SCH (08:13)
[2016-11-20] MEDS: LACTOBACILLUS Acidoph/Bulgar (LACTINEX/FLORANEX) TAB PO SCH (08:13)
[2016-11-20] MEDS: FUROSEMIDE 40 MG/4 ML INJ (LASIX) IVP SCH (08:13)
[2016-11-20] MEDS: guaiFENesin (MUCINEX) 600 MG TAB PO SCH (08:13)
[2016-11-20] MEDS: SOTALOL 80 MG (BETAPACE) TAB PO SCH (08:14)
[2016-11-20] MEDS: ASPIRIN 81 MG CHEW (CHILDREN'S ASA) PO SCH (08:14)
[2016-11-20] MEDS: FOLIC ACID 1 MG TAB PO SCH (08:14)
[2016-11-20] MEDS: LEVETIRACETAM 500 MG (KEPPRA) TAB PO SCH (08:14)
[2016-11-20] MEDS: LIDOCAINE (LIDODERM) 5% PATCH TP SCH (08:14)
[2016-11-20] MEDS ORDERED: KCL 20 MEQ TAB (K-DUR) PO ONE (09:45)
--- NOTE | 2016-11-20 10:02 | Discharge Summary ---
Diagnosis/Chief Complaint Date of Admission Nov 17, 2016 at 11:32 Date of Discharge Discharge Date: Nov 20, 2016 Admission Diagnosis Admission Diagnosis PNEUMONIA RIB PAIN ON LEFT RIB FRACTURES ATRIAL FIBRILLATION DIABETES MELLITUS HX LUNG CANCER WITH NEW NODULE ON CT SCAN CHRONIC DIZZINESS Discharge Diagnosis PNEUMONIA RIB PAIN ON LEFT RIB FRACTURES ATRIAL FIBRILLATION DIABETES MELLITUS HX LUNG CANCER WITH NEW NODULE ON CT SCAN CHRONIC DIZZINESS Reason Hospital Visit PT IS AN 86 Y/O MALE WHO IS KNOWN TO ME FROM CLINIC. NELA WAS [facility]ED TO [facility] FOR [facility] AFTER FALLING AT HOME AND SUSTAINING RIB FRACTURES. NELA HAS KNOWN ATRIAL FIBRILLATION AND WAS HAVING AN ACUTE EPISODE OF AFIB AT THE [facility] WITH BLOOD PRESSURES IN THE 80/40'S. HE HAD A HEART RATE IN THE 150'S ON PRESENTATION TO THE HOSPITAL AND HAD OXYGEN SATURATION IN THE 80' S. HE HAD A CHEST XRAY THAT SHOWED BILATERAL PNEUMONIA. HE WAS STARTED ON SEPSIS PROTOCOL, PNEUMONIA PROTOCOL. HE STATES THAT HIS RIB FRACTURE PAIN IS SIGNIFICANTLY IMPROVED AND HE DOES NOT WANT TO GO BACK TO THE [facility] ON DISCHARGE. Discharge Summary Discharge Physical Examination Allergies: Coded Allergies: No Known Drug Allergies (Verified , 12/14/14) Vitals & I&Os Vital Signs Date Time Temp Pulse Resp B/P Pulse Ox O2 Delivery O2 Flow Rate FiO2 11/20/16 08:12 2.00 11/20/16 08:00 97.5 98 24 122/62 98 Nasal Cannula General Appearance: Alert, Oriented X3, Cooperative, Mild Distress HEENT: Atraumatic Respiratory: Other (DECREASED BREATH SOUNDS THROUGHOUT) Cardiovascular: Other (TACHYCARDIA, IRREGULARLY IRREGULAR) Abdominal: Normal Bowel Sounds, Soft, No Tenderness Neuro: Other (WEAKNESS, GAIT INSTABILITY) Psych/Mental Status: Mental Status NL, Mood NL Hospital Course PNEUMONIA RIB PAIN ON LEFT RIB FRACTURES ATRIAL FIBRILLATION DIABETES MELLITUS HX LUNG CANCER WITH NEW NODULE ON CT SCAN CHRONIC DIZZINESS PNEUMONIA -- DEFER TO DR. PEÑA - HE STOPPED ANTIBIOTICS - DID NOT FEEL PT HAD PNEUMONIA, BUT PULMONARY EDEMA - CONTINUE WITH MUCINEX RIB PAIN ON LEFT - DUE TO RIB FRACTURES - LIDODERM PATCH, CONTINUE WITH PRN ORAL PAIN MEDICATIONS PT WITH IMPROVED SYMPTOMS. ATRIAL FIBRILLATION - RESTARTED HOME MEDS DIABETES MELLITUS - RESTARTED HOME MEDS - ACCU CHECKS BID HX LUNG CANCER WITH NEW NODULE ON CT SCAN - REPEAT SCAN IN 2 MONTHS CHRONIC DIZZINESS - STABLE CONSTIPATION - START ON SENNA, AND MIRALAX - PULMONARY EDEMA - CONTINUE WITH LASIX START THERAPY ON SWING BED. Pending Labs Laboratory Tests 11/20/16 06:14: Anion Gap 8, BUN/Creatinine Ratio 21, Basophils # (Auto) 0.0, Basophils (%) ( Auto) 0, Blood Urea Nitrogen 15, Calcium Level 8.4, Carbon Dioxide Level 30, Chloride Level 100, Creatinine 0.72, Eosinophils # (Auto) 0.1, Eosinophils (%) ( Auto) 2, Estimat Glomerular Filtration Rate > 60, Glucose Level 138, Hematocrit 31, Hemoglobin 10.3, Lymphocytes # (Auto) 1.0, Lymphocytes (%) (Auto) 13, Magnesium Level 1.1, Mean Corpuscular Hemoglobin 32, Mean Corpuscular Hemoglobin Concent 33, Mean Corpuscular Volume 95, Mean Platelet Volume 9.6, Monocytes # (Auto) 0.5, Monocytes (%) (Auto) 7, Neutrophils # (Auto) 5.8, Neutrophils (%) (Auto) 78, Platelet Count 255, Potassium Level 3.2, Red Blood Count 3.25, Red Cell Distribution Width 14.1, Sodium Level 138, White Blood Count 7.4 Discharge Condition at discharge STABLE Instructions to patient/family Please see electonic discharge instructions given to patient. Discharge Medications Reviewed and agree with Discharge Medication list on patient's Discharge Instruction sheet Clinical Quality Measures DVT/VTE Risk/Contraindication: Risk Factor Score Per Nursin RFS Level Per Nursing on Admit: 4+=Very High GUTIERREZ PHAM MD Nov 20, 2016 10:01
--- NOTE | 2016-11-20 12:18 | Diagnostic Imaging Report ---
INDICATION: Pneumonia. PA and lateral chest obtained at 8:06 AM and compared with 11/18/2016. There is cardiomegaly. There is extensive bibasilar infiltrate again noted which appeared similar to the prior study. Left-sided rib fractures are again noted. There is no pneumothorax. Port-A-Cath is unchanged. There is some pleural fluid on the left side. IMPRESSION: Stable chest compared to yesterday with no change in bilateral infiltrates. There is some pleural fluid on the left side. Dictated by: Dictated on workstation # [id number]
[2016-12-11] MEDS ORDERED: ACID1TAB PO (09:24)
[2016-12-11] MEDS ORDERED: Sotalol Hcl PO (09:24)
[2016-12-11] MEDS ORDERED: DILT180C84 PO (09:24)
[2016-12-11] MEDS ORDERED: HYDR-3820 PO (09:24)
[2016-12-11] MEDS ORDERED: AMOX-358 PO (09:24)
[2016-12-11] MEDS ORDERED: GUAI600T43 PO (09:24)
[2016-12-11] MEDS ORDERED: NYST1000 PO (09:24)
== END 2016-11-20 10:17 | disposition swing bed (61) | DRG 190 ==
LOC: EDUNIT# 09:46 → ER 09:49 → ICU 11:32 → 4TH 11-19 11:34
PROVIDERS: ADMIT Family Medicine; ATTEND Family Medicine
DX: J44.0 Chronic obstructive pulmonary disease with (acute) lower respiratory infection (principal); J18.9 Pneumonia, unspecified organism; I48.0 Paroxysmal atrial fibrillation; S22.42XA Multiple fractures of ribs, left side, initial encounter for closed fracture; J81.1 Chronic pulmonary edema; R09.02 Hypoxemia; E11.9 Type 2 diabetes mellitus without complications; R91.1 Solitary pulmonary nodule; I25.10 Atherosclerotic heart disease of native coronary artery without angina pectoris; L89.159 Pressure ulcer of sacral region, unspecified stage; I10 Essential (primary) hypertension; E78.00 Pure hypercholesterolemia, unspecified; E03.9 Hypothyroidism, unspecified; K59.00 Constipation, unspecified; E87.6 Hypokalemia; R42 Dizziness and giddiness; Z85.118 Personal history of other malignant neoplasm of bronchus and lung; Z87.820 Personal history of traumatic brain injury; Z79.84 Long term (current) use of oral hypoglycemic drugs; Z87.891 Personal history of nicotine dependence; Z85.46 Personal history of malignant neoplasm of prostate; Z85.51 Personal history of malignant neoplasm of bladder; Z95.5 Presence of coronary angioplasty implant and graft; W19.XXXA Unspecified fall, initial encounter; Y92.009 Unspecified place in unspecified non-institutional (private) residence as the place of occurrence of the external cause; Y99.8 Other external cause status
CPT/HCPCS: 36415; 71010; 71020; 80048; 80053; 82150; 82550; 82553; 83605; 83690; 83735; 83880; 84439; 84443; 84484; 85025; 85610; 85730; 87040; 87077; 87804; 93005; 93041; 94640; 94760; 96361; 96365

== ENCOUNTER 2016-11-20 09:50 | Inpatient (IN) | payer MEDICARE, OTHER ==
[~2016-11-20] VITALS: Ht 188 cm; Wt 78.5 kg
[2016-11-20] VITALS (19 sets, daily range): BP systolic 65–113; BP diastolic 34–99
[~2016-11-20 09:50] MED LIST changes: +HYDR-3820 PO; +IPRA3AMP IH; +LIDO700A6 TP; +LUTE20CA13 PO; +MAGN400O7 PO; +SENN-1 PO
[2016-11-20] MEDS ORDERED: NITROGLYCERIN SUBLINGUAL 0.4 MG TAB (NITROSTAT) SL PRN (10:45)
[2016-11-20] MEDS ORDERED: MILK OF MAGNESIA 400 MG/5 ML 30 ML UDC PO PRN (10:45)
[2016-11-20] MEDS ORDERED: IBUPROFEN 600 MG (MOTRIN) TAB PO PRN (10:45)
[2016-11-20] MEDS ORDERED: HYDROcodone/APAP 10 MG/325 MG (LORTAB) TAB PO PRN (10:45)
[2016-11-20] MEDS ORDERED: ONDANSETRON 4 MG/2 ML (SDV) Z0FRAN IVP PRN (10:45)
[2016-11-20] MEDS ORDERED: CATHETER FLUSH 10 ML SYR IV PRN (10:45)
[2016-11-20] MEDS ORDERED: PATIENT MAY USE OWN MED,SINGLE MED PO SCH (11:15)
[2016-11-20] MEDS ORDERED: LEVOTHYROXINE 50 MCG (LEVOTHROID) TAB PO SCH (11:27)
[2016-11-20] MEDS ORDERED: RT-ALBUTEROL/IPRATROPIUM 3 ML (DUONEB) VIAL IH PRN (11:29)
--- NOTE | 2016-11-20 11:49 | Physical Therapy Evaluation ---
PT Evaluation-General Medical Diagnosis Admission Date Nov 20, 2016 at 10:18 Medical Diagnosis: pulmonary edema, afib, weakness, falls Onset Date: Nov 17, 2016 Therapy Diagnosis Therapy Diagnosis: impaired mobility, strength, endurance Height/Weight Height (Feet): 6 Height (Inches): 2.00 Weight (Pounds): 173 Weight (Ounces): 2.0 Referral Physician: Monisha Lerma MD Reason for Referral: Evaluation/Treatment Medical History Pertinent Medical History: Atrial Fib, CAD, COPD, DM, HTN, Prostate CA, Smoking , TBI Additional Medical History former smoker, mitral regurgitation, subdural hematoma with craniotomy, TBI, vertigo, prostate problems, bladder/prostate CA, L1 compression fx, PALA, anxiety , surg (cardiac, coronary stent, neurological, orthopedic, transurethral resection, vasectomy) Current History patient came to ER from [place] with pneumonia and a-fib Reviewed History: Yes Social History Home: Single Level Current Living Status: Alone Entry Into Home: Stairs With Railing PT Steps Into Home: 2 Patient states he would like to go back home instead of the care home. Prior/Core FIM Prior Level of Function Functional [place] Measure 0=Not Assessed/NA 4=Minimal Assistance 1=Total Assistance 5=Supervision or Setup 2=Maximal Assistance 6=Modified [place] 3=Moderate Assistance 7=Complete [place] unable to understand what patient's mobility was like but he states he was using a walker before PT Evaluation-Current Subjective Patient in bed pre tx, agrees to PT with some encouragement. Patient has very garbled speech and is hard to understand. He has pain in his right side from some rib fractures but I cannot understand his pain rating. Pt/Family Goals to go to his own home at discharge Objective Patient Orientation: Person, Situation Attachments: Oxygen ROM/Strength ROM Lower Extremities WNL Strenght Lower Extremities 4/5 gross bilateral lower extremities Neuromuscular (Tone, Coordination, Reflexes) WNL Sensory Vision: Wears Glasses Hearing: Impaired Sensation Right Lower Extremit: Intact Sensation Left Lower Extremity: Intact Transfers Functional [place] Measure 0=Not Assessed/NA 4=Minimal Assistance 1=Total Assistance 5=Supervision or Setup 2=Maximal Assistance 6=Modified [place] 3=Moderate Assistance 7=Complete [place] Transfers (B, C, W/C) (FIM): 4 Scootin Rollin Supine to/from Sit: 5 Sit to/from Stand: 4 bed t/f WC(FIM only if WC use): 4 Sit to Lying (QC): 4 Lying to Sitting/Side of Bed(Q: 4 Sit to Stand (QC): 4 Chair/Vla-xq-Bsmrl Xfer(QC): 4 Patient SBA with bed mobility and CGA with sit to stand and stand pivot. Patient needs cues for safety and to use his arms to stand and not pull from the walker. Gait Does the Patient Walk?: Yes Mode of Locomotion: Walk Anticipated Mode of Locomotion: Walk Gait (FIM): 1 Distance: 5' Walk 50 ft with 2 Turns(QC): 88 Walk 150 ft (QC): 88 Gait Level of Assist: 4 Gait Persons Needed: 1 Gait Assistive Device: FWW Comments/Gait Description Patient ambulated 5' with a rolling walker with CGA to a recliner from his bed. Patient was unwilling to ambulate any further. Balance Sitting Static: Fair Sitting Dynamic: Fair Standing Static: Fair Standing Dynamic: Fair Treatment seated bilateral lower extremity exercises x 20 (AP, LAQ, hip flexion) Assessment/Needs Patient has impaired mobility, strength, endurance due to pneumonia. 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 [facility] Goals PT [facility] Goals Time Frame: Nov 27, 2016 Transfers (B,C,W/C) (FIM): 5 Sit to Lying (QC): 6 Lying-Sitting on Side/Bed(QC): 6 Sit to Stand (QC): 4 Rollin Chair/Iat-cb-Irowy Xfer(QC): 4 Does the Patient Walk: Yes Gait (FIM): 2 Distance: 50' Walk 50ft with 2 Turns (QC): 4 Walk 150 ft (QC): 88 Gait Level of Assist: 4 Gait Assistive Device: FWW PT Plan Problem List Problem List: Activity Tolerance, Functional Strength, Safety, Balance, Gait, Transfer, Bed Mobility Treatment/Plan Treatment Plan: Continue Plan of Care Treatment Plan: Bed Mobility, Education, Functional Activity Sherrell, Functional Strength, Gait, Safety, Therapeutic Exercise, Transfers Treatment Duration: Nov 27, 2016 # of days/week 5-6 Visits Per Week: 10-11 Minutes/Day (M-F): 15-30 Minutes/Day (Sat/Vargas): 15-30 Pt/Family Agrees w/Plan: Yes Safety Risks/Education Patient Education: Gait Training, Transfer Techniques, Safety Issues Teaching Recipient: Patient Teaching Methods: Demonstration, Discussion Response to Teaching: Reinforcement Needed Discharge Recommendations Plan Patient will perform bed mobility and transfer training, balance and endurance training, functional strengthening, stair training, gait training, education, to improve functional mobility and independence at home. Therapy D/C Recommendations: Home w/ Family Support, [facility] (TCU/NH) Time/GCodes Time In: 1120 Time Out: 1150 Total Billed Treatment Time: 30 Total Billed Treatment 1 visit EVM 15 min EX 15 min AILEEN BRAY PT Nov 20, 2016 11:49
[2016-11-20] MEDS: SUCRALFATE 1 GM (CARAFATE) TAB PO SCH ×3 (11:50→21:01)
[2016-11-20] MEDS ORDERED: NS IV 1000 ML 1,000 ML ONE (12:08)
[2016-11-20] MEDS: NS IV 1000 ML 1,000 ML IV SCH ×2 (12:14→18:39)
[2016-11-20] MEDS ORDERED: PROMETHAZINE INJ 25 MG/ML (PHENERGAN) AMP IVP PRN (13:15)
[2016-11-20] MEDS ORDERED: KCL 20 MEQ TAB (K-DUR) PO NR (13:15)
[2016-11-20] MEDS: LACTOBACILLUS Acidoph/Bulgar (LACTINEX/FLORANEX) TAB PO SCH ×2 (13:15→21:01)
--- NOTE | 2016-11-20 13:19 | Progress Note-Cardiology ---
Cardiology SOAP Progress Note Subjective: Reports gen malaise L rib cage pain since recent nonsyncopal fall and resulting rib fractures Denies palp or syncope Mod shortness of breath, mostly due to increased rib cage pain with inspiration Objective: I&O/Vital Signs Vital Sign - Last 12Hours 11/20/16 12:13 B/P 80/50 Weight (Pounds): 173 Weight (Ounces): 2.0 Weight (Calculated Kilograms): 78.034766 Constitutional: AAO x 3 well-developed other (thin appearing) Respiratory: No accessory muscle use, other (Diminshed air entry at both lung bases, along with some dullness to percussion) Cardiovascular: regular rate-rhythm S1 and S2 systolic murmur (soft PABLO at card base) Gastrointestional: No tender, softNo guarding, No rebound, audible bowel sounds Extremities: No pedal edema, No clubbing, No cyanosis Neurologic/Psychiatric: grossly intact power is 5/5 both on sides Skin: No rash on exposed areas, No ulcerations on exposed areas Results/Procedures: Labs Laboratory Tests 11/20/16 12:14: Glucometer 132H A/P: Assessment: Bilateral pulmonary infiltrates: pneumonia vs ac diastolic CHF. Infiltrates remain unchanged despite diuretic therapy. Pneumonia/septicemia is being managed by the Med/Pulm Services Multiple electrolyte abnormalities due to diuretic therapy PAF with RVR. Has h/o PAF that is followed by Dr. Marsh at [facility] in [place], [place] Contraindications to full oral anticoagulation: h/o intracranial bleed requiring surgical intervention, multiple recent non-syncopal falls Probable pneumonia with septicemia R lung squamous cell CA diagnosed in 2014 that has been treated surgically in [place], according to the patient. Apparently a new lung nodule is being followed by pcp CAD with h/o stent placement to left Cx in August [address] Christensen in [place], [place] Echocardiogram from November [address] Guy showed LVEF 50-55%. mIld MR. Aortic valve sclerosis without evidence of stenosis H/o previous intracranial bleeding the details of which are unclear Propensity to falls (non-syncopal). A recent fall has led to rib contusions Plan: * Complex management due to multiple comorbidities * Reduce diuretics * Replenish electrolytes * Continue Sotalol * Will provide stroke prophylaxis only with aspirin, given previous h/o intracranial bleed (requiring surgical intervention) and also given propensity to falls * Monitor labs * Management of pneumonia and lung CA and septicemia is with the Medical Service ERIK DOWLING MD FACP FAC CCDS Nov 20, 2016 13:19
--- NOTE | 2016-11-20 13:43 | Occ Therapy Progress Note ---
Therapy Progress Note Order received for OT eval and treat. Attempted evaluation this pm. Pt sitting in chair, declined therapy secondary to fatigue. RN present and states pt has low BP at this time. Will hold therapy and attempt evaluation 11/21/16. 1, visit MARIA ELENA SNOW OT Nov 20, 2016 13:43
[2016-11-20] MEDS ORDERED: RT-ALBUTEROL/IPRATROPIUM 3 ML (DUONEB) VIAL IH SCH (14:00)
[2016-11-20] MEDS ORDERED: PHARMACY TO DOSE IV SCH (14:00)
[2016-11-20] MEDS ORDERED: LEVOFLOXACIN 750 MG/150 ML IV 150 ML IV SCH ×2 (14:06→14:44)
[2016-11-20] MEDS: MAGNESIUM 1 GM/100 ML IVPB 100 ML IV SCH ×3 (14:08→16:13)
--- NOTE | 2016-11-20 14:20 | Physical Therapy Progress Note ---
Therapy Progress Note Attempted patient treatment this afternoon but he is on hold per nurse. He is having blood pressure issues 60/40 and both nurse and PT agree to hold this afternoon. Will attempt again tomorrow. AILEEN BRAY PT Nov 20, 2016 14:20
[2016-11-20] MEDS: RT-ALBUTEROL/IPRATROPIUM 3 ML (DUONEB) VIAL IH SCH ×2 (15:11→20:00)
[2016-11-20] MEDS ORDERED: LIDOCAINE UROJET 2% GEL 10 ML PKG TOP ONE (15:45)
--- NOTE | 2016-11-20 16:33 | Diagnostic Imaging Report ---
INDICATION: Dyspnea and hypotension, followup pneumonia. DISCUSSION: Two views of the chest were obtained, comparison earlier same date. No significant interval change. Cardiomegaly is stable. Left pleural effusion is stable. Bilateral pulmonary infiltrates are not significantly changed. No pneumothorax. Left chest wall [id number] is stable. Atherosclerotic plaque is again noted within the aortic arch. IMPRESSION: 1. Stable cardiomegaly, pulmonary infiltrates, left pleural effusion. Dictated by: Dictated on workstation # [id number]
[2016-11-20] MEDS: metFORMIN 500 MG (GLUCOPHAGE) TAB PO SCH (17:04)
[2016-11-20 17:32] LABS: CALCIUM 7.9 MG/DL (8.5-10.1); CREATININE SERUM 1.39 MG/DL (0.60-1.30); POTASSIUM 3.5 MMOL/L (3.6-5.0)
[2016-11-20] MEDS ORDERED: PIPERACILLIN/TAZOBACTAM 4.5 GM/NS 100 ML IV NR ×2 (18:00)
[2016-11-20 18:16] LABS: BILIRUBIN,URINE NEGATIVE (NEGATIVE); KETONES,URINE NEGATIVE (NEGATIVE); LEUKOCYTE ESTERASE ,URINE 3+ (NEGATIVE); NITRITE,URINE NEGATIVE (NEGATIVE); PH,URINE 6 (5-9); PROTEIN,URINE 2+ (NEGATIVE); UROBILINOGEN,URINE NORMAL (NORMAL)
[2016-11-20 18:28] LABS: WBC,URINE TNTC /HPF
[2016-11-20 18:29] LABS: YEAST,URINE LARGE /HPF
[2016-11-20] MEDS: SOTALOL 80 MG (BETAPACE) TAB PO SCH (20:59)
[2016-11-20] MEDS: SENNA W/DOCUSATE (SENOKOT S) TABLET PO SCH (21:00)
[2016-11-20] MEDS ORDERED: POLYETHYLENE GLYCOL 17 GM (MIRALAX) PACK PO SCH (21:00)
[2016-11-20] MEDS: POLYETHYLENE GLYCOL 17 GM (MIRALAX) PACK PO SCH (21:00)
[2016-11-20] MEDS: PANTOPRAZOLE 40 MG (PROTONIX) TAB PO SCH (21:00)
[2016-11-20] MEDS: LEVETIRACETAM 500 MG (KEPPRA) TAB PO SCH (21:01)
[2016-11-20] MEDS: ATORVASTATIN 10 MG (LIPITOR) TABLET PO SCH (21:01)
[2016-11-20] MEDS: guaiFENesin (MUCINEX) 600 MG TAB PO SCH (21:01)
[2016-11-20] MEDS: PATCH REMOVAL TP SCH (21:11)
[2016-11-20] MEDS: PIPERACILLIN SODIUM/TAZOBACTAM 4.5 GM in NS (IVPB) 100 ML IV SCH (23:55)
[2016-11-21] MEDS: NS IV 1000 ML 1,000 ML IV SCH ×2 (04:55→18:14)
[2016-11-21 06:00] VITALS: BP 106/52
[2016-11-21] MEDS ORDERED: LEVOTHYROXINE 50 MCG (LEVOTHROID) TAB PO SCH (06:30)
[2016-11-21] MEDS: SUCRALFATE 1 GM (CARAFATE) TAB PO SCH ×4 (06:37→20:53)
[2016-11-21] MEDS: metFORMIN 500 MG (GLUCOPHAGE) TAB PO SCH ×2 (06:37→16:54)
[2016-11-21] MEDS: KCL 10 MEQ TAB (MICRO K) PO SCH (06:37)
[2016-11-21] MEDS: MULTIVIT W/MINERALS TAB (THERAGRAN M) PO SCH (06:37)
[2016-11-21 06:50] LABS: BASOPHILS % (AUTO) 0 % (0-10); EOSINOPHILS # (AUTO) 0.1 10^3/uL (0.0-0.3); EOSINOPHILS % (AUTO) 1 % (0-10); LYMPHOCYTES # (AUTO) 1.2 X 10^3 (1.0-4.0); LYMPHOCYTES % (AUTO) 17 % (12-44); MEAN CORPUSCULAR HEMOGLOBIN 32 PG (25-34); MEAN CORPUSCULAR HGB CONC 33 G/DL (32-36); MEAN CORPUSCULAR VOLUME 97 FL (80-99); MEAN PLATELET VOLUME 9.6 FL (7.4-10.4); MONOCYTES # (AUTO) 0.5 X 10^3 (0.0-1.0); MONOCYTES % (AUTO) 7 % (0-12); NEUTROPHILS # (AUTO) 5.3 X 10^3 (1.8-7.8); NEUTROPHILS % (AUTO) 75 % (42-75); PLATELET COUNT 242 10^3/uL (130-400); RED BLOOD COUNT 2.88 10^6/uL (4.35-5.85); RED CELL DISTRIBUTION WIDTH 14.5 % (10.0-14.5)
[2016-11-21 07:09] LABS: ANION GAP 8 MMOL/L (5-14); BLOOD UREA NITROGEN 24 MG/DL (7-18); BUN/CREATININE RATIO 25; CALCIUM 7.7 MG/DL (8.5-10.1); CARBON DIOXIDE 27 MMOL/L (21-32); CHLORIDE 104 MMOL/L (98-107); CREATININE SERUM 0.97 MG/DL (0.60-1.30); GFR ESTIMATED > 60; GLUCOSE 126 MG/DL (70-105); MAGNESIUM 1.8 MG/DL (1.8-2.4); POTASSIUM 4.1 MMOL/L (3.6-5.0); SODIUM 139 MMOL/L (135-145)
[2016-11-21] MEDS: RT-ALBUTEROL/IPRATROPIUM 3 ML (DUONEB) VIAL IH SCH ×4 (07:10→19:27)
[2016-11-21 08:30] VITALS: BP 103/56
[2016-11-21] MEDS: PIPERACILLIN SODIUM/TAZOBACTAM 4.5 GM in NS (IVPB) 100 ML IV SCH ×3 (08:34→23:59)
[2016-11-21] MEDS: LACTOBACILLUS Acidoph/Bulgar (LACTINEX/FLORANEX) TAB PO SCH ×3 (08:35→20:53)
[2016-11-21] MEDS: guaiFENesin (MUCINEX) 600 MG TAB PO SCH ×2 (08:35→20:52)
[2016-11-21] MEDS: FOLIC ACID 1 MG TAB PO SCH (08:35)
[2016-11-21] MEDS: FUROSEMIDE 40 MG/4 ML INJ (LASIX) IVP SCH (08:35)
[2016-11-21] MEDS: LIDOCAINE (LIDODERM) 5% PATCH TP SCH (08:35)
[2016-11-21] MEDS: ASPIRIN 81 MG CHEW (CHILDREN'S ASA) PO SCH (08:35)
[2016-11-21] MEDS: LEVETIRACETAM 500 MG (KEPPRA) TAB PO SCH ×2 (08:36→20:53)
[2016-11-21] MEDS: DOCUSATE SODIUM 100 MG (COLACE) CAP PO SCH (08:36)
[2016-11-21] MEDS: SENNA W/DOCUSATE (SENOKOT S) TABLET PO SCH ×2 (08:36→20:40)
[2016-11-21] MEDS: SOTALOL 80 MG (BETAPACE) TAB PO SCH ×2 (08:37→20:39)
[2016-11-21] MEDS: DILTIAZEM 180 MG (CARDIZEM CD) CAP PO SCH (08:37)
[2016-11-21] MEDS: CYANOCOBALAMIN 500 MCG TAB (VITAMIN B-12) PO SCH (08:50)
[2016-11-21] MEDS ORDERED: FUROSEMIDE 40 MG/4 ML INJ (LASIX) IVP SCH (09:00)
--- NOTE | 2016-11-21 09:02 | Progress Note (SOAP) ---
Subjective Subjective/Events-last exam patient voices no complaints today. Pulmonary edema. Dyspnea. A. fib.. Lactic acid yesterday 2.6 then 1.9 given IV antibiotics Objective Exam Vital Signs Date Time Temp Pulse Resp B/P Pulse Ox O2 Delivery O2 Flow Rate FiO2 11/21/16 07:11 96 3.00 11/21/16 06:00 98.0 77 20 106/52 95 Nasal Cannula 3.00 11/21/16 00:40 80 11/20/16 23:31 96.6 82 22 113/56 94 Nasal Cannula 3.00 11/20/16 21:05 88 22 95/52 95 Nasal Cannula 3.00 11/20/16 21:00 Nasal Cannula 3.00 11/20/16 20:02 92 3.00 11/20/16 19:37 80 95/51 90 Nasal Cannula 2.00 11/20/16 19:07 81 11/20/16 18:38 98.6 86 85/38 92 Nasal Cannula 2.00 11/20/16 17:50 84 90/49 93 Nasal Cannula 2.00 11/20/16 17:30 97.8 87 98/46 91 Nasal Cannula 2.00 11/20/16 17:04 86 76/34 93 Nasal Cannula 2.00 11/20/16 16:37 97.7 95 28 88/44 90 Nasal Cannula 2.00 11/20/16 15:13 92 2.00 11/20/16 15:11 90 73/43 91 Nasal Cannula 2.00 11/20/16 15:03 98.3 91 24 71/99 92 Nasal Cannula 2.00 11/20/16 14:47 97.9 92 69/39 91 Nasal Cannula 2.00 11/20/16 14:07 97.7 94 24 76/41 96 Nasal Cannula 2.00 11/20/16 14:07 94 11/20/16 13:47 93/53 11/20/16 13:45 100 87/51 94 Nasal Cannula 2.00 11/20/16 13:35 96.6 78/46 11/20/16 13:12 98 65/41 95 Nasal Cannula 2.00 11/20/16 13:00 98 11/20/16 12:13 80/50 11/20/16 12:05 80/50 11/20/16 12:00 103 69/45 I & O 11/21/16 07:00 Intake Total 3680 ml Output Total 1350 ml Balance 2330 ml Capillary Refill : General Appearance: No Apparent Distress HEENT: Normal ENT Inspection Neck: Normal Inspection Results Lab Laboratory Tests 11/20/16 16:45 11/21/16 06:30 Laboratory Tests 11/20/16 12:14: Glucometer 132H 11/20/16 14:20: Lactic Acid Level 1.8 11/20/16 16:45: Lactic Acid Level 2.6*H, Anion Gap 10, B-Type Natriuretic Peptide 240.7H, BUN/ Creatinine Ratio 17, Blood Urea Nitrogen 24H, Calcium Level 7.9L, Carbon Dioxide Level 26, Chloride Level 98, Creatinine 1.39H, Estimat Glomerular Filtration Rate 48, Glucose Level 214H, Potassium Level 3.5L, Sodium Level 134L 11/20/16 18:03: Urine Bacteria NEGATIVE, Urine Bilirubin NEGATIVE, Urine Casts NONE, Urine Clarity VERY CLOUDYH, Urine Color YELLOW, Urine Crystals NONE, Urine Culture Indicated YES, Urine Glucose (UA) NEGATIVE, Urine Ketones NEGATIVE, Urine Leukocyte Esterase 3+H, Urine Mucus NEGATIVE, Urine Nitrite NEGATIVE, Urine Protein 2+H, Urine RBC 2-5H, Urine RBC (Auto) 4+H, Urine Specific [place] 1.015L , Urine Squamous Epithelial Cells NONE, Urine Urobilinogen NORMAL, Urine WBC TNTCH, Urine Yeast LARGEH, Urine pH 6 11/20/16 18:45: Lactic Acid Level 1.9 11/21/16 06:30: Anion Gap 8, BUN/Creatinine Ratio 25, Basophils # (Auto) 0.0, Basophils (%) ( Auto) 0, Blood Urea Nitrogen 24H, Calcium Level 7.7L, Carbon Dioxide Level 27, Chloride Level 104, Creatinine 0.97, Eosinophils # (Auto) 0.1, Eosinophils (%) ( Auto) 1, Estimat Glomerular Filtration Rate > 60, Glucose Level 126H, Hematocrit 28L, Hemoglobin 9.3L, Lymphocytes # (Auto) 1.2, Lymphocytes (%) (Auto ) 17, Magnesium Level 1.8, Mean Corpuscular Hemoglobin 32, Mean Corpuscular Hemoglobin Concent 33, Mean Corpuscular Volume 97, Mean Platelet Volume 9.6, Monocytes # (Auto) 0.5, Monocytes (%) (Auto) 7, Neutrophils # (Auto) 5.3, Neutrophils (%) (Auto) 75, Platelet Count 242, Potassium Level 4.1, Red Blood Count 2.88L, Red Cell Distribution Width 14.5, Sodium Level 139, White Blood Count 7.0 Assessment/Plan Assessment/Plan Assess & Plan/Chief Complaint pneumonia. Pulmonary edema. A. fib. Elevated lactic acid yesterday 2.6 Diagnosis/Problems: Clinical Quality Measures DVT/VTE Risk/Contraindication: Contraindications-Pharm: Other *list below* Other: FREQUENT [place] INTRACRANIAL BLEED HX JENIFFER OVALLE DO Nov 21, 2016 09:02
--- NOTE | 2016-11-21 10:04 | Physical Therapy Daily Note ---
PT Daily Note-Current Subjective Pt in bed, agreeable. BP remains low but nursing agreeable to up to chair with monitoring. Pt c/o pain at tailbone, not rated. Mental Status Patient Orientation: Person, Place, Time, Situation Attachments: Oxygen, Marley Catheter, IV Transfers Functional [place] Measure 0=Not Assessed/NA 4=Minimal Assistance 1=Total Assistance 5=Supervision or Setup 2=Maximal Assistance 6=Modified [place] 3=Moderate Assistance 7=Complete IndependenceIRFPAI Quality Coding Scale 6 Independent with activity with or without an assistive device 5 Patient requires set up or clean up by helper. Patient completes activity by themselves 4 Supervision or touching assist (CGA). [place] provide cues , steadying assist 3 The helper provides less than half the effort to complete the activity 2 The helper provides more than half the effort to complete the activity 1 Dependent. The helper does all the effort to complete an activity 7 Patient refused to complete or attempt activity 9 The patient did not perform the activity before the current illness or injury 88 Not attempted due to Medical conditions or safety concerns Transfers (B, C, W/C) (FIM): 5 Sit to/from Stand: 5 Bed to/from Chair: 5 Weight Bearing Weight Bearing Restriction: Full Weight Bearing Location Restriction: LE Bilateral Gait Training Gait (FIM): 1 Distance (FIM): 1=up to 49 ft Distance: 5 Gait Level of Assist: 5 Gait Persons Needed: 1 Gait Assistive Device: FWW Slow, shuffling steps to chair. No LOB. Treatments Transfer training, up to chair. BP at rest, prior to activity: 102/54, BP sitting EOB: 110/52, BP after TFR to chair: 103/56. Pt up in chair with chair alarm present, needs met, O2 in situ. Nursing in room. Activity limited by low BP this date. Assessment Current Status: Fair Progress Pt tolerated well. Asymptomatic despite low BP. No LOB with TFR. 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 Center Assistant Goals Residential Goals PT Residential Goals Time Frame: Nov 27, 2016 Transfers (B,C,W/C) (FIM): 5 Gait (FIM): 2 Distance: 50' Gait Level of Assist: 4 Gait Assistive Device: FWW PT Plan Problem List Problem List: Activity Tolerance, Functional Strength, Safety, Balance, Gait, Transfer, Bed Mobility Treatment/Plan Treatment Plan: Continue Plan of Care Treatment Plan: Bed Mobility, Education, Functional Activity Sherrell, Functional Strength, Gait, Safety, Therapeutic Exercise, Transfers Treatment Duration: Nov 27, 2016 Visits Per Week: 10-11 Minutes/Day (M-F): 15-30 Minutes/Day (Sat/Vargas): 15-30 Pt/Family Agrees w/Plan: Yes Safety Risks/Education Patient Education: Transfer Techniques Teaching Recipient: Patient Teaching Methods: Discussion Response to Teaching: Verbalize Understanding Discharge Recommendations Barriers to Progress Low BP Time/GCodes Time In: 0818 Time Out: 0846 Total Billed Treatment Time: 28 Total Billed Treatment 1, FA x 28' G Codes Necessary: YONAS Mathis DPT Nov 21, 2016 10:04
--- NOTE | 2016-11-21 10:06 | Diagnostic Imaging Report ---
INDICATION: Pneumonia. Comparison made with prior examination from 11/20/16. FINDINGS: There's cardiomegaly. There is a left basilar infiltrate and left pleural effusion. There is venous congestion. There is no pneumothorax. The mediastinum is unremarkable. IMPRESSION: Left basilar consolidation suspect for pneumonia with a left pleural effusion. There are several left lateral rib fractures. Cardiomegaly and mild venous congestion. Multiple left lateral rib fractures. Dictated by: Dictated on workstation # [id number]
--- NOTE | 2016-11-21 10:37 | Occupational Therapy Eval ---
OT Evaluation-General/PLF Medical Diagnosis Admission Date Nov 20, 2016 at 10:18 Medical Diagnosis: pulmonary edema, afib, weakness, falls Onset Date: Nov 17, 2016 Therapy Diagnosis Therapy Diagnosis: Weakness, Decreased ADL skills Height/Weight Height (Feet): 6 Height (Inches): 2.00 Weight (Pounds): 173 Weight (Ounces): 2.0 Precautions Precautions/Isolations: Fall Prevention, Standard Precautions Safety Interventions: Bed Exit Alarm Weight Bear Status Weight Bearing Restriction: Full Weight Bearing Location Restriction: LE Bilateral Referral Physician: Monisha Lerma MD Referral Reason: Activity Tolerance, Self Care, Evaluation/Treatment, Strengthening/ROM Medical History Pertinent Medical History: Atrial Fib, CAD, COPD, DM, HTN, Prostate CA, Smoking , TBI Current History Pt. fell at home. Sustained multiple rib fx on left side. Went to [facility] for skilled therapy. Came back with pneumonia. Reviewed History: Yes Social History Home: Single Level Current Living Status: Alone Entry Into Home: Stairs With Railing Steps Into Home: 2 ADL-Prior Level of Function ADL PLOF Comments Pt. was indpendent originally before he fell at home. DME/Equipment: Tub/Shower Occupation: Retired [employer]. Originally from [place]. Drive Self: Yes OT Current Status Subjective Pt. keeps eyes closed during treatment and is hard to auditorally hear at times. Keeps voice low. Appearance Pt. in chair. States that his ribs hurt when he attempts to move his left arm, but does not give a pain level. Mental Status/Objective Patient Orientation: Person Current Hand Dominance: Right Upper Extremity ROM Pt. is able to flex right UE WFL. Does not attempt to move left UE due to fx ribs and pain with movement. Upper Extremity Coordination left- impaired Upper Extremity Strength Left- NT Right- 3+/5 throughout ADL-Treatment Functional [place] Measure 0=Not Assessed/NA 4=Minimal Assistance 1=Total Assistance 5=Supervision or Setup 2=Maximal Assistance 6=Modified [place] 3=Moderate Assistance 7=Complete IndependenceIRFPAI Quality Coding Scale 6 Independent with activity with or without an assistive device 5 Patient requires set up or clean up by helper. Patient completes activity by themselves 4 Supervision or touching assist (CGA). [place] provide cues , steadying assist 3 The helper provides less than half the effort to complete the activity 2 The helper provides more than half the effort to complete the activity 1 Dependent. The helper does all the effort to complete an activity 7 Patient refused to complete or attempt activity 9 The patient did not perform the activity before the current illness or injury 88 Not attempted due to Medical conditions or safety concerns Lower Body Dressing (FIM): 1 (Pt. is unable to even attempt to bend over to doff or don socks. States that it will hurt too bad in his ribs, and he would rather not. Pt. educated on need for adaptive equipment, which will be brought in on Wednesday.) Pt. is up in chair. Able to engaged in UE assessment. Does not want to attempt LE assessment with dressing due to rib fx. Able to go from sit-stand with min assist, and then sit back down. Per physical therapist, pt's BP has still been low, but nursing okay'd her to get pt up. Will begin more intense therapy when pt' BP more stable. All needs were met in room. Offered to assist pt. back to bed. Pt. states that he would like to continue sitting up in chair. Education OT Patient Education: Correct positioning, Modified ADL techniques, Progress toward Goal/Update tx plan, Purpose of tx/functional activities, Reviewed precautions, Rehab process, Transfer techniques, Use of adapted equipment Teaching Recipient: Patient Teaching Methods: Demonstration, Discussion Response to Teaching: Verbalize Understanding, Return Demonstration OT Short Term Goals Short Term Goals Time Frame: Dec 05, 2016 Eating(FIM): 5 Grooming(FIM): 5 Bathing(FIM): 3 Upper Body Dressing(FIM): 4 Lower Body Dressing(FIM): 3 Toileting(FIM): 4 Transfers (B,C,W/C) (FIM): 4 Toilet/Commode Transfer(FIM): 4 Shower Transfer(FIM): 4 Additional Short Term Goals: 1-Demonstrate ADL Tasks, 2-Verbalize Understanding , 3-ImproveStrength/Sherrell 1=Demonstrate adherence to instructed precautions during ADL tasks. 2=Patient will verbalize/demonstrate understanding of assistive devices/ modifications for ADL. 3=Patient will improve strength/tolerance for activity to enable patient to perform ADL's. OT Detention Goals [employer] Counselor Goals Time Frame: Dec 19, 2016 Eating (FIM): 6 Eating (QC): 6 Groomin Bathing(FIM): 5 Upper Body Dressing(FIM): 5 Lower Body Dressing(FIM): 5 Toileting(FIM): 6 Toileting Hygiene (QC): 6 Transfers (B,C,W/C) (FIM): 6 Toilet/Commode Transfer(FIM): 6 Toilet/Commode Transfer (QC): 6 Shower Transfer(FIM): 5 Additional Goals: 1-Demonstrate ADL Tasks, 2-Verbalize Understanding, 3- ImproveStrength/Sher[place] 1=Demonstrate adherence to instructed precautions during ADL tasks. 2=Patient will verbalize/demonstrate understanding of assistive devices/ modifications for ADL. 3=Patient will improve strength/tolerance for activity to enable patient to perform ADL's. OT Education/Plan Problem List/Assessment Assessment: Decreased Activ Tolerance, Decreased UE Strength, Dependent Transfers, Impaired Bed Mobility, Impaired Coordination, Impaired Funct Balance , Impaired I ADL's, Impaired Self-Care Skills, Restricted Funct UE ROM Discharge Recommendations Plan/Recommendations: Continue POC Therapy D/C Recommendations: Home w/ Family Support, Occupational Therapy Home Care, Scheduled Assistance Comment Pt. unable to fully describe what equipment he had at home due to fatigue. Will further assess this at next treatment session. Treatment Plan/Plan of Care Treatment,Training & Education: Yes Patient would benefit from OT for education, treatment and training to promote independence in ADL's, mobility, safety and/or upper extremity function for ADL' s. Plan of Care: ADL Retraining, Functional Mobility, UE Funct Exercise/Act Treatment Duration: Dec 19, 2016 # of days/week 5-6 Visits Per Week: 5-6 Agreement: Yes Rehab Potential: Fair Time/GCodes Start Time: 10:15 Stop Time: 10:30 Total Time Billed (hr/min): 15 Billed Treatment Time 1, DOROTHYhermila BRITOJACQUELINE OT Nov 21, 2016 10:37
[2016-11-21] MEDS: LEVOFLOXACIN 750 MG/150 ML IV 150 ML IV SCH (13:07)
[2016-11-21 15:30] VITALS: BP 107/59
[2016-11-21 18:34] VITALS: BP 127/70
[2016-11-21] MEDS: POLYETHYLENE GLYCOL 17 GM (MIRALAX) PACK PO SCH (20:40)
[2016-11-21 20:41] VITALS: BP 103/54
[2016-11-21] MEDS: PANTOPRAZOLE 40 MG (PROTONIX) TAB PO SCH (20:53)
[2016-11-21] MEDS: PATCH REMOVAL TP SCH (20:53)
[2016-11-21] MEDS: ATORVASTATIN 10 MG (LIPITOR) TABLET PO SCH (20:53)
[2016-11-22] VITALS (14 sets, daily range): BP systolic 67–122; BP diastolic 38–67
[2016-11-22] MEDS: NS IV 1000 ML 1,000 ML IV SCH ×2 (04:25→13:40)
[2016-11-22] MEDS: MULTIVIT W/MINERALS TAB (THERAGRAN M) PO SCH (06:06)
[2016-11-22] MEDS: KCL 10 MEQ TAB (MICRO K) PO SCH (06:06)
[2016-11-22] MEDS: metFORMIN 500 MG (GLUCOPHAGE) TAB PO SCH (06:06)
[2016-11-22] MEDS: SUCRALFATE 1 GM (CARAFATE) TAB PO SCH ×2 (06:13→11:01)
[2016-11-22] MEDS ORDERED: LEVOTHYROXINE 25 MCG (LEVOTHROID) TAB PO SCH (06:30)
[2016-11-22 06:56] LABS: BASOPHILS % (AUTO) 0 % (0-10); EOSINOPHILS # (AUTO) 0.2 10^3/uL (0.0-0.3); EOSINOPHILS % (AUTO) 2 % (0-10); LYMPHOCYTES # (AUTO) 1.1 X 10^3 (1.0-4.0); LYMPHOCYTES % (AUTO) 16 % (12-44); MEAN CORPUSCULAR HEMOGLOBIN 32 PG (25-34); MEAN CORPUSCULAR HGB CONC 33 G/DL (32-36); MEAN CORPUSCULAR VOLUME 97 FL (80-99); MEAN PLATELET VOLUME 9.7 FL (7.4-10.4); MONOCYTES # (AUTO) 0.5 X 10^3 (0.0-1.0); MONOCYTES % (AUTO) 7 % (0-12); NEUTROPHILS # (AUTO) 5.4 X 10^3 (1.8-7.8); NEUTROPHILS % (AUTO) 76 % (42-75); PLATELET COUNT 219 10^3/uL (130-400); RED BLOOD COUNT 2.96 10^6/uL (4.35-5.85); RED CELL DISTRIBUTION WIDTH 14.4 % (10.0-14.5); WHITE BLOOD COUNT 7.2 10^3/uL (4.3-11.0)
[2016-11-22 07:07] LABS: ANION GAP 8 MMOL/L (5-14); BLOOD UREA NITROGEN 15 MG/DL (7-18); BUN/CREATININE RATIO 19; CALCIUM 7.9 MG/DL (8.5-10.1); CARBON DIOXIDE 25 MMOL/L (21-32); CHLORIDE 107 MMOL/L (98-107); CREATININE SERUM 0.78 MG/DL (0.60-1.30); GFR ESTIMATED > 60; GLUCOSE 139 MG/DL (70-105); POTASSIUM 3.6 MMOL/L (3.6-5.0); SODIUM 140 MMOL/L (135-145)
[2016-11-22] MEDS: RT-ALBUTEROL/IPRATROPIUM 3 ML (DUONEB) VIAL IH SCH ×4 (07:22→19:42)
[2016-11-22] MEDS: CYANOCOBALAMIN 500 MCG TAB (VITAMIN B-12) PO SCH (07:56)
[2016-11-22] MEDS: ASPIRIN 81 MG CHEW (CHILDREN'S ASA) PO SCH (07:56)
[2016-11-22] MEDS: LEVETIRACETAM 500 MG (KEPPRA) TAB PO SCH (07:57)
[2016-11-22] MEDS: guaiFENesin (MUCINEX) 600 MG TAB PO SCH (07:57)
[2016-11-22] MEDS: FOLIC ACID 1 MG TAB PO SCH (07:57)
[2016-11-22] MEDS: LACTOBACILLUS Acidoph/Bulgar (LACTINEX/FLORANEX) TAB PO SCH ×2 (07:57→13:40)
[2016-11-22] MEDS: LIDOCAINE (LIDODERM) 5% PATCH TP SCH (07:58)
[2016-11-22] MEDS: PIPERACILLIN SODIUM/TAZOBACTAM 4.5 GM in NS (IVPB) 100 ML IV SCH (07:58)
[2016-11-22] MEDS: FUROSEMIDE 40 MG/4 ML INJ (LASIX) IVP SCH (07:58)
[2016-11-22] MEDS: SENNA W/DOCUSATE (SENOKOT S) TABLET PO SCH (08:19)
[2016-11-22] MEDS: DOCUSATE SODIUM 100 MG (COLACE) CAP PO SCH (08:19)
--- NOTE | 2016-11-22 09:10 | Diagnostic Imaging Report ---
INDICATION: Pneumonia. COMPARISON: 11/21/2016. FINDINGS: There is cardiomegaly. There is moderate central pulmonary venous congestion. There are bibasilar consolidations (left greater than right). There is left pleural effusion. There is no pneumothorax. The mediastinum is unremarkable. IMPRESSION: Bibasilar consolidations, left greater than right, with a left pleural effusion. Cardiomegaly and moderate central pulmonary venous congestion. Dictated by: Dictated on workstation # [id number]
[2016-11-22] MEDS: SOTALOL 80 MG (BETAPACE) TAB PO SCH (09:22)
[2016-11-22] MEDS: DILTIAZEM 180 MG (CARDIZEM CD) CAP PO SCH (09:22)
--- NOTE | 2016-11-22 10:00 | Progress Note (SOAP) ---
Subjective Subjective/Events-last exam patient feels washed out today. Patient now in atrial flutter with RVR. 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 Patient received Cardizem. Patient hypotension Objective Exam Vital Signs Date Time Temp Pulse Resp B/P Pulse Ox O2 Delivery O2 Flow Rate FiO2 11/22/16 09:42 161 87/55 96 Room Air 11/22/16 08:14 106 122/67 11/22/16 08:14 Nasal Cannula 3.00 11/22/16 07:24 92 2.00 11/22/16 06:00 98.2 106 18 109/54 94 Nasal Cannula 2.00 11/22/16 01:00 100 11/21/16 21:00 Nasal Cannula 3.00 11/21/16 20:41 56 103/54 11/21/16 19:27 94 2.00 11/21/16 19:00 89 11/21/16 18:34 96.8 103 18 127/70 92 Nasal Cannula 2.00 11/21/16 15:30 107/59 11/21/16 14:52 97 2.00 11/21/16 13:02 78 11/21/16 10:38 96 2.00 I & O 11/22/16 07:00 Intake Total 7160 ml Output Total 2410 ml Balance 4750 ml Capillary Refill : General Appearance: No Apparent Distress WD/WN Cardiovascular: Irregularly Irregular Other (apical rate 148) Gastrointestinal: soft Results Lab Laboratory Tests 11/22/16 06:30 Laboratory Tests 11/22/16 06:30: Anion Gap 8, BUN/Creatinine Ratio 19, Basophils # (Auto) 0.0, Basophils (%) ( Auto) 0, Blood Urea Nitrogen 15, Calcium Level 7.9L, Carbon Dioxide Level 25, Chloride Level 107, Creatinine 0.78, Eosinophils # (Auto) 0.2, Eosinophils (%) ( Auto) 2, Estimat Glomerular Filtration Rate > 60, Glucose Level 139H, Hematocrit 29L, Hemoglobin 9.4L, Lymphocytes # (Auto) 1.1, Lymphocytes (%) (Auto ) 16, Mean Corpuscular Hemoglobin 32, Mean Corpuscular Hemoglobin Concent 33, Mean Corpuscular Volume 97, Mean Platelet Volume 9.7, Monocytes # (Auto) 0.5, Monocytes (%) (Auto) 7, Neutrophils # (Auto) 5.4, Neutrophils (%) (Auto) 76H, Platelet Count 219, Potassium Level 3.6, Red Blood Count 2.96L, Red Cell Distribution Width 14.4, Sodium Level 140, White Blood Count 7.2 Microbiology 11/20/16 Blood Culture - Preliminary, Resulted No growth 11/20/16 Urine Culture - Preliminary, Resulted Yeast Species Assessment/Plan Assessment/Plan Assess & Plan/Chief Complaint pneumonia. Pulmonary edema. A. fib. Elevated lactic acid yesterday 2.6. . Atrial failure with RVR. Patient received Cardizem. Pneumonia. Hypotension. 11/22/16 Diagnosis/Problems: Clinical Quality Measures DVT/VTE Risk/Contraindication: Contraindications-Pharm: Other *list below* Other: [place] INTRACRANIAL BLEED HX JENIFFER OVALLE DO Nov 22, 2016 10:00
[2016-11-22] MEDS ORDERED: meTOprolol 5 MG/5 ML (LOPRESSOR) VIAL IV NR (10:21)
[2016-11-22] MEDS: NS IV 500 ML 500 ML IV SCH ×2 (11:01→11:15)
[2016-11-22] MEDS ORDERED: DIGOXIN 0.25 MG (LANOXIN) TAB PO NR ×2 (11:45→18:00)
[2016-11-22] MEDS ORDERED: NS IV 500 ML 500 ML IV ONE (12:00)
[2016-11-22] MEDS: DIGOXIN 0.25 MG (LANOXIN) TAB PO NR ×2 (12:01→12:05)
--- NOTE | 2016-11-22 12:12 | Cardiology Progress Note ---
Cardiology SOAP Progress Note Subjective: hypotensive and in AF with RVR when I saw. No complaints though. Objective: I&O/Vital Signs Vital Sign - Last 12Hours 11/22/16 11/22/16 11/22/16 11/22/16 10:48 11:02 11:34 11:43 Pulse 156 B/P 89/52 88/58 72/38 Pulse Ox 96 O2 Flow Rate 2.00 11/22/16 11/22/16 11/22/16 11/22/16 11:58 12:50 13:00 13:38 Pulse 121 137 134 134 B/P 93/55 101/61 89/62 11/22/16 11/22/16 11/22/16 11/22/16 14:40 15:15 15:17 16:00 Temp 97.7 Pulse 137 131 124 99 Resp 20 B/P 75/44 67/46 83/42 88/54 Pulse Ox 91 95 O2 Delivery Nasal Cannula Nasal Cannula O2 Flow Rate 2.00 2.00 11/22/16 19:43 Pulse Ox 95 O2 Flow Rate 2.00 Intake and Output 11/22/16 00:00 Intake Total 2070 ml Output Total 1510 ml Balance 560 ml Weight (Pounds): 173 Weight (Ounces): 2.0 Weight (Calculated Kilograms): 78.388939 Constitutional: AAO x 3 well-developed other (thin appearing) Respiratory: No accessory muscle use, other (Diminshed air entry at both lung bases, along with some dullness to percussion) Cardiovascular: S1 and S2 systolic murmur (soft PABLO at card base) Gastrointestional: No tender, softNo guarding, No rebound, audible bowel sounds Extremities: No pedal edema, No clubbing, No cyanosis Neurologic/Psychiatric: grossly intact power is 5/5 both on sides Skin: No rash on exposed areas, No ulcerations on exposed areas Results/Procedures: Labs Laboratory Tests 11/22/16 06:30: Anion Gap 8, BUN/Creatinine Ratio 19, Basophils # (Auto) 0.0, Basophils (%) ( Auto) 0, Blood Urea Nitrogen 15, Calcium Level 7.9L, Carbon Dioxide Level 25, Chloride Level 107, Creatinine 0.78, Eosinophils # (Auto) 0.2, Eosinophils (%) ( Auto) 2, Estimat Glomerular Filtration Rate > 60, Glucose Level 139H, Hematocrit 29L, Hemoglobin 9.4L, Lymphocytes # (Auto) 1.1, Lymphocytes (%) (Auto ) 16, Mean Corpuscular Hemoglobin 32, Mean Corpuscular Hemoglobin Concent 33, Mean Corpuscular Volume 97, Mean Platelet Volume 9.7, Monocytes # (Auto) 0.5, Monocytes (%) (Auto) 7, Neutrophils # (Auto) 5.4, Neutrophils (%) (Auto) 76H, Platelet Count 219, Potassium Level 3.6, Red Blood Count 2.96L, Red Cell Distribution Width 14.4, Sodium Level 140, White Blood Count 7.2 Microbiology 11/20/16 Blood Culture - Preliminary, Resulted No growth 11/20/16 Urine Culture - Final, Complete Presumptive [place] A/P: Assessment/Dx: Hypotension and AF with RVR Plan: Recommend transfer to ICU for closer hemodynamic monitoring overnight. Fluid resuscitation (EF normal). Digoxin load. continue other meds for rate control. If BP stays hypotensive despite iv fluids, may need low dose dopamine. Dr Higgins will take over care tomorrow morning. Maya MOLINA MD Nov 22, 2016 12:12 Vascular Medicine and Endovascular Interventions Maya MOLINA MD Nov 22, 2016 12:12
[2016-11-22] MEDS: LEVOFLOXACIN 750 MG/150 ML IV 150 ML IV SCH (14:04)
[2016-11-23] MEDS ORDERED: DIGOXIN 0.25 MG (LANOXIN) TAB PO NR
[2016-11-23] MEDS ORDERED: DIGOXIN 0.25 MG (LANOXIN) TAB PO SCH (09:00)
--- NOTE | 2016-11-23 13:25 | Therapy Team Discharge Summary ---
Therapy Discharge Summary Discharge Recommendations Date of Discharge Nov 22, 2016 at 16:22 Therapy D/C Recommendations: Home w/ Family Support, Occupational Therapy Home Care, Scheduled Assistance Physical Therapy Patient transferred to ICU for continued care secondary to decline in medical status. PT to dismiss patient from SWB status at this time. PT Meat Team Lead Goals [facility] Goals PT [facility] Goals Time Frame: Nov 27, 2016 Transfers (B,C,W/C) (FIM): 5 Sit to Lying (QC): 6 Lying-Sitting on Side/Bed(QC): 6 Sit to Stand (QC): 4 Rollin Chair/Gnv-tg-Vhqal Xfer(QC): 4 Does the Patient Walk: Yes Gait (FIM): 2 Distance: 50' Walk 50ft with 2 Turns (QC): 4 Walk 150 ft (QC): 88 Gait Level of Assist: 4 Gait Assistive Device: FWW OT Meat Team Lead Goals Meat Team Lead Goals Time Frame: Dec 19, 2016 Eating (FIM): 6 Eating (QC): 6 Groomin Bathing(FIM): 5 Upper Body Dressing(FIM): 5 Lower Body Dressing(FIM): 5 Toileting(FIM): 6 Toileting Hygiene (QC): 6 Transfers (B,C,W/C) (FIM): 6 Toilet/Commode Transfer(FIM): 6 Toilet/Commode Transfer (QC): 6 Shower Transfer(FIM): 5 Additional Goals: 1-Demonstrate ADL Tasks, 2-Verbalize Understanding, 3- ImproveStrength/Sherrell 1=Demonstrate adherence to instructed precautions during ADL tasks. 2=Patient will verbalize/demonstrate understanding of assistive devices/ modifications for ADL. 3=Patient will improve strength/tolerance for activity to enable patient to perform ADL's. SAVAGE TREVINO PT Nov 23, 2016 13:25
--- NOTE | 2016-11-23 14:23 | Therapy Team Discharge Summary ---
Therapy Discharge Summary Discharge Recommendations Date of Discharge Nov 22, 2016 at 16:22 Therapy D/C Recommendations: Home w/ Family Support, Occupational Therapy Home Care, Scheduled Assistance Occupational Therapy Pt was admitted to [facility] status following acute hospitalization for pulmonary edema, a-fib, and weakness. Pt was evaluated on 11/21/16 and was discharged to ICU secondary to change in medical status on 11/22/16 before any further OT treatment was given. Therefore pt did not meet any OT goals. D/C SWB OT at this time. PT Half-Way Goals Half-Way Goals PT Calender Roll Press Operator Goals Time Frame: Nov 27, 2016 Transfers (B,C,W/C) (FIM): 5 Sit to Lying (QC): 6 Lying-Sitting on Side/Bed(QC): 6 Sit to Stand (QC): 4 Rollin Chair/Bri-yq-Rlibi Xfer(QC): 4 Does the Patient Walk: Yes Gait (FIM): 2 Distance: 50' Walk 50ft with 2 Turns (QC): 4 Walk 150 ft (QC): 88 Gait Level of Assist: 4 Gait Assistive Device: FWW OT Half-Way Goals Half-Way Goals Time Frame: Dec 19, 2016 Eating (FIM): 6 Eating (QC): 6 Groomin Bathing(FIM): 5 Upper Body Dressing(FIM): 5 Lower Body Dressing(FIM): 5 Toileting(FIM): 6 Toileting Hygiene (QC): 6 Transfers (B,C,W/C) (FIM): 6 Toilet/Commode Transfer(FIM): 6 Toilet/Commode Transfer (QC): 6 Shower Transfer(FIM): 5 Additional Goals: 1-Demonstrate ADL Tasks, 2-Verbalize Understanding, 3- ImproveStrength/Sherrell 1=Demonstrate adherence to instructed precautions during ADL tasks. 2=Patient will verbalize/demonstrate understanding of assistive devices/ modifications for ADL. 3=Patient will improve strength/tolerance for activity to enable patient to perform ADL's. MARIA ELENA SNOW OT Nov 23, 2016 14:23
[2016-12-11] MEDS ORDERED: AMOX-358 PO (09:24)
[2016-12-11] MEDS ORDERED: HYDR-3820 PO (09:24)
[2016-12-11] MEDS ORDERED: GUAI600T43 PO (09:24)
[2016-12-11] MEDS ORDERED: ACID1TAB PO (09:24)
[2016-12-11] MEDS ORDERED: DILT180C84 PO (09:24)
[2016-12-11] MEDS ORDERED: Sotalol Hcl PO (09:24)
[2016-12-11] MEDS ORDERED: NYST1000 PO (09:24)
== END 2016-11-22 16:22 | disposition short-term general hospital (02) | DRG 190 ==
LOC: 4TH 10:18
PROVIDERS: ADMIT Family Medicine; ATTEND Family Medicine
DX: J44.0 Chronic obstructive pulmonary disease with (acute) lower respiratory infection (principal); J18.9 Pneumonia, unspecified organism; I95.9 Hypotension, unspecified; I48.0 Paroxysmal atrial fibrillation; J81.1 Chronic pulmonary edema; R09.02 Hypoxemia; E11.9 Type 2 diabetes mellitus without complications; R91.1 Solitary pulmonary nodule; I25.10 Atherosclerotic heart disease of native coronary artery without angina pectoris; L89.159 Pressure ulcer of sacral region, unspecified stage; I10 Essential (primary) hypertension; E78.00 Pure hypercholesterolemia, unspecified; E87.6 Hypokalemia; E03.9 Hypothyroidism, unspecified; K59.00 Constipation, unspecified; S22.42XD Multiple fractures of ribs, left side, subsequent encounter for fracture with routine healing; Z85.118 Personal history of other malignant neoplasm of bronchus and lung; Z87.820 Personal history of traumatic brain injury; Z79.84 Long term (current) use of oral hypoglycemic drugs; Z87.891 Personal history of nicotine dependence; Z85.46 Personal history of malignant neoplasm of prostate; Z85.51 Personal history of malignant neoplasm of bladder; Z95.5 Presence of coronary angioplasty implant and graft
CPT/HCPCS: 36415; 71010; 71020; 80048; 81000; 82962; 83605; 83735; 83880; 85025; 87040; 87088; 94640; 94664; 94760

== ENCOUNTER 2016-11-22 16:23 | Inpatient (IN) | payer MEDICARE, OTHER ==
[2016-11-22] VITALS (7 sets, daily range): BP systolic 104–141; BP diastolic 63–74
[~2016-11-22] VITALS: Ht 188 cm; Wt 74.4 kg
[2016-11-22] MEDS ORDERED: DIGOXIN 0.25 MG (LANOXIN) TAB PO ONE (18:00)
[2016-11-22] MEDS: NS IV 1000 ML 1,000 ML IV SCH (18:44)
[2016-11-22] MEDS ORDERED: HYDROcodone/APAP 10 MG/325 MG (LORTAB) TAB PO PRN (20:15)
[2016-11-22] MEDS ORDERED: RT-ALBUTEROL/IPRATROPIUM 3 ML (DUONEB) VIAL IH PRN (20:15)
[2016-11-22] MEDS ORDERED: LEVOTHYROXINE 50 MCG (LEVOTHROID) TAB PO SCH (20:15)
[2016-11-22] MEDS ORDERED: PROMETHAZINE INJ 25 MG/ML (PHENERGAN) AMP IVP PRN (20:15)
[2016-11-22] MEDS ORDERED: NITROGLYCERIN SUBLINGUAL 0.4 MG TAB (NITROSTAT) SL PRN (20:15)
[2016-11-22] MEDS ORDERED: MILK OF MAGNESIA 400 MG/5 ML 30 ML UDC PO PRN (20:15)
[2016-11-22] MEDS: SENNA W/DOCUSATE (SENOKOT S) TABLET PO SCH (21:00)
[2016-11-22] MEDS ORDERED: SOTALOL HCL 40 MG PO SCH (21:00)
[2016-11-22] MEDS ORDERED: RT-ALBUTEROL/IPRATROPIUM 3 ML (DUONEB) VIAL IH SCH (21:00)
[2016-11-22] MEDS ORDERED: LUTEIN 20 MG PO SCH (21:00)
[2016-11-22] MEDS ORDERED: metFORMIN 500 MG (GLUCOPHAGE) TAB PO SCH (21:00)
[2016-11-22] MEDS ORDERED: IBUPROFEN 600 MG (MOTRIN) TAB PO SCH (21:00)
[2016-11-22] MEDS: PIPERACILLIN SODIUM/TAZOBACTAM 4.5 GM in NS (IVPB) 100 ML IV SCH (22:29)
[2016-11-22] MEDS: PANTOPRAZOLE 40 MG (PROTONIX) TAB PO SCH (22:32)
[2016-11-22] MEDS: guaiFENesin (MUCINEX) 600 MG TAB PO SCH (22:32)
[2016-11-22] MEDS: ATORVASTATIN 10 MG (LIPITOR) TABLET PO SCH (22:32)
[2016-11-22] MEDS: LEVETIRACETAM 500 MG (KEPPRA) TAB PO SCH (22:33)
[2016-11-23] VITALS (24 sets, daily range): BP systolic 79–154; BP diastolic 45–95
[2016-11-23] MEDS ORDERED: DIGOXIN 0.25 MG (LANOXIN) TAB PO ONE
[2016-11-23] MEDS: NS IV 1000 ML 1,000 ML IV SCH ×2 (01:49→13:01)
[2016-11-23 04:20] LABS: BASOPHILS % (AUTO) 0 % (0-10); EOSINOPHILS # (AUTO) 0.2 10^3/uL (0.0-0.3); EOSINOPHILS % (AUTO) 2 % (0-10); LYMPHOCYTES # (AUTO) 1.2 X 10^3 (1.0-4.0); LYMPHOCYTES % (AUTO) 15 % (12-44); MEAN CORPUSCULAR HEMOGLOBIN 31 PG (25-34); MEAN CORPUSCULAR HGB CONC 32 G/DL (32-36); MEAN CORPUSCULAR VOLUME 98 FL (80-99); MEAN PLATELET VOLUME 9.2 FL (7.4-10.4); MONOCYTES # (AUTO) 0.5 X 10^3 (0.0-1.0); MONOCYTES % (AUTO) 7 % (0-12); NEUTROPHILS % (AUTO) 76 % (42-75); PLATELET COUNT 210 10^3/uL (130-400); RED BLOOD COUNT 2.81 10^6/uL (4.35-5.85); RED CELL DISTRIBUTION WIDTH 14.5 % (10.0-14.5); WHITE BLOOD COUNT 7.9 10^3/uL (4.3-11.0)
[2016-11-23 04:45] LABS: ANION GAP 10 MMOL/L (5-14); BLOOD UREA NITROGEN 9 MG/DL (7-18); BUN/CREATININE RATIO 13; CALCIUM 7.8 MG/DL (8.5-10.1); CARBON DIOXIDE 26 MMOL/L (21-32); CHLORIDE 107 MMOL/L (98-107); CREATININE SERUM 0.71 MG/DL (0.60-1.30); GFR ESTIMATED > 60; GLUCOSE 125 MG/DL (70-105); MAGNESIUM 1.2 MG/DL (1.8-2.4); PHOSPHORUS 1.5 MG/DL (2.3-4.7); POTASSIUM 3.2 MMOL/L (3.6-5.0); SODIUM 143 MMOL/L (135-145)
[2016-11-23] MEDS: PIPERACILLIN SODIUM/TAZOBACTAM 4.5 GM in NS (IVPB) 100 ML IV SCH ×3 (05:14→20:56)
[2016-11-23] MEDS: MAGNESIUM 1 GM/100 ML IVPB 100 ML IV SCH ×5 (05:32→13:02)
[2016-11-23] MEDS: KCL 20 MEQ TAB (K-DUR) PO SCH (05:52)
[2016-11-23] MEDS: POTASSIUM CL 10MEQ/50ML IVPB 50 ML IV SCH ×5 (05:52→13:02)
[2016-11-23] MEDS: MULTIVIT W/MINERALS TAB (THERAGRAN M) PO SCH (06:20)
[2016-11-23] MEDS: metFORMIN 500 MG (GLUCOPHAGE) TAB PO SCH ×2 (06:20→17:59)
[2016-11-23] MEDS: LEVOTHYROXINE 50 MCG (LEVOTHROID) TAB PO SCH (06:21)
[2016-11-23] MEDS: KCL 10 MEQ TAB (MICRO K) PO SCH (06:21)
[2016-11-23] MEDS: RT-ALBUTEROL/IPRATROPIUM 3 ML (DUONEB) VIAL IH SCH ×4 (06:29→20:00)
[2016-11-23] MEDS: SENNA W/DOCUSATE (SENOKOT S) TABLET PO SCH ×2 (08:15→20:56)
[2016-11-23] MEDS: DOCUSATE SODIUM 100 MG (COLACE) CAP PO SCH (08:15)
--- NOTE | 2016-11-23 08:45 | Diagnostic Imaging Report ---
INDICATION: Dyspnea. Compared 11/22/2016. FINDINGS: Left-sided pleural fluid and airspace disease in its mid/ lower thirds unchanged. Displaced left rib fractures unchanged. No pneumothorax. Underlying COPD chronic with a more diffuse five-lobe interstitial pattern which may reflect elements of edema superimposed. IMPRESSION: Rib fractures, bilateral pleural parenchymal acute infiltrate superimposed upon chronic lung disease, all unchanged from prior. Dictated by: Dictated on workstation # [id number]
[2016-11-23] MEDS ORDERED: DIGOXIN 0.25 MG (LANOXIN) TAB PO SCH (09:00)
[2016-11-23] MEDS ORDERED: B6 PHOS PO SCH (09:00)
[2016-11-23] MEDS ORDERED: NON-FORMULARY MEDICATION 1 EA EA (Lactobacillus Acidophilus (Probiotic) 1 CAP) PO SCH (09:00)
[2016-11-23] MEDS ORDERED: DILTIAZEM 180 MG (CARDIZEM CD) CAP PO SCH (09:00)
[2016-11-23] MEDS ORDERED: METHYL B12 PO SCH (09:00)
[2016-11-23] MEDS ORDERED: CYANOCOBALAMIN 1000 MCG PO SCH (09:00)
[2016-11-23] MEDS ORDERED: SOTALOL 80 MG (BETAPACE) TAB PO SCH (09:00)
[2016-11-23] MEDS ORDERED: MEFOLATE PO SCH (09:00)
[2016-11-23] MEDS ORDERED: NON-FORMULARY MEDICATION 1 EA EA (Folic Acid 0.8 MG) PO SCH (09:00)
--- NOTE | 2016-11-23 09:01 | Progress Note-Cardiology ---
Cardiology SOAP Progress Note Subjective: Has had nausea and vomiting today Has continuing rib cage pain that is somewhat better Denies any other cp Has gen malaise and exertional shortness of breath, somewhat better, but not resolved Objective: I&O/Vital Signs Vital Sign - Last 12Hours 11/22/16 11/22/16 11/22/16 11/23/16 21:00 22:00 23:00 00:00 Pulse 103 94 99 Resp B/P 133/74 141/68 125/70 Pulse Ox 92 94 92 91 O2 Delivery Nasal Cannula Nasal Cannula Nasal Cannula O2 Flow Rate 2.00 2.00 2.00 3.00 11/23/16 11/23/16 11/23/16 11/23/16 00:00 01:00 01:00 02:00 Temp 97.9 Pulse 115 96 93 116 Resp B/P 142/63 147/72 135/66 Pulse Ox 94 93 91 O2 Delivery Nasal Cannula Nasal Cannula Nasal Cannula O2 Flow Rate 2.00 2.00 2.00 11/23/16 11/23/16 11/23/16 11/23/16 03:00 04:00 04:00 05:00 Temp 98.3 Pulse 106 98 147 Resp B/P 154/66 144/73 147/94 Pulse Ox 97 91 93 92 O2 Delivery Nasal Cannula Nasal Cannula Nasal Cannula O2 Flow Rate 2.00 3.00 2.00 2.00 11/23/16 11/23/16 11/23/16 11/23/16 06:00 06:32 06:32 07:00 Pulse 121 111 Resp B/P 132/59 Pulse Ox 94 90 90 O2 Delivery Nasal Cannula O2 Flow Rate 2.00 2.00 Intake and Output 11/23/16 00:00 Intake Total 350 ml Output Total 850 ml Balance -500 ml Weight (Pounds): 178 Weight (Ounces): 6.0 Weight (Calculated Kilograms): 80.287998 Constitutional: AAO x 3 well-developed well-nourished Respiratory: No accessory muscle use, other (Bilat basal coarse crackles, diminshed air entry at the bases) Cardiovascular: irregularly irregular S1 and S2 systolic murmur (faint PABLO at card base) Gastrointestional: No tender, softNo guarding, No rebound, audible bowel sounds Extremities: No clubbing, No cyanosis, No significant edema Neurologic/Psychiatric: grossly intact power is 5/5 both on sides Skin: No rash on exposed areas, No ulcerations on exposed areas Results/Procedures: Labs Laboratory Tests 11/23/16 04:05: Anion Gap 10, BUN/Creatinine Ratio 13, Basophils # (Auto) 0.0, Basophils (%) ( Auto) 0, Blood Urea Nitrogen 9, Calcium Level 7.8L, Carbon Dioxide Level 26, Chloride Level 107, Creatinine 0.71, Eosinophils # (Auto) 0.2, Eosinophils (%) ( Auto) 2, Estimat Glomerular Filtration Rate > 60, Glucose Level 125H, Hematocrit 27L, Hemoglobin 8.8L, Lymphocytes # (Auto) 1.2, Lymphocytes (%) (Auto ) 15, Magnesium Level 1.2L, Mean Corpuscular Hemoglobin 31, Mean Corpuscular Hemoglobin Concent 32, Mean Corpuscular Volume 98, Mean Platelet Volume 9.2, Monocytes # (Auto) 0.5, Monocytes (%) (Auto) 7, Neutrophils # (Auto) 6.0, Neutrophils (%) (Auto) 76H, Phosphorus Level 1.5L, Platelet Count 210, Potassium Level 3.2L, Red Blood Count 2.81L, Red Cell Distribution Width 14.5, Sodium Level 143, White Blood Count 7.9 Laboratory Tests 11/23/16 04:05 A/P: Assessment: Bilateral pulmonary infiltrates: pneumonia vs ac diastolic CHF. Infiltrates remain unchanged despite diuretic therapy. Pneumonia/septicemia is being managed by the Med/Pulm Services Multiple electrolyte abnormalities due to diuretic therapy PAF with RVR. Has h/o PAF that is followed by Dr. 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 Apparently a new lung nodule is being followed by pcp CAD with h/o stent placement to left Cx [place] [address] Christensen in [place], [place] Echocardiogram from November [address] [place] showed LVEF 50-55%. mIld MR. Aortic valve sclerosis without evidence of stenosis H/o previous intracranial bleeding the details of which are unclear Propensity to falls (non-syncopal). A recent fall has led to rib contusions Anemia of undetermined etiology Plan: * Complex management due to multiple comorbidities * I discussed his case with Florentin Mercer, [place] * Will increased sotalol, d/c dig, and add long-acting dilt * iv fluids as needed * Monitor labs ERIK DOWLING MD FACP [facility] Nov 23, 2016 09:01
[2016-11-23] MEDS ORDERED: DILTIAZEM 240 MG (CARDIZEM CD) CAP PO NR (09:20)
[2016-11-23] MEDS ORDERED: SOTALOL 80 MG (BETAPACE) TAB PO NR (09:21)
[2016-11-23] MEDS: FUROSEMIDE 40 MG/4 ML INJ (LASIX) IVP SCH (09:33)
[2016-11-23] MEDS: guaiFENesin (MUCINEX) 600 MG TAB PO SCH ×2 (09:33→20:57)
[2016-11-23] MEDS: CYANOCOBALAMIN 500 MCG TAB (VITAMIN B-12) PO SCH (09:33)
[2016-11-23] MEDS: LACTOBACILLUS Acidoph/Bulgar (LACTINEX/FLORANEX) TAB PO SCH ×3 (09:33→21:00)
[2016-11-23] MEDS: FOLIC ACID 1 MG TAB PO SCH (09:34)
[2016-11-23] MEDS: ASPIRIN E.C. 81 MG (ECOTRIN) TAB PO SCH (09:34)
[2016-11-23] MEDS: LEVETIRACETAM 500 MG (KEPPRA) TAB PO SCH ×2 (09:35→20:57)
[2016-11-23] MEDS: LIDOCAINE (LIDODERM) 5% PATCH TP SCH (09:35)
[2016-11-23] MEDS: IBUPROFEN 600 MG (MOTRIN) TAB PO PRN (09:35)
--- NOTE | 2016-11-23 09:38 | Progress Note (SOAP) ---
Subjective Subjective/Events-last exam PT GROGGY FROM PHENERGAN SHOT EARLIER - HE REPORTS FATIGUE, COUGH, FEELING SICK TO HIS STOMACH. Review of Systems General: Fatigue Malaise Pulmonary: Dyspnea Cardiovascular: : PalpitationsNo: Chest Pain Gastrointestinal: : Nausea: Vomiting Neurological: : Weakness Objective Exam Vital Signs Date Time Temp Pulse Resp B/P Pulse Ox O2 Delivery O2 Flow Rate FiO2 11/23/16 07:00 111 11/23/16 06:32 90 2.00 11/23/16 06:32 90 11/23/16 06:00 121 24 132/59 94 Nasal Cannula 2.00 11/23/16 05:00 147 26 147/94 92 Nasal Cannula 2.00 11/23/16 04:00 98.3 98 24 144/73 93 Nasal Cannula 2.00 11/23/16 04:00 91 3.00 11/23/16 03:00 106 28 154/66 97 Nasal Cannula 2.00 11/23/16 02:00 116 21 135/66 91 Nasal Cannula 2.00 11/23/16 01:00 93 24 147/72 93 Nasal Cannula 2.00 11/23/16 01:00 96 11/23/16 00:00 97.9 115 20 142/63 94 Nasal Cannula 2.00 11/23/16 00:00 91 3.00 11/22/16 23:00 99 24 125/70 92 Nasal Cannula 2.00 11/22/16 22:00 94 23 141/68 94 Nasal Cannula 2.00 11/22/16 21:00 103 22 133/74 92 Nasal Cannula 2.00 11/22/16 20:00 101 23 125/64 92 Nasal Cannula 2.00 11/22/16 20:00 91 3.00 11/22/16 20:00 99.3 11/22/16 19:00 95 10 136/63 91 Nasal Cannula 2.00 11/22/16 19:00 98 11/22/16 18:00 130 31 104/69 95 Nasal Cannula 11/22/16 17:00 129 26 106/63 93 Nasal Cannula 11/22/16 16:45 97.4 11/22/16 16:45 2.00 11/22/16 16:30 129 I & O 11/23/16 07:00 Intake Total 1550 ml Output Total 1650 ml Balance -100 ml Capillary Refill : Less Than 3 Seconds General Appearance: WD/WN HEENT: PERRL/EOMI Neck: Full Range of Motion Supple Respiratory: Chest Non Tender Decreased Breath Sounds Cardiovascular: Irregularly Irregular Tachycardia Gastrointestinal: normal bowel sounds non tender soft no organomegaly no pulsatile mass Neurologic/Psychiatric: Alert Normal Mood/Affect Skin: Warm/Dry Lymphatic: No Adenopathy Results Lab Laboratory Tests 11/23/16 04:05: Anion Gap 10, BUN/Creatinine Ratio 13, Basophils # (Auto) 0.0, Basophils (%) ( Auto) 0, Blood Urea Nitrogen 9, Calcium Level 7.8L, Carbon Dioxide Level 26, Chloride Level 107, Creatinine 0.71, Eosinophils # (Auto) 0.2, Eosinophils (%) ( Auto) 2, Estimat Glomerular Filtration Rate > 60, Glucose Level 125H, Hematocrit 27L, Hemoglobin 8.8L, Lymphocytes # (Auto) 1.2, Lymphocytes (%) (Auto ) 15, Magnesium Level 1.2L, Mean Corpuscular Hemoglobin 31, Mean Corpuscular Hemoglobin Concent 32, Mean Corpuscular Volume 98, Mean Platelet Volume 9.2, Monocytes # (Auto) 0.5, Monocytes (%) (Auto) 7, Neutrophils # (Auto) 6.0, Neutrophils (%) (Auto) 76H, Phosphorus Level 1.5L, Platelet Count 210, Potassium Level 3.2L, Red Blood Count 2.81L, Red Cell Distribution Width 14.5, Sodium Level 143, White Blood Count 7.9 Assessment/Plan Assessment/Plan Assess & Plan/Chief Complaint PNEUMONIA RIB PAIN ON LEFT RIB FRACTURES ATRIAL FIBRILLATION DIABETES MELLITUS HX LUNG CANCER WITH NEW NODULE ON CT SCAN CHRONIC DIZZINESS NAUSEA PNEUMONIA - ON PNEUMONIA PROTOCOL, MONITOR SYMPTOMS RIB PAIN ON LEFT - DUE TO RIB FRACTURES - LIDODERM PATCH, CONTINUE WITH PRN ORAL PAIN MEDICATIONS ATRIAL FIBRILLATION -RATE UNCONTROLLED - DEFER TREATMENT TO DR. DOWLING. DIABETES MELLITUS - RESTARTED HOME MEDS - ACCU CHECKS BID HX LUNG CANCER WITH NEW NODULE ON CT SCAN - REPEAT SCAN IN 2 MONTHS CHRONIC DIZZINESS - STABLE NAUSEA - PT ON PHENERGAN AND ZOFRAN PRN Diagnosis/Problems: Clinical Quality Measures DVT/VTE Risk/Contraindication: Risk Factor Score Per Nursin RFS Level Per Nursing on Admit: 4+=Very High Other: [place], INTRACRANIAL BLEED HX GUTIERREZ PHAM MD Nov 23, 2016 09:38
--- NOTE | 2016-11-23 09:38 | Physical Therapy Progress Note ---
Therapy Progress Note Patient is in bed and c/o nausea. Patient appears very lethargic. Patient declined PT intervention at this time. PT will attempt later on this date. 1 ref SAVAGE TREVINO PT Nov 23, 2016 09:38
--- NOTE | 2016-11-23 09:39 | Pulmonary Progress Note ---
Subjective Subjective/Events-last exam Pt still SOB does not feel any better Exam Exam Vital Signs Date Time Temp Pulse Resp B/P Pulse Ox O2 Delivery O2 Flow Rate FiO2 11/23/16 07:00 111 11/23/16 06:32 90 2.00 11/23/16 06:32 90 11/23/16 06:00 121 24 132/59 94 Nasal Cannula 2.00 11/23/16 05:00 147 26 147/94 92 Nasal Cannula 2.00 11/23/16 04:00 98.3 98 24 144/73 93 Nasal Cannula 2.00 11/23/16 04:00 91 3.00 11/23/16 03:00 106 28 154/66 97 Nasal Cannula 2.00 11/23/16 02:00 116 21 135/66 91 Nasal Cannula 2.00 11/23/16 01:00 93 24 147/72 93 Nasal Cannula 2.00 11/23/16 01:00 96 11/23/16 00:00 97.9 115 20 142/63 94 Nasal Cannula 2.00 11/23/16 00:00 91 3.00 11/22/16 23:00 99 24 125/70 92 Nasal Cannula 2.00 11/22/16 22:00 94 23 141/68 94 Nasal Cannula 2.00 11/22/16 21:00 103 22 133/74 92 Nasal Cannula 2.00 11/22/16 20:00 101 23 125/64 92 Nasal Cannula 2.00 11/22/16 20:00 91 3.00 11/22/16 20:00 99.3 11/22/16 19:00 95 10 136/63 91 Nasal Cannula 2.00 11/22/16 19:00 98 11/22/16 18:00 130 31 104/69 95 Nasal Cannula 11/22/16 17:00 129 26 106/63 93 Nasal Cannula 11/22/16 16:45 97.4 11/22/16 16:45 2.00 11/22/16 16:30 129 I & O 11/23/16 07:00 Intake Total 1550 ml Output Total 1650 ml Balance -100 ml General Appearance: Moderate Distress HEENT: PERRL/EOMI, Normal ENT Inspection Neck: Full Range of Motion, Normal Inspection Respiratory: No Accessory Muscle Use, No Respiratory Distress, Decreased Breath Sounds Cardiovascular: Regular Rate, Rhythm, No Edema Gastrointestinal: normal bowel sounds, non tender Extremity: Normal Capillary Refill, Normal Inspection, Normal Range of Motion Neurologic/Psychiatric: Alert, Oriented x3, No Motor/Sensory Deficits Skin: Normal Color, Warm/Dry Lymphatic: No Adenopathy Results Lab Laboratory Tests 11/23/16 04:05 Assessment/Plan Assessment/Plan pulmonary infiltrates Pneumonia vs pulmonary edema (No leukocytosis or fever) - doubt pneumonia -repeat CT scan for comparison Pulmonary edema with elevated BNP and pleural effusion -repeat BNP lung nodule RUL with Hx of lung cancer -Repeat CT scan in 3mo Afib Clinical Quality Measures DVT/VTE Risk/Contraindication: Risk Factor Score Per Nursin RFS Level Per Nursing on Admit: 4+=Very High Other: FREQUENT FALLS, INTRACRANIAL BLEED HX CARMEN PEÑA DO Nov 23, 2016 09:39
--- NOTE | 2016-11-23 11:28 | Occ Therapy Progress Note ---
Therapy Progress Note Order received for OT eval and treat. Attempted evaluation at 1120. Pt in bed, declined to participate at this time secondary to fatigue. Will attempt evaluation later this date as pt able to tolerate and participate. 1, visit MARIA ELENA SNOW OT Nov 23, 2016 11:28
--- NOTE | 2016-11-23 11:36 | Diagnostic Imaging Report ---
PROCEDURE: CT chest without contrast. TECHNIQUE: Multiple contiguous axial images were obtained through the chest without the use of intravenous contrast. INDICATION: Bilateral infiltrates. FINDINGS: There is breathing motion artifact due to patient's inability to follow breathing instructions. There is a large left pleural effusion with associated left lower lobe atelectasis. There is a small right pleural effusion. Minimal basilar atelectasis in the right lung is seen. There is patchy consolidation seen anteriorly in the right upper lobe similar to 11/01/2016, favored to be related to scarring. Bilateral multilevel rib fractures noted. The mediastinum demonstrates tortuous aorta with ectasia and extensive atherosclerotic calcifications. There is no mediastinal mass. The heart size is normal. No pericardial effusion identified. Sections of the upper abdomen demonstrates a cyst in the right kidney. The previously seen hydronephrosis and obstructive stone at the pelviureteric junction in the left kidney is below the level of the scan on this exam. This can be evaluated with CT abdomen or kidney ultrasound. IMPRESSION: 1. Large left pleural effusion with left lower lobe atelectasis. Superimposed pneumonia could be present. 2. Known multiple rib fractures. 3. The previously seen hydronephrosis and obstructive stone in the left kidney are not evaluated on this exam. If needed, then CT abdomen or renal ultrasound would be helpful. Dictated by: Dictated on workstation # [id number]
[2016-11-23] MEDS ORDERED: ONDANSETRON 4 MG/2 ML (SDV) Z0FRAN ONE (13:17)
--- NOTE | 2016-11-23 13:50 | Physical Therapy Evaluation ---
PT Evaluation-General Medical Diagnosis Admission Date Nov 23, 2016 at 12:07 Medical Diagnosis: pulmonary edema Onset Date: Nov 22, 2016 Therapy Diagnosis Therapy Diagnosis: generalized weakness/debility Height/Weight Height (Feet): 6 Height (Inches): 2.00 Weight (Pounds): 178 Weight (Ounces): 6.0 Precautions Precautions/Isolations: Fall Prevention, Standard Precautions Referral Physician: Lara Reason for Referral: Evaluation/Treatment Medical History Pertinent Medical History: Atrial Fib, CAD, COPD, DM, HTN, Prostate CA, Smoking , TBI Current History transfer to ICU secondary to decreased BP Reviewed History: Yes Social History Home: Single Level Current Living Status: Alone Prior/Core FIM Prior Level of Function Functional [place] Measure 0=Not Assessed/NA 4=Minimal Assistance 1=Total Assistance 5=Supervision or Setup 2=Maximal Assistance 6=Modified [place] 3=Moderate Assistance 7=Complete [place] Bed Mobility: 6 Transfers (B,C,W/C) (FIM): 6 Gait: 6 uses cane for ambulation PT Evaluation-Current Subjective Patient agrees to PT. Pain Numeric Pain Scale: 5-Moderate Pain Location: Right, Left Location Body Site: Side Pain Description: Ache Objective Patient Orientation: Person, Time, Situation Problem Solving: Fair Attachments: Oxygen, Marley Catheter, IV ROM/Strength ROM Lower Extremities bilateral LE WFL Strenght Lower Extremities right knee flexion/extension 4-/5; hip flexion 3+/5; ankle dorsi/plantarflexion 4-/5 left knee flexion/extension 4-/5; hip flexion 3+/5; ankle dorsi/plantarflexion 4 -/5 Integumentary/Posture Integumentary refer to nursing notes Bowel Incontinence: No Bladder Incontinence: Marley Cath Posture slightly kyphotic Neuromuscular (Tone, Coordination, Reflexes) diminished coordination Sensory Vision: Functional Hearing: Impaired Sensation Right Lower Extremit: Impaired Sensation Left Lower Extremity: Impaired Transfers Functional [place] Measure 0=Not Assessed/NA 4=Minimal Assistance 1=Total Assistance 5=Supervision or Setup 2=Maximal Assistance 6=Modified [place] 3=Moderate Assistance 7=Complete [place] Transfers (B, C, W/C) (FIM): 4 Scootin Rollin Supine to/from Sit: 5 Sit to/from Stand: 4 bed t/f WC(FIM only if WC use): 4 CGA for safety with gait belt Gait Mode of Locomotion: Walk Anticipated Mode of Locomotion: Walk Gait (FIM): 1 Distance (FIM): 1=up to 49 ft Distance: 5 steps Gait Level of Assist: 4 Gait Persons Needed: 1 Gait Assistive Device: Cane Single Point Comments/Gait Description Patient will require FWW for distance Balance Sitting Static: Normal Sitting Dynamic: Normal Standing Static: Fair Standing Dynamic: Fair Assessment/Needs 86 y.o. male, will benefit from skilled PT to address functional strength and mobility to improve current LOF and to safely return to home or NH for continued care. Patient is unaware of safety concerns and is extremely independent with POC. Rehab Potential: Fair Post Rehab Potential-Barriers: decreased safety awareness PT Snf Goals Snf Goals PT Snf Goals Time Frame: Dec 04, 2016 Transfers (B,C,W/C) (FIM): 6 Gait (FIM): 6 Gait distance (FIM): 3=150 ft Distance: 150' Gait Level of Assist: 6 Gait Assistive Device: FWW, Cane Single Point PT Plan Problem List Problem List: Activity Tolerance, Functional Strength, Safety, Balance, Gait Treatment/Plan Treatment Plan: Continue Plan of Care Treatment Plan: Bed Mobility, Education, Functional Activity Sherrell, Functional Strength, Gait, Safety, Therapeutic Exercise, Transfers Treatment Duration: Dec 04, 2016 # of days/week 5-6 Visits Per Week: 5-6 Pt/Family Agrees w/Plan: Yes Safety Risks/Education Patient Education: Safety Issues Teaching Recipient: Patient Teaching Methods: Discussion Response to Teaching: Reinforcement Needed Discharge Recommendations Therapy D/C Recommendations: Alf (TCU/NH) Time/GCodes Time In: 1315 Time Out: 1335 Total Billed Treatment Time: 20 Total Billed Treatment 1 visit EVMod 20 min SAVAGE TREVINO PT Nov 23, 2016 13:50
--- NOTE | 2016-11-23 14:07 | Occupational Therapy Eval ---
OT Evaluation-General/PLF Medical Diagnosis Admission Date Nov 23, 2016 at 12:07 Medical Diagnosis: pulmonary edema Onset Date: Nov 22, 2016 Therapy Diagnosis Therapy Diagnosis: weakness, decreased self care Height/Weight Height (Feet): 6 Height (Inches): 2.00 Weight (Pounds): 178 Weight (Ounces): 6.0 Precautions Precautions/Isolations: Fall Prevention, Standard Precautions Safety Interventions: None Referral Physician: Lara Medical History Pertinent Medical History: Atrial Fib, CAD, COPD, DM, HTN, Prostate CA, Smoking , TBI Current History Pt fell at home sustaining rib fractures. Pt went to [facility] for skilled therapy and returned to hospital with pneumonia Reviewed History: Yes Social History Home: Single Level Current Living Status: Alone ADL-Prior Level of Function ADL PLOF Comments Pt has recently been at SNF. Pt states he was walking with FWW. Pt states he could dress himself, but had assist with bathing and toileting. Pt states prior to his fall he was living at home independently. OT Current Status Subjective Pt sitting in chair, agrees to therapy. Pt reports 3/10 left side rib pain. Mental Status/Objective Patient Orientation: Person, Place Attachments: Marley Catheter, IV, Oxygen Current Glasses/Contacts: Yes (reading) Dentures/Partials: Yes Hand Dominance: Right Upper Extremity ROM Right UE grossly WFL Left UE shoulder movement limited by pain from rib fractures. Pt demonstrates functional elbow, forearm, wrist, and hand ROM Upper Extremity Strength Right UE grossly 4-/5 Left not assessed secondary to pain from rib fractures. ADL-Treatment ADL-Current Pt feeding self ice cream while seated in chair without assistance. Pt washed face and hands with washcloth with set up. Pt participated in UE assessment while seated. Pt sitting in chair with needs met after session. Functional [place] Measure 0=Not Assessed/NA 4=Minimal Assistance 1=Total Assistance 5=Supervision or Setup 2=Maximal Assistance 6=Modified [place] 3=Moderate Assistance 7=Complete IndependenceIRFPAI Quality Coding Scale 6 Independent with activity with or without an assistive device 5 Patient requires set up or clean up by helper. Patient completes activity by themselves 4 Supervision or touching assist (CGA). [place] provide cues , steadying assist 3 The helper provides less than half the effort to complete the activity 2 The helper provides more than half the effort to complete the activity 1 Dependent. The helper does all the effort to complete an activity 7 Patient refused to complete or attempt activity 9 The patient did not perform the activity before the current illness or injury 88 Not attempted due to Medical conditions or safety concerns Eating (FIM): 5 Grooming (FIM): 5 Education OT Patient Education: Rehab process Teaching Recipient: Patient Teaching Methods: Discussion Response to Teaching: Reinforcement Needed OT Short Term Goals Short Term Goals 1=Demonstrate adherence to instructed precautions during ADL tasks. 2=Patient will verbalize/demonstrate understanding of assistive devices/ modifications for ADL. 3=Patient will improve strength/tolerance for activity to enable patient to perform ADL's. OT Reconnaissance Man Goals Reconnaissance Man Goals Time Frame: Dec 07, 2016 Eating (FIM): 6 Grooming(FIM): 6 Bathing(FIM): 5 Upper Body Dressing(FIM): 5 Lower Body Dressing(FIM): 5 Toileting(FIM): 6 Toilet/Commode Transfer(FIM): 6 Additional Goals: 1-Demonstrate ADL Tasks, 2-Verbalize Understanding, 3- ImproveStrength/Sherrell 1=Demonstrate adherence to instructed precautions during ADL tasks. 2=Patient will verbalize/demonstrate understanding of assistive devices/ modifications for ADL. 3=Patient will improve strength/tolerance for activity to enable patient to perform ADL's. OT Education/Plan Problem List/Assessment Assessment: Decreased Activ Tolerance, Decreased Safety Aware, Decreased UE Strength, Dependent Transfers, Impaired Self-Care Skills Pt to benefit from skilled OT intervention for ADL training, transfers, strengthening, adaptive equipment training as needed, and safety education to maximize level of independence. Discharge Recommendations Plan/Recommendations: Continue POC Treatment Plan/Plan of Care Treatment,Training & Education: Yes Patient would benefit from OT for education, treatment and training to promote independence in ADL's, mobility, safety and/or upper extremity function for ADL' s. Plan of Care: ADL Retraining, Functional Mobility, UE Funct Exercise/Act Treatment Duration: Dec 07, 2016 # of days/week 5 Visits Per Week: 5 Agreement: Yes Rehab Potential: Fair Time/GCodes Start Time: 13:38 Stop Time: 13:53 Total Time Billed (hr/min): 15 Billed Treatment Time 1 visit, EVM(15minutes) MARIA ELENA SNOW OT Nov 23, 2016 14:07
[2016-11-23] MEDS: LEVOFLOXACIN 750 MG/150 ML IV 150 ML IV SCH (15:22)
[2016-11-23] MEDS: ONDANSETRON 4 MG/2 ML (SDV) Z0FRAN IVP PRN (15:29)
[2016-11-23] MEDS ORDERED: LEVOTHYROXINE 50 MCG (LEVOTHROID) TAB PO SCH (20:15)
[2016-11-23] MEDS: PANTOPRAZOLE 40 MG (PROTONIX) TAB PO SCH (20:56)
[2016-11-23] MEDS: ATORVASTATIN 10 MG (LIPITOR) TABLET PO SCH (20:56)
[2016-11-23] MEDS: SOTALOL 80 MG (BETAPACE) TAB PO SCH (20:57)
[2016-11-24] VITALS (24 sets, daily range): BP systolic 86–150; BP diastolic 55–83
[2016-11-24] MEDS: NS IV 1000 ML 1,000 ML IV SCH (00:05)
[2016-11-24] MEDS: PIPERACILLIN SODIUM/TAZOBACTAM 4.5 GM in NS (IVPB) 100 ML IV SCH ×3 (04:53→20:39)
[2016-11-24 05:11] LABS: BASOPHILS % (AUTO) 0 % (0-10); EOSINOPHILS # (AUTO) 0.3 10^3/uL (0.0-0.3); EOSINOPHILS % (AUTO) 4 % (0-10); LYMPHOCYTES # (AUTO) 1.2 X 10^3 (1.0-4.0); LYMPHOCYTES % (AUTO) 16 % (12-44); MEAN CORPUSCULAR HEMOGLOBIN 32 PG (25-34); MEAN CORPUSCULAR HGB CONC 32 G/DL (32-36); MEAN CORPUSCULAR VOLUME 98 FL (80-99); MEAN PLATELET VOLUME 9.5 FL (7.4-10.4); MONOCYTES # (AUTO) 0.5 X 10^3 (0.0-1.0); MONOCYTES % (AUTO) 6 % (0-12); NEUTROPHILS # (AUTO) 5.8 X 10^3 (1.8-7.8); NEUTROPHILS % (AUTO) 75 % (42-75); PLATELET COUNT 227 10^3/uL (130-400); RED BLOOD COUNT 2.89 10^6/uL (4.35-5.85); RED CELL DISTRIBUTION WIDTH 14.6 % (10.0-14.5); WHITE BLOOD COUNT 7.8 10^3/uL (4.3-11.0)
[2016-11-24 05:39] LABS: ANION GAP 10 MMOL/L (5-14); BLOOD UREA NITROGEN 8 MG/DL (7-18); BUN/CREATININE RATIO 11; CALCIUM 7.6 MG/DL (8.5-10.1); CARBON DIOXIDE 27 MMOL/L (21-32); CHLORIDE 106 MMOL/L (98-107); GFR ESTIMATED > 60; GLUCOSE 125 MG/DL (70-105); MAGNESIUM 1.6 MG/DL (1.8-2.4); PHOSPHORUS 2.5 MG/DL (2.3-4.7); POTASSIUM 3.3 MMOL/L (3.6-5.0); SODIUM 143 MMOL/L (135-145)
[2016-11-24] MEDS: MAGNESIUM 1 GM/100 ML IVPB 100 ML IV SCH ×3 (05:56→07:26)
[2016-11-24] MEDS: KCL 20 MEQ TAB (K-DUR) PO SCH (05:56)
[2016-11-24] MEDS: POTASSIUM CL 10MEQ/50ML IVPB 50 ML IV SCH ×5 (05:56→20:40)
[2016-11-24] MEDS: LEVOTHYROXINE 50 MCG (LEVOTHROID) TAB PO SCH (06:28)
[2016-11-24] MEDS: metFORMIN 500 MG (GLUCOPHAGE) TAB PO SCH ×2 (06:28→17:00)
[2016-11-24] MEDS: MULTIVIT W/MINERALS TAB (THERAGRAN M) PO SCH (06:28)
[2016-11-24] MEDS: KCL 10 MEQ TAB (MICRO K) PO SCH (06:33)
[2016-11-24] MEDS: RT-ALBUTEROL/IPRATROPIUM 3 ML (DUONEB) VIAL IH SCH ×4 (06:57→18:34)
[2016-11-24] MEDS ORDERED: POTASSIUM CL 10MEQ/50ML IVPB 50 ML IV SCH (07:15)
[2016-11-24] MEDS ORDERED: MAGNESIUM 1 GM/100 ML IVPB 100 ML IV SCH (07:15)
--- NOTE | 2016-11-24 07:16 | Pulmonary Progress Note ---
Subjective Subjective/Events-last exam No change in clinical status Exam Exam Vital Signs Date Time Temp Pulse Resp B/P Pulse Ox O2 Delivery O2 Flow Rate FiO2 11/24/16 06:57 91 5.00 11/24/16 06:00 71 21 148/65 Nasal Cannula 2.00 11/24/16 05:00 73 20 128/55 Nasal Cannula 2.00 11/24/16 04:00 70 21 139/62 Nasal Cannula 2.00 11/24/16 04:00 91 3.00 11/24/16 04:00 98.1 11/24/16 03:00 73 26 134/62 Nasal Cannula 2.00 11/24/16 02:00 71 20 139/61 Nasal Cannula 2.00 11/24/16 01:00 74 23 134/64 Nasal Cannula 2.00 11/24/16 01:00 68 11/24/16 00:00 91 3.00 11/24/16 00:00 74 21 150/71 Nasal Cannula 2.00 11/24/16 00:00 97.8 11/23/16 23:00 69 29 131/71 94 Nasal Cannula 2.00 11/23/16 22:00 77 21 135/70 91 Nasal Cannula 2.00 11/23/16 21:00 81 20 129/70 99 Nasal Cannula 2.00 11/23/16 20:01 97 5.00 11/23/16 20:00 80 21 137/60 98 Nasal Cannula 2.00 11/23/16 20:00 91 3.00 11/23/16 20:00 97.7 11/23/16 19:00 80 22 118/63 93 Nasal Cannula 2.00 11/23/16 19:00 84 11/23/16 18:00 79 24 115/55 96 Nasal Cannula 2.00 11/23/16 17:00 82 28 94/51 96 Nasal Cannula 2.00 11/23/16 16:30 89 3.00 11/23/16 16:00 97.9 11/23/16 16:00 80 25 79/45 90 Nasal Cannula 2.00 11/23/16 16:00 91 3.00 11/23/16 15:00 93 25 88/49 92 Nasal Cannula 2.00 11/23/16 14:28 94 2.00 11/23/16 14:00 94 97/52 93 Nasal Cannula 2.00 11/23/16 13:00 107 122/77 93 Nasal Cannula 2.00 11/23/16 13:00 131 11/23/16 12:00 98.0 11/23/16 12:00 91 2.00 11/23/16 12:00 133 119/85 91 Nasal Cannula 2.00 11/23/16 11:00 122 92/56 91 Nasal Cannula 2.00 11/23/16 10:34 96 3.00 11/23/16 10:00 140 29 107/62 94 Nasal Cannula 2.00 11/23/16 09:00 111 22 138/81 90 Nasal Cannula 2.00 11/23/16 08:00 98.0 11/23/16 08:00 91 2.00 11/23/16 08:00 141 21 145/95 92 Nasal Cannula 2.00 I & O 11/24/16 07:00 Intake Total 2700 ml Output Total 3825 ml Balance -1125 ml General Appearance: WD/WN HEENT: PERRL/EOMI Neck: Full Range of Motion, Supple Respiratory: Chest Non Tender, Decreased Breath Sounds Cardiovascular: Irregularly Irregular, Tachycardia Gastrointestinal: normal bowel sounds, non tender, soft, no organomegaly, no pulsatile mass Neurologic/Psychiatric: Alert, Normal Mood/Affect Skin: Warm/Dry Lymphatic: No Adenopathy Results Lab Laboratory Tests 11/23/16 04:05 11/24/16 05:00 Assessment/Plan Assessment/Plan pulmonary infiltrates Pneumonia vs pulmonary edema (No leukocytosis or fever) - doubt pneumonia -CT reviewed and pt has a large left pleural effusion and BNP is 1114 -If patient is in agreement will do thoracentesis today -Check bilateral renal US for hydronephrosis pleural effusion could be secondary to this. Pulmonary edema with elevated BNP and pleural effusion -repeat BNP lung nodule RUL with Hx of lung cancer -Repeat CT scan in 3mo Afib Clinical Quality Measures DVT/VTE Risk/Contraindication: Risk Factor Score Per Nursin RFS Level Per Nursing on Admit: 4+=Very High Other: FREQUENT FALLS, INTRACRANIAL BLEED HX CARMEN PEÑA DO Nov 24, 2016 07:16
--- NOTE | 2016-11-24 08:33 | Diagnostic Imaging Report ---
INDICATION: Dyspnea. COMPARISON STUDY: Chest from November 23, 2016. FINDINGS: A portable upright view of the chest demonstrates an increase in the left pleural effusion with infiltrates seen throughout the left chest. Some infiltrates in the right mid chest are again identified. The cardiomegaly is stable. There is calcification of the aorta. A left subclavian Port-A-Cath remains in place. IMPRESSION: Increasing infiltrates and effusions on the left side with stable right-sided pulmonary infiltrates. Dictated by: Dictated on workstation # [id number]
--- NOTE | 2016-11-24 08:38 | Diagnostic Imaging Report ---
EXAMINATION: Renal ultrasound. INDICATION: Followup left hydronephrosis. FINDINGS: The right kidney is 12.4 CM and the left kidney is 11.7 CM. There is a 2.5 CM simple appearing cyst in the upper pole of the right kidney. There is moderate left hydronephrosis with a stone at the UPJ measuring 1.5 x 0.8 x 1.5 CM. The urinary bladder is decompressed with a Marley catheter. IMPRESSION: There is moderate left hydronephrosis with an stone probably causing the obstruction at the UPJ measuring 1.5 CM. The findings were relayed to the patient nurse, Yvette, at 7:55 AM by Leila the invasive cardiovascular technologist, who performed the exam. Dictated by: Dictated on workstation # [id number]
--- NOTE | 2016-11-24 08:58 | Progress Note-Cardiology ---
Cardiology SOAP Progress Note Subjective: In bed. States he does not feel well overall. C/O shortness of breath. No c/ o CP, palpitations. Objective: I&O/Vital Signs Vital Sign - Last 12Hours 11/24/16 11/24/16 11/24/16 11/24/16 03:00 04:00 04:00 04:00 Temp 98.1 Pulse 73 70 Resp 26 21 B/P 134/62 139/62 Pulse Ox 91 O2 Delivery Nasal Cannula Nasal Cannula O2 Flow Rate 2.00 3.00 2.00 11/24/16 11/24/16 11/24/16 11/24/16 05:00 06:00 06:57 07:00 Pulse 73 71 73 Resp 20 21 24 B/P 128/55 148/65 140/72 Pulse Ox 91 O2 Delivery Nasal Cannula Nasal Cannula Nasal Cannula O2 Flow Rate 2.00 2.00 5.00 2.00 11/24/16 11/24/16 11/24/16 11/24/16 07:00 08:00 09:00 10:00 Pulse 72 71 70 80 Resp 32 22 33 B/P 137/83 149/71 127/66 Pulse Ox 100 O2 Delivery Nasal Cannula Nasal Cannula Nasal Cannula O2 Flow Rate 2.00 2.00 2.00 11/24/16 10:20 Pulse Ox 100 O2 Flow Rate 4.00 Intake and Output 11/24/16 00:00 Intake Total 2030 ml Output Total 2400 ml Balance -370 ml Weight (Pounds): 177 Weight (Ounces): 6.0 Weight (Calculated Kilograms): 80.605685 Constitutional: AAO x 3 well-developed well-nourished Respiratory: No accessory muscle use, other (Bilat basal coarse crackles, diminshed air entry at the bases) Cardiovascular: regular rate-rhythm S1 and S2 systolic murmur (faint PABLO at card base) Gastrointestional: No tender, softNo guarding, No rebound, audible bowel sounds Extremities: No clubbing, No cyanosis, No significant edema Neurologic/Psychiatric: grossly intact power is 5/5 both on sides Skin: No rash on exposed areas, No ulcerations on exposed areas Results/Procedures: Labs Laboratory Tests 11/23/16 18:01: Glucometer 137H 11/24/16 05:00: Anion Gap 10, BUN/Creatinine Ratio 11, Basophils # (Auto) 0.0, Basophils (%) ( Auto) 0, Blood Urea Nitrogen 8, Calcium Level 7.6L, Carbon Dioxide Level 27, Chloride Level 106, Creatinine 0.70, Eosinophils # (Auto) 0.3, Eosinophils (%) ( Auto) 4, Estimat Glomerular Filtration Rate > 60, Glucose Level 125H, Hematocrit 28L, Hemoglobin 9.1L, Lymphocytes # (Auto) 1.2, Lymphocytes (%) (Auto ) 16, Magnesium Level 1.6L, Mean Corpuscular Hemoglobin 32, Mean Corpuscular Hemoglobin Concent 32, Mean Corpuscular Volume 98, Mean Platelet Volume 9.5, Monocytes # (Auto) 0.5, Monocytes (%) (Auto) 6, Neutrophils # (Auto) 5.8, Neutrophils (%) (Auto) 75, Phosphorus Level 2.5, Platelet Count 227, Potassium Level 3.3L, Red Blood Count 2.89L, Red Cell Distribution Width 14.6H, Sodium Level 143, White Blood Count 7.8 11/24/16 09:11: INR Comment 1.2, Prothrombin Time 14.8H Microbiology 11/22/16 MRSA Screen - Final, Complete Laboratory Tests 11/23/16 04:05 11/24/16 05:00 Procedures NAME: NELA OJEDA [facility] REC#: [id number] PT STATUS: ADM IN : 1930 PHYSICIAN: CARMEN PEÑA DO ADMIT DATE: 11/23/16/ICU Draft Date of Exam:11/24/16 US RENAL BILATERAL [id number] EXAMINATION: Renal ultrasound. INDICATION: Followup left hydronephrosis. FINDINGS: The right kidney is 12.4 CM and the left kidney is 11.7 CM. There is a 2.5 CM simple appearing cyst in the upper pole of the right kidney. There is moderate left hydronephrosis with a stone at the UPJ measuring 1.5 x 0.8 x 1.5 CM. The urinary bladder is decompressed with a Marley catheter. IMPRESSION: There is moderate left hydronephrosis with an stone probably causing the obstruction at the UPJ measuring 1.5 CM. The findings were relayed to the patient nurse, Yvette, at 7:55 AM by Leila the cytology technologist, who performed the exam. Dictated on workstation # [id number] Dict: 11/24/16 0829 Trans: 11/24/16 0837 [facility] [id number] Interpreted by: SADE DYER MD Electronically signed by: NAME: NELA OJEDA REC#: [id number] PT STATUS: ADM IN : 1930 PHYSICIAN: JENIFFER OVALLE DO ADMIT DATE: 11/23/16/ICU Draft Date of Exam:11/24/16 CHEST 1 VIEW, AP/PA ONLY INDICATION: Dyspnea. COMPARISON STUDY: Chest from November 23, 2016. FINDINGS: A portable upright view of the chest demonstrates an increase in the left pleural effusion with infiltrates seen throughout the left chest. Some infiltrates in the right mid chest are again identified. The cardiomegaly is stable. There is calcification of the aorta. A left subclavian Port-A-Cath remains in place. IMPRESSION: Increasing infiltrates and effusions on the left side with stable right-sided pulmonary infiltrates. Dictated on workstation # [id number] Dict: 11/24/16 0759 Trans: 11/24/16 0832 [id number] Interpreted by: TONY JOHNSON MD Electronically signed by: A/P: Assessment: Bilateral pulmonary infiltrates: pneumonia vs ac diastolic CHF. Infiltrates remain unchanged despite diuretic therapy. Pneumonia/septicemia is being managed by the Med/Pulm Services Multiple electrolyte abnormalities due to diuretic therapy PAF with RVR. Has h/o PAF that is followed by Dr. Marsh at [facility] in [place], [place] Contraindications to full oral anticoagulation: h/o intracranial bleed requiring surgical intervention, multiple recent non-syncopal falls Probable pneumonia with septicemia R lung squamous cell CA diagnosed in 2014 that has been treated surgically in [place], according to the patient. Apparently a new lung nodule is being followed by pcp CAD with h/o stent placement to left Cx [place] [address] Christensen in [place], [place] Echocardiogram from November [address] Guy showed LVEF 50-55%. mIld MR. Aortic valve sclerosis without evidence of stenosis H/o previous intracranial bleeding the details of which are unclear Propensity to falls (non-syncopal). A recent fall has led to rib contusions Anemia of undetermined etiology Plan: * Complex management due to multiple comorbidities * Converted to SR * Increasing left pl effusion - thoracentesis is planned for today * Continue increased sotalol, d/c dig, and add long-acting dilt * iv fluids as needed * Monitor labs * Replace electrolytes Physician Assessment Physician Assessment Continues to feel generally unwell, but not able to specify symptoms Looks weak and tiredness Lungs: fair air entry Cor: reg A&R * As documented in our note above * Management remains complex because of multiple comorbidities * Continue to monitor closely, including labs * I have discussed his case in detail with Pulm and Med Services RADHA MCMAHON ADULT CARE MANAGER Nov 24, 2016 08:58 ERIK DOWLING MD FACP FAC CCDS Nov 24, 2016 14:22
[2016-11-24] MEDS: DOCUSATE SODIUM 100 MG (COLACE) CAP PO SCH (09:00)
[2016-11-24] MEDS: SENNA W/DOCUSATE (SENOKOT S) TABLET PO SCH ×2 (09:00→20:40)
--- NOTE | 2016-11-24 09:02 | Physical Therapy Progress Note ---
Therapy Progress Note Patient declined PT due to SOA. Per RN, patient to have thoracentesis on this date. PT to check patient status in a.m. 1 ref/no treatment SAVAGE TREVINO PT Nov 24, 2016 09:02
[2016-11-24] MEDS: FUROSEMIDE 40 MG/4 ML INJ (LASIX) IVP SCH (09:13)
[2016-11-24] MEDS: CYANOCOBALAMIN 500 MCG TAB (VITAMIN B-12) PO SCH (09:13)
[2016-11-24] MEDS: LACTOBACILLUS Acidoph/Bulgar (LACTINEX/FLORANEX) TAB PO SCH ×3 (09:13→20:39)
[2016-11-24] MEDS: LEVOFLOXACIN 750 MG/150 ML IV 150 ML IV SCH (09:13)
[2016-11-24] MEDS: SOTALOL 80 MG (BETAPACE) TAB PO SCH ×2 (09:13→20:40)
[2016-11-24] MEDS: DILTIAZEM 240 MG (CARDIZEM CD) CAP PO SCH (09:14)
[2016-11-24] MEDS: ASPIRIN E.C. 81 MG (ECOTRIN) TAB PO SCH (09:14)
[2016-11-24] MEDS: FOLIC ACID 1 MG TAB PO SCH (09:14)
[2016-11-24] MEDS: LEVETIRACETAM 500 MG (KEPPRA) TAB PO SCH ×2 (09:14→20:40)
[2016-11-24] MEDS: LIDOCAINE (LIDODERM) 5% PATCH TP SCH (09:15)
--- NOTE | 2016-11-24 09:34 | Progress Note (SOAP) ---
Subjective Subjective/Events-last exam PT DIFFICULT TO UNDERSTAND THIS MORNING AGAIN - HIS SPEECH IMPROVED WITH SIPS OF WATER - HE REPORTS THAT HE IS STILL HAVING SOME NAUSEA - JUST GOT A DOSE OF PHENERGAN EARLIER. HE STATES "I AM JUST FALLING APART". Review of Systems General: Fatigue HEENT: No Head Aches Pulmonary: Dyspnea Cough Cardiovascular: : Chest Pain Gastrointestinal: : Nausea Neurological: : WeaknessNo: Confusion Objective Exam Vital Signs Date Time Temp Pulse Resp B/P Pulse Ox O2 Delivery O2 Flow Rate FiO2 11/24/16 07:00 72 11/24/16 06:57 91 5.00 11/24/16 06:00 71 21 148/65 Nasal Cannula 2.00 11/24/16 05:00 73 20 128/55 Nasal Cannula 2.00 11/24/16 04:00 70 21 139/62 Nasal Cannula 2.00 11/24/16 04:00 91 3.00 11/24/16 04:00 98.1 11/24/16 03:00 73 26 134/62 Nasal Cannula 2.00 11/24/16 02:00 71 20 139/61 Nasal Cannula 2.00 11/24/16 01:00 74 23 134/64 Nasal Cannula 2.00 11/24/16 01:00 68 11/24/16 00:00 91 3.00 11/24/16 00:00 74 21 150/71 Nasal Cannula 2.00 11/24/16 00:00 97.8 11/23/16 23:00 69 29 131/71 94 Nasal Cannula 2.00 11/23/16 22:00 77 21 135/70 91 Nasal Cannula 2.00 11/23/16 21:00 81 20 129/70 99 Nasal Cannula 2.00 11/23/16 20:01 97 5.00 11/23/16 20:00 80 21 137/60 98 Nasal Cannula 2.00 11/23/16 20:00 91 3.00 11/23/16 20:00 97.7 11/23/16 19:00 80 22 118/63 93 Nasal Cannula 2.00 11/23/16 19:00 84 11/23/16 18:00 79 24 115/55 96 Nasal Cannula 2.00 11/23/16 17:00 82 28 94/51 96 Nasal Cannula 2.00 11/23/16 16:30 89 3.00 11/23/16 16:00 97.9 11/23/16 16:00 80 25 79/45 90 Nasal Cannula 2.00 11/23/16 16:00 91 3.00 11/23/16 15:00 93 25 88/49 92 Nasal Cannula 2.00 11/23/16 14:28 94 2.00 11/23/16 14:00 94 97/52 93 Nasal Cannula 2.00 11/23/16 13:00 107 122/77 93 Nasal Cannula 2.00 11/23/16 13:00 131 11/23/16 12:00 98.0 11/23/16 12:00 91 2.00 11/23/16 12:00 133 119/85 91 Nasal Cannula 2.00 11/23/16 11:00 122 92/56 91 Nasal Cannula 2.00 11/23/16 10:34 96 3.00 11/23/16 10:00 140 29 107/62 94 Nasal Cannula 2.00 I & O 11/24/16 07:00 Intake Total 2700 ml Output Total 3825 ml Balance -1125 ml Capillary Refill : Less Than 3 Seconds General Appearance: No Apparent Distress WD/WN HEENT: PERRL/EOMI Neck: Full Range of Motion Supple Respiratory: Chest Non Tender Crackles Decreased Breath Sounds Cardiovascular: Regular Rate, Rhythm Gastrointestinal: normal bowel sounds non tender soft no organomegaly no pulsatile mass Neurologic/Psychiatric: Alert Oriented x3 Normal Mood/Affect Other (SLURRED SPEECH - DUE TO PT NOT HAVING IN DENTURES AND PHENERGAN DOSING) Skin: Warm/Dry Results Lab Laboratory Tests 11/23/16 13:17: B-Type Natriuretic Peptide 1113.9H 11/23/16 18:01: Glucometer 137H 11/24/16 05:00: Anion Gap 10, BUN/Creatinine Ratio 11, Basophils # (Auto) 0.0, Basophils (%) ( Auto) 0, Blood Urea Nitrogen 8, Calcium Level 7.6L, Carbon Dioxide Level 27, Chloride Level 106, Creatinine 0.70, Eosinophils # (Auto) 0.3, Eosinophils (%) ( Auto) 4, Estimat Glomerular Filtration Rate > 60, Glucose Level 125H, Hematocrit 28L, Hemoglobin 9.1L, Lymphocytes # (Auto) 1.2, Lymphocytes (%) (Auto ) 16, Magnesium Level 1.6L, Mean Corpuscular Hemoglobin 32, Mean Corpuscular Hemoglobin Concent 32, Mean Corpuscular Volume 98, Mean Platelet Volume 9.5, Monocytes # (Auto) 0.5, Monocytes (%) (Auto) 6, Neutrophils # (Auto) 5.8, Neutrophils (%) (Auto) 75, Phosphorus Level 2.5, Platelet Count 227, Potassium Level 3.3L, Red Blood Count 2.89L, Red Cell Distribution Width 14.6H, Sodium Level 143, White Blood Count 7.8 11/24/16 09:11: Assessment/Plan Assessment/Plan Assess & Plan/Chief Complaint PNEUMONIA PLEURAL EFFUSION RIB PAIN ON LEFT RIB FRACTURES ATRIAL FIBRILLATION DIABETES MELLITUS HX LUNG CANCER WITH NEW NODULE ON CT SCAN CHRONIC DIZZINESS NAUSEA KIDNEY STONE PNEUMONIA - ON PNEUMONIA PROTOCOL, MONITOR SYMPTOMS - REPEAT CHEST XRAY PLEURAL EFFUSION - DR. PEÑA TO DO THORACENTESIS RIB PAIN ON LEFT - DUE TO RIB FRACTURES - LIDODERM PATCH, CONTINUE WITH PRN ORAL PAIN MEDICATIONS ATRIAL FIBRILLATION -RATE CONTROLLED - DEFER TREATMENT TO DR. DOWLING. 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 ULRICH - DISCUSSED WITH HIM TODAY - WILL SEE PT TOMORROW Diagnosis/Problems: Clinical Quality Measures DVT/VTE Risk/Contraindication: Risk Factor Score Per Nursin RFS Level Per Nursing on Admit: 4+=Very High Other: FREQUENT FALLS, INTRACRANIAL BLEED HX GUTIERREZ PHAM MD Nov 24, 2016 09:34
[2016-11-24 09:49] LABS: INR 1.2 (0.8-1.4); PROTHROMBIN TIME PATIENT 14.8 SEC (12.2-14.7)
[2016-11-24] MEDS: guaiFENesin (MUCINEX) 600 MG TAB PO SCH ×2 (10:02→20:40)
[2016-11-24] MEDS ORDERED: PROMETHAZINE INJ 25 MG/ML (PHENERGAN) AMP IVP PRN (10:15)
[2016-11-24] MEDS ORDERED: CATHETER FLUSH 10 ML SYR IV PRN (10:15)
--- NOTE | 2016-11-24 10:33 | Occ Therapy Progress Note ---
Therapy Progress Note Attempted to see pt. Pt. in bed. Awaiting procedure. Declines therapy. Pt. voice very weak. Difficult to understand but does state, "I'm waiting on a procedure." Pt. declines all efforts. 1, Visit 1020 no charge JACQUELINE BRITO OT Nov 24, 2016 10:33
[2016-11-24] MEDS ORDERED: POTASSIUM CL 10MEQ/50ML IVPB 50 ML IV NR (13:00)
[2016-11-24] MEDS: CATHETER FLUSH 10 ML SYR IV SCH ×2 (14:00→22:24)
[2016-11-24] MEDS: ONDANSETRON 4 MG/2 ML (SDV) Z0FRAN IVP PRN (14:34)
--- NOTE | 2016-11-24 16:04 | Diagnostic Imaging Report ---
EXAMINATION: Upright portable radiograph of the chest. INDICATION: Thoracentesis. FINDINGS: There is a [id number] left pleural effusion with associated left lower lobe consolidation and atelectasis. This obscures the left cardiac border. There is right perihilar mid lung infiltrate or atelectasis. Background interstitial thickening with possible element of venous congestion is seen. There is an infusion port with the tip at the SVC level. There is no pneumothorax. Multiple left mid and lower posterior rib fractures seen. When compared to the prior study of 11/24/2016, there is slight improvement in the aeration of the expanded portions of the lungs in the upper left lung and in the right lung with slight improvement in vascular congestion. IMPRESSION: [id number] left pleural effusion. Slightly improved pulmonary vascular congestion. Multiple posterolateral lower left rib fractures. Dictated by: Dictated on workstation # [id number]
[2016-11-24] MEDS: ATORVASTATIN 10 MG (LIPITOR) TABLET PO SCH (20:40)
[2016-11-24] MEDS: PANTOPRAZOLE 40 MG (PROTONIX) TAB PO SCH (20:40)
[2016-11-25] VITALS (23 sets, daily range): BP systolic 74–149; BP diastolic 35–85
[2016-11-25] MEDS: PIPERACILLIN SODIUM/TAZOBACTAM 4.5 GM in NS (IVPB) 100 ML IV SCH ×3 (04:27→20:48)
[2016-11-25 04:40] LABS: BASOPHILS % (AUTO) 0 % (0-10); EOSINOPHILS # (AUTO) 0.2 10^3/uL (0.0-0.3); EOSINOPHILS % (AUTO) 2 % (0-10); LYMPHOCYTES # (AUTO) 1.3 X 10^3 (1.0-4.0); LYMPHOCYTES % (AUTO) 14 % (12-44); MEAN CORPUSCULAR HEMOGLOBIN 32 PG (25-34); MEAN CORPUSCULAR HGB CONC 33 G/DL (32-36); MEAN CORPUSCULAR VOLUME 98 FL (80-99); MEAN PLATELET VOLUME 9.3 FL (7.4-10.4); MONOCYTES # (AUTO) 0.7 X 10^3 (0.0-1.0); MONOCYTES % (AUTO) 8 % (0-12); NEUTROPHILS # (AUTO) 6.7 X 10^3 (1.8-7.8); NEUTROPHILS % (AUTO) 76 % (42-75); PLATELET COUNT 241 10^3/uL (130-400); RED BLOOD COUNT 3.09 10^6/uL (4.35-5.85); RED CELL DISTRIBUTION WIDTH 14.5 % (10.0-14.5); WHITE BLOOD COUNT 8.9 10^3/uL (4.3-11.0)
[2016-11-25 05:26] LABS: ANION GAP 12 MMOL/L (5-14); BLOOD UREA NITROGEN 11 MG/DL (7-18); BUN/CREATININE RATIO 15; CARBON DIOXIDE 32 MMOL/L (21-32); CHLORIDE 100 MMOL/L (98-107); CREATININE SERUM 0.71 MG/DL (0.60-1.30); GFR ESTIMATED > 60; GLUCOSE 111 MG/DL (70-105); MAGNESIUM 1.5 MG/DL (1.8-2.4); PHOSPHORUS 2.5 MG/DL (2.3-4.7); POTASSIUM 3.1 MMOL/L (3.6-5.0); SODIUM 144 MMOL/L (135-145)
[2016-11-25] MEDS: MAGNESIUM 1 GM/100 ML IVPB 100 ML IV SCH ×4 (06:00→14:56)
[2016-11-25] MEDS: POTASSIUM CL 10MEQ/50ML IVPB 50 ML IV SCH ×5 (06:00→11:09)
[2016-11-25] MEDS: KCL 20 MEQ TAB (K-DUR) PO SCH (06:00)
[2016-11-25] MEDS: LEVOTHYROXINE 50 MCG (LEVOTHROID) TAB PO SCH (06:21)
[2016-11-25] MEDS: CATHETER FLUSH 10 ML SYR IV SCH ×3 (06:21→20:52)
[2016-11-25] MEDS: metFORMIN 500 MG (GLUCOPHAGE) TAB PO SCH ×2 (06:22→17:13)
[2016-11-25] MEDS: KCL 10 MEQ TAB (MICRO K) PO SCH (06:22)
[2016-11-25] MEDS: MULTIVIT W/MINERALS TAB (THERAGRAN M) PO SCH (06:22)
[2016-11-25] MEDS: RT-ALBUTEROL/IPRATROPIUM 3 ML (DUONEB) VIAL IH SCH ×4 (06:26→18:46)
[2016-11-25] MEDS: FOLIC ACID 1 MG TAB PO SCH (07:55)
[2016-11-25] MEDS: DOCUSATE SODIUM 100 MG (COLACE) CAP PO SCH (07:55)
[2016-11-25] MEDS: LACTOBACILLUS Acidoph/Bulgar (LACTINEX/FLORANEX) TAB PO SCH ×3 (07:55→20:50)
[2016-11-25] MEDS: guaiFENesin (MUCINEX) 600 MG TAB PO SCH ×2 (07:55→20:50)
[2016-11-25] MEDS: SENNA W/DOCUSATE (SENOKOT S) TABLET PO SCH ×2 (07:56→20:51)
[2016-11-25] MEDS: CYANOCOBALAMIN 500 MCG TAB (VITAMIN B-12) PO SCH (07:56)
--- NOTE | 2016-11-25 08:05 | Progress Note-Cardiology ---
Cardiology SOAP Progress Note Subjective: Rib cage pain is better, but overall feels worse Reports gen malaise and poor appetite and weakness No focal weakness Denies palp or syncope Objective: I&O/Vital Signs Vital Sign - Last 12Hours 11/24/16 11/24/16 11/24/16 11/24/16 20:00 20:00 20:00 21:00 Temp 99.0 Pulse 97 98 Resp 24 24 B/P 123/56 119/71 Pulse Ox 100 95 100 O2 Delivery Nasal Cannula Nasal Cannula O2 Flow Rate 5.00 5.00 5.00 11/24/16 11/24/16 11/25/16 11/25/16 22:00 23:00 00:00 00:00 Temp 98.9 Pulse 90 90 96 Resp B/P 129/67 140/67 135/66 Pulse Ox 100 99 99 O2 Delivery Nasal Cannula Nasal Cannula Nasal Cannula O2 Flow Rate 5.00 5.00 5.00 11/25/16 11/25/16 11/25/16 11/25/16 00:00 01:00 01:00 02:00 Pulse 96 96 98 Resp 20 B/P 149/76 134/58 Pulse Ox 95 99 100 O2 Delivery Nasal Cannula Nasal Cannula O2 Flow Rate 5.00 5.00 5.00 11/25/16 11/25/16 11/25/16 11/25/16 03:00 04:00 04:00 04:00 Temp 97.9 Pulse 101 96 Resp B/P 140/83 122/61 Pulse Ox 100 95 100 O2 Delivery Nasal Cannula Nasal Cannula O2 Flow Rate 5.00 5.00 5.00 11/25/16 11/25/16 11/25/16 05:00 06:00 06:34 Pulse 102 99 Resp B/P 125/85 134/75 Pulse Ox 100 99 99 O2 Delivery Nasal Cannula Nasal Cannula O2 Flow Rate 5.00 5.00 4.00 Intake and Output 11/25/16 00:00 Intake Total 410 ml Output Total 4900 ml Balance -4490 ml Weight (Pounds): 179 Weight (Ounces): 6.0 Weight (Calculated Kilograms): 81.044367 Constitutional: AAO x 3 well-developed well-nourished Respiratory: No accessory muscle use, other (Bilat basal coarse crackles, diminshed air entry at the bases, more so on the L side) Cardiovascular: regular rate-rhythm S1 and S2 systolic murmur (faint PABLO at card base) Gastrointestional: No tender, softNo guarding, No rebound, audible bowel sounds Extremities: No clubbing, No cyanosis, No significant edema Neurologic/Psychiatric: grossly intact power is 5/5 both on sides Skin: No rash on exposed areas, No ulcerations on exposed areas Results/Procedures: Labs Laboratory Tests 11/24/16 09:11: INR Comment 1.2, Prothrombin Time 14.8H 11/25/16 04:30: Anion Gap 12, BUN/Creatinine Ratio 15, Basophils # (Auto) 0.0, Basophils (%) ( Auto) 0, Blood Urea Nitrogen 11, Calcium Level 8.0L, Carbon Dioxide Level 32, Chloride Level 100, Creatinine 0.71, Eosinophils # (Auto) 0.2, Eosinophils (%) ( Auto) 2, Estimat Glomerular Filtration Rate > 60, Glucose Level 111H, Hematocrit 30L, Hemoglobin 9.9L, Lymphocytes # (Auto) 1.3, Lymphocytes (%) (Auto ) 14, Magnesium Level 1.5L, Mean Corpuscular Hemoglobin 32, Mean Corpuscular Hemoglobin Concent 33, Mean Corpuscular Volume 98, Mean Platelet Volume 9.3, Monocytes # (Auto) 0.7, Monocytes (%) (Auto) 8, Neutrophils # (Auto) 6.7, Neutrophils (%) (Auto) 76H, Phosphorus Level 2.5, Platelet Count 241, Potassium Level 3.1L, Red Blood Count 3.09L, Red Cell Distribution Width 14.5, Sodium Level 144, White Blood Count 8.9 Microbiology 11/22/16 MRSA Screen - Final, Complete Laboratory Tests 11/24/16 05:00 11/25/16 04:30 A/P: Assessment: Multifactorial pneumonia (see below) L-sided pneumonia and pleural effusion, likely promoted by recent non-syncopal fall that led to L-sided rib fractures that led to poor insp (due to inspiratory pain) Probable septicemia at presentation Ac diastolic CHF Echocardiogram from November [address] Guy showed LVEF 50-55%, mild MR, aortic valve sclerosis without evidence of stenosis Failure to thrive (poor appetite, generally deteriorating clinical status) R lung squamous cell CA diagnosed in 2014 that has been treated surgically in [place], according to the patient. Apparently a new lung nodule is being followed by Med and Pulm Services Multiple electrolyte abnormalities due to diuretic therapy PAF with RVR. Has h/o PAF that is followed by Dr. Marsh at [facility] in [place], [place]. Currently NSR with isolated PVCs Contraindications to full oral anticoagulation: h/o intracranial bleed requiring surgical intervention, multiple recent non-syncopal falls CAD with h/o stent placement to left Cx in [place] [address] Christensen in [place], [place] H/o previous intracranial bleeding the details of which are unclear Propensity to falls (non-syncopal). A recent fall has led to rib contusions Anemia of undetermined etiology Plan: * Repeat echo * Continue iv diuretics * L thoracentesis * Replenish lytes * Monitor labs * Sputum culture, if good specimen obtainable ERIK DOWLING MD FACP FAC CCDS Nov 25, 2016 08:05
--- NOTE | 2016-11-25 08:14 | Progress Note (SOAP) ---
Subjective Subjective/Events-last exam MRSA ISOLATED FROM NARES PT FEELING FATIGUED, PT REPORTS THAT HE IS STILL QUITE SHORT OF BREATH. HE REPORTS NAUSEA, WEAKNESS, GENERALIZED MALAISE. Review of Systems General: Fatigue Malaise HEENT: No Head Aches Pulmonary: Dyspnea Cough Cardiovascular: No: Chest Pain, Edema Gastrointestinal: No: Abdominal Pain, Nausea Neurological: : Weakness Objective Exam Vital Signs Date Time Temp Pulse Resp B/P Pulse Ox O2 Delivery O2 Flow Rate FiO2 11/25/16 06:34 99 4.00 11/25/16 06:00 99 21 134/75 99 Nasal Cannula 5.00 11/25/16 05:00 102 20 125/85 100 Nasal Cannula 5.00 11/25/16 04:00 97.9 11/25/16 04:00 96 21 122/61 100 Nasal Cannula 5.00 11/25/16 04:00 95 5.00 11/25/16 03:00 101 23 140/83 100 Nasal Cannula 5.00 11/25/16 02:00 98 20 134/58 100 Nasal Cannula 5.00 11/25/16 01:00 96 20 149/76 99 Nasal Cannula 5.00 11/25/16 01:00 96 11/25/16 00:00 95 5.00 11/25/16 00:00 98.9 11/25/16 00:00 96 21 135/66 99 Nasal Cannula 5.00 11/24/16 23:00 90 21 140/67 99 Nasal Cannula 5.00 11/24/16 22:00 90 21 129/67 100 Nasal Cannula 5.00 11/24/16 21:00 98 24 119/71 100 Nasal Cannula 5.00 11/24/16 20:00 95 5.00 11/24/16 20:00 97 24 123/56 100 Nasal Cannula 5.00 11/24/16 20:00 99.0 11/24/16 19:00 92 24 121/75 100 Nasal Cannula 5.00 11/24/16 19:00 92 11/24/16 18:34 97 4.00 11/24/16 18:00 90 22 135/70 96 Nasal Cannula 2.00 11/24/16 17:00 91 26 116/75 Nasal Cannula 2.00 11/24/16 16:00 95 5.00 11/24/16 16:00 86 25 116/63 Nasal Cannula 2.00 11/24/16 15:00 93 31 135/74 Nasal Cannula 2.00 11/24/16 14:00 90 19 86/55 94 Nasal Cannula 2.00 11/24/16 13:00 80 11/24/16 13:00 79 23 126/67 100 Nasal Cannula 2.00 11/24/16 12:00 160 129/74 Nasal Cannula 2.00 11/24/16 12:00 95 5.00 11/24/16 11:00 79 122/69 100 Nasal Cannula 2.00 11/24/16 10:20 100 4.00 11/24/16 10:00 80 33 127/66 100 Nasal Cannula 2.00 11/24/16 09:00 70 22 149/71 Nasal Cannula 2.00 I & O 11/25/16 07:00 Intake Total 910 ml Output Total 5475 ml Balance -4565 ml Capillary Refill : Less Than 3 Seconds General Appearance: WD/WN Mild Distress Neck: Supple Respiratory: Crackles Decreased Breath Sounds Cardiovascular: Irregularly Irregular Gastrointestinal: normal bowel sounds non tender soft no organomegaly no pulsatile mass Neurologic/Psychiatric: Alert Oriented x3 Normal Mood/Affect Skin: Warm/Dry Lymphatic: No Adenopathy Results Lab Laboratory Tests 11/24/16 09:11: INR Comment 1.2, Prothrombin Time 14.8H 11/25/16 04:30: Anion Gap 12, BUN/Creatinine Ratio 15, Basophils # (Auto) 0.0, Basophils (%) ( Auto) 0, Blood Urea Nitrogen 11, Calcium Level 8.0L, Carbon Dioxide Level 32, Chloride Level 100, Creatinine 0.71, Eosinophils # (Auto) 0.2, Eosinophils (%) ( Auto) 2, Estimat Glomerular Filtration Rate > 60, Glucose Level 111H, Hematocrit 30L, Hemoglobin 9.9L, Lymphocytes # (Auto) 1.3, Lymphocytes (%) (Auto ) 14, Magnesium Level 1.5L, Mean Corpuscular Hemoglobin 32, Mean Corpuscular Hemoglobin Concent 33, Mean Corpuscular Volume 98, Mean Platelet Volume 9.3, Monocytes # (Auto) 0.7, Monocytes (%) (Auto) 8, Neutrophils # (Auto) 6.7, Neutrophils (%) (Auto) 76H, Phosphorus Level 2.5, Platelet Count 241, Potassium Level 3.1L, Red Blood Count 3.09L, Red Cell Distribution Width 14.5, Sodium Level 144, White Blood Count 8.9 Microbiology 11/22/16 MRSA Screen - Final, Complete Assessment/Plan Assessment/Plan Assess & Plan/Chief Complaint PNEUMONIA PLEURAL EFFUSION RIB PAIN ON LEFT RIB FRACTURES ATRIAL FIBRILLATION DIABETES MELLITUS HX LUNG CANCER WITH NEW NODULE ON CT SCAN CHRONIC DIZZINESS NAUSEA KIDNEY STONE PNEUMONIA - ON PNEUMONIA PROTOCOL, MONITOR SYMPTOMS - REPEAT CHEST XRAY PLEURAL EFFUSION - DR. PEÑA TO DO THORACENTESIS RIB PAIN ON LEFT - DUE TO RIB FRACTURES - LIDODERM PATCH, CONTINUE WITH PRN ORAL PAIN MEDICATIONS ATRIAL FIBRILLATION -RATE CONTROLLED - DEFER TREATMENT TO DR. DOWLING. 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 ULRICH - DISCUSSED WITH HIM TODAY - WILL SEE PT TODAY Diagnosis/Problems: Clinical Quality Measures DVT/VTE Risk/Contraindication: Risk Factor Score Per Nursin RFS Level Per Nursing on Admit: 4+=Very High Other: FREQUENT FALLS, INTRACRANIAL BLEED HX GUTIERREZ PHAM MD Nov 25, 2016 08:14
--- NOTE | 2016-11-25 08:19 | Diagnostic Imaging Report ---
Portable upright radiograph of the chest. INDICATION: Dyspnea. FINDINGS: There is a large left pleural effusion with left lower lobe and mid lung atelectasis and consolidation. There is right perihilar midlung consolidation or atelectasis. There is slight improvement in lung aeration in the right lung base is seen. The heart left margin is obscured. There is an infusion port with tip at the SVC level. Again seen left rib fractures. IMPRESSION: Stable large left effusion with atelectasis/consolidation in the mid and lower left lung. Dictated by: Dictated on workstation # [id number]
--- NOTE | 2016-11-25 08:22 | Diagnostic Imaging Report ---
KUB. INDICATION: Renal stone. FINDINGS: There is a left 1.2-cm calcification at upper L3 level appears to correspond with a stone in the renal pelvis seen on recent ultrasound and CT. There is also suggestion of a lower pole left kidney stone measuring 4 mm. Findings of T12 kyphoplasty seen. Pelvic calcifications are likely vascular. IMPRESSION: A 1.2-cm left flank stone is most likely within the renal pelvis. Dictated by: Dictated on workstation # [id number]
--- NOTE | 2016-11-25 08:27 | Progress Note-Cardiology ---
Cardiology SOAP Progress Note Subjective: Continues to generally not feel well. Continues to feel short of breath. Generalized weakness. No c/o CP or palpitations. Objective: I&O/Vital Signs Vital Sign - Last 12Hours 11/25/16 11/25/16 11/25/16 11/25/16 07:00 07:00 08:00 10:24 Temp 97.0 Pulse 101 Pulse Ox 95 99 O2 Delivery Nasal Cannula O2 Flow Rate 4.00 4.00 4.00 11/25/16 11/25/16 11/25/16 11/25/16 12:00 14:10 16:00 17:13 Temp 97.2 97.0 97.0 Pulse Ox 99 99 O2 Delivery Nasal Cannula O2 Flow Rate 4.00 4.00 Intake and Output 11/25/16 00:00 Intake Total 410 ml Output Total 4900 ml Balance -4490 ml Weight (Pounds): 179 Weight (Ounces): 6.0 Weight (Calculated Kilograms): 81.437088 Constitutional: AAO x 3 well-developed well-nourished Respiratory: No accessory muscle use, other (Bilat coarse crackles, diminshed air entry at the bases, more so on the L side extending up to the mid-lung) Cardiovascular: regular rate-rhythm S1 and S2 systolic murmur (faint PABLO at card base) Gastrointestional: No tender, softNo guarding, No rebound, audible bowel sounds Extremities: No clubbing, No cyanosis, No significant edema Neurologic/Psychiatric: grossly intact power is 5/5 both on sides Skin: No rash on exposed areas, No ulcerations on exposed areas Results/Procedures: Labs Bad tableProcedures NAME: NELA OJEDA [facility] REC#: [id number] PT STATUS: ADM IN : 1930 PHYSICIAN: JENIFFER OVALLE DO ADMIT DATE: 11/23/16/ICU Draft Date of Exam:11/25/16 CHEST 1 VIEW, AP/PA ONLY Portable upright radiograph of the chest. INDICATION: Dyspnea. FINDINGS: There is a large left pleural effusion with left lower lobe and mid lung atelectasis and consolidation. There is right perihilar midlung consolidation or atelectasis. There is slight improvement in lung aeration in the right lung base is seen. The heart left margin is obscured. There is an infusion port with tip at the SVC level. Again seen left rib fractures. IMPRESSION: Stable large left effusion with atelectasis/consolidation in the mid and lower left lung. Dictated on workstation # [id number] Dict: 11/25/16806 Trans: 11/25/1618 [id number] Interpreted by: SADE DYER MD Electronically signed by: A/P: Assessment: Multifactorial dyspnea (see below) L-sided pneumonia and pleural effusion, likely promoted by recent non-syncopal fall that led to L-sided rib fractures that led to poor insp (due to inspiratory pain) Probable septicemia at presentation Ac diastolic CHF - diuretics Echocardiogram from November [address] Guy showed LVEF 50-55%, mild MR, aortic valve sclerosis without evidence of stenosis Failure to thrive (poor appetite, generally deteriorating clinical status) R lung squamous cell CA diagnosed in 2014 that has been treated surgically in [place], according to the patient. Apparently a new lung nodule is being followed by [facility] Multiple electrolyte abnormalities due to diuretic therapy PAF with RVR. Has h/o PAF that is followed by Dr. Marsh at [facility] in [place], [place]. Currently NSR with isolated PVCs Contraindications to full oral anticoagulation: h/o intracranial bleed requiring surgical intervention, multiple recent non-syncopal falls CAD with h/o stent placement to left Cx in August [address] Christensen in [place], [place] H/o previous intracranial bleeding the details of which are unclear Propensity to falls (non-syncopal). A recent fall has led to rib contusions Anemia of undetermined etiology There is moderate left hydronephrosis with an stone probably causing the obstruction at the UPJ measuring 1.5 CM, per renal u/s - Urology services managing Nausea - being managed by medical services Plan: * Echocardiogram pending * Continue iv diuretics - give additional dose today * L thoracentesis unsuccessful yesterday; plan for u/s guided thoracentesis later today * Replenish lytes * Monitor labs Physician Assessment Physician Assessment Please refer to my separately documented note of the same date RADHA MCMAHON B[employer]CIPITATOR OPERATOR Nov 25, 2016 08:27 ERIK DOWLING MD FACP FAC CCDS Nov 25, 2016 18:39 Dictated on workstation # [id number] Dict: 11/25/16806 Trans: 11/25/16 0818 [id number] Interpreted by: SADE DYER MD Electronically signed by: A/P: Assessment: Multifactorial pneumonia (see below) L-sided pneumonia and pleural effusion, likely promoted by recent non-syncopal fall that led to L-sided rib fractures that led to poor insp (due to inspiratory pain) Probable septicemia at presentation Ac diastolic CHF - diuretics Echocardiogram from November [address] Guy showed LVEF 50-55%, mild MR, aortic valve sclerosis without evidence of stenosis Failure to thrive (poor appetite, generally deteriorating clinical status) R lung squamous cell CA diagnosed in 2014 that has been treated surgically in [place], according to the patient. Apparently a new lung nodule is being followed by [facility] Multiple electrolyte abnormalities due to diuretic therapy PAF with RVR. Has h/o PAF that is followed by Dr. Marsh at [facility] in [place], [place]. Currently NSR with isolated PVCs Contraindications to full oral anticoagulation: h/o intracranial bleed requiring surgical intervention, multiple recent non-syncopal falls CAD with h/o stent placement to left Cx in [place] [address] Christensen in [place], [place] H/o previous intracranial bleeding the details of which are unclear Propensity to falls (non-syncopal). A recent fall has led to rib contusions Anemia of undetermined etiology There is moderate left hydronephrosis with an stone probably causing the obstruction at the UPJ measuring 1.5 CM, per renal u/s - Urology services managing Nausea - being managed by medical services Plan: * Echocardiogram pending * Continue iv diuretics - give additional dose today * L thoracentesis unsuccessful yesterday; plan for u/s guided thoracentesis later today * Replenish lytes * Monitor labs RADHA MCMAHON Nov 25, 2016 08:27
[2016-11-25] MEDS: LEVETIRACETAM 500 MG (KEPPRA) TAB PO SCH ×2 (08:28→20:50)
[2016-11-25] MEDS: SOTALOL 80 MG (BETAPACE) TAB PO SCH ×2 (08:28→22:15)
[2016-11-25] MEDS: FUROSEMIDE 40 MG/4 ML INJ (LASIX) IVP SCH (08:29)
[2016-11-25] MEDS: LEVOFLOXACIN 750 MG/150 ML IV 150 ML IV SCH (08:29)
[2016-11-25] MEDS: DILTIAZEM 240 MG (CARDIZEM CD) CAP PO SCH (08:29)
[2016-11-25] MEDS ORDERED: FUROSEMIDE 40 MG/4 ML INJ (LASIX) IVP NR (08:31)
[2016-11-25] MEDS: LIDOCAINE (LIDODERM) 5% PATCH TP SCH (08:31)
[2016-11-25] MEDS ORDERED: SALIVA STIMULANT MOUTH SPRAY (BIOTENE) 1.5 OZ MM PRN (08:45)
--- NOTE | 2016-11-25 10:44 | Occ Therapy Progress Note ---
Therapy Progress Note Pt declined treatment. Pt stated that he hasn't ate for 4 days and he is very weak. He did demonstrate that shldrs AROM WFL. OT encouraged pt to sit EOB or change position, pt stated that is what nrsg does with him. Will check on pt in am. Refusal-Visit ERIC GREENE Nov 25, 2016 10:44
[2016-11-25] MEDS: MUPIROCIN 2% OINT 22 GM (BACTROBAN) TUBE NSEACH SCH ×2 (11:02→20:57)
[2016-11-25] MEDS ORDERED: LIDOCAINE 1% INJ 20 ML (XYLOCAINE) VIAL ONE (11:18)
[2016-11-25] MEDS ORDERED: morphine INJ 4 MG/ML 1 ML (VIAL/SYRINGE) ONE (13:06)
[2016-11-25 13:13] LABS: GLUCOSE,BODY FLUID 108 MG/DL
[2016-11-25 13:14] LABS: LDH,BODY FLUID 245 U/L
[2016-11-25] MEDS ORDERED: NS IV 1000 ML 1,000 ML ONE (13:22)
--- NOTE | 2016-11-25 13:29 | Diagnostic Imaging Report ---
EXAMINATION: Ultrasound guided drain placement. Left chest. INDICATION: Posttraumatic large left pleural effusion. The patient's vital signs, cardiac rhythm, and pulse oximetry with observed throughout the procedure by qualified nursing personnel. Sedation/medications: None. CONSENT: Informed consent was obtained from the patient. The risks, benefits, potential complications and alternatives were reviewed and all questions answered to the patient's satisfaction. FINDINGS: Large left pleural effusion with incomplete septation suggested PROCEDURE: After maximal sterile barrier preparation and draping, 1% lidocaine was utilized for local anesthesia. With the patient in sitting position, posterior intercostal approach was selected. A 19-gauge Yueh sheathed needle was introduced utilizing live ultrasound guidance into the left pleural effusion. Ultrasound images documented to confirm appropriate positioning. After standard over a guidewire exchange technique and after serial dilatation, a 12 [place] drain is placed and distal loop formed in the collection. The drainage catheter is connected to suction type draining bag. The patient tolerated the procedure well with no immediate complications. IMPRESSION: Successful ultrasound-guided, 12 [place] Islander, drain placement in left pleura. Dictated by: Dictated on workstation # [id number]
[2016-11-25] MEDS: IBUPROFEN 600 MG (MOTRIN) TAB PO PRN (13:40)
[2016-11-25] MEDS: NS IV 1000 ML 1,000 ML IV SCH ×2 (13:46→20:48)
--- NOTE | 2016-11-25 14:24 | Physical Therapy Progress Note ---
Therapy Progress Note Pt declines PT tx due to fatigue and chest pain. Per nursing, pt has already had Xray and Echo recently as well as just had 3L removed from lungs. PT will try again tomorrow to see if pt is feeling better. 1 visit, no tx HARSHAL GUNTER PTA Nov 25, 2016 14:24
[2016-11-25] MEDS: HYDROcodone/APAP 5 MG/325 MG (LORTAB) TAB PO PRN ×2 (17:13→20:57)
[2016-11-25] MEDS: PANTOPRAZOLE 40 MG (PROTONIX) TAB PO SCH (20:50)
[2016-11-25] MEDS: ATORVASTATIN 10 MG (LIPITOR) TABLET PO SCH (20:57)
[2016-11-26] VITALS (26 sets, daily range): BP systolic 62–127; BP diastolic 40–66
[2016-11-26] MEDS: HYDROcodone/APAP 5 MG/325 MG (LORTAB) TAB PO PRN ×3 (01:01→19:46)
[2016-11-26] MEDS ORDERED: NS IV 1000 ML 1,000 ML IV ONE (01:30)
[2016-11-26] MEDS: NS IV 1000 ML 1,000 ML IV SCH ×3 (02:22→19:47)
[2016-11-26] MEDS: PIPERACILLIN SODIUM/TAZOBACTAM 4.5 GM in NS (IVPB) 100 ML IV SCH ×3 (03:40→19:45)
[2016-11-26] MEDS: CATHETER FLUSH 10 ML SYR IV SCH ×3 (05:05→22:00)
[2016-11-26 05:18] LABS: BASOPHILS % (AUTO) 0 % (0-10); EOSINOPHILS # (AUTO) 0.3 10^3/uL (0.0-0.3); EOSINOPHILS % (AUTO) 3 % (0-10); LYMPHOCYTES # (AUTO) 1.6 X 10^3 (1.0-4.0); LYMPHOCYTES % (AUTO) 16 % (12-44); MEAN CORPUSCULAR HEMOGLOBIN 32 PG (25-34); MEAN CORPUSCULAR HGB CONC 33 G/DL (32-36); MEAN CORPUSCULAR VOLUME 99 FL (80-99); MEAN PLATELET VOLUME 9.5 FL (7.4-10.4); MONOCYTES # (AUTO) 0.8 X 10^3 (0.0-1.0); MONOCYTES % (AUTO) 8 % (0-12); NEUTROPHILS # (AUTO) 7.2 X 10^3 (1.8-7.8); NEUTROPHILS % (AUTO) 73 % (42-75); PLATELET COUNT 250 10^3/uL (130-400); RED BLOOD COUNT 2.81 10^6/uL (4.35-5.85); RED CELL DISTRIBUTION WIDTH 14.6 % (10.0-14.5)
[2016-11-26 05:33] LABS: ANION GAP 9 MMOL/L (5-14); BLOOD UREA NITROGEN 20 MG/DL (7-18); BUN/CREATININE RATIO 22; CALCIUM 7.5 MG/DL (8.5-10.1); CARBON DIOXIDE 31 MMOL/L (21-32); CHLORIDE 102 MMOL/L (98-107); CREATININE SERUM 0.93 MG/DL (0.60-1.30); GFR ESTIMATED > 60; GLUCOSE 135 MG/DL (70-105); MAGNESIUM 1.8 MG/DL (1.8-2.4); PHOSPHORUS 2.6 MG/DL (2.3-4.7); POTASSIUM 3.6 MMOL/L (3.6-5.0); SODIUM 142 MMOL/L (135-145)
[2016-11-26] MEDS: LEVOTHYROXINE 50 MCG (LEVOTHROID) TAB PO SCH (05:59)
[2016-11-26] MEDS: metFORMIN 500 MG (GLUCOPHAGE) TAB PO SCH ×2 (06:02→17:24)
[2016-11-26] MEDS: MULTIVIT W/MINERALS TAB (THERAGRAN M) PO SCH (06:02)
[2016-11-26] MEDS: KCL 10 MEQ TAB (MICRO K) PO SCH (06:02)
--- NOTE | 2016-11-26 07:03 | Pulmonary Progress Note ---
Subjective Subjective/Events-last exam No complications noted. Pt feels much improved since thoracentesis. Exam Exam Vital Signs Date Time Temp Pulse Resp B/P Pulse Ox O2 Delivery O2 Flow Rate FiO2 11/26/16 05:57 97.6 60 18 112/63 98 Nasal Cannula 2.00 11/26/16 04:19 60 16 107/50 98 Nasal Cannula 2.00 11/26/16 04:00 60 20 107/50 98 Nasal Cannula 2.00 11/26/16 02:53 60 90/44 95 Nasal Cannula 2.00 11/26/16 02:00 96.6 59 18 82/41 96 Nasal Cannula 2.00 11/26/16 01:00 100 11/26/16 01:00 100 22 70/45 95 Nasal Cannula 2.00 11/26/16 00:00 96.8 95 19 80/52 99 Nasal Cannula 2.00 11/25/16 23:00 63 13 104/54 99 Nasal Cannula 2.00 11/25/16 22:15 68 114/58 11/25/16 22:00 69 17 112/63 98 Nasal Cannula 2.00 11/25/16 21:00 70 14 81/49 100 Nasal Cannula 2.00 11/25/16 20:00 95 2.00 11/25/16 20:00 96.6 71 16 91/48 97 Nasal Cannula 2.00 11/25/16 19:00 72 14 88/48 97 Nasal Cannula 2.00 11/25/16 19:00 72 11/25/16 18:46 100 4.00 11/25/16 18:30 70 26 114/52 99 Nasal Cannula 4.00 11/25/16 17:45 73 19 89/43 100 Nasal Cannula 4.00 11/25/16 17:43 97.0 11/25/16 17:13 97.0 11/25/16 16:45 76 17 77/40 100 Nasal Cannula 4.00 11/25/16 16:00 97.0 11/25/16 15:45 73 20 74/35 98 Nasal Cannula 4.00 11/25/16 14:45 74 21 95/47 99 Nasal Cannula 4.00 11/25/16 14:10 99 4.00 11/25/16 13:45 82/42 98 Nasal Cannula 4.00 11/25/16 12:00 97.2 99 Nasal Cannula 4.00 11/25/16 10:24 99 4.00 11/25/16 10:00 88 87/52 100 Nasal Cannula 4.00 11/25/16 09:00 102 25 111/72 Nasal Cannula 4.00 11/25/16 08:00 102 25 136/80 96 Nasal Cannula 4.00 11/25/16 08:00 95 4.00 11/25/16 07:00 97.0 Nasal Cannula 4.00 11/25/16 07:00 101 11/25/16 07:00 98 18 139/78 Nasal Cannula 4.00 I & O 11/26/16 07:00 Intake Total 3510 ml Output Total 5125 ml Balance -1615 ml General Appearance: No Apparent Distress WD/WN HEENT: PERRL/EOMI Neck: Full Range of Motion Supple Respiratory: Chest Non Tender Crackles Decreased Breath Sounds Cardiovascular: Regular Rate, Rhythm Gastrointestinal: normal bowel sounds non tender soft no organomegaly no pulsatile mass Neurologic/Psychiatric: Alert Oriented x3 Normal Mood/Affect Other (SLURRED SPEECH - DUE TO PT NOT HAVING IN DENTURES AND PHENERGAN DOSING) Skin: Warm/Dry Lymphatic: No Adenopathy Results Lab Laboratory Tests 11/25/16 04:30 11/26/16 05:11 Assessment/Plan Assessment/Plan lung contusion with hemothorax - from prior fall - s/p thoracentesis -pleural fluid sent for C&S lung nodule RUL with Hx of lung cancer -Repeat CT scan in 3mo hx R lung squamous cell CA diagnosed in 2014 hx of lobectomy in [place] [facility] Clinical Quality Measures DVT/VTE Risk/Contraindication: Risk Factor Score Per Nursin RFS Level Per Nursing on Admit: 4+=Very High Other: FREQUENT FALLS, INTRACRANIAL BLEED HX CARMEN PEÑA DO Nov 26, 2016 07:03
[2016-11-26] MEDS: RT-ALBUTEROL/IPRATROPIUM 3 ML (DUONEB) VIAL IH SCH ×4 (07:17→21:07)
--- NOTE | 2016-11-26 07:30 | Diagnostic Imaging Report ---
INDICATION: Dyspnea. COMPARISON: 11/25/2016 FINDINGS: Improved aeration of the left lung status post drainage of the large left pleural effusion. There is a small amount of residual left pleural fluid. A pigtail drainage catheter is present in the left pleural space. Heterogeneous opacities in the left mid and lower lung zone persists. Right basilar heterogeneous opacities are also unchanged. Band-like opacity in the right midlung zone are similar and may relate to fluid in a fissure. Stable cardiomegaly with atherosclerotic aorta. IMPRESSION: 1. Improved aeration of the left lung status post drainage of left pleural effusion. There is still a small amount of left pleural fluid. Left pleural pigtail drainage catheter is in place. 2. Bilateral perihilar and basilar heterogeneous opacities have improved but persist and may relate to pulmonary edema or multifocal infection. Underlying chronic pulmonary changes cannot be excluded. Dictated by: Dictated on workstation # [id number]
[2016-11-26] MEDS: FUROSEMIDE 40 MG/4 ML INJ (LASIX) IVP SCH (08:33)
[2016-11-26] MEDS: LIDOCAINE (LIDODERM) 5% PATCH TP SCH (08:34)
[2016-11-26] MEDS: LACTOBACILLUS Acidoph/Bulgar (LACTINEX/FLORANEX) TAB PO SCH ×3 (08:35→19:46)
[2016-11-26] MEDS: SOTALOL 80 MG (BETAPACE) TAB PO SCH ×2 (08:35→19:46)
[2016-11-26] MEDS: guaiFENesin (MUCINEX) 600 MG TAB PO SCH ×2 (08:35→19:46)
[2016-11-26] MEDS: CYANOCOBALAMIN 500 MCG TAB (VITAMIN B-12) PO SCH (08:35)
[2016-11-26] MEDS: FOLIC ACID 1 MG TAB PO SCH (08:35)
[2016-11-26] MEDS: DOCUSATE SODIUM 100 MG (COLACE) CAP PO SCH (08:36)
[2016-11-26] MEDS: SENNA W/DOCUSATE (SENOKOT S) TABLET PO SCH ×2 (08:36→19:47)
[2016-11-26] MEDS: LEVETIRACETAM 500 MG (KEPPRA) TAB PO SCH ×2 (08:36→19:45)
[2016-11-26] MEDS: LEVOFLOXACIN 750 MG/150 ML IV 150 ML IV SCH (08:36)
[2016-11-26] MEDS: MUPIROCIN 2% OINT 22 GM (BACTROBAN) TUBE NSEACH SCH ×2 (08:39→19:45)
--- NOTE | 2016-11-26 08:46 | Progress Note-Cardiology ---
Cardiology SOAP Progress Note Subjective: Sitting up in bed eating morning meal. More conversive today. No c/o CP, palpitations. States he feels his breathing is better today. Objective: I&O/Vital Signs Vital Sign - Last 12Hours 11/25/16 11/26/16 11/26/16 11/26/16 23:00 00:00 01:00 01:00 Temp 96.8 Pulse 63 95 100 100 Resp 13 19 22 B/P 104/54 80/52 70/45 Pulse Ox 99 99 95 O2 Delivery Nasal Cannula Nasal Cannula Nasal Cannula O2 Flow Rate 2.00 2.00 2.00 11/26/16 11/26/16 11/26/16 11/26/16 02:00 02:53 04:00 04:19 Temp 96.6 Pulse 59 60 60 60 Resp 18 20 16 B/P 82/41 90/44 107/50 107/50 Pulse Ox 96 95 98 98 O2 Delivery Nasal Cannula Nasal Cannula Nasal Cannula Nasal Cannula O2 Flow Rate 2.00 2.00 2.00 2.00 11/26/16 11/26/16 11/26/16 11/26/16 05:57 07:00 07:17 08:27 Temp 97.6 97.4 Pulse 60 61 Resp 18 B/P 112/63 Pulse Ox 98 100 O2 Delivery Nasal Cannula O2 Flow Rate 2.00 2.00 Intake and Output 11/26/16 00:00 Intake Total 1680 ml Output Total 4825 ml Balance -3145 ml Weight (Pounds): 170 Weight (Ounces): 11.2 Weight (Calculated Kilograms): 77.892632 Constitutional: AAO x 3 well-developed well-nourished Respiratory: No accessory muscle use, other (diminished bases bilat; drain to LL with sainguinous drainage) Cardiovascular: regular rate-rhythm S1 and S2 systolic murmur (faint PABLO at card base) Gastrointestional: No tender, softNo guarding, No rebound, audible bowel sounds Extremities: No clubbing, No cyanosis, No significant edema Neurologic/Psychiatric: grossly intact power is 5/5 both on sides Skin: No rash on exposed areas, No ulcerations on exposed areas Results/Procedures: Labs Bad tableProcedures NAME: NELA OJEDA [facility] REC#: [id number] PT STATUS: ADM IN : 1930 PHYSICIAN: JENIFFER OVALLE DO ADMIT DATE: 11/23/16/ICU Signed Date of Exam: 11/26/16 CHEST 1 VIEW, AP/PA ONLY INDICATION: Dyspnea. COMPARISON: 11/25/2016 FINDINGS: Improved aeration of the left lung status post drainage of the large left pleural effusion. There is a small amount of residual left pleural fluid. A pigtail drainage catheter is present in the left pleural space. Heterogeneous opacities in the left mid and lower lung zone persists. Right basilar heterogeneous opacities are also unchanged. Band-like opacity in the right midlung zone are similar and may relate to fluid in a fissure. Stable cardiomegaly with atherosclerotic aorta. IMPRESSION: 1. Improved aeration of the left lung status post drainage of left pleural effusion. There is still a small amount of left pleural fluid. Left pleural pigtail drainage catheter is in place. 2. Bilateral perihilar and basilar heterogeneous opacities have improved but persist and may relate to pulmonary edema or multifocal infection. Underlying chronic pulmonary changes cannot be excluded. Dictated by: Dictated on workstation # [id number] Dict: 11/26/16 0721 Trans: 11/26/16 0742 DONAL [id number] Interpreted by: MELANIE BIANCHI MD Electronically signed by:MELANIE BIANCHI MD 11/26/16 0744 A/P: Assessment: Multifactorial dyspnea (see below) Large left sided traumatic hemathorax; s/p thoracentesis on 11-25-16 L-sided pneumonia, likely d/t recent non-syncopal fall that led to L-sided rib fractures that led to poor insp (due to inspiratory pain) and bleeding Probable septicemia at presentation Ac diastolic CHF - clinically improved. Echo of 11/25/16 shows LVEF 60-65%, mod AoV sclerosis and mod MAC w/o valvular stenosis, mild diastolic dysfunction of LV Echocardiogram from November [address] Guy showed LVEF 50-55%, mild MR, aortic valve sclerosis without evidence of stenosis Failure to thrive (poor appetite, generally deteriorating clinical status) R lung squamous cell CA diagnosed in 2014 that has been treated surgically in [place], according to the patient. Apparently a new lung nodule is being followed by [facility] Multiple electrolyte abnormalities due to diuretic therapy PAF with RVR. Has h/o PAF that is followed by Dr. Marsh at [facility] in [place], [place]. Currently NSR with isolated PVCs Contraindications to full oral anticoagulation: h/o intracranial bleed requiring surgical intervention, multiple recent non-syncopal falls CAD with h/o stent placement to left Cx [place] [address] Christensen in [place], [place] H/o previous intracranial bleeding the details of which are unclear Propensity to falls (non-syncopal). A recent fall has led to rib contusions Anemia of undetermined etiology There is moderate left hydronephrosis with an stone probably causing the obstruction at the UPJ measuring 1.5 CM, per renal u/s - Urology services managing Nausea - being managed by medical services Hypotension overnight likely d/t vol depletion - improved with hydration Plan: * Echocardiogram pending * D/t hypotension overnight likely d/t vol depletion we will hold off on diuretics for now * Continue gentle IVF hydration * S/P L thoracentesis on 11-25-16 * Replenish lytes * Monitor labs Physician Assessment Physician Assessment Lungs: fair to good air entry, diminished at the bases, more on the L base Cor: reg A&R * As documented in our note above that I updated at the time of this writing * I spoke with Mr Ojeda and answered questions * I discussed his case with Dr Lerma * D/c diuretics * Continue iv fluids * Monitor labs * Keep in ICU for now RADHA MCMAHON Nov 26, 2016 08:46 ERIK DOWLING MD [facility] Nov 26, 2016 10:40
[2016-11-26] MEDS: DILTIAZEM 240 MG (CARDIZEM CD) CAP PO SCH (09:30)
--- NOTE | 2016-11-26 10:06 | CONSULTATION REPORT ---
DATE OF CONSULTATION: 11/25/2016 ATTENDING PHYSICIAN: Dr. Lerma. SUMMARY: After reviewing the patient's record at the office and the hospital and his x-rays, this is an 86-year-old white man whom I have seen before because of urolithiasis, erectile dysfunction, history of cancer of the bladder, BPH, where previously had a TURBT laser prostate and left ESWL in 2007. He is being admitted to the ICU by Dr. Lerma with pneumonia, pulmonary edema, pleural effusion, and possible sepsis. The patient has history of cancer of the lung with the previous lumpectomy, history of previous fracture of the ribs and some mild left CVA pain and tenderness. Renal ultrasound showed a 1.2 cm stone looking in the UPJ on the left side causing some hydronephrosis. The patient has been nauseated and I was asked to see the patient for input on the stone treatment. The patient is visibly short of breath and has all of the above mentioned problems. IMPRESSION: Left renal stone. RECOMMENDATION: At this point, the patient is a very high-risk for surgery. Ideally the stones will be dealt with by extracorporeal shockwave lithotripsy. If needed, we were going to do a stone manipulation and put a stent up the kidney today but with the medical condition of the patient it is too risky. If need anything done, I recommend a percutaneous nephrostomy tube by radiology under local. If the patient gets in better shape and able to sustain surgery, then we may proceed with ESWL on Wednesday when the machine is going to be here. Thank you for letting me participate in the care of this patient. We will follow with you. Job ID: [id number] Dictated Date: 11/25/2016 12:57:23 Anvilsmith Date: 11/26/2016 09:57:47/marissa
--- NOTE | 2016-11-26 10:59 | Occupational Ther Daily Note ---
OT Current Status-Daily Note Subjective Pt alert, lying in bed. Pt finishing up with PT. PT reported that they had attempted sitting pt on EOB then pt's BP dropped. Mental Status/Objective Patient Orientation: Person, Place, Time, Situation Functional [place] Measure 0=Not Assessed/NA 4=Minimal Assistance 1=Total Assistance 5=Supervision or Setup 2=Maximal Assistance 6=Modified [place] 3=Moderate Assistance 7=Complete [place] Other Treatment Pt agreed to complete UE bed exercises. Pt tolerated shldr exercises while in supine against gravity (3 sets 5 reps). Pt did not appear SOA during exercises though pulse dropped slightly during. OT recommended that pt continue to do a few UE exercises throughout the day to increase activity tolerance and strength for daily functional tasks. Pt agreed. After therapy, pt lying in bed with call light/phone in reach. All needs met in room. OT Short Term Goals Short Term Goals 1=Demonstrate adherence to instructed precautions during ADL tasks. 2=Patient will verbalize/demonstrate understanding of assistive devices/ modifications for ADL. 3=Patient will improve strength/tolerance for activity to enable patient to perform ADL's. OT Care Home Goals Wet Silk Hanger Goals Time Frame: Dec 07, 2016 Eating (FIM): 6 Grooming(FIM): 6 Bathing(FIM): 5 Upper Body Dressing(FIM): 5 Lower Body Dressing(FIM): 5 Toileting(FIM): 6 Toilet/Commode Transfer(FIM): 6 Additional Goals: 1-Demonstrate ADL Tasks, 2-Verbalize Understanding, 3- ImproveStrength/[place] 1=Demonstrate adherence to instructed precautions during ADL tasks. 2=Patient will verbalize/demonstrate understanding of assistive devices/ modifications for ADL. 3=Patient will improve strength/tolerance for activity to enable patient to perform ADL's. OT Education/Plan Problem List/Assessment Pt to benefit from skilled OT intervention for ADL training, transfers, strengthening, adaptive equipment training as needed, and safety education to maximize level of independence. Discharge Recommendations Plan/Recommendations: Continue POC Treatment Plan/Plan of Care Patient would benefit from OT for education, treatment and training to promote independence in ADL's, mobility, safety and/or upper extremity function for ADL' s. Plan of Care: ADL Retraining, Functional Mobility, UE Funct Exercise/Act Treatment Duration: Dec 07, 2016 Visits Per Week: 5 Agreement: Yes Rehab Potential: Fair Time/GCodes Start Time: 10:20 Stop Time: 10:30 Total Time Billed (hr/min): 10 Billed Treatment Time 1 visit-EX 1 (10 min) ERIC GREENE Nov 26, 2016 10:59
--- NOTE | 2016-11-26 11:08 | Physical Therapy Daily Note ---
PT Daily Note-Current Subjective Patient is in bed and agrees to PT. Patient has no c/o at this time. Pain Numeric Pain Scale: 0-No Pain Location: No Pain Reported Mental Status Patient Orientation: Normal For Age Attachments: Oxygen, Drains, Marley Catheter, IV Transfers Functional Valentine Measure 0=Not Assessed/NA 4=Minimal Assistance 1=Total Assistance 5=Supervision or Setup 2=Maximal Assistance 6=Modified Valentine 3=Moderate Assistance 7=Complete IndependenceIRFPAI Quality Coding Scale 6 Independent with activity with or without an assistive device 5 Patient requires set up or clean up by helper. Patient completes activity by themselves 4 Supervision or touching assist (CGA). [place] provide cues , steadying assist 3 The helper provides less than half the effort to complete the activity 2 The helper provides more than half the effort to complete the activity 1 Dependent. The helper does all the effort to complete an activity 7 Patient refused to complete or attempt activity 9 The patient did not perform the activity before the current illness or injury 88 Not attempted due to Medical conditions or safety concerns Transfers (B, C, W/C) (FIM): 5 Scootin Rollin Supine to/from Sit: 5 Treatments Patient able to attain EOB SBA, however, patient c/o dizziness and lightheadedness, BP 62/51; patient returned to supine BP 79/43; after 5 min 100/ 46. snowboard instructor notified of BP changes and treatment ceased. PT to continue to address functional strength and mobility as tolerated by patient. PT Halfway Goals Learning Disabilities Resource Teacher Goals PT Learning Disabilities Resource Teacher Goals Time Frame: Dec 04, 2016 Transfers (B,C,W/C) (FIM): 6 Gait (FIM): 6 Gait distance (FIM): 3=150 ft Distance: 150' Gait Level of Assist: 6 Gait Assistive Device: FWW, Cane Single Point PT Plan Treatment/Plan Treatment Plan: Continue Plan of Care Treatment Plan: Bed Mobility, Education, Functional Activity Sherrell, Functional Strength, Gait, Safety, Therapeutic Exercise, Transfers Treatment Duration: Dec 04, 2016 Visits Per Week: 5-6 Time/GCodes Time In: 1010 Time Out: 1020 Total Billed Treatment Time: 10 Total Billed Treatment 1 visit FA 10 min SAVAGE TREVINO PT Nov 26, 2016 11:08
[2016-11-26] MEDS ORDERED: NS (IVPB) 250 ML IV ONE (11:15)
--- NOTE | 2016-11-26 11:27 | Progress Note-Urology ---
Progress Note-Urology Progress Notes/Assess & Plan Progress/Assessment & Plan doing, looking, and breathing better since thoracocentesis yesterday. if continues improving we may be able to proceed with ESWL on Wednesday. we will get non contrast CT A/P tomorrow Final Diagnosis Lt renal stone DARNELL ULRICH MD Nov 26, 2016 11:27 am
--- NOTE | 2016-11-26 12:47 | ECHOCARDIOGRAPHY REPORT ---
PROCEDURE PHYSICIAN: ERIK HIGGINS DATE OF PROCEDURE: 11/25/2016 TWO DIMENSIONAL ECHOCARDIOGRAM REPORT PRIMARY PHYSICIAN: Dr. Lerma OTHER PHYSICIAN: Dr. Martinez REFERRING PHYSICIAN: ORDERING PHYSICIAN: Dr. Higgins INDICATION FOR THE PROCEDURE: Shortness of breath, paroxysmal atrial fibrillation MEASUREMENTS DERIVED VALUES LV DIAMETER (LAX) NORMALS NORMALS Diastolic (3.6-5.2) Eject. Fract. (60%+/-6%) Systolic (2.3-3.9) Diastolic Vol. % Shortening (0.22-0.42) Systolic Vol. Aortic Root IVS THICKNESS Diastolic (0.6-1.1) LVPW THICKNESS Diastolic (0.6-1.1) LA DIAMETER Systolic (2.1-3.7) DESCRIPTION: This is a technically difficult study. This is not ideal for wall motion analysis. Global left systolic function appears to be normal. Left ventricular ejection fraction is approximately 65%. There is moderate aortic valve sclerosis and mitral annular calcification. There is no significant pericardial effusion. Good parasternal short axis views are not available. Doppler imaging shows mild mitral and tricuspid regurgitation. Mitral inflow is congestive of mild diastolic dysfunction of the left ventricle (grade 1 diastolic dysfunction). There is no Doppler evidence of significant valvular stenosis. CONCLUSION: 1. Technically difficult study. 2. Normal global left ventricular systolic function with an ejection fraction of approximately 60 to 65%. 3. Aortic valve sclerosis and mitral annular calcification, moderate, without evidence of significant valvular stenosis. 4. Mild mitral and tricuspid regurgitation. 5. Pulmonary artery systolic pressure could not be reliably estimated on this study. Job ID: [id number] Dictated Date: 11/26/2016 10:34:38 Pediatric Radiologist Date: 11/26/2016 12:40:33 / felix
[2016-11-26] MEDS: ATORVASTATIN 10 MG (LIPITOR) TABLET PO SCH (19:46)
[2016-11-26] MEDS: PANTOPRAZOLE 40 MG (PROTONIX) TAB PO SCH (19:46)
--- NOTE | 2016-11-26 21:25 | Progress Note (SOAP) ---
Subjective Subjective/Events-last exam PT REPORTS THAT HE IS FEELING MUCH BETTER TODAY - HE STATES THAT HE IS BREATHING BETTER, FELT RELIEF ALMOST IMMEDIATELY AFTER PIGTAIL CATHETER PLACEMENT FOR PLEURAL EFFUSION. PT REPORTS THAT HE DOES NOT HAVE CHEST PAIN OTHER THAN FROM THE RIBS THAT ARE MOVING WITH HIS DEEP BREATHS. Review of Systems General: Fatigue Pulmonary: Dyspnea Cough Cardiovascular: No: Chest Pain, Edema Gastrointestinal: No: Abdominal Pain, Nausea Neurological: : WeaknessNo: Confusion Objective Exam Vital Signs Date Time Temp Pulse Resp B/P Pulse Ox O2 Delivery O2 Flow Rate FiO2 11/26/16 21:07 98 2.00 11/26/16 20:00 2.00 11/26/16 20:00 98.1 78 22 111/51 97 Nasal Cannula 2.00 11/26/16 17:00 82 24 112/57 97 Nasal Cannula 2.00 11/26/16 16:00 81 19 99/48 95 Nasal Cannula 2.00 11/26/16 15:56 99 11/26/16 15:44 98.1 76 91/66 11/26/16 15:44 98.1 11/26/16 15:33 100 2.00 11/26/16 15:00 74 24 117/57 98 Nasal Cannula 2.00 11/26/16 14:00 68 28 101/48 97 Nasal Cannula 2.00 11/26/16 13:46 98.0 68 93/46 11/26/16 13:31 97.1 67 95/48 11/26/16 13:00 70 11/26/16 13:00 71 21 95/48 97 Nasal Cannula 2.00 11/26/16 12:00 97.0 70 22 96/41 96 Nasal Cannula 2.00 11/26/16 11:11 98 2.00 11/26/16 11:00 65 22 89/45 96 11/26/16 10:17 77 100/46 11/26/16 10:14 79 79/43 11/26/16 10:11 66 62/51 11/26/16 09:00 63 20 93/40 99 Nasal Cannula 2.00 11/26/16 08:27 97.4 11/26/16 08:00 4.00 11/26/16 07:17 100 2.00 11/26/16 07:00 61 11/26/16 05:57 97.6 60 18 112/63 98 Nasal Cannula 2.00 11/26/16 04:19 60 16 107/50 98 Nasal Cannula 2.00 11/26/16 04:00 60 20 107/50 98 Nasal Cannula 2.00 11/26/16 02:53 60 90/44 95 Nasal Cannula 2.00 11/26/16 02:00 96.6 59 18 82/41 96 Nasal Cannula 2.00 11/26/16 01:00 100 11/26/16 01:00 100 22 70/45 95 Nasal Cannula 2.00 11/26/16 00:00 96.8 95 19 80/52 99 Nasal Cannula 2.00 11/25/16 23:00 63 13 104/54 99 Nasal Cannula 2.00 11/25/16 22:15 68 114/58 11/25/16 22:00 69 17 112/63 98 Nasal Cannula 2.00 I & O 11/26/16 07:00 Intake Total 3510 ml Output Total 5125 ml Balance -1615 ml Capillary Refill : Less Than 3 SecondsLess Than 3 Seconds General Appearance: No Apparent Distress WD/WN HEENT: PERRL/EOMI Neck: Full Range of Motion Supple Respiratory: Chest Non Tender Crackles (LEFT BASE) Decreased Breath Sounds Cardiovascular: Irregularly Irregular Gastrointestinal: normal bowel sounds non tender soft no organomegaly no pulsatile mass Extremity: No Pedal Edema Neurologic/Psychiatric: Alert Oriented x3 No Motor/Sensory Deficits Normal Mood/Affect Skin: Warm/Dry Lymphatic: No Adenopathy Results Lab Laboratory Tests 11/26/16 02:18: Glucometer 135H 11/26/16 05:11: Anion Gap 9, BUN/Creatinine Ratio 22, Basophils # (Auto) 0.0, Basophils (%) ( Auto) 0, Blood Urea Nitrogen 20H, Calcium Level 7.5L, Carbon Dioxide Level 31, Chloride Level 102, Creatinine 0.93, Eosinophils # (Auto) 0.3, Eosinophils (%) ( Auto) 3, Estimat Glomerular Filtration Rate > 60, Glucose Level 135H, Hematocrit 28L, Hemoglobin 9.1L, Lymphocytes # (Auto) 1.6, Lymphocytes (%) (Auto ) 16, Magnesium Level 1.8, Mean Corpuscular Hemoglobin 32, Mean Corpuscular Hemoglobin Concent 33, Mean Corpuscular Volume 99, Mean Platelet Volume 9.5, Monocytes # (Auto) 0.8, Monocytes (%) (Auto) 8, Neutrophils # (Auto) 7.2, Neutrophils (%) (Auto) 73, Phosphorus Level 2.6, Platelet Count 250, Potassium Level 3.6, Red Blood Count 2.81L, Red Cell Distribution Width 14.6H, Sodium Level 142, White Blood Count 10.0 Microbiology 11/25/16 Gram Stain - Final, Resulted 11/25/16 Anaerobic Culture, Resulted Pending 11/25/16 Body Fluid Culture - Preliminary, Resulted No growth 11/22/16 MRSA Screen - Final, Complete Assessment/Plan Assessment/Plan Assess & Plan/Chief Complaint PNEUMONIA PLEURAL EFFUSION RIB PAIN ON LEFT RIB FRACTURES ATRIAL FIBRILLATION DIABETES MELLITUS 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 RIB PAIN ON LEFT - DUE TO RIB FRACTURES - LIDODERM PATCH, CONTINUE WITH PRN ORAL PAIN MEDICATIONS ATRIAL FIBRILLATION -RATE CONTROLLED - DEFER TREATMENT TO DR. DOWLING. 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 ULRICH - DISCUSSED WITH HIM PLANNING ON LITHOTRIPSY ON WEDNESDAY OF NEXT WEEK. Diagnosis/Problems: Clinical Quality Measures DVT/VTE Risk/Contraindication: Risk Factor Score Per Nursin RFS Level Per Nursing on Admit: 4+=Very High Other: FREQUENT FALLS, INTRACRANIAL BLEED HX GUTIERREZ PHAM MD Nov 26, 2016 21:25
[2016-11-27] VITALS (10 sets, daily range): BP systolic 79–136; BP diastolic 22–77
[2016-11-27] MEDS: HYDROcodone/APAP 5 MG/325 MG (LORTAB) TAB PO PRN ×3 (00:29→15:10)
[2016-11-27] MEDS: NS IV 1000 ML 1,000 ML IV SCH ×4 (02:45→20:26)
[2016-11-27] MEDS: PIPERACILLIN SODIUM/TAZOBACTAM 4.5 GM in NS (IVPB) 100 ML IV SCH ×2 (04:42→14:10)
[2016-11-27] MEDS: CATHETER FLUSH 10 ML SYR IV SCH ×3 (04:42→20:25)
[2016-11-27 05:04] LABS: BASOPHILS % (AUTO) 0 % (0-10); EOSINOPHILS # (AUTO) 0.6 10^3/uL (0.0-0.3); EOSINOPHILS % (AUTO) 6 % (0-10); LYMPHOCYTES # (AUTO) 1.5 X 10^3 (1.0-4.0); LYMPHOCYTES % (AUTO) 16 % (12-44); MEAN CORPUSCULAR HEMOGLOBIN 32 PG (25-34); MEAN CORPUSCULAR HGB CONC 33 G/DL (32-36); MEAN CORPUSCULAR VOLUME 96 FL (80-99); MEAN PLATELET VOLUME 9.6 FL (7.4-10.4); MONOCYTES # (AUTO) 0.7 X 10^3 (0.0-1.0); MONOCYTES % (AUTO) 7 % (0-12); NEUTROPHILS # (AUTO) 6.8 X 10^3 (1.8-7.8); NEUTROPHILS % (AUTO) 71 % (42-75); PLATELET COUNT 241 10^3/uL (130-400); RED BLOOD COUNT 3.27 10^6/uL (4.35-5.85); RED CELL DISTRIBUTION WIDTH 15.1 % (10.0-14.5); WHITE BLOOD COUNT 9.6 10^3/uL (4.3-11.0)
[2016-11-27 05:12] LABS: ANION GAP 10 MMOL/L (5-14); BLOOD UREA NITROGEN 15 MG/DL (7-18); BUN/CREATININE RATIO 20; CALCIUM 7.7 MG/DL (8.5-10.1); CARBON DIOXIDE 30 MMOL/L (21-32); CHLORIDE 103 MMOL/L (98-107); CREATININE SERUM 0.75 MG/DL (0.60-1.30); GFR ESTIMATED > 60; GLUCOSE 118 MG/DL (70-105); MAGNESIUM 1.4 MG/DL (1.8-2.4); PHOSPHORUS 2.4 MG/DL (2.3-4.7); POTASSIUM 3.2 MMOL/L (3.6-5.0); SODIUM 143 MMOL/L (135-145)
[2016-11-27] MEDS: RT-ALBUTEROL/IPRATROPIUM 3 ML (DUONEB) VIAL IH SCH ×4 (06:57→19:18)
--- NOTE | 2016-11-27 07:47 | Pulmonary Progress Note ---
Subjective Subjective/Events-last exam PT feels much improved. Exam Exam Vital Signs Date Time Temp Pulse Resp B/P Pulse Ox O2 Delivery O2 Flow Rate FiO2 11/27/16 06:57 100 2.00 11/27/16 04:00 97.8 122 22 121/77 97 Nasal Cannula 2.00 11/27/16 02:00 71 23 127/55 98 Nasal Cannula 2.00 11/27/16 01:00 73 11/27/16 01:00 73 15 136/69 99 Nasal Cannula 2.00 11/27/16 00:00 97.0 75 34 116/22 97 Nasal Cannula 2.00 11/26/16 23:00 75 15 127/60 98 Nasal Cannula 2.00 11/26/16 22:00 75 23 125/57 99 Nasal Cannula 2.00 11/26/16 21:07 98 2.00 11/26/16 21:00 76 22 119/54 100 Nasal Cannula 2.00 11/26/16 20:00 2.00 11/26/16 20:00 98.1 78 22 111/51 97 Nasal Cannula 2.00 11/26/16 19:00 77 11/26/16 19:00 77 17 120/50 98 Nasal Cannula 2.00 11/26/16 17:00 82 24 112/57 97 Nasal Cannula 2.00 11/26/16 16:00 81 19 99/48 95 Nasal Cannula 2.00 11/26/16 15:56 99 11/26/16 15:44 98.1 76 91/66 11/26/16 15:44 98.1 11/26/16 15:33 100 2.00 11/26/16 15:00 74 24 117/57 98 Nasal Cannula 2.00 11/26/16 14:00 68 28 101/48 97 Nasal Cannula 2.00 11/26/16 13:46 98.0 68 93/46 11/26/16 13:31 97.1 67 95/48 11/26/16 13:00 70 11/26/16 13:00 71 21 95/48 97 Nasal Cannula 2.00 11/26/16 12:00 97.0 70 22 96/41 96 Nasal Cannula 2.00 11/26/16 11:11 98 2.00 11/26/16 11:00 65 22 89/45 96 11/26/16 10:17 77 100/46 11/26/16 10:14 79 79/43 11/26/16 10:11 66 62/51 11/26/16 09:00 63 20 93/40 99 Nasal Cannula 2.00 11/26/16 08:27 97.4 11/26/16 08:00 4.00 I & O 11/27/16 07:00 Intake Total 4440 ml Output Total 3925 ml Balance 515 ml General Appearance: No Apparent Distress WD/WN HEENT: PERRL/EOMI Neck: Full Range of Motion Supple Respiratory: Chest Non Tender Crackles (LEFT BASE) Decreased Breath Sounds Cardiovascular: Irregularly Irregular Capillary Refill: Less Than 3 Seconds Gastrointestinal: normal bowel sounds non tender soft no organomegaly no pulsatile mass Extremity: No Pedal Edema Neurologic/Psychiatric: Alert Oriented x3 No Motor/Sensory Deficits Normal Mood/Affect Skin: Warm/Dry Lymphatic: No Adenopathy Results Lab Laboratory Tests 11/26/16 05:11 11/27/16 04:50 Assessment/Plan Assessment/Plan lung contusion with hemothorax - from prior fall - s/p thoracentesis -pleural fluid sent for C&S -Pt Has pigtail cath and drained 525 serious fluid lung nodule RUL with Hx of lung cancer -Repeat CT scan in 3mo hx R lung squamous cell CA diagnosed in 2014 hx of lobectomy in [place] [facility] Clinical Quality Measures DVT/VTE Risk/Contraindication: Risk Factor Score Per Nursin RFS Level Per Nursing on Admit: 4+=Very High Other: FREQUENT FALLS, INTRACRANIAL BLEED HX CARMEN PEÑA DO Nov 27, 2016 07:47
[2016-11-27] MEDS: LEVOTHYROXINE 50 MCG (LEVOTHROID) TAB PO SCH (07:48)
--- NOTE | 2016-11-27 08:35 | Diagnostic Imaging Report ---
PROCEDURE: CT urinary tract, rule out kidney stone. TECHNIQUE: Multiple contiguous axial images were obtained through the abdomen and pelvis without the use of intravenous contrast. INDICATION: Left renal stone. FINDINGS: There is a moderate left hydronephrosis with an obstructive stone at the ureteropelvic junction measuring 1.2 cm in size. There are other small nonobstructive stones in the left kidney measuring up to 0.5 cm. There are nonobstructive stones in the right kidney measuring up to 4 mm. Some of the calcifications in the renal corey on both sides are probably vascular. There is a cystic lesion in the upper pole of the right kidney measuring 3.1 cm in size. The urinary bladder is decompressed with a Marley catheter. The liver, the gallbladder,, the spleen, the adrenals, and the pancreas appear grossly unremarkable for an unenhanced exam. The abdominal aorta is normal in caliber. No para-aortic significantly enlarged lymph nodes. Prominent atherosclerotic calcified plaque is seen. There is mild distention of the rectum with fecal material and fluid. There are bilateral basilar fibrotic changes with superimposed atelectasis and consolidation. There is a minimal pleural effusion on both sides more on the right. The left pleural cavity has a drainage catheter in good position. There is minimal amount of right pneumothorax seen anteriorly probably related to the recent chest tube placement. Multiple displaced lower posterior left rib fractures seen. There are kyphoplasty changes seen at L1 level. IMPRESSION: 1. Stable moderate left hydronephrosis secondary to a 1.2-cm UPJ stone. 2. Other smaller bilateral nonobstructive kidney stones seen. 3. Multiple lower left rib fractures with bilateral minimal effusions and bibasilar atelectasis and consolidation in the bases. Very minimal left pneumothorax is probably secondary to the recent chest tube placement. Dictated by: Dictated on workstation # [id number]
--- NOTE | 2016-11-27 08:35 | Progress Note-Cardiology ---
Cardiology SOAP Progress Note Subjective: States he feels his breathing is better. No c/o CP, palpitations. No c/o nausea or abdominal discomfort. C/O dry mouth. Objective: I&O/Vital Signs Vital Sign - Last 12Hours 11/27/16 11/27/16 11/27/16 11/27/16 02:00 04:00 06:57 07:00 Temp 97.8 Pulse 71 122 82 Resp 23 22 B/P 127/55 121/77 Pulse Ox 98 97 100 O2 Delivery Nasal Cannula Nasal Cannula O2 Flow Rate 2.00 2.00 2.00 11/27/16 11/27/16 11:01 12:51 Pulse 77 Pulse Ox 97 O2 Flow Rate 1.00 Intake and Output 11/27/16 00:00 Intake Total 680 ml Output Total 2200 ml Balance -1520 ml Weight (Pounds): 168 Weight (Ounces): 1.0 Weight (Calculated Kilograms): [id number] Constitutional: AAO x 3 well-developed well-nourished Respiratory: No accessory muscle use, other (diminished bases bilat; drain to LL with sainguinous drainage) Cardiovascular: regular rate-rhythm S1 and S2 systolic murmur (faint PABLO at card base) Gastrointestional: No tender, softNo guarding, No rebound, audible bowel sounds Extremities: No clubbing, No cyanosis, No significant edema Neurologic/Psychiatric: grossly intact power is 5/5 both on sides Skin: No rash on exposed areas, No ulcerations on exposed areas Results/Procedures: Labs Laboratory Tests 11/27/16 04:50: Anion Gap 10, BUN/Creatinine Ratio 20, Basophils # (Auto) 0.0, Basophils (%) ( Auto) 0, Blood Urea Nitrogen 15, Calcium Level 7.7L, Carbon Dioxide Level 30, Chloride Level 103, Creatinine 0.75, Eosinophils # (Auto) 0.6H, Eosinophils (%) (Auto) 6, Estimat Glomerular Filtration Rate > 60, Glucose Level 118H, Hematocrit 32L, Hemoglobin 10.3L, Lymphocytes # (Auto) 1.5, Lymphocytes (%) ( Auto) 16, Magnesium Level 1.4L, Mean Corpuscular Hemoglobin 32, Mean Corpuscular Hemoglobin Concent 33, Mean Corpuscular Volume 96, Mean Platelet Volume 9.6, Monocytes # (Auto) 0.7, Monocytes (%) (Auto) 7, Neutrophils # (Auto ) 6.8, Neutrophils (%) (Auto) 71, Phosphorus Level 2.4, Platelet Count 241, Potassium Level 3.2L, Red Blood Count 3.27L, Red Cell Distribution Width 15.1H, Sodium Level 143, White Blood Count 9.6 Microbiology 11/25/16 Gram Stain - Final, Resulted 11/25/16 Anaerobic Culture, Resulted Pending 11/25/16 Body Fluid Culture - Preliminary, Resulted No growth 11/22/16 MRSA Screen - Final, Complete A/P: Assessment: Multifactorial dyspnea (see below) Large left sided traumatic hemathorax; s/p thoracentesis on 11-25-16 L-sided pneumonia, likely d/t recent non-syncopal fall that led to L-sided rib fractures that led to poor insp (due to inspiratory pain) and bleeding Probable septicemia at presentation Ac diastolic CHF - clinically improved. Echo of 11/25/16 shows LVEF 60-65%, mod AoV sclerosis and mod MAC w/o valvular stenosis, mild diastolic dysfunction of LV Echocardiogram from November [address] Guy showed LVEF 50-55%, mild MR, aortic valve sclerosis without evidence of stenosis Failure to thrive (poor appetite, generally deteriorating clinical status) R lung squamous cell CA diagnosed in 2014 that has been treated surgically in [place], according to the patient. Apparently a new lung nodule is being followed by [facility] Multiple electrolyte abnormalities due to diuretic therapy PAF with RVR. Has h/o PAF that is followed by Dr. Marsh at [facility] in [place], [place]. Currently NSR with isolated PVCs Contraindications to full oral anticoagulation: h/o intracranial bleed requiring surgical intervention, multiple recent non-syncopal falls CAD with h/o stent placement to left Cx [place] [address] Christensen in [place], [place] H/o previous intracranial bleeding the details of which are unclear Propensity to falls (non-syncopal). A recent fall has led to rib contusions Anemia of undetermined etiology There is moderate left hydronephrosis with an stone probably causing the obstruction at the UPJ measuring 1.5 CM, per renal u/s - Urology services managing Nausea - being managed by medical services Hypotension overnight likely d/t vol depletion - improved with hydration Plan: * Blood pressure improved today; has chronically somewhat low BP, asymptomatic. Nevertheless, we will reduce diltiazem * S/P L thoracentesis on 11-25-16 * Replenish lytes * Continue to hold diuretics for now * Monitor labs Physician Assessment Physician Assessment Lungs: diminished air entry at the bases Cor: reg A&R * As documented in our note above RADHA MCMAHON Nov 27, 2016 08:35 ERIK DOWLING MD [facility] Nov 27, 2016 13:36 Propensity to falls (non-syncopal). A recent fall has led to rib contusions Anemia of undetermined etiology There is moderate left hydronephrosis with an stone probably causing the obstruction at the UPJ measuring 1.5 CM, per renal u/s - Urology services managing Nausea - being managed by medical services Hypotension overnight likely d/t vol depletion - improved with hydration Plan: * Blood pressure improved today * S/P L thoracentesis on 11-25-16 * Replenish lytes * Continue to hold diuretics for now * Monitor labs RADHA MCMAHON Nov 27, 2016 08:35
[2016-11-27] MEDS ORDERED: KCL 20 MEQ TAB (K-DUR) PO NR ×2 (08:41→12:00)
[2016-11-27] MEDS ORDERED: KCL 20 MEQ TAB (K-DUR) PO ONE (08:45)
--- NOTE | 2016-11-27 08:47 | Progress Note-Urology ---
Progress Note-Urology Progress Notes/Assess & Plan Progress/Assessment & Plan CONTINUES LOOKING WELL CT STABLE FROM PREVIOUS WITH STONE AT LT UPJ AND MODERATE HYDRO Final Diagnosis LT RENAL STONE DARNELL ULRICH MD Nov 27, 2016 8:47 am
--- NOTE | 2016-11-27 08:58 | Physical Therapy Daily Note ---
PT Daily Note-Current Subjective Pt supine in bed with head raised upon arrival. Pt agrees to PT. Pain Numeric Pain Scale: 5-Moderate Pain Location: Left Pain Description: Ache Comment: Pt reports pain in L ribs. Mental Status Patient Orientation: Person, Place, Situation Attachments: SCD's, Oxygen, Drains, Marley Catheter Transfers Functional [place] Measure 0=Not Assessed/NA 4=Minimal Assistance 1=Total Assistance 5=Supervision or Setup 2=Maximal Assistance 6=Modified [place] 3=Moderate Assistance 7=Complete IndependenceIRFPAI Quality Coding Scale 6 Independent with activity with or without an assistive device 5 Patient requires set up or clean up by helper. Patient completes activity by themselves 4 Supervision or touching assist (CGA). [place] provide cues , steadying assist 3 The helper provides less than half the effort to complete the activity 2 The helper provides more than half the effort to complete the activity 1 Dependent. The helper does all the effort to complete an activity 7 Patient refused to complete or attempt activity 9 The patient did not perform the activity before the current illness or injury 88 Not attempted due to Medical conditions or safety concerns Scootin Rollin Exercises Supine Ex: Ankle pumps, Quad Set, Rolling (For positioning purposes), Heel Slides, Straight leg raise, Hip abd/add Supine Reps: 15 Treatments Pt agrees to Supine Ex in bed for strengthening as well as repositioned in bed to stay off pressure sore on coax. Pt is left with all needs left at end of tx. Assessment Current Status: Good Progress Pt completes Supine Ex and rolling well. Pt is improving with strength. PT [facility] Goals Set Staff Fitter Goals PT Set Staff Fitter Goals Time Frame: Dec 04, 2016 Transfers (B,C,W/C) (FIM): 6 Gait (FIM): 6 Gait distance (FIM): 3=150 ft Distance: 150' Gait Level of Assist: 6 Gait Assistive Device: FWW, Cane Single Point PT Plan Problem List Problem List: Activity Tolerance, Functional Strength, Safety, Balance, Gait, Transfer Treatment/Plan Treatment Plan: Continue Plan of Care Treatment Plan: Bed Mobility, Education, Functional Activity Sherrell, Functional Strength, Gait, Safety, Therapeutic Exercise, Transfers Treatment Duration: Dec 04, 2016 Visits Per Week: 5-6 Safety Risks/Education Patient Education: Transfer Techniques, Correct Positioning, Safety Issues Teaching Recipient: Patient Teaching Methods: Discussion Response to Teaching: Verbalize Understanding Time/GCodes Time In: 820 Time Out: 845 Total Billed Treatment Time: 25 Total Billed Treatment visit, EX (15m) & FA (10m) HARSHAL GUNTER [employer] ARCHITECT Nov 27, 2016 08:58
[2016-11-27] MEDS: SENNA W/DOCUSATE (SENOKOT S) TABLET PO SCH ×2 (09:00→19:25)
[2016-11-27] MEDS ORDERED: CALCIUM CARB + VIT D 600 MG (CALCARB + D) TAB PO NR (09:02)
[2016-11-27] MEDS: CYANOCOBALAMIN 500 MCG TAB (VITAMIN B-12) PO SCH (09:16)
[2016-11-27] MEDS: guaiFENesin (MUCINEX) 600 MG TAB PO SCH ×2 (09:16→20:21)
[2016-11-27] MEDS: LEVETIRACETAM 500 MG (KEPPRA) TAB PO SCH ×2 (09:16→20:21)
[2016-11-27] MEDS: LACTOBACILLUS Acidoph/Bulgar (LACTINEX/FLORANEX) TAB PO SCH ×3 (09:17→20:20)
[2016-11-27] MEDS: DOCUSATE SODIUM 100 MG (COLACE) CAP PO SCH (09:17)
[2016-11-27] MEDS: FOLIC ACID 1 MG TAB PO SCH (09:17)
[2016-11-27] MEDS: SOTALOL 80 MG (BETAPACE) TAB PO SCH ×2 (09:17→20:20)
[2016-11-27] MEDS: MULTIVIT W/MINERALS TAB (THERAGRAN M) PO SCH (09:32)
[2016-11-27] MEDS: metFORMIN 500 MG (GLUCOPHAGE) TAB PO SCH ×2 (09:32→17:39)
[2016-11-27] MEDS: LEVOFLOXACIN 750 MG/150 ML IV 150 ML IV SCH (09:34)
[2016-11-27] MEDS: MAGNESIUM 1 GM/100 ML IVPB 100 ML IV SCH ×3 (09:37→11:42)
[2016-11-27] MEDS: MUPIROCIN 2% OINT 22 GM (BACTROBAN) TUBE NSEACH SCH ×2 (09:41→20:20)
[2016-11-27] MEDS: LIDOCAINE (LIDODERM) 5% PATCH TP SCH (09:41)
--- NOTE | 2016-11-27 10:02 | Progress Note (SOAP) ---
Subjective Subjective/Events-last exam PT IS AN 86 Y/O MALE WHO IS WELL KNOWN TO ME FROM CLINIC. PT REPORTS THAT HE IS BREATHING BETTER TODAY COMPARED TO PREVIOUS DAYS. Review of Systems General: Fatigue HEENT: No Head Aches Pulmonary: Dyspnea Cough Cardiovascular: No: Edema Gastrointestinal: : Nausea Genitourinary: No Dysuria Neurological: : Weakness Objective Exam Vital Signs Date Time Temp Pulse Resp B/P Pulse Ox O2 Delivery O2 Flow Rate FiO2 11/27/16 07:00 82 11/27/16 06:57 100 2.00 11/27/16 04:00 97.8 122 22 121/77 97 Nasal Cannula 2.00 11/27/16 02:00 71 23 127/55 98 Nasal Cannula 2.00 11/27/16 01:00 73 11/27/16 01:00 73 15 136/69 99 Nasal Cannula 2.00 11/27/16 00:00 97.0 75 34 116/22 97 Nasal Cannula 2.00 11/26/16 23:00 75 15 127/60 98 Nasal Cannula 2.00 11/26/16 22:00 75 23 125/57 99 Nasal Cannula 2.00 11/26/16 21:07 98 2.00 11/26/16 21:00 76 22 119/54 100 Nasal Cannula 2.00 11/26/16 20:00 2.00 11/26/16 20:00 98.1 78 22 111/51 97 Nasal Cannula 2.00 11/26/16 19:00 77 11/26/16 19:00 77 17 120/50 98 Nasal Cannula 2.00 11/26/16 17:00 82 24 112/57 97 Nasal Cannula 2.00 11/26/16 16:00 81 19 99/48 95 Nasal Cannula 2.00 11/26/16 15:56 99 11/26/16 15:44 98.1 76 91/66 11/26/16 15:44 98.1 11/26/16 15:33 100 2.00 11/26/16 15:00 74 24 117/57 98 Nasal Cannula 2.00 11/26/16 14:00 68 28 101/48 97 Nasal Cannula 2.00 11/26/16 13:46 98.0 68 93/46 11/26/16 13:31 97.1 67 95/48 11/26/16 13:00 70 11/26/16 13:00 71 21 95/48 97 Nasal Cannula 2.00 11/26/16 12:00 97.0 70 22 96/41 96 Nasal Cannula 2.00 11/26/16 11:11 98 2.00 11/26/16 11:00 65 22 89/45 96 11/26/16 10:17 77 100/46 11/26/16 10:14 79 79/43 11/26/16 10:11 66 62/51 I & O 11/27/16 07:00 Intake Total 4440 ml Output Total 3925 ml Balance 515 ml Capillary Refill : Less Than 3 SecondsLess Than 3 Seconds General Appearance: No Apparent Distress WD/WN HEENT: PERRL/EOMI Pharynx Normal Neck: Full Range of Motion Supple Respiratory: Crackles (LEFT BASE, FAINT IN RIGHT BASE) Cardiovascular: Irregularly Irregular Gastrointestinal: normal bowel sounds non tender soft no organomegaly no pulsatile mass Extremity: Pedal Edema Neurologic/Psychiatric: Alert Oriented x3 No Motor/Sensory Deficits Normal Mood/Affect Skin: Warm/Dry Lymphatic: No Adenopathy Results Lab Laboratory Tests 11/27/16 04:50: Anion Gap 10, BUN/Creatinine Ratio 20, Basophils # (Auto) 0.0, Basophils (%) ( Auto) 0, Blood Urea Nitrogen 15, Calcium Level 7.7L, Carbon Dioxide Level 30, Chloride Level 103, Creatinine 0.75, Eosinophils # (Auto) 0.6H, Eosinophils (%) (Auto) 6, Estimat Glomerular Filtration Rate > 60, Glucose Level 118H, Hematocrit 32L, Hemoglobin 10.3L, Lymphocytes # (Auto) 1.5, Lymphocytes (%) ( Auto) 16, Magnesium Level 1.4L, Mean Corpuscular Hemoglobin 32, Mean Corpuscular Hemoglobin Concent 33, Mean Corpuscular Volume 96, Mean Platelet Volume 9.6, Monocytes # (Auto) 0.7, Monocytes (%) (Auto) 7, Neutrophils # (Auto ) 6.8, Neutrophils (%) (Auto) 71, Phosphorus Level 2.4, Platelet Count 241, Potassium Level 3.2L, Red Blood Count 3.27L, Red Cell Distribution Width 15.1H, Sodium Level 143, White Blood Count 9.6 Microbiology 11/25/16 Gram Stain - Final, Resulted 11/25/16 Anaerobic Culture, Resulted Pending 11/25/16 Body Fluid Culture - Preliminary, Resulted No growth 11/22/16 MRSA Screen - Final, Complete Assessment/Plan Assessment/Plan Assess & Plan/Chief Complaint PNEUMONIA PLEURAL EFFUSION RIB PAIN ON LEFT RIB FRACTURES ATRIAL FIBRILLATION DIABETES MELLITUS 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 RIB PAIN ON LEFT - DUE TO RIB FRACTURES - LIDODERM PATCH, CONTINUE WITH PRN ORAL PAIN MEDICATIONS ATRIAL FIBRILLATION -RATE CONTROLLED - DEFER TREATMENT TO DR. DOWLING. 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 ULRICH - DISCUSSED WITH HIM PLANNING ON LITHOTRIPSY ON WEDNESDAY OF NEXT WEEK. Clinical Quality Measures DVT/VTE Risk/Contraindication: Risk Factor Score Per Nursin RFS Level Per Nursing on Admit: 4+=Very High Other: FREQUENT FALLS, INTRACRANIAL BLEED HX GUTIERREZ PHAM MD Nov 27, 2016 10:02
--- NOTE | 2016-11-27 10:19 | Diagnostic Imaging Report ---
Portable upright radiograph of the chest. INDICATION: Dyspnea. History of rib fractures. FINDINGS: Left pleural drainage catheter is again seen. There is minimal remaining left pleural effusion with bibasilar infiltrates or atelectasis. Thee is again noted multiple left rib fractures. There is background interstitial thickening and right perihilar scarring. The cardiac size is moderately enlarged. Infusion port with the tip at SVC level seen. IMPRESSION: Remaining small left pleural effusion with bibasilar infiltrate and atelectasis more on the left. Dictated by: Dictated on workstation # [id number]
[2016-11-27] MEDS ORDERED: DILTIAZEM 180 MG (CARDIZEM CD) CAP PO NR (10:50)
--- NOTE | 2016-11-27 10:56 | Occupational Ther Daily Note ---
OT Current Status-Daily Note Subjective Pt alert, lying in bed. Pt agreed to therapy. No c/o pain at this time. Mental Status/Objective Patient Orientation: Person, Place, Time, Situation Functional Osborne Measure 0=Not Assessed/NA 4=Minimal Assistance 1=Total Assistance 5=Supervision or Setup 2=Maximal Assistance 6=Modified Osborne 3=Moderate Assistance 7=Complete Osborne Other Treatment Pt requested to use BSC. Mod A to go from supine to sitting EOB, pt moved feet off of bed. Min A to transfer from EOB to BSC with stand pivot transfer. Pt required assist to wipe after bowel movement. Min A using FWW to transfer from BSC to recliner. Nrsg notified that pt was sitting up in recliner and had bowel movement. After therapy, pt sitting in recliner with call light in reach. All needs met in room. OT Short Term Goals Short Term Goals 1=Demonstrate adherence to instructed precautions during ADL tasks. 2=Patient will verbalize/demonstrate understanding of assistive devices/ modifications for ADL. 3=Patient will improve strength/tolerance for activity to enable patient to perform ADL's. OT Senior Living Goals Senior Living Goals Time Frame: Dec 07, 2016 Eating (FIM): 6 Grooming(FIM): 6 Bathing(FIM): 5 Upper Body Dressing(FIM): 5 Lower Body Dressing(FIM): 5 Toileting(FIM): 6 Toilet/Commode Transfer(FIM): 6 Additional Goals: 1-Demonstrate ADL Tasks, 2-Verbalize Understanding, 3- ImproveStrength/Sherrell 1=Demonstrate adherence to instructed precautions during ADL tasks. 2=Patient will verbalize/demonstrate understanding of assistive devices/ modifications for ADL. 3=Patient will improve strength/tolerance for activity to enable patient to perform ADL's. OT Education/Plan Problem List/Assessment Pt to benefit from skilled OT intervention for ADL training, transfers, strengthening, adaptive equipment training as needed, and safety education to maximize level of independence. Discharge Recommendations Plan/Recommendations: Continue POC Treatment Plan/Plan of Care Patient would benefit from OT for education, treatment and training to promote independence in ADL's, mobility, safety and/or upper extremity function for ADL' s. Plan of Care: ADL Retraining, Functional Mobility, UE Funct Exercise/Act Treatment Duration: Dec 07, 2016 Visits Per Week: 5 Agreement: Yes Rehab Potential: Fair Time/GCodes Start Time: 10:00 Stop Time: 10:25 Total Time Billed (hr/min): 25 Billed Treatment Time 1 visit-FA 2 (25 min) ERIC GREENE Nov 27, 2016 10:55
[2016-11-27] MEDS ORDERED: NS IV 1000 ML 250 ML IV SCH (12:27)
--- NOTE | 2016-11-27 19:43 | Wound Care Progress Note ---
Subjective Subjective Subjective/Events-last exam 86 year old male seen in follow-up for an area of pressure injury on sacrum, which now has healed. The patient is on a [id number] mattress, has barrier cream ordered and is being repositioned frequently. PMH: No interval change. Review of Systems Pulmonary: No Dyspnea Cardiovascular: No: Chest Pain Objective Exam Last Set of Vital Signs Vital Signs Date Time Temp Pulse Resp B/P Pulse Ox O2 Delivery O2 Flow Rate FiO2 11/27/16 19:19 90 1.50 11/27/16 16:00 97.1 77 20 126/61 Nasal Cannula Capillary Refill : Less Than 3 SecondsLess Than 3 Seconds I&O Intake and Output 11/27/16 00:00 Intake Total 4220 ml Output Total 2850 ml Balance 1370 ml Intake Oral 1320 ml IV Total 2900 ml Output Urine Total 2300 ml Drainage Total 550 ml General: Alert, No Acute Distress Lungs: Normal Air Movement Skin: Other (Sacral area shows no area of breakdown.) Results Lab Laboratory Tests 11/27/16 04:50: Anion Gap 10, BUN/Creatinine Ratio 20, Basophils # (Auto) 0.0, Basophils (%) ( Auto) 0, Blood Urea Nitrogen 15, Calcium Level 7.7L, Carbon Dioxide Level 30, Chloride Level 103, Creatinine 0.75, Eosinophils # (Auto) 0.6H, Eosinophils (%) (Auto) 6, Estimat Glomerular Filtration Rate > 60, Glucose Level 118H, Hematocrit 32L, Hemoglobin 10.3L, Lymphocytes # (Auto) 1.5, Lymphocytes (%) ( Auto) 16, Magnesium Level 1.4L, Mean Corpuscular Hemoglobin 32, Mean Corpuscular Hemoglobin Concent 33, Mean Corpuscular Volume 96, Mean Platelet Volume 9.6, Monocytes # (Auto) 0.7, Monocytes (%) (Auto) 7, Neutrophils # (Auto ) 6.8, Neutrophils (%) (Auto) 71, Phosphorus Level 2.4, Platelet Count 241, Potassium Level 3.2L, Red Blood Count 3.27L, Red Cell Distribution Width 15.1H, Sodium Level 143, White Blood Count 9.6 11/27/16 13:41: Lab Scanned Report Transfusion Reaction Form Microbiology 11/25/16 Gram Stain - Final, Resulted 11/25/16 Anaerobic Culture - Preliminary, Resulted No growth 11/25/16 Body Fluid Culture - Preliminary, Resulted No growth 11/22/16 MRSA Screen - Final, Complete Assessment/Plan Assessment/Plan Assessment/Plan 1. Previous pressure injury to sacral area, now resolved. Unknown extent. Plan: Will see as needed. RIGO KUHN MD Nov 27, 2016 19:42
[2016-11-27] MEDS: PANTOPRAZOLE 40 MG (PROTONIX) TAB PO SCH (20:21)
[2016-11-27] MEDS: IBUPROFEN 600 MG (MOTRIN) TAB PO PRN (20:21)
[2016-11-27] MEDS: ATORVASTATIN 10 MG (LIPITOR) TABLET PO SCH (20:21)
[2016-11-28] VITALS (7 sets, daily range): BP systolic 131–159; BP diastolic 61–73
[2016-11-28] MEDS: NS IV 1000 ML 1,000 ML IV SCH ×3 (04:04→14:09)
[2016-11-28 05:11] LABS: BASOPHILS % (AUTO) 0 % (0-10); EOSINOPHILS # (AUTO) 0.2 10^3/uL (0.0-0.3); EOSINOPHILS % (AUTO) 3 % (0-10); LYMPHOCYTES # (AUTO) 1.2 X 10^3 (1.0-4.0); LYMPHOCYTES % (AUTO) 17 % (12-44); MEAN CORPUSCULAR HEMOGLOBIN 31 PG (25-34); MEAN CORPUSCULAR HGB CONC 32 G/DL (32-36); MEAN CORPUSCULAR VOLUME 96 FL (80-99); MEAN PLATELET VOLUME 9.5 FL (7.4-10.4); MONOCYTES # (AUTO) 0.5 X 10^3 (0.0-1.0); MONOCYTES % (AUTO) 7 % (0-12); NEUTROPHILS # (AUTO) 5.2 X 10^3 (1.8-7.8); NEUTROPHILS % (AUTO) 74 % (42-75); PLATELET COUNT 244 10^3/uL (130-400); RED BLOOD COUNT 3.08 10^6/uL (4.35-5.85); RED CELL DISTRIBUTION WIDTH 15.2 % (10.0-14.5); WHITE BLOOD COUNT 7.1 10^3/uL (4.3-11.0)
[2016-11-28 05:35] LABS: ANION GAP 8 MMOL/L (5-14); BLOOD UREA NITROGEN 14 MG/DL (7-18); BUN/CREATININE RATIO 21; CARBON DIOXIDE 29 MMOL/L (21-32); CHLORIDE 104 MMOL/L (98-107); CREATININE SERUM 0.66 MG/DL (0.60-1.30); GFR ESTIMATED > 60; GLUCOSE 128 MG/DL (70-105); MAGNESIUM 1.6 MG/DL (1.8-2.4); PHOSPHORUS 2.3 MG/DL (2.3-4.7); POTASSIUM 3.4 MMOL/L (3.6-5.0); SODIUM 141 MMOL/L (135-145)
[2016-11-28] MEDS: CATHETER FLUSH 10 ML SYR IV SCH ×3 (06:00→22:18)
[2016-11-28] MEDS: MULTIVIT W/MINERALS TAB (THERAGRAN M) PO SCH (06:06)
[2016-11-28] MEDS: CALCIUM CARB + VIT D 600 MG (CALCARB + D) TAB PO SCH (06:06)
[2016-11-28] MEDS: metFORMIN 500 MG (GLUCOPHAGE) TAB PO SCH ×2 (06:06→16:40)
[2016-11-28] MEDS: LEVOTHYROXINE 50 MCG (LEVOTHROID) TAB PO SCH (06:06)
[2016-11-28] MEDS: RT-ALBUTEROL/IPRATROPIUM 3 ML (DUONEB) VIAL IH SCH ×4 (07:11→19:22)
[2016-11-28] MEDS: DOCUSATE SODIUM 100 MG (COLACE) CAP PO SCH (09:00)
[2016-11-28] MEDS: SENNA W/DOCUSATE (SENOKOT S) TABLET PO SCH ×2 (09:00→20:07)
--- NOTE | 2016-11-28 09:02 | Cardiology Progress Note ---
Subjective Subjective/Events-last exam patient is laying down in bed, still having some shortness of breath. Denied any chest pain. Review of Systems General: No Chills, No Night Sweats, Fatigue MalaiseNo Appetite, No Other HEENT: No Head Aches, No Visual Changes, No Eye Pain, No Ear Pain, No Dysphasia , No Sinus Congestion, No Post Nasal Drip, No Sore Throat, No Other Pulmonary: DyspneaNo Cough, No Pleuritic Chest Pain, No Other Cardiovascular: : EdemaNo: Chest Pain, Lt Headedness, Orthopnea, Other, Palpitations, Paroxysmal Noc. Dyspnea Objective-Cardiology Exam Last Set of Vital Signs Vital Signs 11/28/16 08:07 Temp 97.1 Pulse 76 Resp 16 B/P 134/62 Pulse Ox 90 O2 Delivery Nasal Cannula O2 Flow Rate 1.50 Capillary Refill : Less Than 3 SecondsLess Than 3 Seconds I&O Intake and Output 11/28/16 00:00 Intake Total 4480 ml Output Total 2550 ml Balance 1930 ml Intake Oral 980 ml IV Total 3500 ml Output Urine Total 2000 ml Drainage Total 550 ml General: Alert, Oriented X3, Cooperative, Mild Distress HEENT: Atraumatic, PERRLA Neck: Supple, No JVD, No Thyromegaly Lungs: Normal Air Movement, Other (bilateral rhonchi) Heart: Normal S1, Normal S2, No Murmurs, Other (borderline tachycardia) Abdomen: Normal Bowel Sounds, Soft, No Tenderness, No Hepatosplenomegaly, No Masses Extremities: No Clubbing, No Cyanosis, No Edema, Normal Pulses, No Tenderness/ Swelling Skin: No Rashes, No Breakdown, No Significant Lesion Neuro: Normal Tone, Sensation Intact Psych/Mental Status: Mood NL Results Lab Laboratory Tests 11/28/16 04:45 A/P-Cardiology Admission Diagnosis pneumonia Shortness of breath Rib fracture Pleural effusion Assessment/Plan Shortness of breath, slight improvement, had a chest x-ray done earlier today, I will review, continue to monitor, continue current medications. Large left sided traumatic hemathorax; s/p thoracentesis on 11-25-16, followed by primary care physician L-sided pneumonia, likely d/t recent non-syncopal fall that led to L-sided rib fractures that led to poor insp (due to inspiratory pain) and bleeding Ac diastolic CHF - clinically improved. Echo of 11/25/16 shows LVEF 60-65%, mod AoV sclerosis and mod MAC w/o valvular stenosis, mild diastolic dysfunction of LV Failure to thrive (poor appetite, generally deteriorating clinical status) R lung squamous cell CA diagnosed in 2014 that has been treated surgically in [place], according to the patient. Apparently a new lung nodule is being followed by [facility] Multiple electrolyte abnormalities due to diuretic therapy PAF with RVR. Has h/o PAF that is followed by Dr. Marsh at [facility] in [place], [place]. Currently NSR with isolated PVCs Contraindications to full oral anticoagulation: h/o intracranial bleed requiring surgical intervention, multiple recent non-syncopal falls CAD with h/o stent placement to left Cx [place] [address] Christensen in [place], [place] H/o previous intracranial bleeding the details of which are unclear Propensity to falls (non-syncopal). A recent fall has led to rib contusions There is moderate left hydronephrosis with an stone probably causing the obstruction at the UPJ measuring 1.5 CM, per renal u/s - Urology services managing Nausea - being managed by medical services Hypotension overnight likely d/t vol depletion - improved with hydration Clinical Quality Measures DVT/VTE Risk/Contraindication: Risk Factor Score Per Nursin RFS Level Per Nursing on Admit: 4+=Very High Other: FREQUENT FALLS, INTRACRANIAL BLEED HX AGATA KRUGER MD Nov 28, 2016 09:02
[2016-11-28] MEDS: CYANOCOBALAMIN 500 MCG TAB (VITAMIN B-12) PO SCH (09:30)
[2016-11-28] MEDS: LACTOBACILLUS Acidoph/Bulgar (LACTINEX/FLORANEX) TAB PO SCH ×3 (09:30→20:07)
[2016-11-28] MEDS: LEVETIRACETAM 500 MG (KEPPRA) TAB PO SCH ×2 (09:30→20:07)
[2016-11-28] MEDS: SOTALOL 80 MG (BETAPACE) TAB PO SCH ×2 (09:30→20:07)
[2016-11-28] MEDS: guaiFENesin (MUCINEX) 600 MG TAB PO SCH ×2 (09:30→20:07)
[2016-11-28] MEDS: DILTIAZEM 180 MG (CARDIZEM CD) CAP PO SCH (09:30)
[2016-11-28] MEDS: FOLIC ACID 1 MG TAB PO SCH (09:30)
[2016-11-28] MEDS: LIDOCAINE (LIDODERM) 5% PATCH TP SCH (09:31)
[2016-11-28] MEDS: MUPIROCIN 2% OINT 22 GM (BACTROBAN) TUBE NSEACH SCH ×2 (09:35→20:07)
--- NOTE | 2016-11-28 09:39 | Progress Note-Urology ---
Progress Note-Urology Progress Notes/Assess & Plan Progress/Assessment & Plan TRANSFERRED TO [facility], FEELING WELL, SAMUELS OUT, NO TROUBLE VOIDING Final Diagnosis LT RENAL STONE DARNELL ULRICH MD Nov 28, 2016 9:39 am
--- NOTE | 2016-11-28 10:39 | Physical Therapy Daily Note ---
PT Daily Note-Current Subjective Patient in bed pre tx, agrees to PT, states he has some discomfort on his bottom but not pain. He states his ribs on the left do hurt with activity. Appearance Patient in bed post tx with nurse call, phone, tray, bed alarm, all needs met. Mental Status Patient Orientation: Person, Place, Situation Attachments: Oxygen, Drains, IV 1.5L of O2 nasal canula Transfers Functional Bertie Measure 0=Not Assessed/NA 4=Minimal Assistance 1=Total Assistance 5=Supervision or Setup 2=Maximal Assistance 6=Modified Bertie 3=Moderate Assistance 7=Complete IndependenceIRFPAI Quality Coding Scale 6 Independent with activity with or without an assistive device 5 Patient requires set up or clean up by helper. Patient completes activity by themselves 4 Supervision or touching assist (CGA). Letcher provide cues , steadying assist 3 The helper provides less than half the effort to complete the activity 2 The helper provides more than half the effort to complete the activity 1 Dependent. The helper does all the effort to complete an activity 7 Patient refused to complete or attempt activity 9 The patient did not perform the activity before the current illness or injury 88 Not attempted due to Medical conditions or safety concerns Transfers (B, C, W/C) (FIM): 4 Scootin Rollin Supine to/from Sit: 4 Sit to/from Stand: 4 Patient min assist for supine <-> sit and CGA for sit to stand, cues for safety and hand placement Exercises Standing: Heel/toe raises, Mini squats Standing Reps: 20 Treatments Patient transferred to the side of the bed with min assist, he was slightly light headed but that resolved quickly, he then stood at the edge of the bed and performed the exercises above and he stood for approx 15 min, he did eventually start to tire and get SOB but did not get light headed with standing Assessment Current Status: Fair Progress improved mobility and endurance, light headedness improved PT Care Home Goals 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 Time Frame: Dec 04, 2016 Transfers (B,C,W/C) (FIM): 6 Gait (FIM): 6 Gait distance (FIM): 3=150 ft Distance: 150' Gait Level of Assist: 6 Gait Assistive Device: FWW, Cane Single Point PT Plan Problem List Problem List: Activity Tolerance, Functional Strength, Safety, Balance, Gait, Transfer, Bed Mobility Treatment/Plan Treatment Plan: Continue Plan of Care Treatment Plan: Bed Mobility, Education, Functional Activity Sherrell, Functional Strength, Gait, Safety, Therapeutic Exercise, Transfers Treatment Duration: Dec 04, 2016 Visits Per Week: 5-6 Safety Risks/Education Patient Education: Transfer Techniques, Correct Positioning, Disease Process, Safety Issues Teaching Recipient: Patient Teaching Methods: Demonstration, Discussion Response to Teaching: Reinforcement Needed Time/GCodes Time In: 1010 Time Out: 1030 Total Billed Treatment Time: 20 Total Billed Treatment 1 visit FA 20 min AILEEN BRAY PT Nov 28, 2016 10:39
[2016-11-28] MEDS: LEVOFLOXACIN 750 MG TAB (LEVAQUIN) PO SCH (11:08)
--- NOTE | 2016-11-28 11:09 | Diagnostic Imaging Report ---
INDICATION: Cough and congestion. COMPARISON: 11/27/2016. FINDINGS: Two views of the chest are obtained. Pigtail catheter in the medial left chest is unchanged. Left Port-A-Cath is unchanged. Heart size is enlarged and the pulmonary vasculature appears mildly congested, stable compared to the prior study. No pneumothorax is suspected. Minimal left pleural fluid persists, similar to the prior study. Bibasilar infiltrates are again demonstrated, minimally improved. There is persistent more discoid atelectasis seen in the right midlung which is unchanged. Multiple rib fractures again demonstrated on the left. No significant new abnormality is suspected. IMPRESSION: 1. Minimally improved persistent small left pleural effusion. Bibasilar infiltrates appear minimally improved as well. Mild cardiomegaly and central venous congestion is stable. 2. Multiple rib fractures on the left are unchanged. 3. No significant new abnormality is demonstrated. Dictated by: Dictated on workstation # [id number]
--- NOTE | 2016-11-28 15:36 | Progress Note (SOAP) ---
Subjective Subjective/Events-last exam PT REPORTS THAT HE IS FEELING BETTER EVERY DAY. HE REPORTS THAT HE IS HAVING BETTER ENERGY, HE HAS HAD SOME TWINGES OF PAIN IN HIS LEFT ABDOMEN Review of Systems General: Fatigue HEENT: No Head Aches Pulmonary: Dyspnea Cough Gastrointestinal: : Abdominal PainNo: Nausea Genitourinary: No Dysuria Neurological: : Weakness Objective Exam Vital Signs Date Time Temp Pulse Resp B/P Pulse Ox O2 Delivery O2 Flow Rate FiO2 11/28/16 14:06 91 1.00 11/28/16 13:04 70 11/28/16 12:02 97.1 73 16 135/61 92 Nasal Cannula 1.50 11/28/16 11:01 91 1.50 11/28/16 11:00 96.8 70 20 156/71 95 Nasal Cannula 1.50 11/28/16 08:07 97.1 76 16 134/62 90 Nasal Cannula 1.50 11/28/16 07:57 1.50 11/28/16 07:11 91 1.00 11/28/16 07:00 73 11/28/16 04:00 96.9 73 18 159/73 90 Nasal Cannula 1.50 11/28/16 01:00 70 11/28/16 00:00 97.9 59 17 132/61 94 Nasal Cannula 1.50 11/27/16 22:45 96.3 79 20 130/61 91 Nasal Cannula 1.50 11/27/16 20:00 97.2 11/27/16 19:19 90 1.50 11/27/16 19:00 71 11/27/16 16:00 97.1 77 20 126/61 94 Nasal Cannula 1.50 I & O 11/28/16 07:00 Intake Total 3680 ml Output Total 1825 ml Balance 1855 ml Capillary Refill : Less Than 3 SecondsLess Than 3 Seconds General Appearance: No Apparent Distress WD/WN HEENT: PERRL/EOMI Neck: Full Range of Motion Supple Respiratory: Chest Non Tender Decreased Breath Sounds Cardiovascular: Irregularly Irregular Gastrointestinal: normal bowel sounds non tender soft no organomegaly no pulsatile mass Extremity: Normal Capillary Refill Neurologic/Psychiatric: Alert Oriented x3 Normal Mood/Affect Lymphatic: No Adenopathy Results Lab Laboratory Tests 11/27/16 16:22: Glucometer 112H 11/28/16 04:45: Anion Gap 8, BUN/Creatinine Ratio 21, Basophils # (Auto) 0.0, Basophils (%) ( Auto) 0, Blood Urea Nitrogen 14, Calcium Level 8.0L, Carbon Dioxide Level 29, Chloride Level 104, Creatinine 0.66, Eosinophils # (Auto) 0.2, Eosinophils (%) ( Auto) 3, Estimat Glomerular Filtration Rate > 60, Glucose Level 128H, Hematocrit 30L, Hemoglobin 9.6L, Lymphocytes # (Auto) 1.2, Lymphocytes (%) (Auto ) 17, Magnesium Level 1.6L, Mean Corpuscular Hemoglobin 31, Mean Corpuscular Hemoglobin Concent 32, Mean Corpuscular Volume 96, Mean Platelet Volume 9.5, Monocytes # (Auto) 0.5, Monocytes (%) (Auto) 7, Neutrophils # (Auto) 5.2, Neutrophils (%) (Auto) 74, Phosphorus Level 2.3, Platelet Count 244, Potassium Level 3.4L, Red Blood Count 3.08L, Red Cell Distribution Width 15.2H, Sodium Level 141, White Blood Count 7.1 Microbiology 11/25/16 Gram Stain - Final, Resulted 11/25/16 Anaerobic Culture - Preliminary, Resulted No growth 11/25/16 Body Fluid Culture - Preliminary, Resulted No growth 11/22/16 MRSA Screen - Final, Complete Assessment/Plan Assessment/Plan Assess & Plan/Chief Complaint PNEUMONIA PLEURAL EFFUSION RIB PAIN ON LEFT RIB FRACTURES ATRIAL FIBRILLATION DIABETES MELLITUS 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 RIB PAIN ON LEFT - DUE TO RIB FRACTURES - LIDODERM PATCH, CONTINUE WITH PRN ORAL PAIN MEDICATIONS ATRIAL FIBRILLATION -RATE CONTROLLED - DEFER TREATMENT TO DR. DOWLING. 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 ULRICH - DISCUSSED WITH HIM PLANNING ON LITHOTRIPSY ON WEDNESDAY. Clinical Quality Measures DVT/VTE Risk/Contraindication: Risk Factor Score Per Nursin RFS Level Per Nursing on Admit: 4+=Very High Other: FREQUENT FALLS, INTRACRANIAL BLEED HX GUTIERREZ PHAM MD Nov 28, 2016 15:36
[2016-11-28] MEDS: ATORVASTATIN 10 MG (LIPITOR) TABLET PO SCH (20:07)
[2016-11-28] MEDS: PANTOPRAZOLE 40 MG (PROTONIX) TAB PO SCH (20:07)
[2016-11-29] VITALS: BP 138/67
[2016-11-29] MEDS: HYDROcodone/APAP 5 MG/325 MG (LORTAB) TAB PO PRN (00:19)
[2016-11-29] MEDS: NS IV 1000 ML 1,000 ML IV SCH ×4 (00:19→18:16)
[2016-11-29 04:12] VITALS: BP 144/67
[2016-11-29] MEDS: LEVOTHYROXINE 50 MCG (LEVOTHROID) TAB PO SCH ×2 (05:36→06:09)
[2016-11-29] MEDS: CATHETER FLUSH 10 ML SYR IV SCH ×3 (05:39→22:28)
[2016-11-29] MEDS: metFORMIN 500 MG (GLUCOPHAGE) TAB PO SCH ×2 (06:09→16:18)
[2016-11-29] MEDS: MULTIVIT W/MINERALS TAB (THERAGRAN M) PO SCH (06:09)
[2016-11-29] MEDS: CALCIUM CARB + VIT D 600 MG (CALCARB + D) TAB PO SCH (06:10)
[2016-11-29] MEDS: RT-ALBUTEROL/IPRATROPIUM 3 ML (DUONEB) VIAL IH SCH ×4 (06:27→18:44)
[2016-11-29 07:35] VITALS: BP 151/68
[2016-11-29] MEDS: DILTIAZEM 180 MG (CARDIZEM CD) CAP PO SCH (08:34)
[2016-11-29] MEDS: MUPIROCIN 2% OINT 22 GM (BACTROBAN) TUBE NSEACH SCH ×2 (08:34→20:31)
[2016-11-29] MEDS: LIDOCAINE (LIDODERM) 5% PATCH TP SCH (08:34)
[2016-11-29] MEDS: LACTOBACILLUS Acidoph/Bulgar (LACTINEX/FLORANEX) TAB PO SCH ×3 (08:34→20:32)
[2016-11-29] MEDS: CYANOCOBALAMIN 500 MCG TAB (VITAMIN B-12) PO SCH (08:34)
[2016-11-29] MEDS: FOLIC ACID 1 MG TAB PO SCH (08:34)
[2016-11-29] MEDS: SOTALOL 80 MG (BETAPACE) TAB PO SCH ×2 (08:35→20:31)
[2016-11-29] MEDS: LEVETIRACETAM 500 MG (KEPPRA) TAB PO SCH ×2 (08:35→20:32)
[2016-11-29] MEDS: guaiFENesin (MUCINEX) 600 MG TAB PO SCH ×2 (08:35→20:32)
[2016-11-29] MEDS: SENNA W/DOCUSATE (SENOKOT S) TABLET PO SCH ×2 (08:56→20:32)
[2016-11-29] MEDS: DOCUSATE SODIUM 100 MG (COLACE) CAP PO SCH (08:56)
--- NOTE | 2016-11-29 10:07 | Progress Note (SOAP) ---
Subjective Subjective/Events-last exam PT REPORTS THAT HE IS FEELING BETTER HE STILL HAS A COUGH, BUT IT HAS IMPROVED. HE STATES THAT HIS APPETITE HAS IMPROVED. HE DENIES DIZZINESS, CHEST PAIN. Review of Systems General: Fatigue Malaise Pulmonary: Cough Cardiovascular: No: Chest Pain Gastrointestinal: : Abdominal PainNo: Nausea Neurological: : WeaknessNo: Confusion Objective Exam Vital Signs Date Time Temp Pulse Resp B/P Pulse Ox O2 Delivery O2 Flow Rate FiO2 11/29/16 08:33 1.50 11/29/16 07:35 98.3 69 16 151/68 92 Nasal Cannula 1.50 11/29/16 07:10 66 11/29/16 06:32 95 11/29/16 06:27 92 1.50 11/29/16 04:12 98.2 69 18 144/67 95 Nasal Cannula 1.50 11/29/16 01:00 70 11/29/16 00:00 98.7 81 20 138/67 90 Nasal Cannula 1.50 11/28/16 20:00 1.50 11/28/16 20:00 98.3 72 18 131/62 94 Nasal Cannula 1.50 11/28/16 19:23 93 1.50 11/28/16 19:00 71 11/28/16 16:00 98.4 73 18 142/61 91 Nasal Cannula 1.50 11/28/16 14:06 91 1.00 11/28/16 13:04 70 11/28/16 12:02 97.1 73 16 135/61 92 Nasal Cannula 1.50 11/28/16 11:01 91 1.50 11/28/16 11:00 96.8 70 20 156/71 95 Nasal Cannula 1.50 I & O 11/29/16 07:00 Intake Total 3420 ml Output Total 2445 ml Balance 975 ml Capillary Refill : Less Than 3 SecondsLess Than 3 Seconds General Appearance: No Apparent Distress WD/WN HEENT: PERRL/EOMI Pharynx Normal Neck: Full Range of Motion Supple Respiratory: Chest Non Tender Crackles Decreased Breath Sounds Cardiovascular: Regular Rate, Rhythm Gastrointestinal: normal bowel sounds non tender soft no organomegaly no pulsatile mass Extremity: Normal Capillary Refill No Pedal Edema Neurologic/Psychiatric: Alert Oriented x3 No Motor/Sensory Deficits Normal Mood/Affect Skin: Warm/Dry Lymphatic: No Adenopathy Results Lab Laboratory Tests 11/28/16 16:30: Glucometer 121H 11/29/16 05:55: Glucometer 132H Microbiology 11/25/16 Gram Stain - Final, Resulted 11/25/16 Anaerobic Culture - Preliminary, Resulted No growth 11/25/16 Body Fluid Culture - Preliminary, Resulted No growth 11/22/16 MRSA Screen - Final, Complete Assessment/Plan Assessment/Plan Assess & Plan/Chief Complaint PNEUMONIA PLEURAL EFFUSION RIB PAIN ON LEFT RIB FRACTURES ATRIAL FIBRILLATION DIABETES MELLITUS HX LUNG CANCER WITH NEW NODULE ON CT SCAN CHRONIC DIZZINESS NAUSEA KIDNEY STONE PNEUMONIA - ON PNEUMONIA PROTOCOL, MONITOR SYMPTOMS - REPEAT CHEST XRAY - PLEURAL EFFUSION - POST THORACENTESIS - PIG-TAIL CATHETER STILL IN PLACE - PT DOING WELL, MONITOR SYMPTOMS. RIB PAIN ON LEFT - DUE TO RIB FRACTURES - LIDODERM PATCH, CONTINUE WITH PRN ORAL PAIN MEDICATIONS ATRIAL FIBRILLATION -RATE CONTROLLED - DEFER TREATMENT TO DR. DOWLING. 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 ULRICH - DISCUSSED WITH HIM PLANNING ON LITHOTRIPSY ON WEDNESDAY. Clinical Quality Measures DVT/VTE Risk/Contraindication: Risk Factor Score Per Nursin RFS Level Per Nursing on Admit: 4+=Very High Other: FREQUENT FALLS, INTRACRANIAL BLEED HX GUTIERREZ PHAM MD Nov 29, 2016 10:07
[2016-11-29] MEDS: LEVOFLOXACIN 750 MG TAB (LEVAQUIN) PO SCH (11:08)
[2016-11-29 11:39] VITALS: BP 145/67
--- NOTE | 2016-11-29 12:18 | Progress Note-Cardiology ---
Cardiology SOAP Progress Note Subjective: Has malaise, weakness, tiredness and some shortness of breath Rib cage pain better but not resolved Objective: I&O/Vital Signs Vital Sign - Last 12Hours 11/29/16 11/29/16 11/29/16 11/29/16 01:00 04:12 06:27 06:32 Temp 98.2 Pulse 70 69 Resp 18 B/P 144/67 Pulse Ox 95 92 95 O2 Delivery Nasal Cannula O2 Flow Rate 1.50 1.50 11/29/16 11/29/16 11/29/16 11/29/16 07:10 07:35 08:33 11:07 Temp 98.3 Pulse 66 69 Resp 16 B/P 151/68 Pulse Ox 92 97 O2 Delivery Nasal Cannula O2 Flow Rate 1.50 1.50 1.50 11/29/16 11:39 Temp 97.6 Pulse 67 Resp 18 B/P 145/67 Pulse Ox 94 O2 Delivery Nasal Cannula O2 Flow Rate 1.50 Intake and Output 11/29/16 00:00 Intake Total 2020 ml Output Total 1475 ml Balance 545 ml Weight (Pounds): 169 Weight (Ounces): 0.0 Weight (Calculated Kilograms): 76.574016 Constitutional: AAO x 3 well-developed well-nourished Respiratory: No accessory muscle use, other (diminished bases bilat; drain to LL with sainguinous drainage) Cardiovascular: regular rate-rhythm S1 and S2 systolic murmur (faint PABLO at card base) Gastrointestional: No tender, softNo guarding, No rebound, audible bowel sounds Extremities: No clubbing, No cyanosis, No significant edema Neurologic/Psychiatric: grossly intact power is 5/5 both on sides Skin: No rash on exposed areas, No ulcerations on exposed areas Results/Procedures: Labs Laboratory Tests 11/28/16 16:30: Glucometer 121H 11/29/16 05:55: Glucometer 132H Microbiology 11/25/16 Gram Stain - Final, Complete 11/25/16 Anaerobic Culture - Final, Complete No growth 11/25/16 Body Fluid Culture - Final, Complete No growth 11/22/16 MRSA Screen - Final, Complete Laboratory Tests 11/28/16 04:45 A/P: Assessment: Multifactorial dyspnea (see below) Large left sided traumatic hemathorax; s/p thoracentesis on 11-25-16 L-sided pneumonia, likely d/t recent non-syncopal fall that led to L-sided rib fractures that led to poor insp (due to inspiratory pain) and bleeding Probable septicemia at presentation Ac diastolic CHF - clinically improved. Echo of 11/25/16 shows LVEF 60-65%, mod AoV sclerosis and mod MAC w/o valvular stenosis, mild diastolic dysfunction of LV Echocardiogram from November [address] Guy showed LVEF 50-55%, mild MR, aortic valve sclerosis without evidence of stenosis Failure to thrive (poor appetite, generally deteriorating clinical status) R lung squamous cell CA diagnosed in 2014 that has been treated surgically in [place], according to the patient. Apparently a new lung nodule is being followed by [facility] Multiple electrolyte abnormalities due to diuretic therapy PAF with RVR. Has h/o PAF that is followed by Dr. Marsh at [facility] in [place], [place]. Currently NSR with isolated PVCs Contraindications to full oral anticoagulation: h/o intracranial bleed requiring surgical intervention, multiple recent non-syncopal falls CAD with h/o stent placement to left Cx in [place] [address] Christensen in [place], [place] H/o previous intracranial bleeding the details of which are unclear Propensity to falls (non-syncopal). A recent fall has led to rib contusions Anemia of undetermined etiology There is moderate left hydronephrosis with an stone probably causing the obstruction at the UPJ measuring 1.5 CM, per renal u/s - Urology services managing Nausea - being managed by medical services Hypotension overnight likely d/t vol depletion - improved with hydration Plan: * Continue current regimen * Monitor labs ERIK DOWLING MD FACP FAC CCDS Nov 29, 2016 12:18
[2016-11-29 16:00] VITALS: BP 127/49
[2016-11-29 19:58] VITALS: BP 131/63
[2016-11-29] MEDS: ATORVASTATIN 10 MG (LIPITOR) TABLET PO SCH (20:31)
[2016-11-29] MEDS: PANTOPRAZOLE 40 MG (PROTONIX) TAB PO SCH (20:32)
[2016-11-30] VITALS: BP 149/65
[2016-11-30 04:00] VITALS: BP 152/63
[2016-11-30] MEDS: NS IV 1000 ML 1,000 ML IV SCH (04:10)
[2016-11-30] MEDS: CATHETER FLUSH 10 ML SYR IV SCH ×3 (06:00→22:10)
[2016-11-30] MEDS: LEVOTHYROXINE 50 MCG (LEVOTHROID) TAB PO SCH (06:04)
[2016-11-30] MEDS: CALCIUM CARB + VIT D 600 MG (CALCARB + D) TAB PO SCH (06:04)
[2016-11-30] MEDS: metFORMIN 500 MG (GLUCOPHAGE) TAB PO SCH ×2 (06:04→16:23)
[2016-11-30] MEDS: MULTIVIT W/MINERALS TAB (THERAGRAN M) PO SCH (06:04)
[2016-11-30 06:14] LABS: BASOPHILS % (AUTO) 0 % (0-10); EOSINOPHILS # (AUTO) 0.4 10^3/uL (0.0-0.3); EOSINOPHILS % (AUTO) 6 % (0-10); LYMPHOCYTES # (AUTO) 1.4 X 10^3 (1.0-4.0); LYMPHOCYTES % (AUTO) 20 % (12-44); MEAN CORPUSCULAR HEMOGLOBIN 32 PG (25-34); MEAN CORPUSCULAR HGB CONC 33 G/DL (32-36); MEAN CORPUSCULAR VOLUME 96 FL (80-99); MEAN PLATELET VOLUME 9.2 FL (7.4-10.4); MONOCYTES # (AUTO) 0.6 X 10^3 (0.0-1.0); MONOCYTES % (AUTO) 9 % (0-12); NEUTROPHILS # (AUTO) 4.7 X 10^3 (1.8-7.8); NEUTROPHILS % (AUTO) 66 % (42-75); PLATELET COUNT 248 10^3/uL (130-400); RED BLOOD COUNT 3.29 10^6/uL (4.35-5.85); RED CELL DISTRIBUTION WIDTH 15.1 % (10.0-14.5); WHITE BLOOD COUNT 7.1 10^3/uL (4.3-11.0)
[2016-11-30 06:49] LABS: ANION GAP 9 MMOL/L (5-14); BLOOD UREA NITROGEN 9 MG/DL (7-18); BUN/CREATININE RATIO 14; CALCIUM 7.7 MG/DL (8.5-10.1); CARBON DIOXIDE 31 MMOL/L (21-32); CHLORIDE 101 MMOL/L (98-107); CREATININE SERUM 0.64 MG/DL (0.60-1.30); GFR ESTIMATED > 60; GLUCOSE 118 MG/DL (70-105); MAGNESIUM 1.1 MG/DL (1.8-2.4); POTASSIUM 2.8 MMOL/L (3.6-5.0); SODIUM 141 MMOL/L (135-145)
[2016-11-30] MEDS: RT-ALBUTEROL/IPRATROPIUM 3 ML (DUONEB) VIAL IH SCH ×4 (07:02→19:47)
--- NOTE | 2016-11-30 07:05 | Pulmonary Progress Note ---
Subjective Subjective/Events-last exam Pt feels improved. Exam Exam Vital Signs Date Time Temp Pulse Resp B/P Pulse Ox O2 Delivery O2 Flow Rate FiO2 11/30/16 00:46 82 11/30/16 00:00 98.6 76 20 149/65 92 Nasal Cannula 1.50 11/29/16 20:05 75 11/29/16 20:00 1.50 11/29/16 19:58 97.2 71 16 131/63 94 Nasal Cannula 1.50 11/29/16 18:44 94 1.50 11/29/16 16:00 97.6 66 20 127/49 95 Nasal Cannula 1.50 11/29/16 14:12 92 1.50 11/29/16 12:52 71 11/29/16 11:39 97.6 67 18 145/67 94 Nasal Cannula 1.50 11/29/16 11:07 97 1.50 11/29/16 08:33 1.50 11/29/16 07:35 98.3 69 16 151/68 92 Nasal Cannula 1.50 11/29/16 07:10 66 I & O 11/30/16 07:00 Intake Total 3680 ml Output Total 3175 ml Balance 505 ml General Appearance: No Apparent Distress WD/WN HEENT: PERRL/EOMI Pharynx Normal Neck: Full Range of Motion Supple Respiratory: Chest Non Tender Crackles Decreased Breath Sounds Cardiovascular: Regular Rate, Rhythm Capillary Refill: Less Than 3 Seconds Gastrointestinal: normal bowel sounds non tender soft no organomegaly no pulsatile mass Extremity: Normal Capillary Refill No Pedal Edema Neurologic/Psychiatric: Alert Oriented x3 No Motor/Sensory Deficits Normal Mood/Affect Skin: Warm/Dry Lymphatic: No Adenopathy Results Lab Laboratory Tests 11/30/16 06:02 Assessment/Plan Assessment/Plan lung contusion with hemothorax - from prior fall - s/p thoracentesis -pleural fluid sent for C&S -Pt Has pigtail cath -Has drained 175 in past 24hrs. lung nodule RUL with Hx of lung cancer -Repeat CT scan in 3mo hx R lung squamous cell CA diagnosed in 2015 hx of lobectomy in [place] [facility] Clinical Quality Measures DVT/VTE Risk/Contraindication: Risk Factor Score Per Nursin RFS Level Per Nursing on Admit: 4+=Very High Other: FREQUENT FALLS, INTRACRANIAL BLEED HX CARMEN PEÑA DO Nov 30, 2016 07:04
[2016-11-30 08:00] VITALS: BP 152/70
--- NOTE | 2016-11-30 08:54 | Progress Note-Cardiology ---
Cardiology SOAP Progress Note Subjective: Sitting up in the bed. States he feels ok today. Feels breathing is better. Reports productive cough. No c/o CP, palpitations, syncope or near syncope. Objective: I&O/Vital Signs Vital Sign - Last 12Hours 11/30/16 11/30/16 11/30/16 11/30/16 00:46 04:00 07:00 07:10 Temp 98.2 Pulse 82 62 79 Resp 20 B/P 152/63 Pulse Ox 94 O2 Delivery Nasal Cannula O2 Flow Rate 1.50 1.50 11/30/16 11/30/16 08:00 11:23 Temp 96.7 Pulse 79 Resp 16 B/P 152/70 Pulse Ox 95 93 O2 Delivery Nasal Cannula O2 Flow Rate 1.50 1.50 Intake and Output 11/30/16 00:00 Intake Total 1680 ml Output Total 1425 ml Balance 255 ml Weight (Pounds): 168 Weight (Ounces): 0.0 Weight (Calculated Kilograms): 76.768678 Constitutional: AAO x 3 well-developed well-nourished Respiratory: No accessory muscle use, other (diminished bases bilat; drain to LL with sainguinous drainage) Cardiovascular: regular rate-rhythm S1 and S2 systolic murmur (faint PABLO at card base) Gastrointestional: No tender, softNo guarding, No rebound, audible bowel sounds Extremities: No clubbing, No cyanosis, No significant edema Neurologic/Psychiatric: grossly intact power is 5/5 both on sides Skin: No rash on exposed areas, No ulcerations on exposed areas Results/Procedures: Labs Laboratory Tests 11/29/16 15:34: Glucometer 124H 11/30/16 06:02: Anion Gap 9, BUN/Creatinine Ratio 14, Basophils # (Auto) 0.0, Basophils (%) ( Auto) 0, Blood Urea Nitrogen 9, Calcium Level 7.7L, Carbon Dioxide Level 31, Chloride Level 101, Creatinine 0.64, Eosinophils # (Auto) 0.4H, Eosinophils (%) (Auto) 6, Estimat Glomerular Filtration Rate > 60, Glucose Level 118H, Hematocrit 32L, Hemoglobin 10.4L, Lymphocytes # (Auto) 1.4, Lymphocytes (%) ( Auto) 20, Magnesium Level 1.1L, Mean Corpuscular Hemoglobin 32, Mean Corpuscular Hemoglobin Concent 33, Mean Corpuscular Volume 96, Mean Platelet Volume 9.2, Monocytes # (Auto) 0.6, Monocytes (%) (Auto) 9, Neutrophils # (Auto ) 4.7, Neutrophils (%) (Auto) 66, Platelet Count 248, Potassium Level 2.8L, Red Blood Count 3.29L, Red Cell Distribution Width 15.1H, Sodium Level 141, White Blood Count 7.1 Microbiology 11/25/16 Gram Stain - Final, Complete 11/25/16 Anaerobic Culture - Final, Complete No growth 11/25/16 Body Fluid Culture - Final, Complete No growth 11/22/16 MRSA Screen - Final, Complete Procedures NAME: NELA OJEDA [facility] REC#: [id number] PT STATUS: ADM IN : 1930 PHYSICIAN: GUTIERREZ PHAM MD ADMIT DATE: 11/23/16 Signed Date of Exam: 11/28/16 CHEST PA/LAT (2 VIEW) INDICATION: Cough and congestion. COMPARISON: 11/27/2016. FINDINGS: Two views of the chest are obtained. Pigtail catheter in the medial left chest is unchanged. Left Port-A-Cath is unchanged. Heart size is enlarged and the pulmonary vasculature appears mildly congested, stable compared to the prior study. No pneumothorax is suspected. Minimal left pleural fluid persists, similar to the prior study. Bibasilar infiltrates are again demonstrated, minimally improved. There is persistent more discoid atelectasis seen in the right midlung which is unchanged. Multiple rib fractures again demonstrated on the left. No significant new abnormality is suspected. IMPRESSION: 1. Minimally improved persistent small left pleural effusion. Bibasilar infiltrates appear minimally improved as well. Mild cardiomegaly and central venous congestion is stable. 2. Multiple rib fractures on the left are unchanged. 3. No significant new abnormality is demonstrated. Dictated by: Dictated on workstation # [id number] Dict: 11/28/16 0939 Trans: 11/28/16 1622 KB [id number] Interpreted by: JAMIN MÉNDEZ DO Electronically signed by:JAMIN MÉNDEZ DO 11/28/16 3248 A/P: Assessment: Multifactorial dyspnea (see below) Large left sided traumatic hemathorax; s/p thoracentesis on 11-25-16 L-sided pneumonia, likely d/t recent non-syncopal fall that led to L-sided rib fractures that led to poor insp (due to inspiratory pain) and bleeding Probable septicemia at presentation Ac diastolic CHF - clinically improved. Echo of 11/25/16 shows LVEF 60-65%, mod AoV sclerosis and mod MAC w/o valvular stenosis, mild diastolic dysfunction of LV Echocardiogram from November [address] Guy showed LVEF 50-55%, mild MR, aortic valve sclerosis without evidence of stenosis Failure to thrive (poor appetite, generally deteriorating clinical status) R lung squamous cell CA diagnosed in 2014 that has been treated surgically in [place], according to the patient. Apparently a new lung nodule is being followed by [facility] Multiple electrolyte abnormalities due to diuretic therapy PAF with RVR. Has h/o PAF that is followed by Dr. Marsh at [facility] in [place], [place]. Currently NSR with isolated PVCs Contraindications to full oral anticoagulation: h/o intracranial bleed requiring surgical intervention, multiple recent non-syncopal falls CAD with h/o stent placement to left Cx [place] [address] Christensen in [place], [place] H/o previous intracranial bleeding the details of which are unclear Propensity to falls (non-syncopal). A recent fall has led to rib contusions Anemia of undetermined etiology There is moderate left hydronephrosis with an stone probably causing the obstruction at the UPJ measuring 1.5 CM, per renal u/s - Urology services managing Nausea - being managed by medical services Chronically somewhat low blood pressure Plan: * Currently SR * Continue current regimen * Monitor labs * Replace electrolytes * Stop IVF Physician Assessment Physician Assessment Lungs: diminished air entry at both bases Cor: reg A&R * As documented in our note above * I spoke with him and answered questions RADHA MCMAHON [employer] Nov 30, 2016 08:54 ERIK DOWLING MD [facility] Nov 30, 2016 12:12
[2016-11-30] MEDS ORDERED: KCL 20 MEQ TAB (K-DUR) PO ONE ×2 (09:00→12:00)
[2016-11-30] MEDS: LIDOCAINE (LIDODERM) 5% PATCH TP SCH (09:10)
[2016-11-30] MEDS: DILTIAZEM 180 MG (CARDIZEM CD) CAP PO SCH (09:10)
[2016-11-30] MEDS: SENNA W/DOCUSATE (SENOKOT S) TABLET PO SCH ×2 (09:10→21:07)
[2016-11-30] MEDS: LACTOBACILLUS Acidoph/Bulgar (LACTINEX/FLORANEX) TAB PO SCH ×3 (09:10→21:07)
[2016-11-30] MEDS: SOTALOL 80 MG (BETAPACE) TAB PO SCH ×2 (09:10→21:07)
[2016-11-30] MEDS: guaiFENesin (MUCINEX) 600 MG TAB PO SCH ×2 (09:10→21:07)
[2016-11-30] MEDS: DOCUSATE SODIUM 100 MG (COLACE) CAP PO SCH (09:10)
[2016-11-30] MEDS: FOLIC ACID 1 MG TAB PO SCH (09:11)
[2016-11-30] MEDS: CYANOCOBALAMIN 500 MCG TAB (VITAMIN B-12) PO SCH (09:11)
[2016-11-30] MEDS: LEVETIRACETAM 500 MG (KEPPRA) TAB PO SCH ×2 (09:11→21:07)
[2016-11-30] MEDS: MUPIROCIN 2% OINT 22 GM (BACTROBAN) TUBE NSEACH SCH ×2 (09:13→21:09)
--- NOTE | 2016-11-30 09:44 | Progress Note-Urology ---
Progress Note-Urology Progress Notes/Assess & Plan Progress/Assessment & Plan PROGRESSING WELL, PREOPS TOMORROW Final Diagnosis LT RENAL STONE DARNELL ULRICH MD Nov 30, 2016 9:44 am
[2016-11-30] MEDS: MAGNESIUM 1 GM/100 ML IVPB 100 ML IV SCH ×4 (09:54→12:08)
--- NOTE | 2016-11-30 11:01 | Progress Note (SOAP) ---
Subjective Subjective/Events-last exam PT REPORTS STILL FEELING FATIGUED, BUT IS FEELING SLIGHTLY IMPROVED. HE STATES THAT HE STILL HAS SOME SHORTNESS OF BREATH, BUT IT IS IMPROVING. Review of Systems General: No Chills, Fatigue Pulmonary: Dyspnea Cough Cardiovascular: No: Chest Pain Gastrointestinal: No: Abdominal Pain, Nausea Neurological: : Weakness Objective Exam Vital Signs Date Time Temp Pulse Resp B/P Pulse Ox O2 Delivery O2 Flow Rate FiO2 11/30/16 08:00 96.7 79 16 152/70 95 Nasal Cannula 1.50 11/30/16 07:10 1.50 11/30/16 07:00 79 11/30/16 04:00 98.2 62 20 152/63 94 Nasal Cannula 1.50 11/30/16 00:46 82 11/30/16 00:00 98.6 76 20 149/65 92 Nasal Cannula 1.50 11/29/16 20:05 75 11/29/16 20:00 1.50 11/29/16 19:58 97.2 71 16 131/63 94 Nasal Cannula 1.50 11/29/16 18:44 94 1.50 11/29/16 16:00 97.6 66 20 127/49 95 Nasal Cannula 1.50 11/29/16 14:12 92 1.50 11/29/16 12:52 71 11/29/16 11:39 97.6 67 18 145/67 94 Nasal Cannula 1.50 11/29/16 11:07 97 1.50 I & O 11/30/16 07:00 Intake Total 3680 ml Output Total 3175 ml Balance 505 ml Capillary Refill : Less Than 3 SecondsLess Than 3 Seconds General Appearance: WD/WN Mild Distress HEENT: PERRL/EOMI Pharynx Normal Neck: Full Range of Motion Supple Respiratory: Chest Non Tender Decreased Breath Sounds Cardiovascular: Irregularly Irregular Gastrointestinal: normal bowel sounds non tender soft no organomegaly no pulsatile mass Neurologic/Psychiatric: Alert Oriented x3 Skin: Warm/Dry Lymphatic: No Adenopathy Results Lab Laboratory Tests 11/29/16 15:34: Glucometer 124H 11/30/16 06:02: Anion Gap 9, BUN/Creatinine Ratio 14, Basophils # (Auto) 0.0, Basophils (%) ( Auto) 0, Blood Urea Nitrogen 9, Calcium Level 7.7L, Carbon Dioxide Level 31, Chloride Level 101, Creatinine 0.64, Eosinophils # (Auto) 0.4H, Eosinophils (%) (Auto) 6, Estimat Glomerular Filtration Rate > 60, Glucose Level 118H, Hematocrit 32L, Hemoglobin 10.4L, Lymphocytes # (Auto) 1.4, Lymphocytes (%) ( Auto) 20, Magnesium Level 1.1L, Mean Corpuscular Hemoglobin 32, Mean Corpuscular Hemoglobin Concent 33, Mean Corpuscular Volume 96, Mean Platelet Volume 9.2, Monocytes # (Auto) 0.6, Monocytes (%) (Auto) 9, Neutrophils # (Auto ) 4.7, Neutrophils (%) (Auto) 66, Platelet Count 248, Potassium Level 2.8L, Red Blood Count 3.29L, Red Cell Distribution Width 15.1H, Sodium Level 141, White Blood Count 7.1 Microbiology 11/25/16 Gram Stain - Final, Complete 11/25/16 Anaerobic Culture - Final, Complete No growth 11/25/16 Body Fluid Culture - Final, Complete No growth 11/22/16 MRSA Screen - Final, Complete Assessment/Plan Assessment/Plan Assess & Plan/Chief Complaint PNEUMONIA PLEURAL EFFUSION RIB PAIN ON LEFT RIB FRACTURES ATRIAL FIBRILLATION DIABETES MELLITUS HX LUNG CANCER WITH NEW NODULE ON CT SCAN CHRONIC DIZZINESS NAUSEA KIDNEY STONE PNEUMONIA - ON PNEUMONIA PROTOCOL, MONITOR SYMPTOMS - REPEAT CHEST XRAY - PLEURAL EFFUSION - POST THORACENTESIS - PIG-TAIL CATHETER STILL IN PLACE - PT DOING WELL, MONITOR SYMPTOMS. RIB PAIN ON LEFT - DUE TO RIB FRACTURES - LIDODERM PATCH, CONTINUE WITH PRN ORAL PAIN MEDICATIONS ATRIAL FIBRILLATION -RATE CONTROLLED - DEFER TREATMENT TO DR. DOWLING. 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 ULRICH - DISCUSSED WITH HIM PLANNING ON LITHOTRIPSY ON WEDNESDAY. Clinical Quality Measures DVT/VTE Risk/Contraindication: Risk Factor Score Per Nursin RFS Level Per Nursing on Admit: 4+=Very High Other: FREQUENT FALLS, INTRACRANIAL BLEED HX GUTIERREZ PHAM MD Nov 30, 2016 11:01
--- NOTE | 2016-11-30 11:09 | Occ Therapy Progress Note ---
Therapy Progress Note Attempted OT treatment at 1045. Pt resting in bed, opened eyes briefly, refused treatment this morning secondary to feeling "sick." Will attempt therapy this afternoon as pt able to tolerate. 1, visit. MARIA ELENA SNOW OT Nov 30, 2016 11:09
[2016-11-30] MEDS ORDERED: diphenhydrAMINE 25 MG TAB (BENADRYL) PO NR (11:15)
[2016-11-30] MEDS: LEVOFLOXACIN 750 MG TAB (LEVAQUIN) PO SCH (11:43)
[2016-11-30 12:00] VITALS: BP 117/65
--- NOTE | 2016-11-30 13:15 | Occ Therapy Progress Note ---
Therapy Progress Note Attempted OT treatment at 1305. Pt continues to refuse therapy at this time. Pt in bed, denied needs. Will attempt treatment 12/01/16. 1, visit-refused MARIA ELENA SNOW OT Nov 30, 2016 13:15
--- NOTE | 2016-11-30 14:03 | Physical Therapy Progress Note ---
Therapy Progress Note PT attempted tx this morning, pt declined stating feeling nauseated. PT will try again in PM. When PT returned in PM, pt agreed to Supine Ex in bed but still feeling nauseated. Morning tx: 1 visit, no tx (830) Afternoon tx: 1 visit, GT (15m) Time: 5118-5602 HARSHAL GUNTER PTA Nov 30, 2016 14:03
[2016-11-30 16:06] VITALS: BP 148/62
[2016-11-30] MEDS ORDERED: diphenhydrAMINE 25 MG TAB (BENADRYL) PO PRN (17:00)
[2016-11-30 20:02] VITALS: BP 139/63
[2016-11-30] MEDS: PANTOPRAZOLE 40 MG (PROTONIX) TAB PO SCH (21:07)
[2016-11-30] MEDS: ATORVASTATIN 10 MG (LIPITOR) TABLET PO SCH (21:07)
[2016-12-01 00:05] VITALS: BP 117/56
[2016-12-01] MEDS: IBUPROFEN 600 MG (MOTRIN) TAB PO PRN (00:08)
[2016-12-01 04:00] VITALS: BP 136/63
[2016-12-01] MEDS: LEVOTHYROXINE 50 MCG (LEVOTHROID) TAB PO SCH (05:58)
[2016-12-01] MEDS: MULTIVIT W/MINERALS TAB (THERAGRAN M) PO SCH (05:58)
[2016-12-01] MEDS: CATHETER FLUSH 10 ML SYR IV SCH (05:58)
[2016-12-01] MEDS: CALCIUM CARB + VIT D 600 MG (CALCARB + D) TAB PO SCH (05:58)
[2016-12-01] MEDS: RT-ALBUTEROL/IPRATROPIUM 3 ML (DUONEB) VIAL IH SCH (06:49)
[2016-12-01 07:22] LABS: ANION GAP 10 MMOL/L (5-14); BLOOD UREA NITROGEN 10 MG/DL (7-18); BUN/CREATININE RATIO 14; CALCIUM 7.9 MG/DL (8.5-10.1); CARBON DIOXIDE 32 MMOL/L (21-32); CHLORIDE 100 MMOL/L (98-107); CREATININE SERUM 0.69 MG/DL (0.60-1.30); GFR ESTIMATED > 60; GLUCOSE 102 MG/DL (70-105); MAGNESIUM 1.7 MG/DL (1.8-2.4); POTASSIUM 3.3 MMOL/L (3.6-5.0); SODIUM 142 MMOL/L (135-145)
--- NOTE | 2016-12-01 07:51 | Pulmonary Progress Note ---
Subjective Subjective/Events-last exam NO complications noted. Pt feels improved. Exam Exam Vital Signs Date Time Temp Pulse Resp B/P Pulse Ox O2 Delivery O2 Flow Rate FiO2 12/01/16 06:50 91 2.00 12/01/16 04:00 98.0 69 16 136/63 95 Nasal Cannula 1.00 12/01/16 01:00 63 12/01/16 00:05 97.2 69 18 117/56 94 Nasal Cannula 1.00 11/30/16 20:02 98.6 72 18 139/63 92 Nasal Cannula 1.50 11/30/16 20:00 92 1.00 11/30/16 19:49 92 1.50 11/30/16 19:00 71 11/30/16 16:06 97.0 77 20 148/62 92 Nasal Cannula 1.50 11/30/16 14:43 91 1.50 11/30/16 13:00 87 11/30/16 12:00 96.9 68 20 117/65 95 Nasal Cannula 1.50 11/30/16 11:23 93 1.50 11/30/16 08:00 1.50 11/30/16 08:00 96.7 79 16 152/70 95 Nasal Cannula 1.50 I & O 12/01/16 07:00 Intake Total 1560 ml Output Total 1790 ml Balance -230 ml General Appearance: No Apparent Distress WD/WN HEENT: PERRL/EOMI Pharynx Normal Neck: Full Range of Motion Supple Respiratory: Chest Non Tender Crackles Decreased Breath Sounds Cardiovascular: Regular Rate, Rhythm Capillary Refill: Less Than 3 Seconds Gastrointestinal: normal bowel sounds non tender soft no organomegaly no pulsatile mass Extremity: Normal Capillary Refill No Pedal Edema Neurologic/Psychiatric: Alert Oriented x3 No Motor/Sensory Deficits Normal Mood/Affect Skin: Warm/Dry Lymphatic: No Adenopathy Results Lab Laboratory Tests 11/30/16 06:02 12/01/16 06:00 Assessment/Plan Assessment/Plan lung contusion with hemothorax - from prior fall - s/p thoracentesis -pleural fluid sent for C&S -Pt Has pigtail cath -Has drained 40 in past 24hrs. -- Will D/C chest tube today. lung nodule RUL with Hx of lung cancer -Repeat CT scan in 3mo hx R lung squamous cell CA diagnosed in 2014 hx of lobectomy in [place] [facility] Clinical Quality Measures DVT/VTE Risk/Contraindication: Risk Factor Score Per Nursin RFS Level Per Nursing on Admit: 4+=Very High Other: FREQUENT FALLS, INTRACRANIAL BLEED HX CARMEN PEÑA DO Dec 01, 2016 07:51
[2016-12-01 08:02] VITALS: BP 137/66
[2016-12-01] MEDS: LIDOCAINE (LIDODERM) 5% PATCH TP SCH (08:42)
[2016-12-01] MEDS: MUPIROCIN 2% OINT 22 GM (BACTROBAN) TUBE NSEACH SCH (08:42)
[2016-12-01] MEDS: DILTIAZEM 180 MG (CARDIZEM CD) CAP PO SCH (08:43)
[2016-12-01] MEDS: LACTOBACILLUS Acidoph/Bulgar (LACTINEX/FLORANEX) TAB PO SCH (08:43)
[2016-12-01] MEDS: SENNA W/DOCUSATE (SENOKOT S) TABLET PO SCH (08:43)
[2016-12-01] MEDS: metFORMIN 500 MG (GLUCOPHAGE) TAB PO SCH (08:43)
[2016-12-01] MEDS: LEVETIRACETAM 500 MG (KEPPRA) TAB PO SCH (08:43)
[2016-12-01] MEDS: FOLIC ACID 1 MG TAB PO SCH (08:43)
[2016-12-01] MEDS: SOTALOL 80 MG (BETAPACE) TAB PO SCH (08:44)
[2016-12-01] MEDS: DOCUSATE SODIUM 100 MG (COLACE) CAP PO SCH (08:44)
[2016-12-01] MEDS: guaiFENesin (MUCINEX) 600 MG TAB PO SCH (08:44)
[2016-12-01] MEDS: CYANOCOBALAMIN 500 MCG TAB (VITAMIN B-12) PO SCH (08:51)
--- NOTE | 2016-12-01 08:58 | Discharge Summary ---
Diagnosis/Chief Complaint Date of Admission Nov 23, 2016 at 12:07 Date of Discharge Admission Diagnosis Admission Diagnosis PNEUMONIA PLEURAL EFFUSION RIB PAIN ON LEFT RIB FRACTURES ATRIAL FIBRILLATION DIABETES MELLITUS HX LUNG CANCER WITH NEW NODULE ON CT SCAN CHRONIC DIZZINESS NAUSEA KIDNEY STONE Discharge Diagnosis PNEUMONIA PLEURAL EFFUSION RIB PAIN ON LEFT RIB FRACTURES ATRIAL FIBRILLATION DIABETES MELLITUS HX LUNG CANCER WITH NEW NODULE ON CT SCAN CHRONIC DIZZINESS NAUSEA KIDNEY STONE Discharge Summary Discharge Physical Examination Allergies: Coded Allergies: No Known Drug Allergies (Verified , 11/20/16) Vitals & I&Os General Appearance: Alert, Oriented X3, Cooperative, Mild Distress HEENT: Atraumatic, PERRLA Respiratory: Normal Air Movement, Other (bilateral rhonchi) Cardiovascular: Normal S1, Normal S2, No Murmurs, Other (borderline tachycardia ) Abdominal: Normal Bowel Sounds, Soft, No Tenderness, No Hepatosplenomegaly, No Masses Extremities: No Clubbing, No Cyanosis, No Edema, Normal Pulses, No Tenderness/ Swelling Skin: No Rashes, No Breakdown, No Significant Lesion Neuro: Normal Tone, Sensation Intact Psych/Mental Status: Mood NL Hospital Course PNEUMONIA PLEURAL EFFUSION RIB PAIN ON LEFT RIB FRACTURES ATRIAL FIBRILLATION DIABETES MELLITUS HX LUNG CANCER WITH NEW NODULE ON CT SCAN CHRONIC DIZZINESS NAUSEA KIDNEY STONE PNEUMONIA - ON PNEUMONIA PROTOCOL, MONITOR SYMPTOMS - REPEAT CHEST XRAY PLEURAL EFFUSION - DR. PEÑA TO DO THORACENTESIS RIB PAIN ON LEFT - DUE TO RIB FRACTURES - LIDODERM PATCH, CONTINUE WITH PRN ORAL PAIN MEDICATIONS ATRIAL FIBRILLATION -RATE CONTROLLED - DEFER TREATMENT TO DR. DOWLING. 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 ULRICH - HE DID LITHOTRIPSY Pending Labs Discharge Condition at discharge STABLE Instructions to patient/family Please see electonic discharge instructions given to patient. Discharge Medications Reviewed and agree with Discharge Medication list on patient's Discharge Instruction sheet Clinical Quality Measures DVT/VTE Risk/Contraindication: Risk Factor Score Per Nursin RFS Level Per Nursing on Admit: 4+=Very High Other: FREQUENT FALLS, INTRACRANIAL BLEED HX GUTIERREZ PHAM MD Dec 01, 2016 08:58
[2016-12-01] MEDS ORDERED: KCL 20 MEQ TAB (K-DUR) PO ONE ×2 (09:00→12:00)
[2016-12-01] MEDS ORDERED: MAGNESIUM 1 GM/100 ML IVPB 100 ML IV SCH (09:00)
--- NOTE | 2016-12-01 09:02 | Progress Note-Cardiology ---
Cardiology SOAP Progress Note Subjective: Sitting up in bed. States he feels well this morning. No c/o CP, SOB, palpitations. Objective: I&O/Vital Signs Vital Sign - Last 12Hours 12/01/16 12/01/16 12/01/16 12/01/16 06:50 07:00 07:52 08:02 Temp 95.8 Pulse 70 69 Resp 16 B/P 137/66 Pulse Ox 91 93 O2 Delivery Nasal Cannula O2 Flow Rate 2.00 2.00 1.00 Intake and Output 12/01/16 00:00 Intake Total 1160 ml Output Total 1490 ml Balance -330 ml Weight (Pounds): 164 Weight (Ounces): 0.0 Weight (Calculated Kilograms): 74.139296 Constitutional: AAO x 3 well-developed well-nourished Respiratory: No accessory muscle use, other (diminished bases bilat; good air entry) Cardiovascular: regular rate-rhythm S1 and S2 systolic murmur (faint PABLO at card base) Gastrointestional: No tender, softNo guarding, No rebound, audible bowel sounds Extremities: No clubbing, No cyanosis, No significant edema Neurologic/Psychiatric: grossly intact power is 5/5 both on sides Skin: No rash on exposed areas, No ulcerations on exposed areas Results/Procedures: Labs Laboratory Tests 12/01/16 06:00: Anion Gap 10, BUN/Creatinine Ratio 14, Blood Urea Nitrogen 10, Calcium Level 7.9L, Carbon Dioxide Level 32, Chloride Level 100, Creatinine 0.69, Estimat Glomerular Filtration Rate > 60, Glucose Level 102, Magnesium Level 1.7L, Potassium Level 3.3L, Sodium Level 142 12/01/16 06:04: Glucometer 102 Microbiology 11/25/16 Gram Stain - Final, Complete 11/25/16 Anaerobic Culture - Final, Complete No growth 11/25/16 Body Fluid Culture - Final, Complete No growth 11/22/16 MRSA Screen - Final, Complete A/P: Assessment: Multifactorial dyspnea (see below) Large left sided traumatic hemathorax; s/p thoracentesis on 11-25-16 L-sided pneumonia, likely d/t recent non-syncopal fall that led to L-sided rib fractures that led to poor insp (due to inspiratory pain) and bleeding Probable septicemia at presentation Ac diastolic CHF - clinically improved. Echo of 11/25/16 shows LVEF 60-65%, mod AoV sclerosis and mod MAC w/o valvular stenosis, mild diastolic dysfunction of LV Echocardiogram from November [address] Guy showed LVEF 50-55%, mild MR, aortic valve sclerosis without evidence of stenosis Failure to thrive (poor appetite, generally deteriorating clinical status) R lung squamous cell CA diagnosed in 2014 that has been treated surgically in [place], according to the patient. Apparently a new lung nodule is being followed by [facility] Multiple electrolyte abnormalities due to diuretic therapy PAF with RVR. Has h/o PAF that is followed by Dr. Marsh at [facility] in [place], [place]. Currently NSR with isolated PVCs Contraindications to full oral anticoagulation: h/o intracranial bleed requiring surgical intervention, multiple recent non-syncopal falls CAD with h/o stent placement to left Cx [place] [address] Christensen in [place], [place] H/o previous intracranial bleeding the details of which are unclear Propensity to falls (non-syncopal). A recent fall has led to rib contusions Anemia of undetermined etiology There is moderate left hydronephrosis with an stone probably causing the obstruction at the UPJ measuring 1.5 CM, per renal u/s - Urology services managing Nausea - being managed by medical services Chronically somewhat low blood pressure Plan: * Currently SR * Continue current regimen * Monitor labs * Replace electrolytes * PT/OT for strengthening * Swing bed today Physician Assessment Physician Assessment Lungs: dec air entry at the bases Cor: reg A&R * As documented in our note above RADHA MCMAHON Dec 01, 2016 09:02 ERIK DOWLING MD [facility] Dec 01, 2016 16:14 There is moderate left hydronephrosis with an stone probably causing the obstruction at the UPJ measuring 1.5 CM, per renal u/s - Urology services managing Nausea - being managed by medical services Chronically somewhat low blood pressure Plan: * Currently SR * Continue current regimen * Monitor labs * Replace electrolytes * PT/OT for strengthening * Swing bed today RADHA MCMAHON Dec 01, 2016 09:02
[2016-12-01] MEDS ORDERED: RT-ALBUTEROL/IPRATROPIUM 3 ML (DUONEB) VIAL ONE (09:49)
[2016-12-02 06:58] LABS: ANION GAP 8 MMOL/L (5-14); BLOOD UREA NITROGEN 17 MG/DL (7-18); BUN/CREATININE RATIO 24; CALCIUM 8.1 MG/DL (8.5-10.1); CARBON DIOXIDE 33 MMOL/L (21-32); CHLORIDE 102 MMOL/L (98-107); CREATININE SERUM 0.72 MG/DL (0.60-1.30); GFR ESTIMATED > 60; GLUCOSE 115 MG/DL (70-105); MAGNESIUM 1.6 MG/DL (1.8-2.4); POTASSIUM 3.5 MMOL/L (3.6-5.0); SODIUM 143 MMOL/L (135-145)
--- NOTE | 2016-12-15 17:05 | History & Physicial ---
History of Present Illness History of Present Illness Reason for visit/HPI SEE ORIGINAL H AND P - THIS IS AN ADDENDUM - PT WAS TRANSFERRED FROM INPATIENT TO SWING BED - Date of Admission Nov 23, 2016 at 12:07 I consulted on this patient on 12/15/16 17:03 Attending Physician Gutierrez Lerma MD Admitting Physician Gutierrez Lerma MD Consult Allergies and Home Medications Allergies Coded Allergies: No Known Drug Allergies (Verified , 11/20/16) Home Medications Amoxicillin/Potassium Clav 1 Each Tablet 1 TAB PO BID (Reported) STARTED 12/12/16 FOR A 7 DAY THERAPY Atorvastatin Calcium 20 Mg Tablet 10 MG PO HS (Reported) TAKES 1/2 OF A (20 MG) TABLET Cyanocobalamin 1,000 Mcg Tablet 1,000 MCG PO DAILY (Reported) Diltiazem HCl 180 Mg Cap.er.24h 180 MG PO DAILY (Reported) Docusate Sodium 100 Mg Capsule 100 MG PO DAILY (Reported) Folic Acid 0.8 Mg Tablet 0.8 MG PO DAILY (Reported) Guaifenesin 600 Mg Tab.er.12h 600 MG PO BID (Reported) Hydrocodone/Acetaminophen 1 Each Tablet 1 TAB PO Q4H PRN PRN PAIN (Reported) Hydrocortisone Valerate 15 Gm Cream..g. TP DAILY (Reported) USES DAILY BEHIND EARS Ibuprofen 600 Mg Tablet 600 MG PO QID (Reported) Ipratropium/Albuterol Sulfate 3 Ml Ampul.neb 3 ML IH Q4H PRN PRN SHORTNESS OF BREATH (Reported) Ipratropium/Albuterol Sulfate 3 Ml Ampul.neb 3 ML IH TID (Reported) L. Acidophilus/Bulgaricus 1 Each Tablet 1 TAB PO TID (Reported) TO TAKE WHILE ON ANTIBIOTICS Lactobacillus Acidophilus 1 Each Capsule 1 CAP PO DAILY (Reported) Levetiracetam 250 Mg Tablet 250 MG PO BID (Reported) Levomefolate/B6/B12/Algal Oil 1 Each Capsule 1 TAB PO DAILY (Reported) Levothyroxine Sodium 50 Mcg Tablet 25 MCG PO SuWe (Reported) TAKES 1/2 (50 MCG) TABLET Levothyroxine Sodium 50 Mcg Tablet 50 MCG PO MoTuThFrSa (Reported) Lutein 20 Mg Capsule 20 MG PO DAILY (Reported) Magnesium Hydroxide 400 Mg/5 Ml Oral.susp 30 ML PO DAILY PRN PRN CONSTIPATION ( Reported) Nitroglycerin 0.4 Mg Tab 0.4 MG SL UD PRN PRN CHEST PAIN (Reported) 1 TABLET EVERY 5 MINUTES X 3 DOSES NEEDED FOR CHEST PAIN Nystatin 100,000 Unit/1 Ml Oral.susp 5 ML PO Q6H (Reported) Pantoprazole Sodium 40 Mg Tablet.dr 40 MG PO HS (Reported) Sennosides/Docusate Sodium 1 Each Tablet 1 TAB PO BID (Reported) Past Ihrltvs-Pvqzdo-Pmrriw Hx Patient Social History Marrital Status: Living Status: LIVES AT OWN HOME BY HIMSELF Alcohol Use: Denies Use Recreational Drug Use: No Former smoker/When Quit: Sep 27, 1996 Type Used: Pipe 2nd Hand Smoke Exposure: No Physical Abuse Screen: No Sexual Abuse: No Recent Foreign Travel: No Contact w/other who traveled: No Recent Hopitalizations: No Recent Infectious Disease Expo: No Immunizations Up To Date Tetanus Booster (TDap): More than 5yrs Date of Pneumonia Vaccine: Jul 17, 2012 Date of Influenza Vaccine: Aug 27, 2016 Seasonal Allergies Seasonal Allergies: No Surgeries HX Surgeries: Yes Surgeries: Cardiac, Coronary Stent, Neurological, Orthopedic, Transurethral Resection, Vasectomy Respiratory Hx Respiratory Disorders: Yes Respiratory Disorders: COPD Cardiovascular Hx Cardiovascular Disorders: Yes (MITRAL REGURGITATION, STENTS X4) Cardiac Disorders: Atrial Fibrillation, Coronary Artery Disease, High Cholesterol, Hypertension Neurological Hx Neurological Disorders: Yes (SUBDURAL HEMATOMA WITH CRANIOTOMY AND EVACUATION OF HEMATOMA) Neurological Disorders: Seizure Disorder, Traumatic Brain Injury, Vertigo Reproductive System Hx Reproductive Disorders: No Sexually Transmitted Disease: No HIV/AIDS: No Genitourinary Hx Genitourinary Disorders: Yes (BLADDER/PROSTATE CANCER) Genitourinary Disorders: Prostate Problems Gastrointestinal Hx Gastrointestinal Disorders: Yes Gastrointestinal Disorders: Gastroesophageal Reflux, Chronic Constipation Musculoskeletal Hx Musculoskeletal Disorders: Yes Musculoskeletal Disorders: Fractures Endocrine Hx Endocrine Disorders: Yes Endocrine Disorders: Hypothyroidsim, Diabetes, Non-Insulin dep HEENT HX ENT Disorders: Yes (MISSING TEETH) HEENT Disorders: Cataract Loss of Vision: Denies Hearing Impairment: Hard of Hearing Cancer Hx Cancer: Yes Cancer: Bladder, Prostate, Lung, Skin Psychosocial Hx Psychiatric Problems: Yes Behavioral Health Disorders: Anxiety Integumentary HX Skin/Integumentary Disorder: Yes (SKIN CANCER) Skin/Integumentary Disorders: Psoriasis Blood Transfusions Hx Blood Disorders: No Adverse Reaction to a Blood Tr: No Family Medical History Significant Family History: Heart Disease, Hypertension Family Hx: Chest pain 03 FATHER, Onset:Unknown Myocardial infarction 03 FATHER, Onset:60 years & older Constitutional: No chills, No diaphoresis Respiratory: cough dyspnea on exertion short of breath Cardiovascular: No chest pain, edema Gastrointestinal: No abdominal pain, No constipation, No diarrhea Genitourinary: no symptoms reported Musculoskeletal: no symptoms reported Skin: no symptoms reported Psychiatric/Neurological: Denies Anxiety, Denies Depressed Physical Exam Vital Signs Capillary Refill : Less Than 3 SecondsLess Than 3 Seconds General Appearance: WD/WN Mild Distress Eyes: Bilateral Eye EOMI, Bilateral Eye Normal Inspection, Bilateral Eye PERRL HEENT: PERRL/EOMI Pharynx Normal Respiratory: Crackles Decreased Breath Sounds Cardiovascular: Irregularly Irregular Gastrointestinal: Normal Bowel Sounds No Organomegaly No Pulsatile Mass Non Tender Soft Neurologic/Psychiatric: Alert Oriented x3 No Motor/Sensory Deficits Normal Mood/Affect barrel maker II-XII Norm as Tested Skin: Warm/Dry Assessment/Plan Assessment and Plan PNEUMONIA PLEURAL EFFUSION RIB PAIN ON LEFT RIB FRACTURES ATRIAL FIBRILLATION DIABETES MELLITUS HX LUNG CANCER WITH NEW NODULE ON CT SCAN CHRONIC DIZZINESS NAUSEA KIDNEY STONE PNEUMONIA - ON PNEUMONIA PROTOCOL, MONITOR SYMPTOMS - REPEAT CHEST XRAY PLEURAL EFFUSION - DR. PEÑA TO DO THORACENTESIS RIB PAIN ON LEFT - DUE TO RIB FRACTURES - LIDODERM PATCH, CONTINUE WITH PRN ORAL PAIN MEDICATIONS ATRIAL FIBRILLATION -RATE CONTROLLED - DEFER TREATMENT TO DR. DOWLING. DIABETES MELLITUS - RESTARTED HOME MEDS - ACCU CHECKS BID HX LUNG CANCER WITH NEW NODULE ON CT SCAN - REPEAT SCAN IN 2 MONTHS CHRONIC DIZZINESS - STABLE NAUSEA - PT ON PHENERGAN AND ZOFRAN PRN Problems: Admission Diagnosis PNEUMONIA PLEURAL EFFUSION RIB PAIN ON LEFT RIB FRACTURES ATRIAL FIBRILLATION DIABETES MELLITUS HX LUNG CANCER WITH NEW NODULE ON CT SCAN CHRONIC DIZZINESS NAUSEA Clinical Quality Measures DVT/VTE Risk/Contraindication: Risk Factor Score Per Nursin RFS Level Per Nursing on Admit: 4+=Very High Other: FREQUENT FALLS, INTRACRANIAL BLEED HX GUTIERREZ LERMA MD Dec 15, 2016 17:05
== END 2016-12-01 09:00 | disposition swing bed (61) | DRG 922 ==
LOC: UNDOADMIN 16:23 → ICU 16:23 → INTOOBSV 16:23 → UNDOADMOB 16:23 → ICU 17:00 → OBSVTOIN 11-23 12:07 → INTOOBSV 11-23 12:07 → ICU 11-24 13:00 → 4TH 11-27 22:54
PROVIDERS: ADMIT Family Medicine; ATTEND Family Medicine
PROC: 0W9B30Z Drainage of Left Pleural Cavity with Drainage Device, Percutaneous Approach (ICD-10-PCS; principal; 2016-11-25)
DX: T79.8XXA Other early complications of trauma, initial encounter (principal); J18.9 Pneumonia, unspecified organism; S27.1XXA Traumatic hemothorax, initial encounter; S27.321A Contusion of lung, unilateral, initial encounter; I50.31 Acute diastolic (congestive) heart failure; N13.2 Hydronephrosis with renal and ureteral calculous obstruction; I48.0 Paroxysmal atrial fibrillation; E86.9 Volume depletion, unspecified; R62.7 Adult failure to thrive; I25.10 Atherosclerotic heart disease of native coronary artery without angina pectoris; E11.9 Type 2 diabetes mellitus without complications; R91.1 Solitary pulmonary nodule; S22.42XA Multiple fractures of ribs, left side, initial encounter for closed fracture; I34.0 Nonrheumatic mitral (valve) insufficiency; D64.9 Anemia, unspecified; E87.8 Other disorders of electrolyte and fluid balance, not elsewhere classified; R42 Dizziness and giddiness; R29.6 Repeated falls; Z85.118 Personal history of other malignant neoplasm of bronchus and lung; Z85.51 Personal history of malignant neoplasm of bladder; Z95.5 Presence of coronary angioplasty implant and graft; Z22.322 Carrier or suspected carrier of Methicillin resistant Staphylococcus aureus; W19.XXXA Unspecified fall, initial encounter
CPT/HCPCS: 36415; 71010; 71020; 71250; 74000; 74176; 75989; 76770; 80048; 82945; 82962; 83615; 83735; 83880; 84100; 84157; 85025; 85610; 86850; 86900; 86901; 86920; 87070; 87075; 87081; 87205; 88112; 88305; 88341; 88342; 88344; 89051; 93005; 93306; 94640; 94664; 94760; G0378

== ENCOUNTER 2016-12-01 08:50 | Inpatient (IN) | payer MEDICARE, OTHER ==
[~2016-12-01] VITALS: Ht 188 cm; Wt 74.4 kg
[2016-12-01] MEDS ORDERED: IBUPROFEN 600 MG (MOTRIN) TAB PO PRN (09:15)
[2016-12-01] MEDS ORDERED: ONDANSETRON 4 MG/2 ML (SDV) Z0FRAN IVP PRN (09:15)
[2016-12-01] MEDS ORDERED: KCL 20 MEQ TAB (K-DUR) PO NR ×2 (09:15→13:00)
[2016-12-01] MEDS ORDERED: diphenhydrAMINE 25 MG TAB (BENADRYL) PO PRN (09:15)
[2016-12-01] MEDS ORDERED: SALIVA STIMULANT MOUTH SPRAY (BIOTENE) 1.5 OZ MM PRN (09:15)
[2016-12-01] MEDS ORDERED: CATHETER FLUSH 10 ML SYR IV PRN (09:15)
[2016-12-01] MEDS ORDERED: HYDROcodone/APAP 5 MG/325 MG (LORTAB) TAB PO PRN (09:15)
[2016-12-01] MEDS ORDERED: NITROGLYCERIN SUBLINGUAL 0.4 MG TAB (NITROSTAT) SL PRN (09:15)
[2016-12-01] MEDS ORDERED: LEVOTHYROXINE 50 MCG (LEVOTHROID) TAB PO SCH (09:15)
[2016-12-01] MEDS ORDERED: MILK OF MAGNESIA 400 MG/5 ML 30 ML UDC PO PRN (09:15)
[2016-12-01] MEDS ORDERED: PROMETHAZINE INJ 25 MG/ML (PHENERGAN) AMP IVP PRN (09:15)
--- NOTE | 2016-12-01 09:33 | Progress Note-Urology ---
Progress Note-Urology Progress Notes/Assess & Plan Progress/Assessment & Plan LT ESWL TOMORROW, FULLY RE EXPLAINED TO PATIENT, PREOPS AND CONSENT ORDERED, TO BE SEEN BY ANESTHESIA TODAY Final Diagnosis LT RENAL STONE DARNELL ULRICH MD Dec 01, 2016 09:33
[2016-12-01] MEDS ORDERED: RT-ALBUTEROL/IPRATROPIUM 3 ML (DUONEB) VIAL IH PRN (10:09)
[2016-12-01] MEDS: RT-ALBUTEROL/IPRATROPIUM 3 ML (DUONEB) VIAL IH SCH ×3 (10:12→19:36)
--- NOTE | 2016-12-01 10:19 | Physical Therapy Evaluation ---
PT Evaluation-General Medical Diagnosis Admission Date Dec 01, 2016 at 09:01 Medical Diagnosis: B pneumonia; severe sepsis Onset Date: Dec 01, 2016 Therapy Diagnosis Therapy Diagnosis: weakness; abn gait; recent falls Height/Weight Height (Feet): 6 Height (Inches): 2.00 Weight (Pounds): 168 Weight (Ounces): 0.0 Precautions Precautions/Isolations: Standard Precautions Weight Bear Status Weight Bearing Restriction: Weight Bearing/Tolerated Referral Physician: Florentin Reason for Referral: Evaluation/Treatment Medical History Pertinent Medical History: Atrial Fib, CAD, COPD, DM, Fractures (rib-recent past), HTN, Prostate CA, Smoking, TBI Additional Medical History lung ca-Hx; subdural hemorrhage Current History Pt recently on acute for severe sepsis and B pneumonia; he was transferred to [facility] for continued medical management and progressive therapy services. He currently has a renal stone with planned excision tomorrow.; hemathorax with thoracentesis. Reviewed History: Yes Social History Home: Single Level Current Living Status: Alone Entry Into Home: Stairs With Railing Prior/Core FIM Prior Level of Function Functional [place] Measure 0=Not Assessed/NA 4=Minimal Assistance 1=Total Assistance 5=Supervision or Setup 2=Maximal Assistance 6=Modified [place] 3=Moderate Assistance 7=Complete [place] Bed Mobility: 7 Transfers (B,C,W/C) (FIM): 7 Gait: 6 (cane or walker) Pt is indep in his home without assist; pt able to care for all needs, still drives and does own grocery shopping. Pt reports he also has a wheelchair. PT Evaluation-Current Subjective Agreeable to PT. Reports he is feeling much better. "as soon as I get this kidney stone out, I'm leaving!" Pt indicates that he wants to go home post hospital stay and not return to the [place]. He also reported he did not want HHC as he was not allowed to drive when he had it before. He reported [place] lives 10 miles from the grocery and 10 miles from the and he needs to be able to drive. Pain Numeric Pain Scale: 0-No Pain Location: No Pain Reported Objective Patient Orientation: Person, Place, Time, Situation Problem Solving: Good Attachments: Oxygen (in situ during and post treatment) ROM/Strength ROM Lower Extremities WNL B LE's Strenght Lower Extremities grossly 4-/5 B LE's Integumentary/Posture Integumentary intact Bowel Incontinence: No Bladder Incontinence: No Posture symmetrical, upright; slight forward flexion noted at hips. Neuromuscular (Tone, Coordination, Reflexes) Intact and without functional deficit. Sensory Vision: Functional Hearing: Functional Hand Dominance: Right Sensation Right Lower Extremit: Intact Sensation Left Lower Extremity: Intact Transfers Functional [place] Measure 0=Not Assessed/NA 4=Minimal Assistance 1=Total Assistance 5=Supervision or Setup 2=Maximal Assistance 6=Modified [place] 3=Moderate Assistance 7=Complete [place] Transfers (B, C, W/C) (FIM): 4 Supine to/from Sit: 4 (CGA with sup to sit; sit to sup) Sit to/from Stand: 4 (CGA; tactile cues ) Sit to Lying (QC): 4 Lying to Sitting/Side of Bed(Q: 4 Sit to Stand (QC): 4 Chair/Kjq-nh-Wrfrd Xfer(QC): 4 Light assist and CGA with tactile cues to guide/sequenc.e Gait Does the Patient Walk?: Yes Mode of Locomotion: Walk Anticipated Mode of Locomotion: Walk Gait (FIM): 2 Distance (FIM): 0=642-63 ft Distance: 50 Walk 50 ft with 2 Turns(QC): 4 (cGA for safety) Walk 150 ft (QC): 88 Gait Level of Assist: 4 Gait Assistive Device: FWW Comments/Gait Description slow gait; unsteady with initiation of gait. slight forward flexion during gait and unsteady with turning. Stairs Stairs (FIM): 0 (NT this visit) Balance Sitting Static: Good Sitting Dynamic: Good Standing Static: Fair Standing Dynamic: Fair Treatment Gait training 45 ft x 2 with FWW with CGA and skilleed cues for posture and safety with turns. Slight SOA noted post gait and needed 3-4 minutes to recover fully; worked on deep breathing technique. Seated leg exercises x 10 AP, LAQ, hip flexion and hip abduct; sit to / from stand x 5. In chair with oxygen in situ, call light and all needs met post treatment Assessment/Needs Pt presents with long history of lung disease and recent acute stay for pneumonia. Currently awaiting excision of renal stone. Pt presents with decreased ability to transfer, limited functional gait distance, unsteady with initial standing, limited functional activity tolerance. He will benefit from skilled therapy services to address strength, functional transfers, gait progression and functional activity tolerance to allow him to return home as before. Rehab Potential: Good PT U.S. Representative Goals Intermediate Goals PT U.S. Representative Goals Time Frame: Dec 11, 2016 Transfers (B,C,W/C) (FIM): 6 Sit to Lying (QC): 6 Lying-Sitting on Side/Bed(QC): 6 Sit to Stand (QC): 6 Chair/Fuq-ga-Nfqbs Xfer(QC): 6 Does the Patient Walk: Yes Gait (FIM): 6 Gait distance (FIM): 3=150 ft Walk 50ft with 2 Turns (QC): 6 Walk 150 ft (QC): 6 Gait Assistive Device: FWW PT Plan Problem List Problem List: Activity Tolerance, Functional Strength, Safety, Balance, Gait, Transfer, Bed Mobility Treatment/Plan Treatment Plan: Continue Plan of Care Treatment Plan: Bed Mobility, Education, Functional Activity Sherrell, Functional Strength, Gait, Safety, Therapeutic Exercise, Transfers Treatment Duration: Dec 11, 2016 # of days/week 6 Visits Per Week: 6 Pt/Family Agrees w/Plan: Yes Safety Risks/Education Patient Education: Transfer Techniques, Safety Issues Teaching Recipient: Patient Teaching Methods: Demonstration, Discussion Response to Teaching: Reinforcement Needed Time/GCodes Time In: 935 Time Out: 1010 Total Billed Treatment Time: 35 Total Billed Treatment visit EVM 15 GT 20 ERIC MARI PT Dec 01, 2016 10:18
[2016-12-01] MEDS: MAGNESIUM 1 GM/100 ML IVPB 100 ML IV SCH ×2 (10:59→11:00)
[2016-12-01] MEDS: LACTOBACILLUS Acidoph/Bulgar (LACTINEX/FLORANEX) TAB PO SCH ×2 (13:00→21:58)
[2016-12-01] MEDS: CATHETER FLUSH 10 ML SYR IV SCH ×2 (13:21→22:00)
--- NOTE | 2016-12-01 14:25 | Occupational Therapy Eval ---
OT Evaluation-General/PLF Medical Diagnosis Admission Date Dec 01, 2016 at 09:01 Medical Diagnosis: B pneumonia; severe sepsis Onset Date: Dec 01, 2016 Therapy Diagnosis Therapy Diagnosis: impaired self care skills Height/Weight Height (Feet): 6 Height (Inches): 2.00 Weight (Pounds): 168 Weight (Ounces): 0.0 Precautions Precautions/Isolations: Standard Precautions Weight Bear Status Weight Bearing Restriction: Weight Bearing/Tolerated Referral Physician: Florentin Medical History Pertinent Medical History: Atrial Fib, CAD, COPD, DM, Fractures (rib-recent past), HTN, Prostate CA, Smoking, TBI Current History Pt fell at home and had rib fractures on left side. Pt went to SNF for therapy and then returned to hospital with pneumonia. Social History Home: Single Level Current Living Status: Alone Entry Into Home: Stairs With Railing ADL-Prior Level of Function ADL PLOF Comments Pt reports that prior to fall and admission to SNF he was independent with all self care and mobility. Pt would like to return home at d/c. Drive Self: Yes OT Current Status Subjective Pt in bed, agrees to treatment. Pt has no c/o pain, but states he is tired this afternoon. Mental Status/Objective Patient Orientation: Person, Place Attachments: Oxygen Current Glasses/Contacts: Yes (reading) Hearing Aids: No Dentures/Partials: Yes Hand Dominance: Right Upper Extremity ROM Grossly WFL Upper Extremity Coordination Fair Upper Extremity Strength Grossly 4/5 ADL-Treatment ADL-Current Pt supine to sit with minimal assistance. Pt sat EOB without LOB during UE assessment. Pt washed face with set up. Pt states he is able to feed self after set up. Pt doffed/donned socks with SBA while seated EOB. Sit to stand with minimal assistance. Pt demonstrated ability to perform transfer with CGA. Sit to supine with SBA. Pt in bed with needs met after session. Functional [place] Measure 0=Not Assessed/NA 4=Minimal Assistance 1=Total Assistance 5=Supervision or Setup 2=Maximal Assistance 6=Modified [place] 3=Moderate Assistance 7=Complete IndependenceIRFPAI Quality Coding Scale 6 Independent with activity with or without an assistive device 5 Patient requires set up or clean up by helper. Patient completes activity by themselves 4 Supervision or touching assist (CGA). [place] provide cues , steadying assist 3 The helper provides less than half the effort to complete the activity 2 The helper provides more than half the effort to complete the activity 1 Dependent. The helper does all the effort to complete an activity 7 Patient refused to complete or attempt activity 9 The patient did not perform the activity before the current illness or injury 88 Not attempted due to Medical conditions or safety concerns Eating (FIM): 5 Eating (QC): 5 Grooming (FIM): 5 Lower Body Dressing (FIM): 5 (Socks only) Toilet/Commode Transfer (FIM): 4 Toilet Transfer (QC): 4 (CGA) Education OT Patient Education: Rehab process Teaching Recipient: Patient Teaching Methods: Discussion OT Short Term Goals Short Term Goals 1=Demonstrate adherence to instructed precautions during ADL tasks. 2=Patient will verbalize/demonstrate understanding of assistive devices/ modifications for ADL. 3=Patient will improve strength/tolerance for activity to enable patient to perform ADL's. OT [facility] Goals [facility] Goals Time Frame: Dec 15, 2016 Eating (FIM): 6 Eating (QC): 6 Groomin Oral Hygiene (QC): 6 Bathing(FIM): 5 Upper Body Dressing(FIM): 6 Lower Body Dressing(FIM): 5 Toileting(FIM): 6 Toileting Hygiene (QC): 6 Toilet/Commode Transfer(FIM): 6 Toilet/Commode Transfer (QC): 6 Additional Goals: 1-Demonstrate ADL Tasks, 2-Verbalize Understanding, 3- ImproveStrength/Sherrell 1=Demonstrate adherence to instructed precautions during ADL tasks. 2=Patient will verbalize/demonstrate understanding of assistive devices/ modifications for ADL. 3=Patient will improve strength/tolerance for activity to enable patient to perform ADL's. goals established to promote increased functional performance and allow safe discharge plan. OT Education/Plan Problem List/Assessment Assessment: Decreased Activ Tolerance, Decreased UE Strength, Dependent Transfers, Impaired Self-Care Skills Pt to benefit from skilled OT intervention while on SWB to increase functional independence and allow safe discharge plan. Discharge Recommendations Plan/Recommendations: Continue POC Treatment Plan/Plan of Care Treatment,Training & Education: Yes Patient would benefit from OT for education, treatment and training to promote independence in ADL's, mobility, safety and/or upper extremity function for ADL' s. Plan of Care: ADL Retraining, Functional Mobility, UE Funct Exercise/Act Treatment Duration: Dec 15, 2016 # of days/week 5 Visits Per Week: 5 Agreement: Yes Rehab Potential: Good Time/GCodes Start Time: 13:55 Stop Time: 14:18 Total Time Billed (hr/min): 23 Billed Treatment Time 1 visit, EVM(8minutes), ADL(15minutes) MARIA ELENA SNOW OT Dec 01, 2016 14:25
[2016-12-01 16:00] VITALS: BP 97/45
[2016-12-01] MEDS: metFORMIN 500 MG (GLUCOPHAGE) TAB PO SCH (17:30)
[2016-12-01 19:51] VITALS: BP 113/51
[2016-12-01] MEDS: MUPIROCIN 2% OINT 22 GM (BACTROBAN) TUBE NSEACH SCH (21:55)
[2016-12-01] MEDS: guaiFENesin (MUCINEX) 600 MG TAB PO SCH (21:57)
[2016-12-01] MEDS: LEVETIRACETAM 500 MG (KEPPRA) TAB PO SCH (21:57)
[2016-12-01] MEDS: SENNA W/DOCUSATE (SENOKOT S) TABLET PO SCH (21:57)
[2016-12-01] MEDS: PANTOPRAZOLE 40 MG (PROTONIX) TAB PO SCH (21:57)
[2016-12-01] MEDS: ATORVASTATIN 10 MG (LIPITOR) TABLET PO SCH (21:58)
[2016-12-01] MEDS: SOTALOL 80 MG (BETAPACE) TAB PO SCH (21:58)
[2016-12-01] MEDS: LIDOCAINE PATCH REMOVAL TP SCH (22:00)
[2016-12-02] VITALS: BP 127/51
[2016-12-02 04:00] VITALS: BP 145/66
[2016-12-02] MEDS: CATHETER FLUSH 10 ML SYR IV SCH ×3 (05:31→21:49)
[2016-12-02] MEDS: metFORMIN 500 MG (GLUCOPHAGE) TAB PO SCH ×2 (06:30→17:50)
[2016-12-02] MEDS: CALCIUM CARB + VIT D 600 MG (CALCARB + D) TAB PO SCH (06:30)
[2016-12-02] MEDS: MULTIVIT W/MINERALS TAB (THERAGRAN M) PO SCH (06:30)
--- NOTE | 2016-12-02 07:17 | Progress Note-Pre Operative ---
Pre-Operative Progress Note H&P Reviewed The H&P was reviewed, patient examined and no changes noted. Date H&P Reviewed: Dec 02, 2016 Time H&P Reviewed: 07:16 Pre-Operative Diagnosis: LT RENAL STONE DARNELL ULRICH MD Dec 02, 2016 7:16 am
[2016-12-02] MEDS: RT-ALBUTEROL/IPRATROPIUM 3 ML (DUONEB) VIAL IH SCH ×3 (07:53→19:21)
[2016-12-02 08:04] VITALS: BP 127/60
[2016-12-02] MEDS ORDERED: LACTATED RINGERS 1,000 ML IV PRN (08:08)
--- NOTE | 2016-12-02 08:39 | Progress Note-Cardiology ---
Cardiology SOAP Progress Note Subjective: Feels breathing is good today. No c/o CP, palpitations. C/O generalized weakness. Reports poor appetite which he feels is d/t the food not tasting good. Objective: I&O/Vital Signs Vital Sign - Last 12Hours 12/02/16 12/02/16 12/02/16 12/02/16 01:00 04:00 07:00 07:53 Temp 98.0 Pulse 74 79 67 Resp 22 B/P 145/66 Pulse Ox 92 91 O2 Delivery Nasal Cannula O2 Flow Rate 2.00 12/02/16 12/02/16 12/02/16 12/02/16 07:53 08:04 09:00 12:35 Temp 96.8 96.8 Pulse 74 66 Resp 16 16 B/P 127/60 113/56 Pulse Ox 91 94 96 O2 Delivery Nasal Cannula Nasal Cannula Nasal Cannula O2 Flow Rate 2.00 2.00 1.00 2.00 Intake and Output 12/02/16 00:00 Intake Total 1480 ml Output Total 850 ml Balance 630 ml Weight (Pounds): 168 Weight (Ounces): 0.0 Weight (Calculated Kilograms): 76.427298 Constitutional: AAO x 3 other (frail) Respiratory: other (diminished bases bilat; poor inspiratory effort) Cardiovascular: regular rate-rhythm S1 and S2 systolic murmur (soft PABLO) Gastrointestional: No tender, soft other (thin) Extremities: no lower extremity edema bilateral Skin: No rash, No ulcerations Results/Procedures: Labs Laboratory Tests 12/01/16 16:04: Glucometer 90 12/02/16 05:27: Glucometer 112H A/P: Assessment: Multifactorial dyspnea (see below) - improving Large left sided traumatic hemathorax; s/p thoracentesis on 11-25-16 L-sided pneumonia, likely d/t recent non-syncopal fall that led to L-sided rib fractures that led to poor insp (due to inspiratory pain) and bleeding - improved Probable septicemia at presentation Ac diastolic CHF - clinically improved. Echo of 11/25/16 shows LVEF 60-65%, mod AoV sclerosis and mod MAC w/o valvular stenosis, mild diastolic dysfunction of LV Failure to thrive (poor appetite, generally deteriorating clinical status) R lung squamous cell CA diagnosed in 2014 that has been treated surgically in [place], according to the patient. Apparently a new lung nodule is being followed by [facility] Multiple electrolyte abnormalities due to diuretic therapy PAF with RVR. Has h/o PAF that is followed by Dr. Marsh at [facility] in [place], [place]. Currently NSR with isolated PVCs Contraindications to full oral anticoagulation: h/o intracranial bleed requiring surgical intervention, multiple recent non-syncopal falls CAD with h/o stent placement to left Cx [place] [address] Christensen in [place], [place] H/o previous intracranial bleeding the details of which are unclear Propensity to falls (non-syncopal). A recent fall has led to rib contusions Anemia of undetermined etiology There is moderate left hydronephrosis with an stone probably causing the obstruction at the UPJ measuring 1.5 CM, per renal u/s - Urology services managing Nausea - being managed by medical services Chronically somewhat low blood pressure Plan: Currently SR Continue current regimen Monitor labs Continue PT/OT for strengthening Swing bed today Poor appetite with poor oral intake General weakness Physician Assessment Physician Assessment Lungs: diminished air entry at bases Cor: reg A&R * As documented in our note above * I spoke with him and answered questions RADHA MCMAHON Dec 02, 2016 08:39 ERIK DOWLING MD FACP [facility] Dec 02, 2016 12:53
[2016-12-02] MEDS: MUPIROCIN 2% OINT 22 GM (BACTROBAN) TUBE NSEACH SCH ×2 (08:47→21:51)
[2016-12-02] MEDS: LIDOCAINE (LIDODERM) 5% PATCH TP SCH (08:47)
[2016-12-02] MEDS: LACTOBACILLUS Acidoph/Bulgar (LACTINEX/FLORANEX) TAB PO SCH ×3 (09:00→21:49)
--- NOTE | 2016-12-02 09:30 | Progress Note (SOAP) ---
Subjective Subjective/Events-last exam PT REPORTS FEELING BETTER, HAVING SOME LOOSE STOOLS, HE REPORTS SOME CHEST WALL PAIN. HE DENIES INCREASE IN HIS CHRONIC UNSTEADINESS HE DOES FEEL WEAK. Review of Systems General: Fatigue HEENT: No Head Aches Pulmonary: Dyspnea Cough Pleuritic Chest Pain Gastrointestinal: No: Abdominal Pain, Nausea Genitourinary: Frequency Neurological: : WeaknessNo: Confusion Objective Exam Vital Signs Date Time Temp Pulse Resp B/P Pulse Ox O2 Delivery O2 Flow Rate FiO2 12/02/16 08:04 96.8 74 16 127/60 94 Nasal Cannula 2.00 12/02/16 07:53 91 2.00 12/02/16 07:53 91 12/02/16 07:00 67 12/02/16 04:00 98.0 79 22 145/66 92 Nasal Cannula 2.00 12/02/16 01:00 74 12/02/16 00:00 97.1 74 20 127/51 Nasal Cannula 1.00 12/01/16 21:30 Nasal Cannula 1.00 12/01/16 19:51 97.6 73 16 113/51 93 Nasal Cannula 2.00 12/01/16 19:36 93 2.00 12/01/16 19:00 79 12/01/16 16:00 96.4 69 16 97/45 94 Nasal Cannula 2.00 12/01/16 13:45 93 2.00 12/01/16 13:00 66 12/01/16 10:17 2.00 I & O 12/02/16 07:00 Intake Total 1480 ml Output Total 1625 ml Balance -145 ml Capillary Refill : General Appearance: WD/WN Chronically ill HEENT: PERRL/EOMI Pharynx Normal Neck: Full Range of Motion Supple Respiratory: Chest Non Tender Crackles (IN BASE ON LEFT) Cardiovascular: Irregularly Irregular Gastrointestinal: normal bowel sounds non tender soft no organomegaly no pulsatile mass Extremity: Normal Capillary Refill Normal Range of Motion Non Tender No Calf Tenderness No Pedal Edema Neurologic/Psychiatric: Alert Oriented x3 No Motor/Sensory Deficits Normal Mood/Affect Skin: Warm/Dry Lymphatic: No Adenopathy Results Lab Laboratory Tests 12/01/16 16:04: Glucometer 90 12/02/16 05:27: Glucometer 112H Assessment/Plan Assessment/Plan Assess & Plan/Chief Complaint PNEUMONIA PLEURAL EFFUSION RIB PAIN ON LEFT RIB FRACTURES ATRIAL FIBRILLATION DIABETES MELLITUS HX LUNG CANCER WITH NEW NODULE ON CT SCAN CHRONIC DIZZINESS NAUSEA KIDNEY STONE PNEUMONIA - ON PNEUMONIA PROTOCOL, MONITOR SYMPTOMS - REPEAT CHEST XRAY - PLEURAL EFFUSION - POST THORACENTESIS - PIG-TAIL CATHETER REMOVED RIB PAIN ON LEFT - DUE TO RIB FRACTURES - LIDODERM PATCH, CONTINUE WITH PRN ORAL PAIN MEDICATIONS ATRIAL FIBRILLATION -RATE CONTROLLED - DEFER TREATMENT TO DR. DOWLING. 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 ULRICH - DISCUSSED WITH HIM PLANNING ON LITHOTRIPSY TODAY Clinical Quality Measures DVT/VTE Risk/Contraindication: Contraindications-Pharm: Other *list below* Other: PROCEDURES PLANNED AND PT CANNOT TAKE ORAL OR INJECTABLE OR IV MEDIATION THAT THINS BLOOD PRIOR TO LITHOTRIPSY GUTIERREZ PHAM MD Dec 02, 2016 09:30
[2016-12-02] MEDS: SOTALOL 80 MG (BETAPACE) TAB PO SCH ×2 (09:36→21:48)
[2016-12-02] MEDS: DILTIAZEM 180 MG (CARDIZEM CD) CAP PO SCH (09:36)
[2016-12-02] MEDS: LEVETIRACETAM 500 MG (KEPPRA) TAB PO SCH ×2 (09:38→21:49)
--- NOTE | 2016-12-02 10:02 | Occupational Ther Daily Note ---
OT Current Status-Daily Note Subjective Pt alert, lying in bed. Pt agreed to therapy. No c/o pain. Pt stated that he had already washed up this morning at 3am. Mental Status/Objective Patient Orientation: Person, Place, Time, Situation Functional [place] Measure 0=Not Assessed/NA 4=Minimal Assistance 1=Total Assistance 5=Supervision or Setup 2=Maximal Assistance 6=Modified [place] 3=Moderate Assistance 7=Complete [place] ADL-Treatment Using raised HOB and bed rails, pt is able to go from supine to sitting EOB by self. With bed at lowest height level, pt is able to go from sit to stand with SBA. Pt manipulated FWW with close SBA around room 2x's before transferring into chair. Pt required cues to position self and FWW in front of chair prior to sitting down. Pt was able to go from sit to stand with SBA then ambulated with FWW to bed. Pt is mod I for bed mobility using bed rails to move self side to side and scoot self up. Pt required frequent recovery breaks during movement activities. After therapy, pt lying in bed with call light/phone in reach. All needs met in room. Functional [place] Measure 0=Not Assessed/NA 4=Minimal Assistance 1=Total Assistance 5=Supervision or Setup 2=Maximal Assistance 6=Modified [place] 3=Moderate Assistance 7=Complete IndependenceIRFPAI Quality Coding Scale 6 Independent with activity with or without an assistive device 5 Patient requires set up or clean up by helper. Patient completes activity by themselves 4 Supervision or touching assist (CGA). [place] provide cues , steadying assist 3 The helper provides less than half the effort to complete the activity 2 The helper provides more than half the effort to complete the activity 1 Dependent. The helper does all the effort to complete an activity 7 Patient refused to complete or attempt activity 9 The patient did not perform the activity before the current illness or injury 88 Not attempted due to Medical conditions or safety concerns OT Short Term Goals Short Term Goals 1=Demonstrate adherence to instructed precautions during ADL tasks. 2=Patient will verbalize/demonstrate understanding of assistive devices/ modifications for ADL. 3=Patient will improve strength/tolerance for activity to enable patient to perform ADL's. OT Router Tender Goals Prison Goals Time Frame: Dec 15, 2016 Eating (FIM): 6 Eating (QC): 6 Groomin Oral Hygiene (QC): 6 Bathing(FIM): 5 Upper Body Dressing(FIM): 6 Lower Body Dressing(FIM): 5 Toileting(FIM): 6 Toileting Hygiene (QC): 6 Toilet/Commode Transfer(FIM): 6 Toilet/Commode Transfer (QC): 6 Additional Goals: 1-Demonstrate ADL Tasks, 2-Verbalize Understanding, 3- ImproveStrength/[place] 1=Demonstrate adherence to instructed precautions during ADL tasks. 2=Patient will verbalize/demonstrate understanding of assistive devices/ modifications for ADL. 3=Patient will improve strength/tolerance for activity to enable patient to perform ADL's. OT Education/Plan Problem List/Assessment Pt to benefit from skilled OT intervention while on SWB to increase functional independence and allow safe discharge plan. Discharge Recommendations Plan/Recommendations: Continue POC Treatment Plan/Plan of Care Patient would benefit from OT for education, treatment and training to promote independence in ADL's, mobility, safety and/or upper extremity function for ADL' s. Plan of Care: ADL Retraining, Functional Mobility, UE Funct Exercise/Act Treatment Duration: Dec 15, 2016 Visits Per Week: 5 Agreement: Yes Rehab Potential: Good Time/GCodes Start Time: 08:45 Stop Time: 09:10 Total Time Billed (hr/min): 25 Billed Treatment Time 1 visit-FA 2 (25 min) ERIC GREENE Dec 02, 2016 10:02
[2016-12-02] MEDS ORDERED: MIDAZOLAM 2 MG/2 ML (VERSED) VIAL ONE (10:09)
[2016-12-02] MEDS ORDERED: proPOfol 200 MG/20 ML (DIPRIVAN) VIAL IV ONE (10:09)
[2016-12-02] MEDS ORDERED: LIDOCAINE PF 2% 10 ML (XYLOCAINE) AMP ONE (10:09)
[2016-12-02] MEDS ORDERED: fentaNYL INJECTION 100 MCG/2 ML AMP ONE (10:09)
[2016-12-02] MEDS ORDERED: LACTATED RINGERS 1,000 ML IV ONE (10:09)
[2016-12-02] MEDS ORDERED: ONDANSETRON 4 MG/2 ML (SDV) Z0FRAN ONE (10:09)
[2016-12-02] MEDS ORDERED: FUROSEMIDE 40 MG/4 ML INJ (LASIX) ONE (10:10)
[2016-12-02] MEDS ORDERED: KETOROLAC 30 MG/ML VIAL ONE (10:10)
[2016-12-02] MEDS ORDERED: SEVOFLURANE (ULTANE) 15 ML INHAL SOLN ONE (10:12)
--- NOTE | 2016-12-02 10:39 | Progress Note-Post Operative ---
Post-Operative Progess Note Pre-Operative Diagnosis LT RENAL STONE Post-Operative Diagnosis SAME Post-Op Procedure Note Date of Procedure: Dec 02, 2016 Name of Procedure: LT ESWL Anesthesia Type GENERAL DARNELL ULRICH MD Dec 02, 2016 10:39 am
--- NOTE | 2016-12-02 11:06 | Physical Therapy Progress Note ---
Therapy Progress Note Pt in lithotripsy at this time. No treatment rendered. ERIC MARI PT Dec 02, 2016 11:06
[2016-12-02] MEDS ORDERED: ONDANSETRON 4 MG/2 ML (SDV) Z0FRAN IVP PRN (11:15)
[2016-12-02] MEDS ORDERED: morphine INJ 10 MG/ML 1ML (SYR OR VIAL) IVP PRN (11:15)
[2016-12-02] MEDS ORDERED: MEPERIDINE (DEMEROL) INJ 50 MG/ML IVP PRN (11:15)
[2016-12-02 12:35] VITALS: BP 113/56
[2016-12-02] MEDS: FOLIC ACID 1 MG TAB PO SCH (12:56)
[2016-12-02] MEDS: CYANOCOBALAMIN 500 MCG TAB (VITAMIN B-12) PO SCH (12:56)
[2016-12-02] MEDS: DOCUSATE SODIUM 100 MG (COLACE) CAP PO SCH (12:56)
[2016-12-02] MEDS: guaiFENesin (MUCINEX) 600 MG TAB PO SCH ×2 (12:56→21:49)
[2016-12-02] MEDS: SENNA W/DOCUSATE (SENOKOT S) TABLET PO SCH ×2 (12:56→21:49)
[2016-12-02] MEDS: LEVOTHYROXINE 50 MCG (LEVOTHROID) TAB PO SCH (12:57)
[2016-12-02 16:00] VITALS: BP 92/50
[2016-12-02 20:00] VITALS: BP 100/51
[2016-12-02] MEDS: ATORVASTATIN 10 MG (LIPITOR) TABLET PO SCH (21:48)
[2016-12-02] MEDS: PANTOPRAZOLE 40 MG (PROTONIX) TAB PO SCH (21:48)
[2016-12-02] MEDS: LIDOCAINE PATCH REMOVAL TP SCH (21:51)
[2016-12-03] VITALS: BP 95/57
[2016-12-03 04:00] VITALS: BP 96/51
[2016-12-03] MEDS: CATHETER FLUSH 10 ML SYR IV SCH ×3 (06:05→21:48)
[2016-12-03] MEDS: RT-ALBUTEROL/IPRATROPIUM 3 ML (DUONEB) VIAL IH SCH ×3 (06:32→19:38)
[2016-12-03 06:45] LABS: ANION GAP 7 MMOL/L (5-14); BLOOD UREA NITROGEN 16 MG/DL (7-18); BUN/CREATININE RATIO 21; CALCIUM 8.2 MG/DL (8.5-10.1); CARBON DIOXIDE 36 MMOL/L (21-32); CHLORIDE 99 MMOL/L (98-107); CREATININE SERUM 0.75 MG/DL (0.60-1.30); GFR ESTIMATED > 60; GLUCOSE 117 MG/DL (70-105); MAGNESIUM 1.4 MG/DL (1.8-2.4); POTASSIUM 3.6 MMOL/L (3.6-5.0); SODIUM 142 MMOL/L (135-145)
[2016-12-03] MEDS: CALCIUM CARB + VIT D 600 MG (CALCARB + D) TAB PO SCH (06:54)
[2016-12-03] MEDS: MULTIVIT W/MINERALS TAB (THERAGRAN M) PO SCH (06:54)
[2016-12-03 08:24] VITALS: BP 117/55
[2016-12-03] MEDS: LIDOCAINE (LIDODERM) 5% PATCH TP SCH (08:26)
[2016-12-03] MEDS: SENNA W/DOCUSATE (SENOKOT S) TABLET PO SCH ×2 (08:26→21:45)
[2016-12-03] MEDS: DOCUSATE SODIUM 100 MG (COLACE) CAP PO SCH (08:26)
[2016-12-03] MEDS: SOTALOL 80 MG (BETAPACE) TAB PO SCH ×2 (08:27→21:44)
[2016-12-03] MEDS: guaiFENesin (MUCINEX) 600 MG TAB PO SCH ×2 (08:27→21:44)
[2016-12-03] MEDS: FOLIC ACID 1 MG TAB PO SCH (08:27)
[2016-12-03] MEDS: LEVOTHYROXINE 50 MCG (LEVOTHROID) TAB PO SCH (08:27)
[2016-12-03] MEDS: LEVETIRACETAM 500 MG (KEPPRA) TAB PO SCH ×2 (08:27→21:45)
[2016-12-03] MEDS: DILTIAZEM 180 MG (CARDIZEM CD) CAP PO SCH (08:28)
[2016-12-03] MEDS: MUPIROCIN 2% OINT 22 GM (BACTROBAN) TUBE NSEACH SCH ×2 (08:28→21:47)
[2016-12-03] MEDS: CYANOCOBALAMIN 500 MCG TAB (VITAMIN B-12) PO SCH (08:28)
[2016-12-03] MEDS: LACTOBACILLUS Acidoph/Bulgar (LACTINEX/FLORANEX) TAB PO SCH ×3 (08:28→21:44)
--- NOTE | 2016-12-03 08:45 | Diagnostic Imaging Report ---
INDICATION: Followup ESWL. COMPARISON: CT abdomen and pelvis dated 11/27/2016 FINDINGS: Single supine radiographic view of the abdomen was obtained. The renal fossa are heavily obscured secondary to large amount of air and stool scattered throughout the large and small bowel. There is, however, single dominant ovoid extraosseous calcification at the level of the L2 superior endplate measuring approximately 1 cm. This is felt to correspond to UPJ calculus seen on previously performed CTA. When compared to oceanography teacher view from that exam, there has been no significant interval change in position. Few other extraosseous calcifications are also noted bilaterally and may be on the basis of nonobstructive renal calculi, but again evaluation is heavily obscured. IMPRESSION: 1. No significant interval change in dominant 1 cm calculus at the left UPJ. 2. Multiple other extraosseous calcifications are noted bilaterally. Again, these may be on the basis of additional renal calculi, although evaluation is heavily obscured secondary to large and small bowel air and stool. Dictated by: Dictated on workstation # [id number]
--- NOTE | 2016-12-03 08:53 | Occupational Ther Daily Note ---
OT Current Status-Daily Note Subjective Pt alert, lying in bed. Pt stated that his eyes were burning and that he hurt, did not rate pain. Pt agreed to bed exercises. Nrsg in room to give meds. Mental Status/Objective Patient Orientation: Person, Place, Time, Situation Functional [place] Measure 0=Not Assessed/NA 4=Minimal Assistance 1=Total Assistance 5=Supervision or Setup 2=Maximal Assistance 6=Modified [place] 3=Moderate Assistance 7=Complete [place] Attachments: IV, Telemetry ADL-Treatment Pt able to reach and grasp cup in one hand and water pitcher in other and pour self drink then bring to mouth. Pt able to put in and take out dentures by self. Pt was able to use bed rails to roll side to side by self. Functional [place] Measure 0=Not Assessed/NA 4=Minimal Assistance 1=Total Assistance 5=Supervision or Setup 2=Maximal Assistance 6=Modified [place] 3=Moderate Assistance 7=Complete IndependenceIRFPAI Quality Coding Scale 6 Independent with activity with or without an assistive device 5 Patient requires set up or clean up by helper. Patient completes activity by themselves 4 Supervision or touching assist (CGA). [place] provide cues , steadying assist 3 The helper provides less than half the effort to complete the activity 2 The helper provides more than half the effort to complete the activity 1 Dependent. The helper does all the effort to complete an activity 7 Patient refused to complete or attempt activity 9 The patient did not perform the activity before the current illness or injury 88 Not attempted due to Medical conditions or safety concerns Other Treatment Pt able to complete 3 shldr exercises against gravity 10 reps each. Pt then stated he just wanted to sleep because his eyes burnt. Reported eyes to nrsg. Pt did not want to sit on EOB or chair. After therapy, pt lying in bed with eyes closed call light/phone in reach. All needs met in room. OT Short Term Goals Short Term Goals 1=Demonstrate adherence to instructed precautions during ADL tasks. 2=Patient will verbalize/demonstrate understanding of assistive devices/ modifications for ADL. 3=Patient will improve strength/tolerance for activity to enable patient to perform ADL's. OT [place] Charcoal Burner Goals [place] Charcoal Burner Goals Time Frame: Dec 15, 2016 Eating (FIM): 6 Eating (QC): 6 Groomin Oral Hygiene (QC): 6 Bathing(FIM): 5 Upper Body Dressing(FIM): 6 Lower Body Dressing(FIM): 5 Toileting(FIM): 6 Toileting Hygiene (QC): 6 Toilet/Commode Transfer(FIM): 6 Toilet/Commode Transfer (QC): 6 Additional Goals: 1-Demonstrate ADL Tasks, 2-Verbalize Understanding, 3- ImproveStrength/[place] 1=Demonstrate adherence to instructed precautions during ADL tasks. 2=Patient will verbalize/demonstrate understanding of assistive devices/ modifications for ADL. 3=Patient will improve strength/tolerance for activity to enable patient to perform ADL's. OT Education/Plan Problem List/Assessment Pt to benefit from skilled OT intervention while on SWB to increase functional independence and allow safe discharge plan. Discharge Recommendations Plan/Recommendations: Continue POC Treatment Plan/Plan of Care Patient would benefit from OT for education, treatment and training to promote independence in ADL's, mobility, safety and/or upper extremity function for ADL' s. Plan of Care: ADL Retraining, Functional Mobility, UE Funct Exercise/Act Treatment Duration: Dec 15, 2016 Visits Per Week: 5 Agreement: Yes Rehab Potential: Good Time/GCodes Start Time: 09:20 Stop Time: 09:43 Total Time Billed (hr/min): 23 Billed Treatment Time 1 visit-1 EX (10 min) FA 1 (13 min) ERIC GREENE Dec 03, 2016 08:53
[2016-12-03] MEDS: metFORMIN 500 MG (GLUCOPHAGE) TAB PO SCH ×2 (10:02→17:23)
--- NOTE | 2016-12-03 10:52 | Progress Note-Cardiology ---
Cardiology SOAP Progress Note Subjective: Notes gen tiredness and weakness Denies shortness of breath at rest Denies cp or palp or syncope Objective: I&O/Vital Signs Vital Sign - Last 12Hours 12/03/16 12/03/16 12/03/16 12/03/16 00:00 01:00 04:00 06:32 Temp 99.1 98.4 Pulse 83 84 79 Resp 18 18 B/P 95/57 96/51 Pulse Ox 95 95 90 O2 Delivery Nasal Cannula Nasal Cannula O2 Flow Rate 2.00 2.00 3.00 12/03/16 12/03/16 06:52 08:24 Temp 98.4 Pulse 79 79 Resp 20 B/P 117/55 Pulse Ox 96 O2 Delivery Nasal Cannula O2 Flow Rate 2.00 Intake and Output 12/03/16 00:00 Intake Total 540 ml Output Total 1850 ml Balance -1310 ml Weight (Pounds): 168 Weight (Ounces): 0.0 Weight (Calculated Kilograms): 76.458652 Constitutional: AAO x 3 other (frail) Respiratory: other (diminished bases bilat; poor inspiratory effort) Cardiovascular: regular rate-rhythm S1 and S2 systolic murmur (soft PABLO) Gastrointestional: No tender, soft other (thin) Extremities: no lower extremity edema bilateral Skin: No rash, No ulcerations Results/Procedures: Labs Laboratory Tests 12/02/16 15:41: Glucometer 148H 12/03/16 06:05: Anion Gap 7, BUN/Creatinine Ratio 21, Blood Urea Nitrogen 16, Calcium Level 8.2L , Carbon Dioxide Level 36H, Chloride Level 99, Creatinine 0.75, Estimat Glomerular Filtration Rate > 60, Glucose Level 117H, Magnesium Level 1.4L, Potassium Level 3.6, Sodium Level 142 12/03/16 06:10: Glucometer 121H Microbiology 12/01/16 MRSA Screen - Final, Complete MRSA not isolated Laboratory Tests 12/03/16 06:05 A/P: Assessment: Multifactorial dyspnea (see below) - improving Large left sided traumatic hemathorax; s/p thoracentesis on 11-25-16 L-sided pneumonia, likely d/t recent non-syncopal fall that led to L-sided rib fractures that led to poor insp (due to inspiratory pain) and bleeding - improved Probable septicemia at presentation Ac diastolic CHF - clinically improved. Echo of 11/25/16 shows LVEF 60-65%, mod AoV sclerosis and mod MAC w/o valvular stenosis, mild diastolic dysfunction of LV Failure to thrive (poor appetite, generally deteriorating clinical status) R lung squamous cell CA diagnosed in 2014 that has been treated surgically in [place], according to the patient. Apparently a new lung nodule is being followed by [facility] Multiple electrolyte abnormalities due to diuretic therapy PAF with RVR. Has h/o PAF that is followed by Dr. Marsh at [facility] in [place], [place]. Currently NSR with isolated PVCs Contraindications to full oral anticoagulation: h/o intracranial bleed requiring surgical intervention, multiple recent non-syncopal falls CAD with h/o stent placement to left Cx [place] [address] Christensen in [place], [place] H/o previous intracranial bleeding the details of which are unclear Propensity to falls (non-syncopal). A recent fall has led to rib contusions Anemia of undetermined etiology There is moderate left hydronephrosis with an stone probably causing the obstruction at the UPJ measuring 1.5 CM, per renal u/s - Urology services managing Nausea - being managed by medical services Chronically somewhat low blood pressure Plan: Continue current regimen Monitor labs Continue PT/OT for strengthening ERIK DOWLING MD FACP FAC CCDS Dec 03, 2016 10:52
--- NOTE | 2016-12-03 11:00 | Physical Therapy Daily Note ---
PT Daily Note-Current Subjective Pt reports he is feeling stronger today. Reports he is having no pain. Mental Status Attachments: Oxygen 3L/min Transfers 5 Functional [place] Measure 0=Not Assessed/NA 4=Minimal Assistance 1=Total Assistance 5=Supervision or Setup 2=Maximal Assistance 6=Modified [place] 3=Moderate Assistance 7=Complete IndependenceIRFPAI Quality Coding Scale 6 Independent with activity with or without an assistive device 5 Patient requires set up or clean up by helper. Patient completes activity by themselves 4 Supervision or touching assist (CGA). [place] provide cues , steadying assist 3 The helper provides less than half the effort to complete the activity 2 The helper provides more than half the effort to complete the activity 1 Dependent. The helper does all the effort to complete an activity 7 Patient refused to complete or attempt activity 9 The patient did not perform the activity before the current illness or injury 88 Not attempted due to Medical conditions or safety concerns Transfers (B, C, W/C) (FIM): 5 bed mobility is slow, supervision with input for sequence to increase ease of scooting to edge of bed Gait Training Gait (FIM): 4 Distance (FIM): 3=150 ft Distance: 350ft Gait Level of Assist: 4 Gait Persons Needed: 1 Gait Assistive Device: FWW CGA for balance concerns. Education to slow pace, stand upright, and breath controlled through the nose. Assessment Current Status: Good Progress Patient has shown progress in functional mobility and tolerance to activity. He will benefit from continued therapy to address gait and transfer safety. PT Custodial Goals Wet Pour Supervisor Goals PT Custodial Goals Time Frame: Dec 11, 2016 Transfers (B,C,W/C) (FIM): 6 Gait (FIM): 6 Gait distance (FIM): 3=150 ft Gait Assistive Device: FWW PT Plan Problem List Problem List: Activity Tolerance, Gait, Transfer Treatment/Plan Treatment Plan: Continue Plan of Care Treatment Plan: Bed Mobility, Education, Functional Activity Sherrell, Functional Strength, Gait, Safety, Therapeutic Exercise, Transfers Treatment Duration: Dec 11, 2016 Visits Per Week: 6 Safety Risks/Education Patient Education: Gait Training, Transfer Techniques Teaching Recipient: Patient Time/GCodes Time In: 1045 Time Out: 1100 Total Billed Treatment Time: 15 Total Billed Treatment visit, gait 15min G Codes Necessary: No JAEL ENGEL PT Dec 03, 2016 11:00
--- NOTE | 2016-12-03 11:12 | Progress Note-Urology ---
Progress Note-Urology Progress Notes/Assess & Plan Progress/Assessment & Plan RECOVERED WELL, NO COMPLAINTS OR PAIN, KUB GOOD FRAGMENTATION OF STONE, DISAGREE WITH RADIOLOGIST READING Final Diagnosis LT RENAL STONE DARNELL ULRICH MD Dec 03, 2016 11:12 am
[2016-12-03 12:42] VITALS: BP 100/50
--- NOTE | 2016-12-03 13:19 | Anesthesia-General Post-Op ---
General Patient Condition Mental Status/LOC: Same as Preop Cardiovascular: Satisfactory Nausea/Vomiting: Absent Respiratory: Satisfactory Pain: Controlled Complications: Absent Post Op Complications Complications None Follow Up Care/Instructions Patient Instructions None needed. Anesthesia/Patient Condition Patient Condition Patient is doing well, no complaints, stable vital signs, no apparent adverse anesthesia problems. IVANNA COREAS DO Dec 03, 2016 13:19
[2016-12-03 16:00] VITALS: BP 102/52
[2016-12-03 19:54] VITALS: BP 124/60
[2016-12-03] MEDS: PANTOPRAZOLE 40 MG (PROTONIX) TAB PO SCH (21:44)
[2016-12-03] MEDS: ATORVASTATIN 10 MG (LIPITOR) TABLET PO SCH (21:44)
[2016-12-03] MEDS: LIDOCAINE PATCH REMOVAL TP SCH (21:52)
[2016-12-04 00:41] VITALS: BP 116/58
[2016-12-04 05:30] VITALS: BP 129/59
[2016-12-04] MEDS: RT-ALBUTEROL/IPRATROPIUM 3 ML (DUONEB) VIAL IH SCH ×3 (06:46→20:27)
[2016-12-04] MEDS: MULTIVIT W/MINERALS TAB (THERAGRAN M) PO SCH (06:55)
[2016-12-04] MEDS: metFORMIN 500 MG (GLUCOPHAGE) TAB PO SCH (06:55)
[2016-12-04] MEDS: CATHETER FLUSH 10 ML SYR IV SCH ×3 (06:55→22:05)
[2016-12-04] MEDS: CALCIUM CARB + VIT D 600 MG (CALCARB + D) TAB PO SCH (06:55)
[2016-12-04 08:00] VITALS: BP 137/64
[2016-12-04] MEDS: LEVOTHYROXINE 50 MCG (LEVOTHROID) TAB PO SCH (08:33)
[2016-12-04] MEDS: SOTALOL 80 MG (BETAPACE) TAB PO SCH ×2 (08:33→21:56)
[2016-12-04] MEDS: CYANOCOBALAMIN 500 MCG TAB (VITAMIN B-12) PO SCH (08:34)
[2016-12-04] MEDS: FOLIC ACID 1 MG TAB PO SCH (08:34)
[2016-12-04] MEDS: DILTIAZEM 180 MG (CARDIZEM CD) CAP PO SCH (08:34)
[2016-12-04] MEDS: LACTOBACILLUS Acidoph/Bulgar (LACTINEX/FLORANEX) TAB PO SCH ×3 (08:34→21:56)
[2016-12-04] MEDS: LEVETIRACETAM 500 MG (KEPPRA) TAB PO SCH ×2 (08:34→21:56)
[2016-12-04] MEDS: guaiFENesin (MUCINEX) 600 MG TAB PO SCH ×2 (08:34→21:56)
[2016-12-04] MEDS: DOCUSATE SODIUM 100 MG (COLACE) CAP PO SCH (08:34)
[2016-12-04] MEDS: SENNA W/DOCUSATE (SENOKOT S) TABLET PO SCH (08:34)
[2016-12-04] MEDS: LIDOCAINE (LIDODERM) 5% PATCH TP SCH (08:38)
[2016-12-04] MEDS: MUPIROCIN 2% OINT 22 GM (BACTROBAN) TUBE NSEACH SCH ×2 (08:40→22:05)
[2016-12-04] MEDS ORDERED: FAMOTIDINE 20 MG (PEPCID) TABLET PO NR (09:45)
--- NOTE | 2016-12-04 11:17 | Progress Note (SOAP) ---
Subjective Subjective/Events-last exam PT REPORTS FEELING WEAK, BUT BETTER, HE SLEPT BETTER LAST NIGHT. HE REPORTS HIS STOOLS ARE STILL SOFT/LOOSE. HE DENIES ABDOMINAL PAIN, NAUSEA. Review of Systems General: Fatigue HEENT: No Head Aches Pulmonary: No Dyspnea, Cough Pleuritic Chest Pain Cardiovascular: No: Chest Pain Gastrointestinal: : DiarrheaNo: Abdominal Pain, Nausea Genitourinary: Frequency Neurological: : WeaknessNo: Confusion Objective Exam Vital Signs Date Time Temp Pulse Resp B/P Pulse Ox O2 Delivery O2 Flow Rate FiO2 12/04/16 08:00 97.6 74 24 137/64 95 Nasal Cannula 3.00 12/04/16 06:48 96 3.00 12/04/16 05:30 98.7 70 22 129/59 97 Nasal Cannula 2.50 12/04/16 01:00 76 12/04/16 00:41 97.9 69 18 116/58 95 Nasal Cannula 3.00 12/03/16 21:00 Nasal Cannula 2.00 12/03/16 19:54 98.1 78 20 124/60 98 Nasal Cannula 2.00 12/03/16 19:40 95 3.00 12/03/16 19:00 78 12/03/16 16:00 98.4 73 16 102/52 93 Nasal Cannula 2.00 12/03/16 15:25 92 3.00 12/03/16 13:24 72 12/03/16 12:42 97.5 75 24 100/50 93 Nasal Cannula 2.00 I & O 12/04/16 07:00 Intake Total 1200 ml Output Total 1550 ml Balance -350 ml Capillary Refill : General Appearance: WD/WN Chronically ill Thin HEENT: PERRL/EOMI Neck: Supple Respiratory: Chest Non Tender Crackles (IN BASES) Decreased Breath Sounds Cardiovascular: Irregularly Irregular Gastrointestinal: normal bowel sounds non tender soft Extremity: Normal Capillary Refill No Calf Tenderness No Pedal Edema Neurologic/Psychiatric: Alert Oriented x3 No Motor/Sensory Deficits Normal Mood/Affect Skin: Warm/Dry Lymphatic: No Adenopathy Results Lab Laboratory Tests 12/03/16 15:24: Glucometer 166H Microbiology 12/01/16 MRSA Screen - Final, Complete MRSA not isolated Assessment/Plan Assessment/Plan Assess & Plan/Chief Complaint PNEUMONIA PLEURAL EFFUSION RIB PAIN ON LEFT RIB FRACTURES ATRIAL FIBRILLATION DIABETES MELLITUS HX LUNG CANCER WITH NEW NODULE ON CT SCAN CHRONIC DIZZINESS NAUSEA KIDNEY STONE PNEUMONIA - ON PNEUMONIA PROTOCOL, MONITOR SYMPTOMS - REPEAT CHEST XRAY - PLEURAL EFFUSION - POST THORACENTESIS - PIG-TAIL CATHETER REMOVED RIB PAIN ON LEFT - DUE TO RIB FRACTURES - LIDODERM PATCH, CONTINUE WITH PRN ORAL PAIN MEDICATIONS ATRIAL FIBRILLATION -RATE CONTROLLED - DEFER TREATMENT TO DR. DOWLING. 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 ULRICH - PT IS POST LITHOTRIPSY - DID WELL , DENIES PAIN LOOSE STOOLS - STOP METFORMIN - MONITOR STOOLS - DOSE OF PEPTOBISMOL GIVEN TO PATIENT Clinical Quality Measures DVT/VTE Risk/Contraindication: Contraindications-Pharm: Other *list below* Other: PROCEDURES PLANNED AND PT CANNOT TAKE ORAL OR INJECTABLE OR IV MEDIATION THAT THINS BLOOD PRIOR TO LITHOTRIPSY GUTIERREZ PHAM MD Dec 04, 2016 11:17
--- NOTE | 2016-12-04 11:25 | Physical Therapy Daily Note ---
PT Daily Note-Current Subjective Patient is in bed and agrees to PT. Pain Numeric Pain Scale: 0-No Pain Location: No Pain Reported Mental Status Patient Orientation: Normal For Age Attachments: Oxygen Transfers Functional [place] Measure 0=Not Assessed/NA 4=Minimal Assistance 1=Total Assistance 5=Supervision or Setup 2=Maximal Assistance 6=Modified [place] 3=Moderate Assistance 7=Complete IndependenceIRFPAI Quality Coding Scale 6 Independent with activity with or without an assistive device 5 Patient requires set up or clean up by helper. Patient completes activity by themselves 4 Supervision or touching assist (CGA). [place] provide cues , steadying assist 3 The helper provides less than half the effort to complete the activity 2 The helper provides more than half the effort to complete the activity 1 Dependent. The helper does all the effort to complete an activity 7 Patient refused to complete or attempt activity 9 The patient did not perform the activity before the current illness or injury 88 Not attempted due to Medical conditions or safety concerns Transfers (B, C, W/C) (FIM): 5 Scootin Roll Left to Right (QC): 5 Supine to/from Sit: 5 Sit to/from Stand: 5 Sit to Lying (QC): 5 Sit to Stand (QC): 5 Chair/Voe-es-Zzcde Xfer(QC): 5 Bed to/from Chair: 5 Gait Training Does the Patient Walk?: Yes Gait (FIM): 5 Distance (FIM): 3=150 ft Distance: 450' Walk 50 ft with 2 Turns(QC): 5 Walk 150 ft (QC): 5 Gait Level of Assist: 5 Gait Assistive Device: FWW trunk flexed posture with FWW Exercises Seated Therapy Exercises: Ankle pumps, Long arc quads, Hip flexion Seated Reps: 25 (bilaterally) Assessment Patient tolerated treatment well and is up in recliner with OT present. PT Real Estate Services Administrator Goals Real Estate Services Administrator Goals PT Nursing Home Goals Time Frame: Dec 11, 2016 Transfers (B,C,W/C) (FIM): 6 Sit to Lying (QC): 6 Lying-Sitting on Side/Bed(QC): 6 Sit to Stand (QC): 6 Chair/Snp-sd-Ixxoy Xfer(QC): 6 Does the Patient Walk: Yes Gait (FIM): 6 Gait distance (FIM): 3=150 ft Walk 50ft with 2 Turns (QC): 6 Walk 150 ft (QC): 6 Gait Assistive Device: FWW PT Plan Treatment/Plan Treatment Plan: Continue Plan of Care Treatment Plan: Bed Mobility, Education, Functional Activity Sherrell, Functional Strength, Gait, Safety, Therapeutic Exercise, Transfers Treatment Duration: Dec 11, 2016 Visits Per Week: 6 Safety Risks/Education Patient Education: Safety Issues Teaching Recipient: Patient Teaching Methods: Discussion Response to Teaching: Verbalize Understanding, Reinforcement Needed Discharge Recommendations Therapy D/C Recommendations: Alf Placement Time/GCodes Time In: 1057 Time Out: 1112 Total Billed Treatment Time: 15 Total Billed Treatment 1 visit FA 15 min SAVAGE TREVINO PT Dec 04, 2016 11:25
--- NOTE | 2016-12-04 11:29 | Occupational Ther Daily Note ---
OT Current Status-Daily Note Subjective Pt alert, sitting in chair. Finishing up with PT. Pt agreed to therapy. No c/ o pain Mental Status/Objective Patient Orientation: Person, Place, Time, Situation Functional [place] Measure 0=Not Assessed/NA 4=Minimal Assistance 1=Total Assistance 5=Supervision or Setup 2=Maximal Assistance 6=Modified [place] 3=Moderate Assistance 7=Complete [place] Attachments: IV, Oxygen, Telemetry ADL-Treatment After set up, pt able to bathe upper body by self then SBA to bathe grupo area/ buttocks in standing using FWW. Bathed lower body in sitting by self. Pt able to wash hands and face. Pt requested rest break to catch breath. Nrsg came in and needed to set up IV for pt. Pt requested to use bathroom then ambulated with SBA using FWW to toilet and transferred to toilet with SBA using FWW and grabbar. Pt completed toileting by self, manipulated hospital gown for toileting. Pt then ambulated back to bed and got into bed by self. After therapy, pt lying in bed with call light/phone in reach. Nrsg present in room, all needs met in room. Functional [place] Measure 0=Not Assessed/NA 4=Minimal Assistance 1=Total Assistance 5=Supervision or Setup 2=Maximal Assistance 6=Modified [place] 3=Moderate Assistance 7=Complete IndependenceIRFPAI Quality Coding Scale 6 Independent with activity with or without an assistive device 5 Patient requires set up or clean up by helper. Patient completes activity by themselves 4 Supervision or touching assist (CGA). [place] provide cues , steadying assist 3 The helper provides less than half the effort to complete the activity 2 The helper provides more than half the effort to complete the activity 1 Dependent. The helper does all the effort to complete an activity 7 Patient refused to complete or attempt activity 9 The patient did not perform the activity before the current illness or injury 88 Not attempted due to Medical conditions or safety concerns Grooming (FIM): 5 Oral Hygiene (QC): 5 Bathing (FIM): 5 Toileting (FIM): 5 Toileting Hygiene (QC): 5 Transfers (B, C, W/C) (FIM): 5 Toilet/Commode Transfer (FIM): 5 Toilet Transfer (QC): 5 OT Short Term Goals Short Term Goals 1=Demonstrate adherence to instructed precautions during ADL tasks. 2=Patient will verbalize/demonstrate understanding of assistive devices/ modifications for ADL. 3=Patient will improve strength/tolerance for activity to enable patient to perform ADL's. OT Jail Goals Agricultural Inspector Goals Time Frame: Dec 15, 2016 Eating (FIM): 6 Eating (QC): 6 Groomin Oral Hygiene (QC): 6 Bathing(FIM): 5 Upper Body Dressing(FIM): 6 Lower Body Dressing(FIM): 5 Toileting(FIM): 6 Toileting Hygiene (QC): 6 Toilet/Commode Transfer(FIM): 6 Toilet/Commode Transfer (QC): 6 Additional Goals: 1-Demonstrate ADL Tasks, 2-Verbalize Understanding, 3- ImproveStrength/Sherrell 1=Demonstrate adherence to instructed precautions during ADL tasks. 2=Patient will verbalize/demonstrate understanding of assistive devices/ modifications for ADL. 3=Patient will improve strength/tolerance for activity to enable patient to perform ADL's. OT Education/Plan Problem List/Assessment Pt to benefit from skilled OT intervention while on SWB to increase functional independence and allow safe discharge plan. Discharge Recommendations Plan/Recommendations: Continue POC Treatment Plan/Plan of Care Patient would benefit from OT for education, treatment and training to promote independence in ADL's, mobility, safety and/or upper extremity function for ADL' s. Plan of Care: ADL Retraining, Functional Mobility, UE Funct Exercise/Act Treatment Duration: Dec 15, 2016 Visits Per Week: 5 Agreement: Yes Rehab Potential: Good Time/GCodes Start Time: 11:15 Stop Time: 11:38 Total Time Billed (hr/min): 23 Billed Treatment Time 1 visit-ADL 2 (23 min) ERIC GREENE Dec 04, 2016 11:29
[2016-12-04] MEDS: MAGNESIUM 1 GM/100 ML IVPB 100 ML IV SCH ×2 (11:35→11:40)
--- NOTE | 2016-12-04 11:57 | Progress Note-Cardiology ---
Cardiology SOAP Progress Note Subjective: In bed resting. Denies any c/o CP, SOB, palpitations, syncope or near syncope. States he feels well this morning. Objective: I&O/Vital Signs Vital Sign - Last 12Hours 12/04/16 12/04/16 12/04/16 12/04/16 05:30 06:48 08:00 12:00 Temp 98.7 97.6 97.1 Pulse 70 74 77 Resp 22 24 26 B/P 129/59 137/64 111/56 Pulse Ox 97 96 95 93 O2 Delivery Nasal Cannula Nasal Cannula Nasal Cannula O2 Flow Rate 2.50 3.00 3.00 3.00 12/04/16 13:59 Pulse Ox 94 O2 Flow Rate 3.00 Intake and Output 12/04/16 00:00 Intake Total 1080 ml Output Total 850 ml Balance 230 ml Weight (Pounds): 168 Weight (Ounces): 0.0 Weight (Calculated Kilograms): [id number] Constitutional: AAO x 3 other (frail) Respiratory: other (diminished bases bilat) Cardiovascular: regular rate-rhythm S1 and S2 systolic murmur (soft PABLO) Gastrointestional: No tender, soft other (thin) Extremities: no lower extremity edema bilateral Skin: No rash, No ulcerations Results/Procedures: Labs Laboratory Tests 12/03/16 15:24: Glucometer 166H 12/04/16 06:23: Glucometer 140H Microbiology 12/01/16 MRSA Screen - Final, Complete MRSA not isolated A/P: Assessment: Multifactorial dyspnea (see below) - improving Large left sided traumatic hemathorax; s/p thoracentesis on 11-25-16 L-sided pneumonia, likely d/t recent non-syncopal fall that led to L-sided rib fractures that led to poor insp (due to inspiratory pain) and bleeding - improved Probable septicemia at presentation Ac diastolic CHF - clinically improved. Echo of 11/25/16 shows LVEF 60-65%, mod AoV sclerosis and mod MAC w/o valvular stenosis, mild diastolic dysfunction of LV Failure to thrive (poor appetite, generally deteriorating clinical status) R lung squamous cell CA diagnosed in 2014 that has been treated surgically in [place], according to the patient. Apparently a new lung nodule is being followed by [facility] Multiple electrolyte abnormalities due to diuretic therapy PAF with RVR. Has h/o PAF that is followed by Dr. Marsh at [facility] in [place], [place]. Currently NSR with isolated PVCs Contraindications to full oral anticoagulation: h/o intracranial bleed requiring surgical intervention, multiple recent non-syncopal falls CAD with h/o stent placement to left Cx in [place] [address] Christensen in [place], [place] H/o previous intracranial bleeding the details of which are unclear Propensity to falls (non-syncopal). A recent fall has led to rib contusions Anemia of undetermined etiology There is moderate left hydronephrosis with an stone probably causing the obstruction at the UPJ measuring 1.5 CM, per renal u/s - Urology services managing Plan: Continue current regimen Monitor labs Continue PT/OT for strengthening Physician Assessment Physician Assessment Lungs: fair air entry Cor: reg A&R * As documented in our note above RADHA MCMAHON Dec 04, 2016 11:57 ERIK DOWLING MD FACP FAC CCDS Dec 04, 2016 14:47 Continue PT/OT for strengthening RADHA MCMAHON Dec 04, 2016 11:57
[2016-12-04 12:00] VITALS: BP 111/56
[2016-12-04 16:00] VITALS: BP 132/61
[2016-12-04 20:26] VITALS: BP 112/57
[2016-12-04] MEDS: ATORVASTATIN 10 MG (LIPITOR) TABLET PO SCH (21:56)
[2016-12-04] MEDS: PANTOPRAZOLE 40 MG (PROTONIX) TAB PO SCH (21:56)
[2016-12-04] MEDS: LIDOCAINE PATCH REMOVAL TP SCH (22:04)
[2016-12-05] VITALS: BP 115/60
[2016-12-05 04:00] VITALS: BP 126/59
[2016-12-05] MEDS: CATHETER FLUSH 10 ML SYR IV SCH ×3 (06:00→22:00)
[2016-12-05] MEDS: MULTIVIT W/MINERALS TAB (THERAGRAN M) PO SCH (06:41)
[2016-12-05] MEDS: CALCIUM CARB + VIT D 600 MG (CALCARB + D) TAB PO SCH (06:41)
[2016-12-05 06:55] LABS: MEAN PLATELET VOLUME 9.7 FL (7.4-10.4); RED BLOOD COUNT 3.2 10^6/uL (4.35-5.85); RED CELL DISTRIBUTION WIDTH 14.6 % (10.0-14.5); WHITE BLOOD COUNT 8.6 10^3/uL (4.3-11.0)
[2016-12-05 07:12] LABS: ALANINE AMINOTRANSFERASE 10 U/L (0-55); ALBUMIN 2.5 G/DL (3.2-4.5); ANION GAP 7 MMOL/L (5-14); ASPARTATE AMINO TRANSFERASE 16 U/L (5-34); BILIRUBIN,TOTAL 0.5 MG/DL (0.1-1.0); BLOOD UREA NITROGEN 18 MG/DL (7-18); BUN/CREATININE RATIO 26; CALCIUM 8.2 MG/DL (8.5-10.1); CARBON DIOXIDE 37 MMOL/L (21-32); CHLORIDE 98 MMOL/L (98-107); CREATININE SERUM 0.69 MG/DL (0.60-1.30); GFR ESTIMATED > 60; GLUCOSE 138 MG/DL (70-105); MAGNESIUM 1.6 MG/DL (1.8-2.4); POTASSIUM 3.6 MMOL/L (3.6-5.0); SODIUM 142 MMOL/L (135-145); TOTAL PROTEIN 5.1 G/DL (6.4-8.2)
[2016-12-05] MEDS: RT-ALBUTEROL/IPRATROPIUM 3 ML (DUONEB) VIAL IH SCH ×3 (07:37→20:04)
[2016-12-05] MEDS: DILTIAZEM 180 MG (CARDIZEM CD) CAP PO SCH (08:21)
[2016-12-05] MEDS: FOLIC ACID 1 MG TAB PO SCH (08:21)
[2016-12-05] MEDS: CYANOCOBALAMIN 500 MCG TAB (VITAMIN B-12) PO SCH (08:21)
[2016-12-05] MEDS: SOTALOL 80 MG (BETAPACE) TAB PO SCH ×2 (08:21→20:35)
[2016-12-05] MEDS: guaiFENesin (MUCINEX) 600 MG TAB PO SCH ×2 (08:21→20:35)
[2016-12-05] MEDS: LEVETIRACETAM 500 MG (KEPPRA) TAB PO SCH ×2 (08:21→20:35)
[2016-12-05] MEDS: LACTOBACILLUS Acidoph/Bulgar (LACTINEX/FLORANEX) TAB PO SCH ×3 (08:21→20:35)
[2016-12-05] MEDS: DOCUSATE SODIUM 100 MG (COLACE) CAP PO SCH (08:21)
[2016-12-05] MEDS: LIDOCAINE (LIDODERM) 5% PATCH TP SCH (08:21)
[2016-12-05] MEDS: LEVOTHYROXINE 50 MCG (LEVOTHROID) TAB PO SCH (08:22)
[2016-12-05] MEDS: MUPIROCIN 2% OINT 22 GM (BACTROBAN) TUBE NSEACH SCH ×2 (08:24→20:35)
[2016-12-05 08:39] VITALS: BP 139/70
--- NOTE | 2016-12-05 11:17 | Physical Therapy Daily Note ---
PT Daily Note-Current Subjective Pt in bed, agreeable. "I'm ready". No c/o pain. Mental Status Patient Orientation: Person, Place, Time, Situation Transfers Functional [place] Measure 0=Not Assessed/NA 4=Minimal Assistance 1=Total Assistance 5=Supervision or Setup 2=Maximal Assistance 6=Modified [place] 3=Moderate Assistance 7=Complete IndependenceIRFPAI Quality Coding Scale 6 Independent with activity with or without an assistive device 5 Patient requires set up or clean up by helper. Patient completes activity by themselves 4 Supervision or touching assist (CGA). Elizabeth provide cues , steadying assist 3 The helper provides less than half the effort to complete the activity 2 The helper provides more than half the effort to complete the activity 1 Dependent. The helper does all the effort to complete an activity 7 Patient refused to complete or attempt activity 9 The patient did not perform the activity before the current illness or injury 88 Not attempted due to Medical conditions or safety concerns Transfers (B, C, W/C) (FIM): 5 Supine to/from Sit: 5 Sit to/from Stand: 5 Weight Bearing Weight Bearing Restriction: Full Weight Bearing Location Restriction: LE Bilateral Gait Training Does the Patient Walk?: Yes Gait (FIM): 5 Distance (FIM): 3=150 ft Distance: 450 Walk 50 ft with 2 Turns(QC): 4 Walk 150 ft (QC): 4 Gait Level of Assist: 5 Gait Persons Needed: 1 Gait Assistive Device: FWW Pt ambulates with flexed posture, shuffling gait. No kristina LOB but does require supervision and occasional VCS for safety as he is mildly impulsive when approaching bed, going through fire door. Wheelchair Training Does the Pt Use a Wheelchair?: No Treatments Gait training with FWW. Pt returned to bed with all needs met, rails up. Assessment Current Status: Good Progress Pt tolerated well. Mild safety awareness deficits. PT Care Home Goals Care Home Goals PT Care Home Goals Time Frame: Dec 11, 2016 Transfers (B,C,W/C) (FIM): 6 Sit to Lying (QC): 6 Lying-Sitting on Side/Bed(QC): 6 Sit to Stand (QC): 6 Chair/Fsh-fb-Xukjn Xfer(QC): 6 Does the Patient Walk: Yes Gait (FIM): 6 Gait distance (FIM): 3=150 ft Walk 50ft with 2 Turns (QC): 6 Walk 150 ft (QC): 6 Gait Assistive Device: FWW PT Plan Problem List Problem List: Activity Tolerance, Functional Strength, Safety, Balance, Gait, Transfer, Bed Mobility Treatment/Plan Treatment Plan: Continue Plan of Care Treatment Plan: Bed Mobility, Education, Functional Activity Sherrell, Functional Strength, Gait, Safety, Therapeutic Exercise, Transfers Treatment Duration: Dec 11, 2016 Visits Per Week: 6 Pt/Family Agrees w/Plan: Yes Safety Risks/Education Patient Education: Safety Issues Teaching Recipient: Patient Teaching Methods: Discussion Response to Teaching: Reinforcement Needed Time/GCodes Time In: 1008 Time Out: 1025 Total Billed Treatment Time: 17 Total Billed Treatment 1, GT x 17' G Codes Necessary: YONAS Mathis DPArpan Dec 05, 2016 11:17
[2016-12-05 12:00] VITALS: BP 132/60
[2016-12-05 16:56] VITALS: BP 129/62
[2016-12-05 20:35] VITALS: BP 135/60
[2016-12-05] MEDS: ATORVASTATIN 10 MG (LIPITOR) TABLET PO SCH (20:35)
[2016-12-05] MEDS: PANTOPRAZOLE 40 MG (PROTONIX) TAB PO SCH (20:35)
[2016-12-05] MEDS: LIDOCAINE PATCH REMOVAL TP SCH (20:37)
[2016-12-06] VITALS: BP 149/67
[2016-12-06 04:00] VITALS: BP 124/60
[2016-12-06] MEDS: CATHETER FLUSH 10 ML SYR IV SCH ×3 (06:34→22:10)
[2016-12-06] MEDS: MULTIVIT W/MINERALS TAB (THERAGRAN M) PO SCH (06:34)
[2016-12-06] MEDS: CALCIUM CARB + VIT D 600 MG (CALCARB + D) TAB PO SCH (06:34)
[2016-12-06] MEDS: RT-ALBUTEROL/IPRATROPIUM 3 ML (DUONEB) VIAL IH SCH ×3 (08:33→20:11)
[2016-12-06] MEDS: LIDOCAINE (LIDODERM) 5% PATCH TP SCH (08:35)
[2016-12-06] MEDS: LEVETIRACETAM 500 MG (KEPPRA) TAB PO SCH ×2 (08:36→22:09)
[2016-12-06] MEDS: SOTALOL 80 MG (BETAPACE) TAB PO SCH ×2 (08:36→22:09)
[2016-12-06] MEDS: guaiFENesin (MUCINEX) 600 MG TAB PO SCH ×2 (08:36→22:09)
[2016-12-06] MEDS: FOLIC ACID 1 MG TAB PO SCH (08:36)
[2016-12-06] MEDS: DOCUSATE SODIUM 100 MG (COLACE) CAP PO SCH (08:36)
[2016-12-06] MEDS: DILTIAZEM 180 MG (CARDIZEM CD) CAP PO SCH (08:36)
[2016-12-06] MEDS: LACTOBACILLUS Acidoph/Bulgar (LACTINEX/FLORANEX) TAB PO SCH ×3 (08:36→22:09)
[2016-12-06] MEDS: CYANOCOBALAMIN 500 MCG TAB (VITAMIN B-12) PO SCH (08:36)
[2016-12-06] MEDS: MUPIROCIN 2% OINT 22 GM (BACTROBAN) TUBE NSEACH SCH ×2 (08:37→22:16)
[2016-12-06 08:50] VITALS: BP 90/54
[2016-12-06] MEDS: LORazepam 0.5 MG (ATIVAN) TABLET PO PRN ×2 (09:20→14:37)
[2016-12-06] MEDS: LEVOTHYROXINE 50 MCG (LEVOTHROID) TAB PO SCH (09:20)
[2016-12-06 12:20] VITALS: BP 128/62
[2016-12-06 16:00] VITALS: BP 141/64
[2016-12-06 20:00] VITALS: BP 162/74
[2016-12-06] MEDS: LIDOCAINE PATCH REMOVAL TP SCH (20:46)
[2016-12-06] MEDS: PANTOPRAZOLE 40 MG (PROTONIX) TAB PO SCH (22:09)
[2016-12-06] MEDS: ATORVASTATIN 10 MG (LIPITOR) TABLET PO SCH (22:09)
[2016-12-07 01:30] VITALS: BP 128/63
[2016-12-07 04:20] VITALS: BP 135/63
[2016-12-07] MEDS: CATHETER FLUSH 10 ML SYR IV SCH ×3 (06:05→20:33)
[2016-12-07] MEDS: MULTIVIT W/MINERALS TAB (THERAGRAN M) PO SCH (06:05)
[2016-12-07] MEDS: CALCIUM CARB + VIT D 600 MG (CALCARB + D) TAB PO SCH (06:05)
[2016-12-07] MEDS: RT-ALBUTEROL/IPRATROPIUM 3 ML (DUONEB) VIAL IH SCH ×3 (07:19→19:49)
[2016-12-07 07:54] VITALS: BP 136/67
[2016-12-07] MEDS: FOLIC ACID 1 MG TAB PO SCH (08:44)
[2016-12-07] MEDS: guaiFENesin (MUCINEX) 600 MG TAB PO SCH ×2 (08:44→20:33)
[2016-12-07] MEDS: LEVOTHYROXINE 50 MCG (LEVOTHROID) TAB PO SCH (08:44)
[2016-12-07] MEDS: DILTIAZEM 180 MG (CARDIZEM CD) CAP PO SCH (08:44)
[2016-12-07] MEDS: SOTALOL 80 MG (BETAPACE) TAB PO SCH ×2 (08:44→20:33)
[2016-12-07] MEDS: LACTOBACILLUS Acidoph/Bulgar (LACTINEX/FLORANEX) TAB PO SCH ×3 (08:45→20:32)
[2016-12-07] MEDS: LIDOCAINE (LIDODERM) 5% PATCH TP SCH (08:45)
[2016-12-07] MEDS: DOCUSATE SODIUM 100 MG (COLACE) CAP PO SCH (08:45)
[2016-12-07] MEDS: LEVETIRACETAM 500 MG (KEPPRA) TAB PO SCH ×2 (08:45→20:33)
[2016-12-07] MEDS: MUPIROCIN 2% OINT 22 GM (BACTROBAN) TUBE NSEACH SCH ×2 (08:46→20:30)
[2016-12-07] MEDS: CYANOCOBALAMIN 500 MCG TAB (VITAMIN B-12) PO SCH (08:48)
--- NOTE | 2016-12-07 09:28 | Progress Note (SOAP) ---
Subjective Subjective/Events-last exam PT REPORTS FEELING FATIGUED, HE STATES THAT HE HAS A GOOD APPETITE, JUST HATES THE FOOD IN THE HOSPITAL. STAFF REPORTS THAT HE WAS BROUGHT IN OUTSIDE FOOD AND ATE WELL ON WEDNESDAY. HE STATES THAT HE THINKS THAT HE IS WEAK BUT GETTING BETTER Review of Systems General: Fatigue HEENT: No Head Aches Pulmonary: DyspneaNo Cough Cardiovascular: No: Chest Pain, Palpitations Gastrointestinal: No: Abdominal Pain, Diarrhea, Nausea Genitourinary: Frequency Neurological: : WeaknessNo: Confusion Objective Exam Vital Signs Date Time Temp Pulse Resp B/P Pulse Ox O2 Delivery O2 Flow Rate FiO2 12/07/16 07:54 96.9 79 20 136/67 96 Nasal Cannula 2.50 12/07/16 07:19 97 2.00 12/07/16 07:00 69 12/07/16 04:20 97.0 68 20 135/63 97 Nasal Cannula 2.00 12/07/16 01:30 96.8 76 22 128/63 96 Nasal Cannula 2.00 12/07/16 00:52 83 12/06/16 20:11 96 2.00 12/06/16 20:00 96.1 73 20 162/74 94 Nasal Cannula 2.50 12/06/16 20:00 Nasal Cannula 2.00 12/06/16 19:00 70 12/06/16 16:00 95.0 69 18 141/64 95 Nasal Cannula 2.50 12/06/16 13:00 77 12/06/16 12:20 96.4 68 21 128/62 91 Nasal Cannula 2.50 I & O 12/07/16 07:00 Intake Total 690 ml Output Total 950 ml Balance -260 ml Capillary Refill : General Appearance: WD/WN Thin HEENT: PERRL/EOMI Pharynx Normal Neck: Full Range of Motion Supple Respiratory: Chest Non Tender Crackles (FAINT IN BASES BILATERALLY) Cardiovascular: Irregularly Irregular Gastrointestinal: normal bowel sounds non tender soft no pulsatile mass Extremity: Normal Capillary Refill Non Tender No Calf Tenderness No Pedal Edema Neurologic/Psychiatric: Alert Oriented x3 Normal Mood/Affect Skin: Warm/Dry Lymphatic: No Adenopathy Results Lab Laboratory Tests 12/06/16 17:37: Glucometer 142H 12/07/16 06:50: Glucometer 127H Microbiology 12/01/16 MRSA Screen - Final, Complete MRSA not isolated Assessment/Plan Assessment/Plan Assess & Plan/Chief Complaint PNEUMONIA PLEURAL EFFUSION RIB PAIN ON LEFT RIB FRACTURES ATRIAL FIBRILLATION DIABETES MELLITUS HX LUNG CANCER WITH NEW NODULE ON CT SCAN CHRONIC DIZZINESS NAUSEA KIDNEY STONE PNEUMONIA - ON PNEUMONIA PROTOCOL, MONITOR SYMPTOMS - REPEAT CHEST XRAY - RESOLVED ON LAST IMAGING PLEURAL EFFUSION - POST THORACENTESIS - PIG-TAIL CATHETER REMOVED AND PT DOING WELL POST CATHETER REMOVAL. RIB PAIN ON LEFT - DUE TO RIB FRACTURES - LIDODERM PATCH, CONTINUE WITH PRN ORAL PAIN MEDICATIONS ATRIAL FIBRILLATION -RATE CONTROLLED - DEFER TREATMENT TO DR. DOWLING. 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 ULRICH - PT IS POST LITHOTRIPSY - DID WELL , DENIES PAIN LOOSE STOOLS - STOPPED METFORMIN -STOOLS MORE SOLID OVER THE WEEKEND. Clinical Quality Measures DVT/VTE Risk/Contraindication: Contraindications-Pharm: Other *list below* Other: PROCEDURES PLANNED AND PT CANNOT TAKE ORAL OR INJECTABLE OR IV MEDIATION THAT THINS BLOOD PRIOR TO LITHOTRIPSY GUTIERREZ PHAM MD Dec 07, 2016 09:27
[2016-12-07] MEDS ORDERED: NYSTATIN ORAL SUSP 5 ML UDC PO NR (09:30)
[2016-12-07] MEDS ORDERED: fluCOnazole (DIFLUCAN) 100 MG TAB PO NR (09:30)
--- NOTE | 2016-12-07 10:47 | Physical Therapy Daily Note ---
PT Daily Note-Current Subjective Pt supine in bed upon arrival. Pt agrees to ambulation for PT tx. Pain Location: No Pain Reported Mental Status Patient Orientation: Person, Place Attachments: Oxygen Transfers Functional [place] Measure 0=Not Assessed/NA 4=Minimal Assistance 1=Total Assistance 5=Supervision or Setup 2=Maximal Assistance 6=Modified [place] 3=Moderate Assistance 7=Complete IndependenceIRFPAI Quality Coding Scale 6 Independent with activity with or without an assistive device 5 Patient requires set up or clean up by helper. Patient completes activity by themselves 4 Supervision or touching assist (CGA). [place] provide cues , steadying assist 3 The helper provides less than half the effort to complete the activity 2 The helper provides more than half the effort to complete the activity 1 Dependent. The helper does all the effort to complete an activity 7 Patient refused to complete or attempt activity 9 The patient did not perform the activity before the current illness or injury 88 Not attempted due to Medical conditions or safety concerns Transfers (B, C, W/C) (FIM): 4 Scootin Roll Left to Right (QC): 5 Supine to/from Sit: 5 Sit to/from Stand: 4 Sit to Lying (QC): 4 Sit to Stand (QC): 4 Chair/Eto-ta-Nxrmv Xfer(QC): 4 Bed to/from Chair: 4 Weight Bearing Weight Bearing Restriction: Full Weight Bearing Location Restriction: LE Bilateral Gait Training Does the Patient Walk?: Yes Gait (FIM): 4 Distance (FIM): 3=150 ft Distance: 200' Walk 50 ft with 2 Turns(QC): 4 Walk 150 ft (QC): 4 Gait Level of Assist: 4 Gait Persons Needed: 1 Gait Assistive Device: FWW Pt's rogers is slow but steady with no LOB. Wheelchair Training Does the Pt Use a Wheelchair?: No Treatments Pt transfers at SBA from seated surface. Pt ambulates using FWW at [employer]. Pt returns to room to rest and transfers to recliner before deciding pt wants to return to bed. Pt is EOB with all needs met at end of tx with nursing present giving sponge bath. Assessment Current Status: Fair Progress Pt has lack of motivation to ambulate although ambulates at [employer] for 200' when up before fatiguing. PT Mcc Goals Mcc Goals PT Owner Consulting Engineer Goals Time Frame: Dec 11, 2016 Transfers (B,C,W/C) (FIM): 6 Sit to Lying (QC): 6 Lying-Sitting on Side/Bed(QC): 6 Sit to Stand (QC): 6 Chair/Lst-xg-Jmnsi Xfer(QC): 6 Does the Patient Walk: Yes Gait (FIM): 6 Gait distance (FIM): 3=150 ft Walk 50ft with 2 Turns (QC): 6 Walk 150 ft (QC): 6 Gait Assistive Device: FWW PT Plan Problem List Problem List: Activity Tolerance, Functional Strength, Safety, Balance, Gait, Transfer Treatment/Plan Treatment Plan: Continue Plan of Care Treatment Plan: Bed Mobility, Education, Functional Activity Sherrell, Functional Strength, Gait, Safety, Therapeutic Exercise, Transfers Treatment Duration: Dec 11, 2016 Visits Per Week: 6 Safety Risks/Education Patient Education: Gait Training, Transfer Techniques, Correct Positioning, Safety Issues Teaching Recipient: Patient Teaching Methods: Discussion Response to Teaching: Verbalize Understanding Time/GCodes Time In: 1015 Time Out: 1035 Total Billed Treatment Time: 20 Total Billed Treatment visit, GT (20m) HARSHAL GUNTER PTA Dec 07, 2016 10:47
--- NOTE | 2016-12-07 10:59 | Occupational Ther Daily Note ---
OT Current Status-Daily Note Subjective Pt alert, lying in bed. Pt agreed to therapy. No c/o pain at this time. Mental Status/Objective Patient Orientation: Person, Place, Time, Situation Functional [place] Measure 0=Not Assessed/NA 4=Minimal Assistance 1=Total Assistance 5=Supervision or Setup 2=Maximal Assistance 6=Modified [place] 3=Moderate Assistance 7=Complete [place] Attachments: IV, Oxygen, Telemetry ADL-Treatment Pt puts in and takes out dentures by self. Functional [place] Measure 0=Not Assessed/NA 4=Minimal Assistance 1=Total Assistance 5=Supervision or Setup 2=Maximal Assistance 6=Modified [place] 3=Moderate Assistance 7=Complete IndependenceIRFPAI Quality Coding Scale 6 Independent with activity with or without an assistive device 5 Patient requires set up or clean up by helper. Patient completes activity by themselves 4 Supervision or touching assist (CGA). [place] provide cues , steadying assist 3 The helper provides less than half the effort to complete the activity 2 The helper provides more than half the effort to complete the activity 1 Dependent. The helper does all the effort to complete an activity 7 Patient refused to complete or attempt activity 9 The patient did not perform the activity before the current illness or injury 88 Not attempted due to Medical conditions or safety concerns Eating (FIM): 6 (Dentures. Pt able to set own self up, opening packages and containers. Uses regular utensils to feed self.) Other Treatment Pt able to complete UE exercises against gravity for shldr flexion/ext and abd/ add then resistive tricep exercises, 20 reps each. Pt tolerated all exercises well and no SOA or extended rest breaks needed. After therapy, pt lying in bed finishing his breakfast. All needs met in room. OT Short Term Goals Short Term Goals 1=Demonstrate adherence to instructed precautions during ADL tasks. 2=Patient will verbalize/demonstrate understanding of assistive devices/ modifications for ADL. 3=Patient will improve strength/tolerance for activity to enable patient to perform ADL's. OT Assisted Goals Assisted Goals Time Frame: Dec 15, 2016 Eating (FIM): 6 Eating (QC): 6 Groomin Oral Hygiene (QC): 6 Bathing(FIM): 5 Upper Body Dressing(FIM): 6 Lower Body Dressing(FIM): 5 Toileting(FIM): 6 Toileting Hygiene (QC): 6 Toilet/Commode Transfer(FIM): 6 Toilet/Commode Transfer (QC): 6 Additional Goals: 1-Demonstrate ADL Tasks, 2-Verbalize Understanding, 3- ImproveStrength/Sherrell 1=Demonstrate adherence to instructed precautions during ADL tasks. 2=Patient will verbalize/demonstrate understanding of assistive devices/ modifications for ADL. 3=Patient will improve strength/tolerance for activity to enable patient to perform ADL's. OT Education/Plan Problem List/Assessment Pt to benefit from skilled OT intervention while on SWB to increase functional independence and allow safe discharge plan. Discharge Recommendations Plan/Recommendations: Continue POC Treatment Plan/Plan of Care Patient would benefit from OT for education, treatment and training to promote independence in ADL's, mobility, safety and/or upper extremity function for ADL' s. Plan of Care: ADL Retraining, Functional Mobility, UE Funct Exercise/Act Treatment Duration: Dec 15, 2016 Visits Per Week: 5 Agreement: Yes Rehab Potential: Good Time/GCodes Start Time: 09:00 Stop Time: 09:25 Total Time Billed (hr/min): 25 Billed Treatment Time 1 visit-EX 1 (10 min) FA 1 (15 min) ERIC GREENE Dec 07, 2016 10:59
[2016-12-07 11:00] VITALS: BP 114/54
[2016-12-07] MEDS: NYSTATIN ORAL SUSP 5 ML UDC PO SCH ×3 (11:42→23:55)
[2016-12-07 16:00] VITALS: BP 109/54
[2016-12-07 20:00] VITALS: BP 133/60
[2016-12-07] MEDS: LIDOCAINE PATCH REMOVAL TP SCH (20:30)
[2016-12-07] MEDS: PANTOPRAZOLE 40 MG (PROTONIX) TAB PO SCH (20:32)
[2016-12-07] MEDS: ATORVASTATIN 10 MG (LIPITOR) TABLET PO SCH (20:32)
[2016-12-08] VITALS: BP 123/60
[2016-12-08 04:00] VITALS: BP 118/56
[2016-12-08] MEDS: NYSTATIN ORAL SUSP 5 ML UDC PO SCH ×3 (06:24→17:11)
[2016-12-08] MEDS: CATHETER FLUSH 10 ML SYR IV SCH ×3 (06:24→20:41)
[2016-12-08] MEDS: MULTIVIT W/MINERALS TAB (THERAGRAN M) PO SCH (06:24)
[2016-12-08] MEDS: CALCIUM CARB + VIT D 600 MG (CALCARB + D) TAB PO SCH (06:24)
[2016-12-08] MEDS: RT-ALBUTEROL/IPRATROPIUM 3 ML (DUONEB) VIAL IH SCH ×3 (07:03→19:21)
--- NOTE | 2016-12-08 08:06 | Diagnostic Imaging Report ---
INDICATION: Left renal calculus Comparison is made to study of 12/03/2016. Aggregate of calcification projects over the central left kidney. In total, this measures approximately 2.8 x 0.9 cm. There are also punctate calcifications projecting over the upper pole of the right kidney reaching approximately 0.3 cm in size. Several calcifications are seen bilaterally in the pelvis. This includes dense atherosclerotic calcification and multiple phleboliths. No definite ureteric stone is appreciated. IMPRESSION: Bilateral renal calculi with aggregate of calcification in the region of the central left kidney measuring 2.8 x 0.9 cm. Dictated by: Dictated on workstation # [id number]
[2016-12-08 08:27] VITALS: BP 107/53
[2016-12-08] MEDS: fluCOnazole (DIFLUCAN) 100 MG TAB PO SCH (08:58)
[2016-12-08] MEDS: LEVETIRACETAM 500 MG (KEPPRA) TAB PO SCH ×2 (08:58→20:41)
[2016-12-08] MEDS: SOTALOL 80 MG (BETAPACE) TAB PO SCH ×2 (08:58→20:40)
[2016-12-08] MEDS: guaiFENesin (MUCINEX) 600 MG TAB PO SCH ×2 (08:58→20:40)
[2016-12-08] MEDS: DOCUSATE SODIUM 100 MG (COLACE) CAP PO SCH (08:58)
[2016-12-08] MEDS: CYANOCOBALAMIN 500 MCG TAB (VITAMIN B-12) PO SCH (08:58)
[2016-12-08] MEDS: LACTOBACILLUS Acidoph/Bulgar (LACTINEX/FLORANEX) TAB PO SCH ×3 (08:58→20:40)
[2016-12-08] MEDS: MUPIROCIN 2% OINT 22 GM (BACTROBAN) TUBE NSEACH SCH (08:58)
[2016-12-08] MEDS: DILTIAZEM 180 MG (CARDIZEM CD) CAP PO SCH (08:58)
[2016-12-08] MEDS: LIDOCAINE (LIDODERM) 5% PATCH TP SCH (08:59)
[2016-12-08] MEDS: FOLIC ACID 1 MG TAB PO SCH (08:59)
[2016-12-08] MEDS: LEVOTHYROXINE 50 MCG (LEVOTHROID) TAB PO SCH (08:59)
--- NOTE | 2016-12-08 09:25 | Progress Note (SOAP) ---
Subjective Subjective/Events-last exam PT IS STATING THAT HE THINKS THAT HE IS FEELING BETTER, BUT STILL NOT EATING WELL PER STAFF - HE STATES THAT THE FOOD ALL SOUNDS GOOD, BUT HE JUST CANNOT STOMACH THE MEALS. HE STATES THAT HE IS GETTING STRONGER, PHYSICAL THERAPY NOTES PT IMPROVED FROM A STRENGTH STANDPOINT. DR. ULRICH STATES THAT THE PATIENT'S KUB SHOWS THAT THE STONES ARE BROKEN UP. Review of Systems General: Fatigue HEENT: No Head Aches Pulmonary: Dyspnea Cough Cardiovascular: No: Chest Pain Gastrointestinal: No: Abdominal Pain, Nausea Genitourinary: Frequency Neurological: : Weakness Objective Exam Vital Signs Date Time Temp Pulse Resp B/P Pulse Ox O2 Delivery O2 Flow Rate FiO2 12/08/16 08:27 97.6 70 20 107/53 97 Nasal Cannula 2.00 12/08/16 07:03 95 2.00 12/08/16 07:00 73 12/08/16 04:00 98.2 63 16 118/56 95 Nasal Cannula 2.00 12/08/16 01:03 65 12/08/16 00:00 98.4 67 16 123/60 95 Nasal Cannula 2.50 12/07/16 20:00 96.7 65 16 133/60 96 2.50 2.50 12/07/16 19:49 93 2.00 12/07/16 19:04 71 12/07/16 16:00 98.2 67 20 109/54 96 2.50 2.50 12/07/16 14:46 94 2.00 12/07/16 13:00 70 12/07/16 11:00 96.0 66 20 114/54 98 2.50 2.50 I & O 12/08/16 07:00 Intake Total 620 ml Output Total 950 ml Balance -330 ml Capillary Refill : General Appearance: No Apparent Distress Thin HEENT: PERRL/EOMI Other (THRUSH) Neck: Supple Respiratory: Chest Non Tender Crackles (FAINT CRACKLES IN BASES) Cardiovascular: Irregularly Irregular Gastrointestinal: normal bowel sounds non tender soft Neurologic/Psychiatric: Alert Oriented x3 Normal Mood/Affect Skin: Warm/Dry Lymphatic: No Adenopathy Results Lab Laboratory Tests 12/07/16 11:10: Glucometer 199H 12/07/16 16:33: Glucometer 196H 12/08/16 05:35: Glucometer 143H Microbiology 12/01/16 MRSA Screen - Final, Complete MRSA not isolated Assessment/Plan Assessment/Plan Assess & Plan/Chief Complaint PNEUMONIA PLEURAL EFFUSION RIB PAIN ON LEFT RIB FRACTURES ATRIAL FIBRILLATION DIABETES MELLITUS 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 RIB PAIN ON LEFT - DUE TO RIB FRACTURES - LIDODERM PATCH, CONTINUE WITH PRN ORAL PAIN MEDICATIONS ATRIAL FIBRILLATION -RATE CONTROLLED - DEFER TREATMENT TO DR. DOWLING. 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 ULRICH - PT IS POST LITHOTRIPSY - DID WELL , DENIES PAIN LOOSE STOOLS - STOPPED METFORMIN -STOOLS MORE SOLID OVER THE WEEKEND. THRUSH - RX FOR NYSTATIN AND DIFLUCAN STARTED YESTERDAY. DECREASED APPETITE, WILL HAVE SALAD BROUGHT IN FROM OUTSIDE, AND ASKED STAFF TO SEE IF PT WOULD LIKE A BREAKFAST FROM OUTSIDE OF THE HOSPITAL THIS MORNING. Clinical Quality Measures DVT/VTE Risk/Contraindication: Contraindications-Pharm: Other *list below* Other: PROCEDURES PLANNED AND PT CANNOT TAKE ORAL OR INJECTABLE OR IV MEDIATION THAT THINS BLOOD PRIOR TO LITHOTRIPSY GUTIERREZ PHAM MD Dec 08, 2016 09:25
--- NOTE | 2016-12-08 09:36 | Progress Note-Urology ---
Progress Note-Urology Progress Notes/Assess & Plan Progress/Assessment & Plan DENIES ANY FLANK PAIN, NO CVA TENDERNESS, STONE WELL FRAGMENTED, NEEDS TO PASS FRAGMENTS Final Diagnosis LT RENAL STONE DARNELL ULRICH MD Dec 08, 2016 09:36
--- NOTE | 2016-12-08 11:44 | Occupational Ther Daily Note ---
OT Current Status-Daily Note Subjective Pt alert, lying in bed. Pt agreed to therapy. No c/o pain at this time. Mental Status/Objective Patient Orientation: Person, Place, Time, Situation Functional [place] Measure 0=Not Assessed/NA 4=Minimal Assistance 1=Total Assistance 5=Supervision or Setup 2=Maximal Assistance 6=Modified [place] 3=Moderate Assistance 7=Complete [place] ADL-Treatment Mod I to go from supine to sit using raised HOB and rails, min A to go from sit to supine assist to get legs into bed. CGA using FWW to ambulate to bathroom, SBA using FWW and grabbars to transfer onto toilet then was able to complete toileting by self. Pt ambulated to sink to wash hands with SBA using FWW. Pt ambulated back to bed. After therapy, pt lying in bed with call light/phone in reach. All needs met in room. Functional [place] Measure 0=Not Assessed/NA 4=Minimal Assistance 1=Total Assistance 5=Supervision or Setup 2=Maximal Assistance 6=Modified [place] 3=Moderate Assistance 7=Complete IndependenceIRFPAI Quality Coding Scale 6 Independent with activity with or without an assistive device 5 Patient requires set up or clean up by helper. Patient completes activity by themselves 4 Supervision or touching assist (CGA). [place] provide cues , steadying assist 3 The helper provides less than half the effort to complete the activity 2 The helper provides more than half the effort to complete the activity 1 Dependent. The helper does all the effort to complete an activity 7 Patient refused to complete or attempt activity 9 The patient did not perform the activity before the current illness or injury 88 Not attempted due to Medical conditions or safety concerns Grooming (FIM): 5 Transfers (B, C, W/C) (FIM): 4 Toilet/Commode Transfer (FIM): 5 OT Short Term Goals Short Term Goals 1=Demonstrate adherence to instructed precautions during ADL tasks. 2=Patient will verbalize/demonstrate understanding of assistive devices/ modifications for ADL. 3=Patient will improve strength/tolerance for activity to enable patient to perform ADL's. OT Tufting Machine Fixer Goals Half-Way Goals Time Frame: Dec 15, 2016 Eating (FIM): 6 Eating (QC): 6 Groomin Oral Hygiene (QC): 6 Bathing(FIM): 5 Upper Body Dressing(FIM): 6 Lower Body Dressing(FIM): 5 Toileting(FIM): 6 Toileting Hygiene (QC): 6 Toilet/Commode Transfer(FIM): 6 Toilet/Commode Transfer (QC): 6 Additional Goals: 1-Demonstrate ADL Tasks, 2-Verbalize Understanding, 3- ImproveStrength/Sherrell 1=Demonstrate adherence to instructed precautions during ADL tasks. 2=Patient will verbalize/demonstrate understanding of assistive devices/ modifications for ADL. 3=Patient will improve strength/tolerance for activity to enable patient to perform ADL's. OT Education/Plan Problem List/Assessment Pt to benefit from skilled OT intervention while on SWB to increase functional independence and allow safe discharge plan. Discharge Recommendations Plan/Recommendations: Continue POC Treatment Plan/Plan of Care Patient would benefit from OT for education, treatment and training to promote independence in ADL's, mobility, safety and/or upper extremity function for ADL' s. Plan of Care: ADL Retraining, Functional Mobility, UE Funct Exercise/Act Treatment Duration: Dec 15, 2016 Visits Per Week: 5 Agreement: Yes Rehab Potential: Good Time/GCodes Start Time: 09:15 Stop Time: 09:38 Total Time Billed (hr/min): 23 Billed Treatment Time 1 visit-FA 2 (23 min) ERIC GREENE Dec 08, 2016 11:44
--- NOTE | 2016-12-08 11:58 | Physical Therapy Daily Note ---
PT Daily Note-Current Subjective Patient agrees to PT. Pain Numeric Pain Scale: 0-No Pain Location: No Pain Reported Mental Status Patient Orientation: Confused Attachments: Oxygen Transfers Functional [place] Measure 0=Not Assessed/NA 4=Minimal Assistance 1=Total Assistance 5=Supervision or Setup 2=Maximal Assistance 6=Modified [place] 3=Moderate Assistance 7=Complete IndependenceIRFPAI Quality Coding Scale 6 Independent with activity with or without an assistive device 5 Patient requires set up or clean up by helper. Patient completes activity by themselves 4 Supervision or touching assist (CGA). [place] provide cues , steadying assist 3 The helper provides less than half the effort to complete the activity 2 The helper provides more than half the effort to complete the activity 1 Dependent. The helper does all the effort to complete an activity 7 Patient refused to complete or attempt activity 9 The patient did not perform the activity before the current illness or injury 88 Not attempted due to Medical conditions or safety concerns Transfers (B, C, W/C) (FIM): 5 Scootin Roll Left to Right (QC): 5 Supine to/from Sit: 5 Sit to/from Stand: 5 Sit to Lying (QC): 5 Sit to Stand (QC): 5 Gait Training Does the Patient Walk?: Yes Gait (FIM): 2 Distance (FIM): 2=198-53 ft Distance: 50' x 2 Gait Level of Assist: 4 Gait Persons Needed: 1 Gait Assistive Device: FWW patient ceased ambulation due to SOA with O2 3L NC in place Assessment Patient returned to bed and assumed side lying to right position. RN notified of patient c/o SOA and extreme fatigue. From a PT standpoint, patient, at this time, is declining in functional mobility and strength. PT Crime Specialist Goals Half-Way Goals PT Half-Way Goals Time Frame: Dec 11, 2016 Transfers (B,C,W/C) (FIM): 6 Sit to Lying (QC): 6 Lying-Sitting on Side/Bed(QC): 6 Sit to Stand (QC): 6 Chair/Csj-ay-Vxhhp Xfer(QC): 6 Does the Patient Walk: Yes Gait (FIM): 6 Gait distance (FIM): 3=150 ft Walk 50ft with 2 Turns (QC): 6 Walk 150 ft (QC): 6 Gait Assistive Device: FWW PT Plan Treatment/Plan Treatment Plan: Continue Plan of Care Treatment Plan: Bed Mobility, Education, Functional Activity Sherrell, Functional Strength, Gait, Safety, Therapeutic Exercise, Transfers Treatment Duration: Dec 11, 2016 Visits Per Week: 6 Time/GCodes Time In: 1125 Time Out: 1140 Total Billed Treatment Time: 15 Total Billed Treatment 1 visit FA 15 min SAVAGE TREVINO PT Dec 08, 2016 11:58
[2016-12-08 12:00] VITALS: BP 108/55
[2016-12-08 16:28] VITALS: BP 133/72
[2016-12-08] MEDS: PANTOPRAZOLE 40 MG (PROTONIX) TAB PO SCH (20:40)
[2016-12-08] MEDS: ATORVASTATIN 10 MG (LIPITOR) TABLET PO SCH (20:40)
[2016-12-08] MEDS: LIDOCAINE PATCH REMOVAL TP SCH (20:41)
[2016-12-08 20:50] VITALS: BP 122/60
[2016-12-09] VITALS: BP 131/60
[2016-12-09] MEDS: NYSTATIN ORAL SUSP 5 ML UDC PO SCH ×5 (00:19→23:41)
[2016-12-09] MEDS: LORazepam 0.5 MG (ATIVAN) TABLET PO PRN ×2 (00:34→19:55)
[2016-12-09 04:00] VITALS: BP 128/58
[2016-12-09] MEDS: CALCIUM CARB + VIT D 600 MG (CALCARB + D) TAB PO SCH (05:55)
[2016-12-09] MEDS: MULTIVIT W/MINERALS TAB (THERAGRAN M) PO SCH (05:55)
[2016-12-09] MEDS: CATHETER FLUSH 10 ML SYR IV SCH ×3 (05:55→19:55)
[2016-12-09] MEDS: RT-ALBUTEROL/IPRATROPIUM 3 ML (DUONEB) VIAL IH SCH ×3 (06:09→20:23)
[2016-12-09 08:25] VITALS: BP 137/63
--- NOTE | 2016-12-09 08:51 | Progress Note (SOAP) ---
Subjective Subjective/Events-last exam PT REPORTS THAT HE IS FEELING A LITTLE BIT BETTER, HE NOTES THAT HIS APPETITE IS FINE, HE JUST DOES NOT LIKE THE AVAILABLE FOOD. HE REPORTS THAT HE HAS CALLED HIS DAUGHTER TO SEE IF SHE WILL STAY WITH HIM FOR A FEW DAYS WHEN HE GOES HOME. Review of Systems General: Fatigue HEENT: No Head Aches, No Dysphasia, Sore Throat (IMPROVING) Pulmonary: Dyspnea Cough Cardiovascular: No: Chest Pain, Edema Gastrointestinal: : Other (LAST BOWEL MOVEMENT WAS 12/06/16)No: Abdominal Pain, Nausea Genitourinary: No Dysuria, Frequency Neurological: : Weakness Objective Exam Vital Signs Date Time Temp Pulse Resp B/P Pulse Ox O2 Delivery O2 Flow Rate FiO2 12/09/16 08:25 98.2 66 24 137/63 95 Nasal Cannula 2.50 12/09/16 06:12 96 2.00 12/09/16 04:00 96.7 67 18 128/58 95 Nasal Cannula 2.00 12/09/16 00:00 98.0 63 16 131/60 94 Nasal Cannula 2.00 12/08/16 21:00 Nasal Cannula 2.00 12/08/16 20:50 97.9 66 18 122/60 97 Nasal Cannula 2.00 12/08/16 19:21 95 2.00 12/08/16 16:28 98.5 90 18 133/72 92 Nasal Cannula 2.00 12/08/16 15:38 95 12/08/16 14:40 95 2.00 12/08/16 12:54 59 12/08/16 12:00 97.2 58 20 108/55 93 Nasal Cannula 2.00 12/08/16 09:00 Nasal Cannula 2.00 I & O 12/09/16 07:00 Intake Total 1575 ml Output Total 1110 ml Balance 465 ml Capillary Refill : General Appearance: No Apparent Distress Thin HEENT: PERRL/EOMI Pharynx Normal Neck: Full Range of Motion Supple Respiratory: Chest Non Tender Decreased Breath Sounds (IN BASES FAINT CRACKLES ) Cardiovascular: Irregularly Irregular Gastrointestinal: normal bowel sounds non tender soft no pulsatile mass Extremity: No Calf Tenderness No Pedal Edema Neurologic/Psychiatric: Alert Oriented x3 No Motor/Sensory Deficits Normal Mood/Affect Skin: Warm/Dry Lymphatic: No Adenopathy Results Lab Laboratory Tests 12/08/16 16:32: Glucometer 218H 12/09/16 06:33: Glucometer 141H Microbiology 12/01/16 MRSA Screen - Final, Complete MRSA not isolated Assessment/Plan Assessment/Plan Assess & Plan/Chief Complaint PNEUMONIA PLEURAL EFFUSION RIB PAIN ON LEFT RIB FRACTURES ATRIAL FIBRILLATION DIABETES MELLITUS 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 RIB PAIN ON LEFT - DUE TO RIB FRACTURES - LIDODERM PATCH, CONTINUE WITH PRN ORAL PAIN MEDICATIONS ATRIAL FIBRILLATION -RATE CONTROLLED - DEFER TREATMENT TO DR. DOWLING. 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 ULRICH - PT IS POST LITHOTRIPSY - DID WELL , DENIES PAIN LOOSE STOOLS - STOPPED METFORMIN -STOOLS MORE SOLID OVER THE WEEKEND. THRUSH - RX FOR NYSTATIN AND DIFLUCAN - PT SEVERAL DAYS INTO TREATMENT COURSE DECREASED APPETITE DUE TO AVAILABLE FOOD CHOICES, CONTINUE WITH SUPPORTIVE CARE , OUTSIDE FOOD IF ABLE TO OBTAIN Clinical Quality Measures DVT/VTE Risk/Contraindication: Contraindications-Pharm: Other *list below* Other: PROCEDURES PLANNED AND PT CANNOT TAKE ORAL OR INJECTABLE OR IV MEDIATION THAT THINS BLOOD PRIOR TO LITHOTRIPSY GUTIERREZ PHAM MD Dec 09, 2016 08:51
[2016-12-09] MEDS: CYANOCOBALAMIN 500 MCG TAB (VITAMIN B-12) PO SCH (09:23)
[2016-12-09] MEDS: SOTALOL 80 MG (BETAPACE) TAB PO SCH ×2 (09:23→19:54)
[2016-12-09] MEDS: FOLIC ACID 1 MG TAB PO SCH (09:23)
[2016-12-09] MEDS: fluCOnazole (DIFLUCAN) 100 MG TAB PO SCH (09:24)
[2016-12-09] MEDS: LEVOTHYROXINE 50 MCG (LEVOTHROID) TAB PO SCH (09:24)
[2016-12-09] MEDS: LEVETIRACETAM 500 MG (KEPPRA) TAB PO SCH ×2 (09:24→19:55)
[2016-12-09] MEDS: DOCUSATE SODIUM 100 MG (COLACE) CAP PO SCH (09:24)
[2016-12-09] MEDS: LIDOCAINE (LIDODERM) 5% PATCH TP SCH (09:24)
[2016-12-09] MEDS: LACTOBACILLUS Acidoph/Bulgar (LACTINEX/FLORANEX) TAB PO SCH ×3 (09:24→19:54)
[2016-12-09] MEDS: guaiFENesin (MUCINEX) 600 MG TAB PO SCH ×2 (09:24→19:54)
[2016-12-09] MEDS: DILTIAZEM 180 MG (CARDIZEM CD) CAP PO SCH (09:24)
--- NOTE | 2016-12-09 11:40 | Occupational Ther Daily Note ---
OT Current Status-Daily Note Subjective Pt alert, lying in bed. Pt agreed to therapy. No c/o pain. PATIÑO encouraged pt to get out of bed so that he could show that he is getting stronger. Pt did stated that when he was lying in bed that the wall with the TV went down and so did his bed then he was standing on the floor looking down at the TV. When asked if he believed it happened or not, pt stated that his eyes were playing tricks on him and he knew the wall couldn't do that. Mental Status/Objective Patient Orientation: Person, Place, Time, Situation Functional [place] Measure 0=Not Assessed/NA 4=Minimal Assistance 1=Total Assistance 5=Supervision or Setup 2=Maximal Assistance 6=Modified [place] 3=Moderate Assistance 7=Complete [place] ADL-Treatment Pt declined taking shower or sponge bath, stating that he had already sponged off for the day. Pt did go from supine to sitting EOB with min A at the last of the transfer. SBA to go from sit to stand then to ambulate with FWW to chair. Pt transferred into chair with SBA. Pt requested to sit up for awhile, but didn't need to do anything else with OT today. After therapy, pt sitting in chair with call light and safety measures in place. Nrsg notified that pt was sitting in chair. All needs met in room. Functional [place] Measure 0=Not Assessed/NA 4=Minimal Assistance 1=Total Assistance 5=Supervision or Setup 2=Maximal Assistance 6=Modified [place] 3=Moderate Assistance 7=Complete IndependenceIRFPAI Quality Coding Scale 6 Independent with activity with or without an assistive device 5 Patient requires set up or clean up by helper. Patient completes activity by themselves 4 Supervision or touching assist (CGA). [place] provide cues , steadying assist 3 The helper provides less than half the effort to complete the activity 2 The helper provides more than half the effort to complete the activity 1 Dependent. The helper does all the effort to complete an activity 7 Patient refused to complete or attempt activity 9 The patient did not perform the activity before the current illness or injury 88 Not attempted due to Medical conditions or safety concerns OT Short Term Goals Short Term Goals 1=Demonstrate adherence to instructed precautions during ADL tasks. 2=Patient will verbalize/demonstrate understanding of assistive devices/ modifications for ADL. 3=Patient will improve strength/tolerance for activity to enable patient to perform ADL's. OT Rodding Anode Worker Goals Rodding Anode Worker Goals Time Frame: Dec 15, 2016 Eating (FIM): 6 Eating (QC): 6 Groomin Oral Hygiene (QC): 6 Bathing(FIM): 5 Upper Body Dressing(FIM): 6 Lower Body Dressing(FIM): 5 Toileting(FIM): 6 Toileting Hygiene (QC): 6 Toilet/Commode Transfer(FIM): 6 Toilet/Commode Transfer (QC): 6 Additional Goals: 1-Demonstrate ADL Tasks, 2-Verbalize Understanding, 3- ImproveStrength/Sherrell 1=Demonstrate adherence to instructed precautions during ADL tasks. 2=Patient will verbalize/demonstrate understanding of assistive devices/ modifications for ADL. 3=Patient will improve strength/tolerance for activity to enable patient to perform ADL's. OT Education/Plan Problem List/Assessment Pt to benefit from skilled OT intervention while on SWB to increase functional independence and allow safe discharge plan. Discharge Recommendations Plan/Recommendations: Continue POC Treatment Plan/Plan of Care Patient would benefit from OT for education, treatment and training to promote independence in ADL's, mobility, safety and/or upper extremity function for ADL' s. Plan of Care: ADL Retraining, Functional Mobility, UE Funct Exercise/Act Treatment Duration: Dec 15, 2016 Visits Per Week: 5 Agreement: Yes Rehab Potential: Good Time/GCodes Start Time: 09:00 Stop Time: 09:20 Total Time Billed (hr/min): 20 Billed Treatment Time 1 visit-FA 1 (20 min) ERIC GREENE Dec 09, 2016 11:39
--- NOTE | 2016-12-09 15:20 | Physical Therapy Daily Note ---
PT Daily Note-Current Subjective Kayden seems determined to eventually go home. His daughter might be able to spend a couple of days with him. He states his left ribs are sore but the pain is tolerable. Appearance In sitting he has swelling around his left ribs and abdomen. Mental Status Patient Orientation: Person, Place, Time, Situation, Mumbles Attachments: Oxygen Transfers Functional [place] Measure 0=Not Assessed/NA 4=Minimal Assistance 1=Total Assistance 5=Supervision or Setup 2=Maximal Assistance 6=Modified [place] 3=Moderate Assistance 7=Complete IndependenceIRFPAI Quality Coding Scale 6 Independent with activity with or without an assistive device 5 Patient requires set up or clean up by helper. Patient completes activity by themselves 4 Supervision or touching assist (CGA). [place] provide cues , steadying assist 3 The helper provides less than half the effort to complete the activity 2 The helper provides more than half the effort to complete the activity 1 Dependent. The helper does all the effort to complete an activity 7 Patient refused to complete or attempt activity 9 The patient did not perform the activity before the current illness or injury 88 Not attempted due to Medical conditions or safety concerns Transfers (B, C, W/C) (FIM): 5 Roll Left to Right (QC): 5 Supine to/from Sit: 5 Sit to/from Stand: 4 Sit to Lying (QC): 5 Long and lanky but able to bring legs on to bed by himself. Left FWW at foot of bed and walked a couple of feet to transfer by himself into the bed. Weight Bearing Weight Bearing Restriction: Weight Bearing/Tolerated Gait Training Does the Patient Walk?: Yes Distance (FIM): 1=393-20 ft Distance: 120 ft with O2 @ 2L. Gait Persons Needed: 2 (O2 and wheelchair following. ) Gait Assistive Device: FWW Steady long steps. Distance limited by SOB although O2 sats were 94%. Balance Special Test Comments Practiced static stance without walker. Worked on posture. Assessment Current Status: Fair Progress Today he was able to walk in the hallway with FWW and the wheelchair following. Easily fatigued. Not independent/strong enough to go home. Needs more rehab. PT Manager Engine Goals Assisted Goals PT Assisted Goals Time Frame: Dec 11, 2016 Transfers (B,C,W/C) (FIM): 6 Sit to Lying (QC): 6 Lying-Sitting on Side/Bed(QC): 6 Sit to Stand (QC): 6 Chair/Lah-wq-Squyb Xfer(QC): 6 Does the Patient Walk: Yes Gait (FIM): 6 Gait distance (FIM): 3=150 ft Walk 50ft with 2 Turns (QC): 6 Walk 150 ft (QC): 6 Gait Assistive Device: FWW PT Plan Treatment/Plan Treatment Plan: Continue Plan of Care Treatment Plan: Bed Mobility, Education, Functional Activity Sherrell, Functional Strength, Gait, Safety, Therapeutic Exercise, Transfers Treatment Duration: Dec 11, 2016 Visits Per Week: 6 Time/GCodes Time In: 215 Time Out: 240 Total Billed Treatment Time: 25 Total Billed Treatment Visit, Gt, FA G Codes Necessary: TIM Rouse PT Dec 09, 2016 15:19
[2016-12-09 18:12] VITALS: BP 103/60
[2016-12-09] MEDS: PANTOPRAZOLE 40 MG (PROTONIX) TAB PO SCH (19:54)
[2016-12-09] MEDS: LIDOCAINE PATCH REMOVAL TP SCH (19:55)
[2016-12-09] MEDS: ATORVASTATIN 10 MG (LIPITOR) TABLET PO SCH (19:55)
[2016-12-10] MEDS: LORazepam 0.5 MG (ATIVAN) TABLET PO PRN ×2 (00:33→21:21)
[2016-12-10 06:00] VITALS: BP 124/66
[2016-12-10] MEDS: MULTIVIT W/MINERALS TAB (THERAGRAN M) PO SCH (06:11)
[2016-12-10] MEDS: CALCIUM CARB + VIT D 600 MG (CALCARB + D) TAB PO SCH (06:11)
[2016-12-10] MEDS: NYSTATIN ORAL SUSP 5 ML UDC PO SCH ×4 (06:11→23:41)
[2016-12-10] MEDS: CATHETER FLUSH 10 ML SYR IV SCH ×3 (06:12→21:23)
[2016-12-10] MEDS: RT-ALBUTEROL/IPRATROPIUM 3 ML (DUONEB) VIAL IH SCH ×3 (06:52→19:44)
[2016-12-10] MEDS: DOCUSATE SODIUM 100 MG (COLACE) CAP PO SCH (09:00)
[2016-12-10] MEDS: LEVOTHYROXINE 50 MCG (LEVOTHROID) TAB PO SCH (09:24)
[2016-12-10] MEDS: LIDOCAINE (LIDODERM) 5% PATCH TP SCH (09:24)
[2016-12-10] MEDS: CYANOCOBALAMIN 500 MCG TAB (VITAMIN B-12) PO SCH (09:24)
[2016-12-10] MEDS: guaiFENesin (MUCINEX) 600 MG TAB PO SCH ×2 (09:24→21:21)
[2016-12-10] MEDS: fluCOnazole (DIFLUCAN) 100 MG TAB PO SCH (09:24)
[2016-12-10] MEDS: SOTALOL 80 MG (BETAPACE) TAB PO SCH ×2 (09:24→21:21)
[2016-12-10] MEDS: DILTIAZEM 180 MG (CARDIZEM CD) CAP PO SCH (09:24)
[2016-12-10] MEDS: FOLIC ACID 1 MG TAB PO SCH (09:24)
[2016-12-10] MEDS: LEVETIRACETAM 500 MG (KEPPRA) TAB PO SCH ×2 (09:25→21:22)
[2016-12-10] MEDS: LACTOBACILLUS Acidoph/Bulgar (LACTINEX/FLORANEX) TAB PO SCH ×3 (09:25→21:21)
--- NOTE | 2016-12-10 09:43 | Physical Therapy Daily Note ---
PT Daily Note-Current Subjective Patient is up in recliner with chair alarm and telesitter present and activated. Patient is difficult to understand due to he mumbles. Pain Numeric Pain Scale: 0-No Pain Location: No Pain Reported Mental Status Patient Orientation: Confused Attachments: Oxygen Transfers Functional [place] Measure 0=Not Assessed/NA 4=Minimal Assistance 1=Total Assistance 5=Supervision or Setup 2=Maximal Assistance 6=Modified [place] 3=Moderate Assistance 7=Complete IndependenceIRFPAI Quality Coding Scale 6 Independent with activity with or without an assistive device 5 Patient requires set up or clean up by helper. Patient completes activity by themselves 4 Supervision or touching assist (CGA). [place] provide cues , steadying assist 3 The helper provides less than half the effort to complete the activity 2 The helper provides more than half the effort to complete the activity 1 Dependent. The helper does all the effort to complete an activity 7 Patient refused to complete or attempt activity 9 The patient did not perform the activity before the current illness or injury 88 Not attempted due to Medical conditions or safety concerns Transfers (B, C, W/C) (FIM): 4 Scootin Roll Left to Right (QC): 4 Supine to/from Sit: 4 Sit to/from Stand: 4 Sit to Lying (QC): 4 Sit to Stand (QC): 4 Chair/Hrq-jn-Pziyo Xfer(QC): 4 Bed to/from Chair: 4 Patient is close CGA to minimal assist with mobility due to weakness. Gait Training Does the Patient Walk?: Yes Gait (FIM): 4 Distance (FIM): 3=150 ft Distance: 225' Gait Level of Assist: 4 Gait Persons Needed: 1 Gait Assistive Device: FWW extended UE's with FWW with inability to self correct due to weakness Assessment Patient is not progressing at this time. Dr. Lerma is aware. From a PT standpoint, patient is unsafe to return to home at this time. Patient displays increased confusion. PT Chcf Goals Gymnastics Coach Or Instructor Goals PT Chcf Goals Time Frame: Dec 11, 2016 Transfers (B,C,W/C) (FIM): 6 Sit to Lying (QC): 6 Lying-Sitting on Side/Bed(QC): 6 Sit to Stand (QC): 6 Chair/Zov-mq-Ulgae Xfer(QC): 6 Does the Patient Walk: Yes Gait (FIM): 6 Gait distance (FIM): 3=150 ft Walk 50ft with 2 Turns (QC): 6 Walk 150 ft (QC): 6 Gait Assistive Device: FWW PT Plan Treatment/Plan Treatment Plan: Continue Plan of Care Treatment Plan: Bed Mobility, Education, Functional Activity Sherrell, Functional Strength, Gait, Safety, Therapeutic Exercise, Transfers Treatment Duration: Dec 11, 2016 Visits Per Week: 6 Time/GCodes Time In: 845 Time Out: 900 Total Billed Treatment Time: 15 Total Billed Treatment 1 visit FA 15 min SAVAGE TREVINO PT Dec 10, 2016 09:43
[2016-12-10 10:39] LABS: MEAN PLATELET VOLUME 9.8 FL (7.4-10.4); RED BLOOD COUNT 3.47 10^6/uL (4.35-5.85); RED CELL DISTRIBUTION WIDTH 14.5 % (10.0-14.5); WHITE BLOOD COUNT 5.7 10^3/uL (4.3-11.0)
--- NOTE | 2016-12-10 10:46 | Diagnostic Imaging Report ---
INDICATION: Cough. Comparison study: Chest from 11/28/2016. FINDINGS: A Port-A-Cath remains in place. The left chest tube has been removed. There is no pneumothorax. The left pleural effusion has increased. Atelectasis or fibrosis in the right midlung is stable. Interstitial disease is again identified. The pulmonary vessels appear normal. Frontal and lateral views of the chest were obtained. IMPRESSION: Since previous exam the left chest drain has been removed. The left pleural effusion has increased with adjacent infiltrates or atelectasis. Remainder of the chest is stable. Dictated by: Dictated on workstation # [id number]
[2016-12-10 11:02] LABS: ALANINE AMINOTRANSFERASE 16 U/L (0-55); ANION GAP 10 MMOL/L (5-14); ASPARTATE AMINO TRANSFERASE 22 U/L (5-34); BILIRUBIN,TOTAL 0.5 MG/DL (0.1-1.0); BLOOD UREA NITROGEN 20 MG/DL (7-18); BUN/CREATININE RATIO 23; CALCIUM 8.8 MG/DL (8.5-10.1); CARBON DIOXIDE 34 MMOL/L (21-32); CHLORIDE 99 MMOL/L (98-107); CREATININE SERUM 0.87 MG/DL (0.60-1.30); GFR ESTIMATED > 60; GLUCOSE 185 MG/DL (70-105); POTASSIUM 3.3 MMOL/L (3.6-5.0); SODIUM 143 MMOL/L (135-145)
--- NOTE | 2016-12-10 13:10 | Occupational Ther Daily Note ---
OT Current Status-Daily Note Subjective Pt lying in bed and alert. Pt stated that he is tired today. Pt agreed to therapy after PATIÑO encouraged to participate. Mental Status/Objective Functional [place] Measure 0=Not Assessed/NA 4=Minimal Assistance 1=Total Assistance 5=Supervision or Setup 2=Maximal Assistance 6=Modified [place] 3=Moderate Assistance 7=Complete [place] ADL-Treatment Functional [place] Measure 0=Not Assessed/NA 4=Minimal Assistance 1=Total Assistance 5=Supervision or Setup 2=Maximal Assistance 6=Modified [place] 3=Moderate Assistance 7=Complete IndependenceIRFPAI Quality Coding Scale 6 Independent with activity with or without an assistive device 5 Patient requires set up or clean up by helper. Patient completes activity by themselves 4 Supervision or touching assist (CGA). [place] provide cues , steadying assist 3 The helper provides less than half the effort to complete the activity 2 The helper provides more than half the effort to complete the activity 1 Dependent. The helper does all the effort to complete an activity 7 Patient refused to complete or attempt activity 9 The patient did not perform the activity before the current illness or injury 88 Not attempted due to Medical conditions or safety concerns Other Treatment Pt had been up in the chair to eat breakfast then ambulated with PT prior to PATIÑO entering room. Pt stated that he was tired and wanted to sleep. Pt complete minimal UE ROM exercises for shldr, elbow and wrist/hand. Pt reiterated that he was tired and just wanted to close his eyes. After therapy , pt lying in bed with eyes closed. Call light/phone within reach, safety measures in place. All needs met in room. OT Short Term Goals Short Term Goals 1=Demonstrate adherence to instructed precautions during ADL tasks. 2=Patient will verbalize/demonstrate understanding of assistive devices/ modifications for ADL. 3=Patient will improve strength/tolerance for activity to enable patient to perform ADL's. OT Welding Technician Goals Welding Technician Goals Time Frame: Dec 15, 2016 Eating (FIM): 6 Eating (QC): 6 Groomin Oral Hygiene (QC): 6 Bathing(FIM): 5 Upper Body Dressing(FIM): 6 Lower Body Dressing(FIM): 5 Toileting(FIM): 6 Toileting Hygiene (QC): 6 Toilet/Commode Transfer(FIM): 6 Toilet/Commode Transfer (QC): 6 Additional Goals: 1-Demonstrate ADL Tasks, 2-Verbalize Understanding, 3- ImproveStrength/Sherrell 1=Demonstrate adherence to instructed precautions during ADL tasks. 2=Patient will verbalize/demonstrate understanding of assistive devices/ modifications for ADL. 3=Patient will improve strength/tolerance for activity to enable patient to perform ADL's. OT Education/Plan Problem List/Assessment Pt to benefit from skilled OT intervention while on SWB to increase functional independence and allow safe discharge plan. Discharge Recommendations Plan/Recommendations: Continue POC Treatment Plan/Plan of Care Patient would benefit from OT for education, treatment and training to promote independence in ADL's, mobility, safety and/or upper extremity function for ADL' s. Plan of Care: ADL Retraining, Functional Mobility, UE Funct Exercise/Act Treatment Duration: Dec 15, 2016 Visits Per Week: 5 Agreement: Yes Rehab Potential: Good Time/GCodes Start Time: 09:40 Stop Time: 09:55 Total Time Billed (hr/min): 15 Billed Treatment Time 1 visit-FA 1 (15 min) ERIC GREENE Dec 10, 2016 13:10
[2016-12-10 18:39] VITALS: BP 127/67
[2016-12-10] MEDS: ATORVASTATIN 10 MG (LIPITOR) TABLET PO SCH (21:21)
[2016-12-10] MEDS: PANTOPRAZOLE 40 MG (PROTONIX) TAB PO SCH (21:21)
[2016-12-10] MEDS: LIDOCAINE PATCH REMOVAL TP SCH (21:23)
[2016-12-11 05:00] VITALS: BP 124/60
[2016-12-11] MEDS: MULTIVIT W/MINERALS TAB (THERAGRAN M) PO SCH (06:05)
[2016-12-11] MEDS: NYSTATIN ORAL SUSP 5 ML UDC PO SCH ×2 (06:05→11:03)
[2016-12-11] MEDS: CATHETER FLUSH 10 ML SYR IV SCH (06:05)
[2016-12-11] MEDS: CALCIUM CARB + VIT D 600 MG (CALCARB + D) TAB PO SCH (06:05)
[2016-12-11] MEDS: RT-ALBUTEROL/IPRATROPIUM 3 ML (DUONEB) VIAL IH SCH (07:25)
[2016-12-11] MEDS: DILTIAZEM 180 MG (CARDIZEM CD) CAP PO SCH (09:00)
[2016-12-11] MEDS: LIDOCAINE (LIDODERM) 5% PATCH TP SCH (09:00)
[2016-12-11] MEDS: LACTOBACILLUS Acidoph/Bulgar (LACTINEX/FLORANEX) TAB PO SCH (09:00)
[2016-12-11] MEDS: CYANOCOBALAMIN 500 MCG TAB (VITAMIN B-12) PO SCH (09:00)
[2016-12-11] MEDS: fluCOnazole (DIFLUCAN) 100 MG TAB PO SCH (09:00)
[2016-12-11] MEDS: FOLIC ACID 1 MG TAB PO SCH (09:00)
[2016-12-11] MEDS: DOCUSATE SODIUM 100 MG (COLACE) CAP PO SCH (09:00)
[2016-12-11] MEDS: LEVOTHYROXINE 50 MCG (LEVOTHROID) TAB PO SCH (09:00)
[2016-12-11] MEDS: SOTALOL 80 MG (BETAPACE) TAB PO SCH (09:00)
[2016-12-11] MEDS: LEVETIRACETAM 500 MG (KEPPRA) TAB PO SCH (09:01)
[2016-12-11] MEDS: guaiFENesin (MUCINEX) 600 MG TAB PO SCH (09:01)
[2016-12-11] MEDS ORDERED: Sotalol Hcl PO (09:24)
[2016-12-11] MEDS ORDERED: NYST1000 PO (09:24)
[2016-12-11] MEDS ORDERED: AMOX-358 PO (09:24)
[2016-12-11] MEDS ORDERED: DILT180C84 PO (09:24)
[2016-12-11] MEDS ORDERED: HYDR-3820 PO (09:24)
[2016-12-11] MEDS ORDERED: GUAI600T43 PO (09:24)
[2016-12-11] MEDS ORDERED: ACID1TAB PO (09:24)
--- NOTE | 2016-12-11 09:30 | Discharge Inst-Skilled Nursing ---
Discharge Inst-Skilled NF Patient Instructions Patient Problems: DIABETES MELLITUS HYPOTENSION ATRIAL FIBRILLATION HX OF GI BLEED WEAKNESS PNEUMONIA PLEURAL EFFUSION Consult/Follow Up/Orders Follow Up Appt.: ONE WEEK AT [facility] Skilled NF Admit to: Via [facility] Certification (SNF) I certify that SNF services are required to be given on an inpatient basis because of the above named patient's need for half-way care on a continuing basis for the conditions(s) for which he/she was receiving inpatient hospital services prior to his/her transfer to the SNF. Nursing Home Facility Order: Nursing Services, General Education Instructor-Evaluate & Treat, Physical Therapy-Evaluate & Treat Discharge Diet: Regular Diet New & Resume Previous Orders Gutierrez Pandey Florentin Dec 11, 2016 09:26 Medication List: Active Scripts Active Augmentin 875-125 Tablet (Amoxicillin/Potassium Clav) 1 Each Tablet 1 Each PO BID Floranex Tablet (L. Acidophilus/Bulgaricus) 1 Each Tablet 1 Tab.chew PO TID Mucinex (Guaifenesin) 600 Mg Tab.er.12h 600 Mg PO BID Diltiazem 24Hr Cd (Diltiazem HCl) 180 Mg Cap.er.24h 180 Mg PO DAILY [Sotalol Hcl] 80 MG Tab 80 Mg PO BID Nystatin 100,000 Unit/1 Ml Oral.susp 5 Ml PO Q6HR Hydrocodon-Acetaminophn 10-325 (Hydrocodone/Acetaminophen) 1 Each Tablet 1 Tab PO Q4H PRN Reported Senna S Tablet (Sennosides/Docusate Sodium) 1 Each Tablet 1 Tab PO BID Milk of Magnesia (Magnesium Hydroxide) 400 Mg/5 Ml Oral.susp 30 Ml PO DAILY PRN Natural Lutein (Lutein) 20 Mg Capsule 20 Mg PO BID Lidoderm (Lidocaine) 700 Mg Adh..patch TP DAILY APPLY TO RIB FX SITE IN THE MORNING AND REMOVE AT BEDTIME Ibuprofen 600 Mg Tablet 600 Mg PO QID Iprat-Albut 0.5-3(2.5) mg/3 ml (Ipratropium/Albuterol Sulfate) 3 Ml Ampul.neb 3 Ml IH TID Iprat-Albut 0.5-3(2.5) mg/3 ml (Ipratropium/Albuterol Sulfate) 3 Ml Ampul.neb 3 Ml IH Q4H PRN Docusate Sodium 100 Mg Capsule 100 Mg PO DAILY Levothyroxine Sodium 50 Mcg Tablet 50 Mcg PO MOTUTHFRSA Metformin HCl 500 Mg Tablet 500 Mg PO BID Atorvastatin Calcium 10 Mg Tablet 10 Mg PO HS Pantoprazole Sodium 40 Mg Tablet.dr 40 Mg PO HS Levetiracetam 500 Mg Tablet 250 Mg PO BID TAKES 1/2 (500MG) TABLET Sotalol (Sotalol HCl) 80 Mg Tablet 40 Mg PO BID TAKES 1/2 (80MG) TABLET Hydrocortisone Valerate 15 Gm Cream..g. TP DAILY USES DAILY BEHIND EARS Calcipotriene-Betameth Dp Oint (Calcipotriene/Betamethasone) 60 Gm Oint...g. TP DAILY PRN Levothyroxine 50 Mcg Tab (Levothyroxine Sodium) 50 Mcg Tablet 25 Mcg PO SUWE TAKES 1/2 (50 MCG) TABLET Nitrostat (Nitroglycerin) 0.4 Mg Tab 0.4 Mg SL UD PRN 1 TABLET EVERY 5 MINUTES X 3 DOSES NEEDED FOR CHEST PAIN Vitamin B-12 (Cyanocobalamin) 1,000 Mcg Tablet 1,000 Mcg PO DAILY Foltanx Tablet (Methyl-B12/L-Mefolate/B6 Phos) 1 Each Tablet 1 Tab PO DAILY Folic Acid 0.8 Mg Tablet 0.8 Mg PO DAILY Probiotic (Lactobacillus Acidophilus) 1 Each Capsule 1 Cap PO DAILY Lab results: Laboratory Tests Test 12/10/16 10:30 12/10/16 15:49 12/11/16 05:30 Range/Units Alanine Aminotransferase (ALT/SGPT) 16 0-55 U/L Albumin 3.0 L 3.2-4.5 G/DL Alkaline Phosphatase 84 40-136 U/L Anion Gap 10 5-14 MMOL/L Aspartate Amino Transf (AST/SGOT) 22 5-34 U/L BUN/Creatinine Ratio 23 Blood Urea Nitrogen 20 H 7-18 MG/DL Calcium Level 8.8 8.5-10.1 MG/DL Carbon Dioxide Level 34 H 21-32 MMOL/L Chloride Level 99 98-107 MMOL/L Creatinine 0.87 0.60-1.30 MG/DL Estimat Glomerular Filtration Rate > 60 Glucose Level 185 H 70-105 MG/DL Hematocrit 34 L 40-54 % Hemoglobin 10.9 L 13.3-17.7 G/DL Mean Corpuscular Hemoglobin 31 25-34 PG Mean Corpuscular Hemoglobin Concent 32 32-36 G/DL Mean Corpuscular Volume 99 80-99 FL Mean Platelet Volume 9.8 7.4-10.4 FL Platelet Count 259 130-400 10^3/uL Potassium Level 3.3 L 3.6-5.0 MMOL/L Red Blood Count 3.47 L 4.35-5.85 10^6/uL Red Cell Distribution Width 14.5 10.0-14.5 % Sodium Level 143 135-145 MMOL/L Total Bilirubin 0.5 0.1-1.0 MG/DL Total Protein 6.0 L 6.4-8.2 G/DL White Blood Count 5.7 4.3-11.0 10^3/uL Glucometer 126 H 157 H 70-110 MG/DL My orders: Orders-GUTIERREZ PHAM MD Cbc No Diff (12/10/16 09:29) Comprehensive Metabolic Panel (12/10/16 09:29) Chest Pa/Lat (2 View) (12/10/16 09:29) Consult Physician (12/10/16 11:45) Patient Visit (12/10/16 ) Functional Activities, Ea 15 (12/10/16 ) Attending Discharge (12/11/16 09:24) Discharge To [facility] (12/11/16 09:24) GUTIERREZ PHAM MD Dec 11, 2016 09:30
--- NOTE | 2016-12-11 09:32 | Discharge Summary ---
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 RIB PAIN ON LEFT - DUE TO RIB FRACTURES - LIDODERM PATCH, CONTINUE WITH PRN ORAL PAIN MEDICATIONS ATRIAL FIBRILLATION -RATE CONTROLLED - DEFER TREATMENT TO DR. DOWLING. 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 ULRICH - PT IS POST LITHOTRIPSY - DID WELL , DENIES PAIN LOOSE STOOLS - STOPPED METFORMIN -STOOLS MORE SOLID OVER THE WEEKEND. THRUSH - RX FOR NYSTATIN AND DIFLUCAN - PT SEVERAL DAYS INTO TREATMENT COURSE DECREASED APPETITE DUE TO AVAILABLE FOOD CHOICES, CONTINUE WITH SUPPORTIVE CARE , OUTSIDE FOOD IF ABLE TO OBTAIN Pending Labs Discharge Condition at discharge stable Instructions to patient/family Please see electonic discharge instructions given to patient. Discharge Medications Reviewed and agree with Discharge Medication list on patient's Discharge Instruction sheet Clinical Quality Measures DVT/VTE Risk/Contraindication: Contraindications-Pharm: Other *list below* Other: PROCEDURES PLANNED AND PT CANNOT TAKE ORAL OR INJECTABLE OR IV MEDIATION THAT THINS BLOOD PRIOR TO LITHOTRIPSY GUTIERREZ PHAM MD Dec 11, 2016 09:32
--- NOTE | 2016-12-11 09:35 | Therapy Team Discharge Summary ---
Therapy Discharge Summary Discharge Recommendations Date of Discharge Therapy D/C Recommendations: Residential Placement Physical Therapy Patient to dismiss to [place] on this date per physician. Patient has declined with functional mobility and strength due to patient poor eating and overall medical status. Patient has increase confusion, increase SOA on O2 2-3L NC continuous and requires minimal to SBA with all mobility for safety concerns. Patient did not met functional goals and PT will continue at [place]. PT Detention Goals Detention Goals PT Detention Goals Time Frame: Dec 11, 2016 Transfers (B,C,W/C) (FIM): 6 Sit to Lying (QC): 6 Lying-Sitting on Side/Bed(QC): 6 Sit to Stand (QC): 6 Chair/Abq-gc-Juzbf Xfer(QC): 6 Does the Patient Walk: Yes Gait (FIM): 6 Gait distance (FIM): 3=150 ft Walk 50ft with 2 Turns (QC): 6 Walk 150 ft (QC): 6 Gait Assistive Device: FWW OT Detention Goals [employer] Goals Time Frame: Dec 15, 2016 Eating (FIM): 6 Eating (QC): 6 Groomin Oral Hygiene (QC): 6 Bathing(FIM): 5 Upper Body Dressing(FIM): 6 Lower Body Dressing(FIM): 5 Toileting(FIM): 6 Toileting Hygiene (QC): 6 Toilet/Commode Transfer(FIM): 6 Toilet/Commode Transfer (QC): 6 Additional Goals: 1-Demonstrate ADL Tasks, 2-Verbalize Understanding, 3- ImproveStrength/Sherrell 1=Demonstrate adherence to instructed precautions during ADL tasks. 2=Patient will verbalize/demonstrate understanding of assistive devices/ modifications for ADL. 3=Patient will improve strength/tolerance for activity to enable patient to perform ADL's. SAVAGE TREVINO PT Dec 11, 2016 09:35
[2016-12-11] MEDS ORDERED: AUGMENTIN 875 MG TAB (AMOXICILLIN/CLAVULANATE) PO NR (10:57)
--- NOTE | 2016-12-11 15:03 | Therapy Team Discharge Summary ---
Therapy Discharge Summary Discharge Recommendations Date of Discharge Dec 11, 2016 at 12:00 Therapy D/C Recommendations: Halfway Placement Occupational Therapy Pt admitted to ARU following acute hospitalization for pneumonia/sepsis. On admission pt required SBA for feeding and grooming, and minimal assistance for transfers. Skilled OT intervention focused on ADL training, transfers, and strengthening. At d/c pt is completing transfers, grooming, and toileting with SBA. Pt did not meet OT LTG. Pt discharged to [facility] for continued care. D/C SWB OT at this time. PT [employer] Goals Prison Goals PT Prison Goals Time Frame: Dec 11, 2016 Transfers (B,C,W/C) (FIM): 6 Sit to Lying (QC): 6 Lying-Sitting on Side/Bed(QC): 6 Sit to Stand (QC): 6 Chair/Gxu-ey-Tltpn Xfer(QC): 6 Does the Patient Walk: Yes Gait (FIM): 6 Gait distance (FIM): 3=150 ft Walk 50ft with 2 Turns (QC): 6 Walk 150 ft (QC): 6 Gait Assistive Device: FWW OT Prison Goals [employer] Goals Time Frame: Dec 15, 2016 Eating (FIM): 6 Eating (QC): 6 Groomin Oral Hygiene (QC): 6 Bathing(FIM): 5 Upper Body Dressing(FIM): 6 Lower Body Dressing(FIM): 5 Toileting(FIM): 6 Toileting Hygiene (QC): 6 Toilet/Commode Transfer(FIM): 6 Toilet/Commode Transfer (QC): 6 Additional Goals: 1-Demonstrate ADL Tasks, 2-Verbalize Understanding, 3- ImproveStrength/Sherrell 1=Demonstrate adherence to instructed precautions during ADL tasks. 2=Patient will verbalize/demonstrate understanding of assistive devices/ modifications for ADL. 3=Patient will improve strength/tolerance for activity to enable patient to perform ADL's. MARIA ELENA SNOW OT Dec 11, 2016 15:03
--- NOTE | 2016-12-14 09:14 | Physician Query ---
PQ-Further Specificity Admission/Discharge Admission Date: Dec 01, 2016 at 09:01 Discharge Date: Dec 11, 2016 at 12:00 The medical record reflects the following clinical scenario: History/Risk Factors: ACUTE DIASTOLIC CHF Clinical Findings: 11/25 LVEF 60-65%, AORTIC VALVE SCLEROSIS Treatment: Not seeing anything given at this time Question: Can you further specify diagnosis/condition per the clinical indicators above? Please document below. 1.Chronic diastolic CHF 2. Acute diastolic CHF 3. Other, with explanation of the clinical findings. 4. Clinically undetermined, no explanation for the clinical findings. PHYSICIAN RESPONSE Can you specify per above: 2 Explanation/Clinical Findings This is already clearly documented in our last progress notes of 12/03 and . I am not sure if I understand the question correctly. Nevertheless, I answered the question as I understood it to be Please remember a lack of response to the above will prompt a phone page by [facility]/ coding staff. In responding to this query, please exercise your independent professional judgment. The purpose of this communication is to more accurately reflect the complexity of your patients condition. The fact that a question is asked does not imply that any particular answer is desired or expected. Thank you for your timely response to this clarification. Requestors name: Cooper THIS PHYSICIAN QUERY FORM IS A PERMANENT PART OF THE MEDICAL RECORD COOPER SHAH Dec 14, 2016 09:14 ERIK DOWLING MD [facility] Dec 22, 2016 17:47
--- NOTE | 2016-12-22 08:26 | OPERATIVE REPORT ---
PROCEDURE PHYSICIAN: DARNELL ULRICH DATE OF PROCEDURE: 12/02/2016 PREOPERATIVE DIAGNOSIS: Left renal stone. POSTOPERATIVE DIAGNOSIS: Left renal stone. OPERATION: Left ESWL. SURGEON: Stacia. ANESTHESIA: General. COMPLICATIONS: None. PROCEDURE: Under satisfactory general anesthesia, the patient supine position on the ESWL table, the left renal stone was localized. Shocks were delivered KV of 5. A total of 2500 shocks completely fragmented the stone which could not visualize anymore. The patient received 40 mg of Lasix and 15 mg of Toradol IV at the end of the procedure. He tolerated the procedure and anesthesia well and was sent to recovery room in stable condition. Job ID: [id number] Dictated Date: 12/02/2016 10:52:39 Airport Manager Date: 12/03/2016 10:08:24 / kjs <Dictated by DARNELL ULRICH MD> <Electronically signed by DARNELL ULRICH MD> 12/03/16 1112
== END 2016-12-11 12:00 | DRG 949 ==
LOC: 4TH 09:01
PROVIDERS: ADMIT Family Medicine; ATTEND Family Medicine
PROC: 0TF7XZZ Fragmentation in Left Ureter, External Approach (ICD-10-PCS; principal; 2016-12-02 10:17)
DX: T79.8XXD Other early complications of trauma, subsequent encounter (principal); J18.9 Pneumonia, unspecified organism; S27.1XXD Traumatic hemothorax, subsequent encounter; S27.321D Contusion of lung, unilateral, subsequent encounter; I50.31 Acute diastolic (congestive) heart failure; N13.2 Hydronephrosis with renal and ureteral calculous obstruction; I48.0 Paroxysmal atrial fibrillation; R62.7 Adult failure to thrive; B37.0 Candidal stomatitis; I25.10 Atherosclerotic heart disease of native coronary artery without angina pectoris; E11.9 Type 2 diabetes mellitus without complications; R91.1 Solitary pulmonary nodule; S22.42XD Multiple fractures of ribs, left side, subsequent encounter for fracture with routine healing; I34.0 Nonrheumatic mitral (valve) insufficiency; D64.9 Anemia, unspecified; R29.6 Repeated falls; Z85.118 Personal history of other malignant neoplasm of bronchus and lung; Z85.51 Personal history of malignant neoplasm of bladder; Z95.5 Presence of coronary angioplasty implant and graft; W19.XXXD Unspecified fall, subsequent encounter
CPT/HCPCS: 36415; 71020; 74000; 80048; 80053; 82962; 83735; 85027; 87081; 94640; 94760

== ENCOUNTER 2016-12-12 20:37 | Inpatient (IN) | payer MEDICARE, OTHER ==
[~2016-12-12] VITALS: Ht 188 cm; Wt 77.8 kg
[~2016-12-12 20:37] MED LIST changes: +ACID1TAB PO; +AMOX-358 PO; +DILT180C84 PO; +GUAI600T43 PO; +NYST1000 PO; +Sotalol Hcl PO
[2016-12-12] MEDS ORDERED: NS IV 1000 ML 1,000 ML IV ONE (20:54)
[2016-12-12] MEDS ORDERED: ONDANSETRON 4 MG/2 ML (SDV) Z0FRAN IVP ONE (21:00)
[2016-12-12 21:17] LABS: BASOPHILS % (AUTO) 0 % (0-10); EOSINOPHILS # (AUTO) 0.3 10^3/uL (0.0-0.3); EOSINOPHILS % (AUTO) 3 % (0-10); LYMPHOCYTES # (AUTO) 1.7 X 10^3 (1.0-4.0); LYMPHOCYTES % (AUTO) 19 % (12-44); MEAN CORPUSCULAR HEMOGLOBIN 31 PG (25-34); MEAN CORPUSCULAR HGB CONC 32 G/DL (32-36); MEAN CORPUSCULAR VOLUME 98 FL (80-99); MEAN PLATELET VOLUME 10.7 FL (7.4-10.4); MONOCYTES # (AUTO) 0.7 X 10^3 (0.0-1.0); MONOCYTES % (AUTO) 8 % (0-12); NEUTROPHILS # (AUTO) 6.3 X 10^3 (1.8-7.8); NEUTROPHILS % (AUTO) 71 % (42-75); PLATELET COUNT 218 10^3/uL (130-400); RED BLOOD COUNT 3.03 10^6/uL (4.35-5.85); RED CELL DISTRIBUTION WIDTH 14.4 % (10.0-14.5)
--- NOTE | 2016-12-12 21:25 | Diagnostic Imaging Report ---
EXAMINATION: Portable chest. INDICATION: Weakness and hypotension. COMPARISON: Prior study from December 10, 2016. FINDINGS: When compared to the prior examination, there is increased consolidation demonstrated at the left lung base with an apparent increasing left-sided pleural collection. Background interstitial changes within the lungs are not appreciably changed. There is stable linear density within the right mid lung. Heart size and mediastinal contours appear stable. Left-sided port is again noted. There are displaced unchanged left-sided rib fractures. IMPRESSION: Increasing left base consolidation and pleural collection immediately adjacent to multiple displaced left-sided rib fractures. There is no pneumothorax. The appearance of the chest is otherwise not significant changed. Dictated by: Dictated on workstation # [id number]
[2016-12-12 21:27] LABS: INR 1.1 (0.8-1.4); PROTHROMBIN TIME PATIENT 13.7 SEC (12.2-14.7)
[2016-12-12] MEDS ORDERED: LACTATED RINGERS 1,000 ML IV ONE (21:29)
[2016-12-12 21:37] LABS: ALANINE AMINOTRANSFERASE 19 U/L (0-55); ALBUMIN 2.6 G/DL (3.2-4.5); AMYLASE 231 U/L (25-125); ANION GAP 12 MMOL/L (5-14); ASPARTATE AMINO TRANSFERASE 27 U/L (5-34); BILIRUBIN,TOTAL 0.4 MG/DL (0.1-1.0); BLOOD UREA NITROGEN 36 MG/DL (7-18); BUN/CREATININE RATIO 23; CALCIUM 8.4 MG/DL (8.5-10.1); CARBON DIOXIDE 29 MMOL/L (21-32); CHLORIDE 99 MMOL/L (98-107); CREATININE SERUM 1.54 MG/DL (0.60-1.30); GFR ESTIMATED 43; GLUCOSE 250 MG/DL (70-105); LIPASE 44 U/L (8-78); MAGNESIUM 1.6 MG/DL (1.8-2.4); POTASSIUM 3.4 MMOL/L (3.6-5.0); SODIUM 140 MMOL/L (135-145); TOTAL PROTEIN 5.3 G/DL (6.4-8.2)
[2016-12-12 21:43] LABS: TROPONIN I < 0.30 NG/ML (<0.30)
[2016-12-12] MEDS ORDERED: LEVOFLOXACIN 750 MG/150 ML IV 150 ML IV STA (22:03)
[2016-12-12 23:00] VITALS: BP 95/51
[2016-12-12 23:30] VITALS: BP 85/36
[2016-12-12] MEDS ORDERED: CATHETER FLUSH 10 ML SYR IV PRN (23:45)
[2016-12-12] MEDS: LEVOFLOXACIN 750 MG/D5W 150 ML PRE-MIX IV SCH (23:45)
[2016-12-13] VITALS (11 sets, daily range): BP systolic 86–103; BP diastolic 38–52
[2016-12-13] MEDS: D5 1/2 NS W/KCL 20 MEQ/L 1,000 ML IV SCH ×4 (00:10→17:10)
[2016-12-13] MEDS: HYDROcodone/APAP 5 MG/325 MG (LORTAB) TAB PO PRN ×2 (00:11→06:20)
[2016-12-13] MEDS: CEFEPIME 2 GM/NS 50 ML IVPB IV SCH ×4 (00:11→23:16)
[2016-12-13] MEDS: NS IV 1000 ML 1,000 ML IV SCH ×2 (00:11→08:00)
[2016-12-13] MEDS ORDERED: RT-ALBUTEROL/IPRATROPIUM 3 ML (DUONEB) VIAL INH PRN (00:45)
[2016-12-13] MEDS: VANCOMYCIN 1 GM/NS 250 ML IVPB IV SCH ×4 (01:03→11:33)
[2016-12-13] MEDS ORDERED: LEVO1CAP11 PO (02:26)
[2016-12-13 02:51] LABS: BILIRUBIN,URINE NEGATIVE (NEGATIVE); KETONES,URINE NEGATIVE (NEGATIVE); LEUKOCYTE ESTERASE ,URINE 3+ (NEGATIVE); NITRITE,URINE NEGATIVE (NEGATIVE); PH,URINE 6 (5-9); PROTEIN,URINE 2+ (NEGATIVE); UROBILINOGEN,URINE NORMAL (NORMAL)
[2016-12-13 03:04] LABS: WBC,URINE 50-100 /HPF
[2016-12-13 03:05] LABS: HYALINE CASTS, URINE 0-2 /LPF; SQUAMOUS EPITHELIAL CELL,UR RARE /HPF
--- NOTE | 2016-12-13 03:24 | ED General ---
General Chief Complaint: Cardiac/General Problems Stated Complaint: PNEUMONIA HYPOTENSION L RIB FRACTURES Nursing Triage Note: PT TO ED 9 PER EMS FROM [facility] FOR C/O HYPOTENSION. PT RECENTLY ADMITTED TO FACILITY YESTERDAY Nursing Sepsis Screen: No Definite Risk Source of Information: Patient (VERY LIMITED HISTORIAN AND SPEECH DIFFICULT TO UNDERSTAND), EMS, Jail Records, Old Records History of Present Illness Time Seen by Provider: 20:50 Initial Comments PT ARRIVES VIA EMS FROM VIA [facility] SENT HERE FOR HYPOTENSION--BP IN 70'S SYSTOLIC PT WAS JUST ADMITTED THERE YESTERDAY FROM THE HOSPITAL PT HAS BEEN IN HOSPITAL ESSENTIALLY SINCE 11/01/16 AFTER FALLING AND BREAKING MULTIPLE LEFT RIBS . PT HAD BEEN TREATED FOR PNEUMONIA FOR 2 WEEKS PRIOR TO FALLING AND PNEUMONIA WORSENED. PT C/O "PAIN EVERYWHERE", ESPECIALLY BUTTOCKS--HAS DEVELOPED DECUBITUS ULCERS WHICH ARE VERY PAINFUL + NAUSEA, NO VOMITING. DIARRHEA X 1 YESTERDAY--PER PT PT DENIES FEVER ? COUGH ? NO OTHER RELEVANT INFORMATION IS OBTAINABLE FROM PT SEE OLD CHARTS FOR DETAILS PT IS DNR/DNI PCP: DR. PHAM Allergies and Home Medications Allergies Coded Allergies: No Known Drug Allergies (Verified , 11/20/16) Home Medications 80 MG TAB #60 80 MG PO BID Prescribed by: GUTIERREZ PHAM on 12/11/16923 Amoxicillin/Potassium Clav 1 Each Tablet #14 1 EACH PO BID Prescribed by: GUTIERREZ PHAM on 12/11/16923 Atorvastatin Calcium 10 Mg Tablet 10 MG PO HS (Reported) Calcipotriene/Betamethasone 60 Gm Oint...g. TP DAILY PRN PRN PSORIASIS (Reported ) Cyanocobalamin 1,000 Mcg Tablet 1,000 MCG PO DAILY (Reported) Diltiazem HCl 180 Mg Cap.er.24h #30 180 MG PO DAILY Prescribed by: GUTIERREZ PHAM on 12/11/16923 Docusate Sodium 100 Mg Capsule 100 MG PO DAILY (Reported) Folic Acid 0.8 Mg Tablet 0.8 MG PO DAILY (Reported) Guaifenesin 600 Mg Tab.er.12h #60 600 MG PO BID Prescribed by: GUTIERREZ PHAM on 12/11/16923 Hydrocodone/Acetaminophen 1 Each Tablet #60 1 TAB PO Q4H PRN PRN PAIN Prescribed by: GUTIERREZ PHAM on 12/11/16923 Hydrocortisone Valerate 15 Gm Cream..g. TP DAILY (Reported) USES DAILY BEHIND EARS Ibuprofen 600 Mg Tablet 600 MG PO QID (Reported) Ipratropium/Albuterol Sulfate 3 Ml Ampul.neb 3 ML IH Q4H PRN PRN SHORTNESS OF BREATH (Reported) Ipratropium/Albuterol Sulfate 3 Ml Ampul.neb 3 ML IH TID (Reported) L. Acidophilus/Bulgaricus 1 Each Tablet #90 1 TAB.CHEW PO TID Prescribed by: GUTIERREZ PHAM on 12/11/16923 Lactobacillus Acidophilus 1 Each Capsule 1 CAP PO DAILY (Reported) Levetiracetam 500 Mg Tablet 250 MG PO BID (Reported) TAKES 1/2 (500MG) TABLET Levomefolate/B6/B12/Algal Oil 1 Each Capsule 1 EACH PO DAILY (Reported) Levothyroxine Sodium 50 Mcg Tablet 25 MCG PO SuWe (Reported) TAKES 1/2 (50 MCG) TABLET Levothyroxine Sodium 50 Mcg Tablet 50 MCG PO MoTuThFrSa (Reported) Lutein 20 Mg Capsule 20 MG PO DAILY (Reported) Magnesium Hydroxide 400 Mg/5 Ml Oral.susp 30 ML PO DAILY PRN PRN CONSTIPATION ( Reported) Nitroglycerin 0.4 Mg Tab 0.4 MG SL UD PRN PRN CHEST PAIN (Reported) 1 TABLET EVERY 5 MINUTES X 3 DOSES NEEDED FOR CHEST PAIN Nystatin 100,000 Unit/1 Ml Oral.susp #200 5 ML PO Q6HR Prescribed by: GUTIERREZ PHAM on 12/11/16923 Pantoprazole Sodium 40 Mg Tablet.dr 40 MG PO HS (Reported) Sennosides/Docusate Sodium 1 Each Tablet 1 TAB PO BID (Reported) Constitutional: malaise weakness other (UNABLE TO OBTAIN ANY RELEVANT INFORMATION FROM PT) Past Lejrerr-Kdnmfs-Mkcfrs Hx Patient Social History Alcohol Use: Denies Use Recreational Drug Use: No Smoking Status: Former Smoker Type Used: Pipe Former Smoker/When Quit: Sep 27, 1996 2nd Hand Smoke Exposure: No Recent Foreign Travel: No Contact w/Someone Who Travel: No Recent Infectious Disease Expo: No Recent Hopitalizations: No Physical Abuse Screen: No Sexual Abuse: No Immunizations Up To Date Tetanus Booster (TDap): More than 5yrs PED Vaccines UTD: No Date of Pneumonia Vaccine: Jul 17, 2012 Date of Influenza Vaccine: Aug 27, 2016 Seasonal Allergies Seasonal Allergies: No Surgeries HX Surgeries: Yes (VASECTOMY; HAND SURGERY; [place] LEFT CHEST; PROSTATE ; CRANIOTOMY/EVACUTION OF SUBDURAL HEMATOMA; CARDIAC CATHS WITH STENTS X 4 AT [facility]; LITHOTRIPSY 12/01/16 ) Surgeries: Cardiac, Coronary Stent, Neurological, Orthopedic, Renal, Transurethral Resection, Vasectomy Respiratory Hx Respiratory Disorders: Yes Respiratory Disorders: Pneumonia Cardiovascular Hx Cardiac Disorders: Yes (MITRAL REGURGITATION, STENTS X4) Cardiac Disorders: Atrial Fibrillation, Coronary Artery Disease, High Cholesterol, Hypertension Neurological Hx Neurological Disorders: Yes (SUBDURAL HEMATOMA WITH CRANIOTOMY AND EVACUATION OF HEMATOMA; CHRONIC POOR BALANCE FOLLOWING SUBDURAL) Neurological Disorders: Seizure Disorder, Traumatic Brain Injury, Vertigo Reproductive System Hx Reproductive Disorders: No Sexually Transmitted Disease: No HIV/AIDS: No Genitourinary Hx Genitourinary Disorders: Yes (BLADDER/PROSTATE CANCER; ESWL LEFT RENAL STONE 12/01/16) Genitourinary Disorders: Kidney Infection, Prostate Problems, Bladder Infection , Kidney Stones Gastrointestinal Hx Gastrointestinal Disorders: Yes Gastrointestinal Disorders: Gastroesophageal Reflux, Chronic Constipation Musculoskeletal Hx Musculoskeletal Disorders: Yes (L1 COMPRESSION FRACTURE; MULTIPLE LEFT RIB FX'S 10/2016) Musculoskeletal Disorders: Fractures Endocrine Hx Endocrine Disorders: Yes Endocrine Disorders: Hypothyroidsim, Diabetes, Non-Insulin dep HEENT HX ENT Disorders: Yes (MISSING TEETH) HEENT Disorders: Cataract Loss of Vision: Denies Hearing Impairment: Hard of Hearing Cancer Hx Cancer: Yes Cancer: Bladder, Prostate, Lung, Skin Psychosocial Hx Psychiatric Problems: Yes Behavioral Health Disorders: Anxiety Integumentary HX Skin/Integumentary Disorder: Yes (SKIN CANCER; DECUBITUS ULCERS) Skin/Integumentary Disorders: Psoriasis Blood Transfusions Hx Blood Disorders: No Adverse Reaction to a Blood Tr: No Family Medical History Significant Family History: Heart Disease, Hypertension Family Medial History: Chest pain 03 FATHER, Onset:Unknown Myocardial infarction 03 FATHER, Onset:60 years & older Physical Exam Vital Signs Vital Sign - Last 12Hours 12/12/16 20:38 Temp 96.8 Pulse 80 Resp 36 B/P 75/37 Pulse Ox 91 O2 Delivery Room Air O2 Flow Rate 2 Capillary Refill : Less Than 3 SecondsLess Than 3 Seconds General Appearance: Chronically ill Mild Distress (MILDLY DYSPNEIC) Thin Other (LETHARGIC, ORAL MUCOSA DRY AND DENTURES ARE VERY ILL-FITTING AND EXTREMELY LOOSE--SPEECH VERY DIFFICULT TO UNDERSTAND AT THIS TIME. ) HEENT: PERRL/EOMI Other (DRY ORAL MUCOSA. 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 ) Skin: Warm/Dry Pallor Other (REPORTED DECUBITUS ULCERS. VERY POOR TURGOR) Focused Exam Lactic Acid Level Laboratory Tests Test 12/13/16 00:50 Lactic Acid Level 1.85MMOL/L (0.50-2.00) Progress/Results/Core Measures Results/Orders Lab Results Laboratory Tests Test 12/12/16 21:05 12/13/16 00:50 12/13/16 02:44 Range/Units Activated Partial Thromboplast Time 28 24-35 SEC Alanine Aminotransferase (ALT/SGPT) 19 0-55 U/L Albumin 2.6 L 3.2-4.5 G/DL Alkaline Phosphatase 77 40-136 U/L Amylase Level 231 H 25-125 U/L Anion Gap 12 5-14 MMOL/L Aspartate Amino Transf (AST/SGOT) 27 5-34 U/L B-Type Natriuretic Peptide 165.1 H <100.0 PG/ML BUN/Creatinine Ratio 23 Basophils # (Auto) 0.0 0.0-0.1 10^3/uL Basophils (%) (Auto) 0 0-10 % Blood Urea Nitrogen 36 H 7-18 MG/DL Calcium Level 8.4 L 8.5-10.1 MG/DL Carbon Dioxide Level 29 21-32 MMOL/L Chloride Level 99 98-107 MMOL/L Creatinine 1.54 H 0.60-1.30 MG/DL Eosinophils # (Auto) 0.3 0.0-0.3 10^3/uL Eosinophils (%) (Auto) 3 0-10 % Estimat Glomerular Filtration Rate 43 Glucose Level 250 H 70-105 MG/DL Hematocrit 30 L 40-54 % Hemoglobin 9.5 L 13.3-17.7 G/DL INR Comment 1.1 0.8-1.4 Lactic Acid Level 2.33 *H 1.85 0.50-2.00 MMOL/L Lipase 44 8-78 U/L Lymphocytes # (Auto) 1.7 1.0-4.0 X 10^3 Lymphocytes (%) (Auto) 19 12-44 % Magnesium Level 1.6 L 1.8-2.4 MG/DL Mean Corpuscular Hemoglobin 31 25-34 PG Mean Corpuscular Hemoglobin Concent 32 32-36 G/DL Mean Corpuscular Volume 98 80-99 FL Mean Platelet Volume 10.7 H 7.4-10.4 FL Monocytes # (Auto) 0.7 0.0-1.0 X 10^3 Monocytes (%) (Auto) 8 0-12 % Neutrophils # (Auto) 6.3 1.8-7.8 X 10^3 Neutrophils (%) (Auto) 71 42-75 % Platelet Count 218 130-400 10^3/uL Potassium Level 3.4 L 3.6-5.0 MMOL/L Prothrombin Time 13.7 12.2-14.7 SEC Red Blood Count 3.03 L 4.35-5.85 10^6/uL Red Cell Distribution Width 14.4 10.0-14.5 % Sodium Level 140 135-145 MMOL/L Total Bilirubin 0.4 0.1-1.0 MG/DL Total Protein 5.3 L 6.4-8.2 G/DL Troponin I < 0.30 <0.30 NG/ML White Blood Count 9.0 4.3-11.0 10^3/uL Urine Bacteria FEW H /HPF Urine Bilirubin NEGATIVE NEGATIVE Urine Casts PRESENT /LPF Urine Clarity SLIGHTLY CLOUDY Urine Color YELLOW Urine Crystals NONE /LPF Urine Culture Indicated YES Urine Glucose (UA) NEGATIVE NEGATIVE Urine Hyaline Casts 0-2 H /LPF Urine Ketones NEGATIVE NEGATIVE Urine Leukocyte Esterase 3+ H NEGATIVE Urine Mucus NEGATIVE /LPF Urine Nitrite NEGATIVE NEGATIVE Urine Protein 2+ H NEGATIVE Urine RBC RARE /HPF Urine RBC (Auto) 1+ H NEGATIVE Urine Specific [place] 1.015 L 1.016-1.022 Urine Squamous Epithelial Cells RARE /HPF Urine Urobilinogen NORMAL NORMAL MG/DL Urine WBC 50-100 H /HPF Urine pH 6 5-9 My Orders Orders-ILDA SHAH DO Saline Lock/Iv-Start (12/12/16 20:54) Ekg Tracing (12/12/16 20:54) O2 (12/12/16 20:54) Monitor-Rhythm Ecg Trace Only (12/12/16 20:54) Amylase (12/12/16 20:54) BNP (12/12/16 20:54) Cbc With Automated Diff (12/12/16 20:54) Comprehensive Metabolic Panel (12/12/16 20:54) Lactic Acid Analyzer (12/12/16 20:54) Lipase (12/12/16 20:54) Magnesium (12/12/16 20:54) Protime With Inr (12/12/16 20:54) Partial Thromboplastin Time (12/12/16 20:54) Troponin I (12/12/16 20:54) Ua Culture If Indicated (12/12/16 20:54) Blood Culture (12/12/16 20:54) Chest 1 View, Ap/Pa Only (12/12/16 20:54) Saline Lock/Iv-Start (12/12/16 20:54) Ns Iv 1000 Ml (Sodium Chloride 0.9%) (12/12/16 20:54) Ondansetron Injection (Zofran Injectio (12/12/16 21:00) Saline Lock/Iv-Start (12/12/16 21:29) Lactated Ringers (Lr 1000 Ml Iv Solution (12/12/16 21:29) Levofloxacin 750 Mg/150 Ml Iv (Levaquin (12/12/16 22:03) Urine Culture (12/13/16 02:44) Medications Given in ED Current Medications Medications Dose Ordered Sig/Colt Route Start Time Stop Time Status Last Admin Dose Admin Lactated Ringer's 1,000 ml @ 0 mls/hr Q0M ONCE IV 12/12/16 21:29 12/12/16 21:31 DC 12/12/16 21:36 1,000 MLS/HR Ondansetron HCl 4 mg 4 mg ONCE ONCE IVP 12/12/16 21:00 12/12/16 21:01 DC 12/12/16 21:07 4 MG Sodium Chloride 1,000 ml @ 0 mls/hr Q0M ONCE IV 12/12/16 20:54 12/12/16 20:56 DC 12/12/16 21:07 1,000 MLS/HR Vital Signs/I&O Vital Sign - Last 12Hours 12/12/16 12/12/16 12/12/16 12/12/16 20:38 23:00 23:00 23:00 Temp 96.8 96.8 Pulse 80 67 69 Resp 36 24 16 B/P 75/37 95/51 Pulse Ox 91 97 94 O2 Delivery Room Air Nasal Cannula Nasal Cannula O2 Flow Rate 2 2 2.00 12/12/16 12/13/16 12/13/16 12/13/16 23:30 00:00 00:14 00:14 Temp 95.3 95.0 Pulse 68 73 Resp 20 20 B/P 85/36 87/38 Pulse Ox 95 98 93 93 O2 Delivery Nasal Cannula Nasal Cannula O2 Flow Rate 2.00 2.00 2.00 12/13/16 12/13/16 12/13/16 12/13/16 00:27 01:30 02:30 02:44 Temp 96.1 96.5 96.9 Pulse 70 75 76 77 Resp 20 24 22 B/P 90/42 89/43 91/45 Pulse Ox 98 92 93 O2 Delivery Nasal Cannula Nasal Cannula Nasal Cannula O2 Flow Rate 2.00 2.00 2.00 12/13/16 03:30 Temp 96.5 Pulse 80 Resp 22 B/P 103/52 Pulse Ox 91 O2 Delivery Nasal Cannula O2 Flow Rate 2.00 Blood Pressure Mean: 60 Progress Note : Progress Note BP UP TO 80'S SYSTOLIC PRIOR TO ADMIT--2 LITERS OF FLUIDS BEING GIVEN THROUGH DOUBLE LUMEN PORT ECG Initial ECG Impression Time: 20:52 Initial ECG Rate: 75 Initial ECG Rhythm: Normal Sinus Initial ECG Comparisson: Changed (FROM AFIB) Diagnostic Imaging Comments CXR--WORSENING CONSOLIDATION TO LEFT LUNG--PER RADIOLOGIST REPORT Departure Communication Progress Notes SPOKE WITH DR. KLEIN, ACCEPTS PT FOR ADMIT. Impression Impression: Primary Impression: Pneumonia Additional Impressions: Hypotension LEFT RIB FRACTURES GENERALIZED DEBILITY UTI (urinary tract infection) Renal insufficiency Anemia Lung cancer Disposition: ADMITTED INPATIENT Condition: Stable Decision to Admit Reason: Admit from ER (General) Decision to Admit/Date: Dec 12, 2016 Departure-Patient Inst. Referrals: GUTEIRREZ PHAM MD (PCP/Family) Primary Care Physician ILDA SHAH DO Dec 13, 2016 03:24
[2016-12-13] MEDS: CATHETER FLUSH 10 ML SYR IV SCH ×3 (06:00→20:33)
[2016-12-13 06:05] LABS: BASOPHILS % (AUTO) 0 % (0-10); EOSINOPHILS # (AUTO) 0.1 10^3/uL (0.0-0.3); EOSINOPHILS % (AUTO) 1 % (0-10); LYMPHOCYTES # (AUTO) 1.1 X 10^3 (1.0-4.0); LYMPHOCYTES % (AUTO) 11 % (12-44); MEAN CORPUSCULAR HEMOGLOBIN 32 PG (25-34); MEAN CORPUSCULAR HGB CONC 32 G/DL (32-36); MEAN CORPUSCULAR VOLUME 98 FL (80-99); MEAN PLATELET VOLUME 10.5 FL (7.4-10.4); MONOCYTES # (AUTO) 0.7 X 10^3 (0.0-1.0); MONOCYTES % (AUTO) 7 % (0-12); NEUTROPHILS # (AUTO) 8.1 X 10^3 (1.8-7.8); NEUTROPHILS % (AUTO) 81 % (42-75); PLATELET COUNT 155 10^3/uL (130-400); RED BLOOD COUNT 2.48 10^6/uL (4.35-5.85); RED CELL DISTRIBUTION WIDTH 14.3 % (10.0-14.5); WHITE BLOOD COUNT 9.9 10^3/uL (4.3-11.0)
[2016-12-13 06:24] LABS: ALBUMIN 2.3 G/DL (3.2-4.5); BILIRUBIN,TOTAL 0.3 MG/DL (0.1-1.0); CALCIUM 7.4 MG/DL (8.5-10.1); CREATININE SERUM 1.15 MG/DL (0.60-1.30); POTASSIUM 3.6 MMOL/L (3.6-5.0); TOTAL PROTEIN 4.6 G/DL (6.4-8.2)
[2016-12-13] MEDS: RT-ALBUTEROL/IPRATROPIUM 3 ML (DUONEB) VIAL INH SCH ×4 (08:33→19:04)
[2016-12-13] MEDS ORDERED: LEVOTHYROXINE 50 MCG (LEVOTHROID) TAB PO SCH (11:30)
[2016-12-13] MEDS ORDERED: MILK OF MAGNESIA 400 MG/5 ML 30 ML UDC PO PRN (11:30)
[2016-12-13] MEDS: SENNA W/DOCUSATE (SENOKOT S) TABLET PO SCH ×2 (11:35→20:32)
[2016-12-13] MEDS: DOCUSATE SODIUM 100 MG (COLACE) CAP PO SCH (11:36)
[2016-12-13] MEDS ORDERED: LEVOTHYROXINE 25 MCG (LEVOTHROID) TAB PO SCH (11:38)
--- NOTE | 2016-12-13 11:38 | Progress Note (SOAP) ---
Subjective Subjective/Events-last exam This is an 86 year old male brought to the emergency room with hypotension with dizziness. The patient was just discharged from the hospital the day prior for left rib fractures with pneumonia. He was found to be hypotensive with dehydration and worsening left lung infiltrate around his left rib fractures. It was decided he should be admitted for IVF rehydration, IV antibiotics and further treatment. Objective Exam Vital Signs Date Time Temp Pulse Resp B/P Pulse Ox O2 Delivery O2 Flow Rate FiO2 12/13/16 08:37 2.00 93 12/13/16 08:30 92 Nasal Cannula 2.00 12/13/16 08:00 98.2 82 28 88/51 92 Nasal Cannula 2.00 12/13/16 07:00 88 12/13/16 06:00 97.7 81 22 86/46 93 Nasal Cannula 2.00 12/13/16 04:30 97.4 76 24 93/51 92 Nasal Cannula 2.00 12/13/16 03:30 96.5 80 22 103/52 91 Nasal Cannula 2.00 12/13/16 02:44 77 12/13/16 02:30 96.9 76 22 91/45 93 Nasal Cannula 2.00 12/13/16 01:30 96.5 75 24 89/43 92 Nasal Cannula 2.00 12/13/16 00:27 96.1 70 20 90/42 98 Nasal Cannula 2.00 12/13/16 00:14 93 12/13/16 00:14 93 2.00 12/13/16 00:00 95.0 73 20 87/38 98 Nasal Cannula 2.00 12/12/16 23:30 95.3 68 20 85/36 95 Nasal Cannula 2.00 12/12/16 23:00 Nasal Cannula 2.00 12/12/16 23:00 96.8 69 16 95/51 94 Nasal Cannula 12/12/16 23:00 67 24 97 2 12/12/16 20:38 96.8 80 36 75/37 91 Room Air 2 I & O 12/13/16 07:00 Intake Total 2700 ml Output Total 575 ml Balance 2125 ml Capillary Refill : Less Than 3 SecondsLess Than 3 Seconds General Appearance: No Apparent Distress Neck: Supple Respiratory: Rales Rhonci Wheezing Cardiovascular: Regular Rate, Rhythm Gallop/S3 Gastrointestinal: normal bowel sounds non tender soft Extremity: Non Tender No Calf Tenderness No Pedal Edema Neurologic/Psychiatric: Alert Oriented x3 Results Lab Laboratory Tests 12/12/16 21:05: Activated Partial Thromboplast Time 28, Alanine Aminotransferase (ALT/SGPT) 19, Albumin 2.6L, Alkaline Phosphatase 77, Amylase Level 231H, Anion Gap 12, Aspartate Amino Transf (AST/SGOT) 27, B-Type Natriuretic Peptide 165.1H, BUN/ Creatinine Ratio 23, Basophils # (Auto) 0.0, Basophils (%) (Auto) 0, Blood Urea Nitrogen 36H, Calcium Level 8.4L, Carbon Dioxide Level 29, Chloride Level 99, Creatinine 1.54H, Eosinophils # (Auto) 0.3, Eosinophils (%) (Auto) 3, Estimat Glomerular Filtration Rate 43, Glucose Level 250H, Hematocrit 30L, Hemoglobin 9.5L, INR Comment 1.1, Lactic Acid Level 2.33*H, Lipase 44, Lymphocytes # (Auto ) 1.7, Lymphocytes (%) (Auto) 19, Magnesium Level 1.6L, Mean Corpuscular Hemoglobin 31, Mean Corpuscular Hemoglobin Concent 32, Mean Corpuscular Volume 98, Mean Platelet Volume 10.7H, Monocytes # (Auto) 0.7, Monocytes (%) (Auto) 8, Neutrophils # (Auto) 6.3, Neutrophils (%) (Auto) 71, Platelet Count 218, Potassium Level 3.4L, Prothrombin Time 13.7, Red Blood Count 3.03L, Red Cell Distribution Width 14.4, Sodium Level 140, Total Bilirubin 0.4, Total Protein 5.3L, Troponin I < 0.30, White Blood Count 9.0 12/13/16 00:50: Lactic Acid Level 1.85 12/13/16 02:44: Urine Bacteria FEWH, Urine Bilirubin NEGATIVE, Urine Casts PRESENT, Urine Clarity SLIGHTLY CLOUDY, Urine Color YELLOW, Urine Crystals NONE, Urine Culture Indicated YES, Urine Glucose (UA) NEGATIVE, Urine Hyaline Casts 0-2H, Urine Ketones NEGATIVE, Urine Leukocyte Esterase 3+H, Urine Mucus NEGATIVE, Urine Nitrite NEGATIVE, Urine Protein 2+H, Urine RBC RARE, Urine RBC (Auto) 1+H, Urine Specific Red Level 1.015L, Urine Squamous Epithelial Cells RARE, Urine Urobilinogen NORMAL, Urine WBC 50-100H, Urine pH 6 12/13/16 05:45: Alanine Aminotransferase (ALT/SGPT) 15, Albumin 2.3L, Alkaline Phosphatase 73, Anion Gap 9, Aspartate Amino Transf (AST/SGOT) 22, BUN/Creatinine Ratio 30, Basophils # (Auto) 0.0, Basophils (%) (Auto) 0, Blood Urea Nitrogen 34H, Calcium Level 7.4L, Carbon Dioxide Level 27, Chloride Level 103, Creatinine 1.15 , Eosinophils # (Auto) 0.1, Eosinophils (%) (Auto) 1, Estimat Glomerular Filtration Rate 60, Glucose Level 210H, Hematocrit 24L, Hemoglobin 7.8L, Lymphocytes # (Auto) 1.1, Lymphocytes (%) (Auto) 11L, Mean Corpuscular Hemoglobin 32, Mean Corpuscular Hemoglobin Concent 32, Mean Corpuscular Volume 98, Mean Platelet Volume 10.5H, Monocytes # (Auto) 0.7, Monocytes (%) (Auto) 7, Neutrophils # (Auto) 8.1H, Neutrophils (%) (Auto) 81H, Platelet Count 155, Potassium Level 3.6, Red Blood Count 2.48L, Red Cell Distribution Width 14.3, Sodium Level 139, Total Bilirubin 0.3, Total Protein 4.6L, White Blood Count 9.9 Assessment/Plan Assessment/Plan Assess & Plan/Chief Complaint 1. Acute Hypotension due to Dehydration--admit and hydrate and monitor BP, will hold BP meds except for betapace for rhythm 2. Worsening left sided pneumonia with left sided rib fractures--cover with triple therapy and start SVNs and IS 3. Acute Renal Insufficiency--hydrate and monitor creatinine 4. Acute on Chronic Anemia--repeat H/H this evening to see if stable or needs blood transfusion Clinical Quality Measures DVT/VTE Risk/Contraindication: Risk Factor Score Per Nursin RFS Level Per Nursing on Admit: 4+=Very High LAURIE KLEIN DO Dec 13, 2016 11:38
[2016-12-13] MEDS: guaiFENesin (MUCINEX) 600 MG TAB PO SCH ×2 (11:51→20:33)
[2016-12-13] MEDS: SOTALOL 80 MG (BETAPACE) TAB PO SCH (11:51)
[2016-12-13] MEDS: LEVETIRACETAM 500 MG (KEPPRA) TAB PO SCH ×2 (11:52→20:33)
[2016-12-13] MEDS: NYSTATIN ORAL SUSP 5 ML UDC PO SCH ×3 (11:52→23:17)
[2016-12-13] MEDS: LACTOBACILLUS Acidoph/Bulgar (LACTINEX/FLORANEX) TAB PO SCH ×2 (13:17→20:33)
[2016-12-13 17:14] LABS: BASOPHILS % (AUTO) 0 % (0-10); EOSINOPHILS # (AUTO) 0.1 10^3/uL (0.0-0.3); EOSINOPHILS % (AUTO) 1 % (0-10); LYMPHOCYTES # (AUTO) 1.1 X 10^3 (1.0-4.0); LYMPHOCYTES % (AUTO) 11 % (12-44); MEAN CORPUSCULAR HEMOGLOBIN 32 PG (25-34); MEAN CORPUSCULAR HGB CONC 32 G/DL (32-36); MEAN CORPUSCULAR VOLUME 99 FL (80-99); MEAN PLATELET VOLUME 10.5 FL (7.4-10.4); MONOCYTES # (AUTO) 0.7 X 10^3 (0.0-1.0); MONOCYTES % (AUTO) 7 % (0-12); NEUTROPHILS # (AUTO) 8.1 X 10^3 (1.8-7.8); NEUTROPHILS % (AUTO) 82 % (42-75); PLATELET COUNT 142 10^3/uL (130-400); RED BLOOD COUNT 2.55 10^6/uL (4.35-5.85); RED CELL DISTRIBUTION WIDTH 14.4 % (10.0-14.5); WHITE BLOOD COUNT 9.9 10^3/uL (4.3-11.0)
[2016-12-13] MEDS: PANTOPRAZOLE 40 MG (PROTONIX) TAB PO SCH (20:33)
[2016-12-13] MEDS: ATORVASTATIN 10 MG (LIPITOR) TABLET PO SCH (20:33)
[2016-12-14] VITALS (23 sets, daily range): BP systolic 62–161; BP diastolic 43–93
[2016-12-14] MEDS: VANCOMYCIN 1 GM/NS 250 ML IVPB IV SCH ×4 (00:41→14:22)
[2016-12-14] MEDS: NYSTATIN ORAL SUSP 5 ML UDC PO SCH ×5 (00:42→23:18)
[2016-12-14] MEDS: D5 1/2 NS W/KCL 20 MEQ/L 1,000 ML IV SCH ×2 (04:01→15:26)
[2016-12-14] MEDS: CATHETER FLUSH 10 ML SYR IV SCH ×3 (05:12→21:40)
[2016-12-14] MEDS: LEVOTHYROXINE 50 MCG (LEVOTHROID) TAB PO SCH (05:37)
[2016-12-14 05:55] LABS: BASOPHILS % (AUTO) 0 % (0-10); EOSINOPHILS # (AUTO) 0.1 10^3/uL (0.0-0.3); EOSINOPHILS % (AUTO) 1 % (0-10); LYMPHOCYTES # (AUTO) 1.3 X 10^3 (1.0-4.0); LYMPHOCYTES % (AUTO) 13 % (12-44); MEAN CORPUSCULAR HEMOGLOBIN 31 PG (25-34); MEAN CORPUSCULAR HGB CONC 32 G/DL (32-36); MEAN CORPUSCULAR VOLUME 100 FL (80-99); MEAN PLATELET VOLUME 10.3 FL (7.4-10.4); MONOCYTES # (AUTO) 0.5 X 10^3 (0.0-1.0); MONOCYTES % (AUTO) 5 % (0-12); NEUTROPHILS # (AUTO) 8.4 X 10^3 (1.8-7.8); NEUTROPHILS % (AUTO) 82 % (42-75); PLATELET COUNT 142 10^3/uL (130-400); RED BLOOD COUNT 2.39 10^6/uL (4.35-5.85); RED CELL DISTRIBUTION WIDTH 14.6 % (10.0-14.5); WHITE BLOOD COUNT 10.3 10^3/uL (4.3-11.0)
[2016-12-14] MEDS: RT-ALBUTEROL/IPRATROPIUM 3 ML (DUONEB) VIAL INH SCH ×4 (07:13→18:53)
[2016-12-14] MEDS ORDERED: FUROSEMIDE 40 MG/4 ML INJ (LASIX) IVP ONE ×2 (07:15→23:45)
[2016-12-14] MEDS ORDERED: ACETAMINOPHEN 325 MG TABLET/CAPLET (TYLENOL) PO NR (08:00)
[2016-12-14] MEDS ORDERED: diphenhydrAMINE 25 MG TAB (BENADRYL) PO NR (08:00)
[2016-12-14] MEDS ORDERED: [UNRECOGNIZED DRUG - OTHER] PO SCH (09:00)
[2016-12-14] MEDS: DOCUSATE SODIUM 100 MG (COLACE) CAP PO SCH (09:00)
[2016-12-14] MEDS ORDERED: LUTEIN 20 MG PO SCH (09:00)
[2016-12-14] MEDS ORDERED: ALGAL OIL PO SCH (09:00)
[2016-12-14] MEDS: SENNA W/DOCUSATE (SENOKOT S) TABLET PO SCH ×2 (09:00→20:56)
[2016-12-14] MEDS ORDERED: B12 PO SCH (09:00)
[2016-12-14] MEDS ORDERED: LEVOMEFOLATE PO SCH (09:00)
[2016-12-14] MEDS ORDERED: B6 PO SCH (09:00)
[2016-12-14] MEDS: LACTOBACILLUS Acidoph/Bulgar (LACTINEX/FLORANEX) TAB PO SCH ×3 (09:03→20:55)
[2016-12-14] MEDS: LEVETIRACETAM 500 MG (KEPPRA) TAB PO SCH ×2 (09:03→20:55)
[2016-12-14] MEDS: guaiFENesin (MUCINEX) 600 MG TAB PO SCH ×2 (09:03→20:55)
[2016-12-14] MEDS: SOTALOL 80 MG (BETAPACE) TAB PO SCH ×2 (09:04→12:20)
--- NOTE | 2016-12-14 09:31 | Progress Note (SOAP) ---
Subjective Subjective/Events-last exam PT REPORTS THAT HE IS FEELING FATIGUED, HE NOTES POOR APPETITE DUE TO THE FOOD CHOICES AND THE TASTE OF THE FOOD PRESENTED TO HIM IN THE HOSPITAL. HE REPORTS THAT HE IS HAVING SHORTNESS OF BREATH, AND HE HAS TROUBLE SWALLOWING RECENTLY. Review of Systems General: Fatigue Malaise Appetite (DECREASED DUE TO FOOD CHOICES) HEENT: Dysphasia Pulmonary: Dyspnea Cough Cardiovascular: No: Chest Pain Gastrointestinal: No: Abdominal Pain, Nausea Genitourinary: No Dysuria Neurological: : WeaknessNo: Confusion Objective Exam Vital Signs Date Time Temp Pulse Resp B/P Pulse Ox O2 Delivery O2 Flow Rate FiO2 12/14/16 08:00 97.4 98 20 116/53 94 Nasal Cannula 2.00 12/14/16 07:13 92 3.50 12/14/16 04:00 97.3 91 16 106/54 93 Nasal Cannula 3.00 12/14/16 01:00 89 12/14/16 00:00 97.9 81 16 105/52 95 Nasal Cannula 2.00 12/13/16 20:40 Nasal Cannula 3.50 12/13/16 19:18 97.7 83 16 94/49 94 12/13/16 19:05 85 2.00 12/13/16 19:00 89 12/13/16 16:11 97.8 84 14 93/42 94 12/13/16 15:18 2.00 93 12/13/16 13:00 90 12/13/16 12:00 98.6 90 20 96/46 93 Nasal Cannula 2.00 12/13/16 11:46 2.00 93 I & O 12/14/16 07:00 Intake Total 3870 ml Output Total 1200 ml Balance 2670 ml Capillary Refill : Less Than 3 SecondsLess Than 3 Seconds General Appearance: Mild Distress Thin HEENT: PERRL/EOMI Other (THRUSH ON TONGUE) Respiratory: Chest Non Tender Crackles Decreased Breath Sounds Cardiovascular: Irregularly Irregular Gastrointestinal: normal bowel sounds non tender soft no organomegaly Extremity: Normal Capillary Refill Non Tender No Calf Tenderness No Pedal Edema Neurologic/Psychiatric: Alert Oriented x3 Normal Mood/Affect cutter banana room II-XII Norm as Tested Skin: Warm/Dry Lymphatic: No Adenopathy Results Lab Laboratory Tests 12/13/16 17:07: Basophils # (Auto) 0.0, Basophils (%) (Auto) 0, Eosinophils # (Auto) 0.1, Eosinophils (%) (Auto) 1, Hematocrit 25L, Hemoglobin 8.1L, Lymphocytes # (Auto) 1.1, Lymphocytes (%) (Auto) 11L, Mean Corpuscular Hemoglobin 32, Mean Corpuscular Hemoglobin Concent 32, Mean Corpuscular Volume 99, Mean Platelet Volume 10.5H, Monocytes # (Auto) 0.7, Monocytes (%) (Auto) 7, Neutrophils # ( Auto) 8.1H, Neutrophils (%) (Auto) 82H, Platelet Count 142, Red Blood Count 2.55L, Red Cell Distribution Width 14.4, White Blood Count 9.9 12/14/16 05:44: Basophils # (Auto) 0.0, Basophils (%) (Auto) 0, Eosinophils # (Auto) 0.1, Eosinophils (%) (Auto) 1, Hematocrit 24L, Hemoglobin 7.5L, Lymphocytes # (Auto) 1.3, Lymphocytes (%) (Auto) 13, Mean Corpuscular Hemoglobin 31, Mean Corpuscular Hemoglobin Concent 32, Mean Corpuscular Volume 100H, Mean Platelet Volume 10.3, Monocytes # (Auto) 0.5, Monocytes (%) (Auto) 5, Neutrophils # (Auto ) 8.4H, Neutrophils (%) (Auto) 82H, Platelet Count 142, Red Blood Count 2.39L, Red Cell Distribution Width 14.6H, White Blood Count 10.3, Vancomycin Level Trough 17.4 Microbiology 12/12/16 Blood Culture - Preliminary, Resulted No growth Assessment/Plan Assessment/Plan Assess & Plan/Chief Complaint PNEUMONIA PLEURAL EFFUSION ANEMIA RIB PAIN ON LEFT RIB FRACTURES ATRIAL FIBRILLATION DIABETES MELLITUS 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 DISCUSSED WITH DR. DYER - HE WILL LOOK AT NEW CHEST XRAY TOMORROW TO DETERMINE IF A REPEAT THORACENTESIS IS WARRANTED AT THIS TIME. 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 LOOSE STOOLS - STOPPED METFORMIN -STOOLS HAVE SOLIDIFIED THRUSH - RX FOR NYSTATIN RESTARTED DECREASED APPETITE DUE TO AVAILABLE FOOD CHOICES, CONTINUE WITH SUPPORTIVE CARE , OUTSIDE FOOD IF ABLE TO OBTAIN DYSPHAGIA - PT COUGHS AFTER DRINKING WATER -WILL ORDER SPEECH EVAL. JASPER DISCUSSION WITH NELA TODAY - HE STATES THAT HE HAS A POOR RELATIONSHIP WITH HIS CHILDREN - HE HAS MINIMAL CONTACT WITH HIS DAUGHTER EMANUEL, AND NO CONTACT WITH HIS OTHER KIDS IN [place]. HE WILL GIVE THE STAFF THE NUMBER OF HIS BROTHER - ZAMZAM - WHOM WE CAN CONTACT. Clinical Quality Measures DVT/VTE Risk/Contraindication: Risk Factor Score Per Nursin RFS Level Per Nursing on Admit: 4+=Very High GUTIERREZ PHAM MD Dec 14, 2016 09:31
[2016-12-14] MEDS ORDERED: NS IV 500 ML 500 ML ONE (09:56)
--- NOTE | 2016-12-14 10:03 | Diagnostic Imaging Report ---
KUB. INDICATION: Abdominal pain. Left kidney stone followup. FINDINGS: There is a 1.1-cm low-density calcification in the left flank that may relate to remaining stone. There is associated vascular calcification in the upper abdomen and in the pelvis as well. In the right flank a 5-mm calcification is also seen which could also be a stone. Kyphoplasty change in L1 is again seen. There is a moderate left pleural effusion and left lower rib fractures increased from the prior exam. IMPRESSION: 1. Suggestion of bilateral renal stones. 2. Moderate, increasing left pleural effusion and lower left rib fractures. Dictated by: Dictated on workstation # [id number]
--- NOTE | 2016-12-14 11:32 | Consultation-Cardiology ---
HPI-Cardiology Cardiology Consultation Date of Consultation 12/14/16 Date of Admission Indication: afib with RVR HPI Patient is an 86 year old male presented to the emergency room with hypotension with dizziness. The patient was recently discharged from the hospital the day prior for left rib fractures with pneumonia. He was found to be hypotensive with dehydration and worsening left lung infiltrate around his left rib fractures. It was decided he should be admitted for IVF rehydration, IV antibiotics and further treatment. Upon entering patients room, he is noted to be hypotensive with systolic BP in the 70's. Currently receiving IVF's as well as blood transfusion for his anemia. Telemetry reveals afib with RVR. Mr. Nichols is well-known to my practice is 86 years old gentleman with multiple hospital admission, I was called for consultation due to atrial fibrillation and rapid ventricular response. He is laying down in bed receiving blood transfusion and IV fluid hypotensive tachycardic. No chest pain was reported, it appear that he has worsening pleural effusion. Anemia. Home Medications & Allergies Allergies: Coded Allergies: No Known Drug Allergies (Verified , 11/20/16) Home Medication List Reviewed: Yes XRL-Njstou-Mqvatw Hx Patient Social History Alcohol Use: Denies Use Recreational Drug Use: No Smoking Status: Former Smoker Former smoker/When Quit: Sep 27, 1996 Type Used: Pipe 2nd Hand Smoke Exposure: No Recent Foreign Travel: No Recent Infectious Disease Expo: No Recent Hopitalizations: No Physical Abuse Screen: No Sexual Abuse: No Immunizations Up To Date Tetanus Booster (TDap): More than 5yrs Date of Pneumonia Vaccine: Jul 17, 2012 Date of Influenza Vaccine: Aug 27, 2016 Past Medical History PAF, HTN, Hx Lung CA, Renal stones. Family Medical History Significant Family History: No Pertinent Family Hx, Heart Disease, Hypertension Family History: Chest pain 03 FATHER, Onset:Unknown Myocardial infarction 03 FATHER, Onset:60 years & older ROS-Unable to Obtain: Unable to obtain ROS. Constitutional: see HPI malaise weakness EENTM: see HPI Respiratory: see HPI dyspnea on exertion Cardiovascular: palpitations Gastrointestinal: see HPI Genitourinary: see HPI Musculoskeletal: see HPI Skin: see HPI Psychiatric/Neurological: See HPI Reviewed Test Results Reviewed Test Results Lab Laboratory Tests 12/13/16 17:07: Basophils # (Auto) 0.0, Basophils (%) (Auto) 0, Eosinophils # (Auto) 0.1, Eosinophils (%) (Auto) 1, Hematocrit 25L, Hemoglobin 8.1L, Lymphocytes # (Auto) 1.1, Lymphocytes (%) (Auto) 11L, Mean Corpuscular Hemoglobin 32, Mean Corpuscular Hemoglobin Concent 32, Mean Corpuscular Volume 99, Mean Platelet Volume 10.5H, Monocytes # (Auto) 0.7, Monocytes (%) (Auto) 7, Neutrophils # ( Auto) 8.1H, Neutrophils (%) (Auto) 82H, Platelet Count 142, Red Blood Count 2.55L, Red Cell Distribution Width 14.4, White Blood Count 9.9 12/14/16 05:44: Basophils # (Auto) 0.0, Basophils (%) (Auto) 0, Eosinophils # (Auto) 0.1, Eosinophils (%) (Auto) 1, Hematocrit 24L, Hemoglobin 7.5L, Lymphocytes # (Auto) 1.3, Lymphocytes (%) (Auto) 13, Mean Corpuscular Hemoglobin 31, Mean Corpuscular Hemoglobin Concent 32, Mean Corpuscular Volume 100H, Mean Platelet Volume 10.3, Monocytes # (Auto) 0.5, Monocytes (%) (Auto) 5, Neutrophils # (Auto ) 8.4H, Neutrophils (%) (Auto) 82H, Platelet Count 142, Red Blood Count 2.39L, Red Cell Distribution Width 14.6H, White Blood Count 10.3, Vancomycin Level Trough 17.4 Microbiology 12/12/16 Blood Culture - Preliminary, Resulted No growth ECG Impression ECG Initial ECG Rhythm: A Fib/Flutter Physical Exam Vital Signs Vital Sign - Last 12Hours 12/12/16 12/13/16 20:38 08:37 Temp 96.8 Pulse 80 Resp 36 B/P 75/37 Pulse Ox 91 O2 Delivery Room Air O2 Flow Rate 2 FiO2 93 Capillary Refill : Less Than 3 SecondsLess Than 3 Seconds General Appearance: Moderate Distress HEENT: PERRL/EOMI TMs Normal Neck: Full Range of Motion Normal Inspection Non Tender Respiratory: Decreased Breath Sounds Cardiovascular: No Edema Systolic Murmur Irregularly Irregular Tachycardia Gastrointestinal: No Pulsatile Mass Soft Rectal: Deferred Back: Normal Inspection No CVA Tenderness Extremity: No Pedal Edema A/P-Cardiology Admission Diagnosis AFib with RVR Pneumonia Hypotension Anemia Assessment/Plan AFib with RVR- patient has a hx of PAF followed by Dr. Marsh at [facility] in [place], [place] as outpatient. I will start IV digoxin, increase Sotalol to 80 mg BID as blood pressure tolerates. Continue to monitor telemetry. Unable to tolerate OAC secondary to severe anemia, h/o intracranial bleed in the past requiring surgical intervention, as well as hx of recent multiple falls. Hypotensive shock, receiving blood transfusion and IV fluid, might require pressors. Transfer to the intensive care unit and monitor closely. Multifactorial shock. Pneumonia, pleural effusion- continue antibiotics, managed by PCP. History of large left sided traumatic hemathorax, s/p throacentesis on 11/25/16. Continue to monitor CXR. Anemia- receiving blood transfusion, continue to monitor H/H closely. CAD- history of stent placement [place] L Cx in [address] Christensen. Continue to monitor. Diastolic CHF- most recent 2D Echo revealed EF 60-65%, Mod History of Lung CA with new nodule on most recent CT scan, planning for reevaluation in 1 mo. History of kidney stones with lithotripsy in the recent past. Dysphagia- further eval with speech evaluation once patient is more stable. DM- managed by PCP Hx of chronic dizziness. Thank you for allowing us to participate in the management of Mr. Liriano. This is Leida Leong PA-C as a scribe for Dr. Pandya. This is Dr. Pandya, I have seen and evaluated the patient with Leida, reviewed the management plan, agree with the current scribe, I performed physical examination and interview the patient myself, he is in atrial fibrillation with rapid ventricular response, started on sotalol as an outpatient, unable to tolerate anticoagulation due to intracranial bleed and multiple falls, currently have large hemothorax with anemia receiving blood transfusion. Patient is hypotensive and tachycardic with questionable pulmonary infiltrate and pneumonia, had elevated lactic acid earlier. Patient will be transferred to the intensive care unit and started on IV digoxin in addition to increasing sotalol if tolerated bolus him with IV fluids, had normal LV systolic function previously, diastolic heart failure. Monitor him closely. I agree with the current scribe, I did minor modification and use Italic Font Clinical Quality Measures DVT/VTE Risk/Contraindication: Risk Factor Score Per Nursin RFS Level Per Nursing on Admit: 4+=Very High LEIDA APPLE Dec 14, 2016 11:32 AGATA PANDYA MD Dec 14, 2016 12:04
--- NOTE | 2016-12-14 11:33 | Speech Therapy Progress Note ---
Therapy Progress Note Dysphagia consultation received and chart reviewed. The clinician attempted to complete the evaluation, however, the patient was experiencing low blood pressure and reduced responsiveness. The patient was discussed with the RN, who stated he was being transferred to ICU 12. The RN requested the swallow study be attempted on a later date. Speech pathology will re-attempt swallow evaluation as patient is appropriate. Thank you. CELSA COSTELLO Dec 14, 2016 11:33
[2016-12-14] MEDS ORDERED: DIGOXIN 0.25 MG/ML (LANOXIN) 2 ML AMP IV NR (11:45)
[2016-12-14] MEDS ORDERED: NS IV 1000 ML 1,000 ML ONE (11:48)
[2016-12-14] MEDS ORDERED: FUROSEMIDE 40 MG/4 ML INJ (LASIX) IVP NR (12:00)
[2016-12-14] MEDS ORDERED: TROUGH ORDER-PHARMACY XX NR (12:00)
[2016-12-14] MEDS: NS IV 1000 ML 1,000 ML IV SCH ×2 (12:23→13:43)
[2016-12-14 12:30] LABS: ABG BASE EXCESS 0.3 MMOL/L (-2.5-2.5); ABG HCO3 25 MMOL/L (23-27); ABG OXYGEN SATURATION 97 % (94-100); ABG PCO2 45 MMHG (35-45); ABG PH 7.36 (7.37-7.43); ABG PO2 73 MMHG (79-93); ABG TCO2 26.5 MMOL/L (21.0-31.0)
[2016-12-14 12:31] LABS: ALLENS TEST YES-POS; PATIENT TEMP 97.8
--- NOTE | 2016-12-14 13:23 | Diagnostic Imaging Report ---
INDICATION: Weakness with hypotension. Comparison with 12/12/2016. FINDINGS: Multiple displaced rib fractures again noted along the left lateral lower ribs. Left basilar effusion again noted. There is increasing infiltrate in the left upper lobe. There is also increasing alveolar infiltrate in the right upper and lower lobe as well. Small pleural effusion noted within the major fissure on the right. The heart remains enlarged. Aorta is atherosclerotic. No evidence of pneumothorax. Right PICC line is in good position overlying superior vena caval shadow. IMPRESSION: 1. Multiple displaced rib fractures along the left lower lateral chest wall. Associated atelectasis and infiltrate with moderate left pleural effusion. There has been significant increase in consolidated infiltrates bilaterally since previous exam. 2. Right PICC line is now present in good position. Dictated by: Dictated on workstation # [id number]
[2016-12-14] MEDS ORDERED: ATOR20TA66 PO (14:18)
[2016-12-14] MEDS ORDERED: DILT180C PO (14:18)
[2016-12-14] MEDS ORDERED: NYST1000 PO (14:18)
[2016-12-14] MEDS ORDERED: AMOX1TAB12 PO (14:18)
[2016-12-14] MEDS ORDERED: ACID1TAB PO (14:18)
[2016-12-14] MEDS ORDERED: HYDR-3820 PO (14:18)
[2016-12-14] MEDS ORDERED: LEVE250T5 PO (14:18)
[2016-12-14] MEDS ORDERED: GUAI600T59 PO (14:18)
[2016-12-14] MEDS ORDERED: LACT1CAP62 PO (14:26)
[2016-12-14] MEDS: NOREPINEPHRINE 4 MG in D5W IV SOLUTION (EXCEL) 250 ML IV SCH (16:00)
[2016-12-14] MEDS: metroNIDAZOLE 500MG/100ML IVPB 100 ML IV SCH ×2 (17:14→21:38)
[2016-12-14] MEDS: ATORVASTATIN 10 MG (LIPITOR) TABLET PO SCH (20:55)
[2016-12-14] MEDS: PANTOPRAZOLE 40 MG (PROTONIX) TAB PO SCH (20:55)
[2016-12-14] MEDS: HYDROcodone/APAP 5 MG/325 MG (LORTAB) TAB PO PRN (21:38)
[2016-12-14] MEDS: inSUlin (REGULAR) HUMAN 1 UNIT/0.01 ML (CHARGE PER UNIT) SC SCH (21:40)
[2016-12-14 23:18] LABS: ABG BASE EXCESS -1.9 MMOL/L (-2.5-2.5); ABG HCO3 24 MMOL/L (23-27); ABG OXYGEN SATURATION 92 % (94-100); ABG PCO2 60 MMHG (35-45); ABG PO2 74 MMHG (79-93); ABG TCO2 26.2 MMOL/L (21.0-31.0); ALLENS TEST YES-POS
[2016-12-14] MEDS: LEVOFLOXACIN 750 MG/D5W 150 ML PRE-MIX IV SCH (23:18)
[2016-12-14] MEDS: CEFEPIME 2 GM/NS 50 ML IVPB IV SCH ×2 (23:18)
[2016-12-14 23:20] LABS: ABG PH 7.24 (7.37-7.43)
[2016-12-14] MEDS ORDERED: FUROSEMIDE 40 MG/4 ML INJ (LASIX) ONE (23:43)
[2016-12-15] VITALS (17 sets, daily range): BP systolic 71–137; BP diastolic 35–96
[2016-12-15] MEDS: NOREPINEPHRINE 4 MG in D5W IV SOLUTION (EXCEL) 250 ML IV SCH (00:38)
[2016-12-15] MEDS: VANCOMYCIN 1 GM/NS 250 ML IVPB IV SCH ×4 (02:12→16:37)
[2016-12-15 04:34] LABS: ABG HCO3 26 MMOL/L (23-27); ABG OXYGEN SATURATION 90 % (94-100); ABG PCO2 51 MMHG (35-45); ABG PO2 56 MMHG (79-93); ABG TCO2 27.9 MMOL/L (21.0-31.0)
[2016-12-15 04:37] LABS: ALLENS TEST YES-POS
[2016-12-15 04:37] LABS: BASOPHILS % (AUTO) 0 % (0-10); EOSINOPHILS % (AUTO) 0 % (0-10); LYMPHOCYTES # (AUTO) 1.1 X 10^3 (1.0-4.0); LYMPHOCYTES % (AUTO) 8 % (12-44); MEAN CORPUSCULAR HEMOGLOBIN 32 PG (25-34); MEAN CORPUSCULAR HGB CONC 33 G/DL (32-36); MEAN CORPUSCULAR VOLUME 96 FL (80-99); MONOCYTES # (AUTO) 0.5 X 10^3 (0.0-1.0); MONOCYTES % (AUTO) 4 % (0-12); NEUTROPHILS # (AUTO) 12.2 X 10^3 (1.8-7.8); NEUTROPHILS % (AUTO) 88 % (42-75); PLATELET COUNT 137 10^3/uL (130-400); RED BLOOD COUNT 3.22 10^6/uL (4.35-5.85); RED CELL DISTRIBUTION WIDTH 15.4 % (10.0-14.5); WHITE BLOOD COUNT 13.8 10^3/uL (4.3-11.0)
[2016-12-15 04:38] LABS: PATIENT TEMP 97.7
[2016-12-15 04:39] LABS: ABG PH 7.33 (7.37-7.43)
[2016-12-15 05:06] LABS: ALANINE AMINOTRANSFERASE 14 U/L (0-55); ALBUMIN 2.3 G/DL (3.2-4.5); ANION GAP 9 MMOL/L (5-14); ASPARTATE AMINO TRANSFERASE 24 U/L (5-34); BILIRUBIN,TOTAL 0.3 MG/DL (0.1-1.0); BLOOD UREA NITROGEN 13 MG/DL (7-18); BUN/CREATININE RATIO 18; CALCIUM 7.4 MG/DL (8.5-10.1); CARBON DIOXIDE 23 MMOL/L (21-32); CHLORIDE 109 MMOL/L (98-107); CREATININE SERUM 0.74 MG/DL (0.60-1.30); GFR ESTIMATED > 60; GLUCOSE 105 MG/DL (70-105); MAGNESIUM 1.1 MG/DL (1.8-2.4); PHOSPHORUS 2.2 MG/DL (2.3-4.7); POTASSIUM 3.6 MMOL/L (3.6-5.0); SODIUM 141 MMOL/L (135-145); TOTAL PROTEIN 4.8 G/DL (6.4-8.2)
[2016-12-15 05:16] LABS: ANISOCYTOSIS SLIGHT; BAND NEUTROPHILS 10 %; BASOPHILS % (MANUAL) 0 %; EOSINOPHILS % (MANUAL) 0 %; LYMPHOCYTES % (MANUAL) 4 %; NEUTROPHILS % (MANUAL) 86 %; POIKILOCYTOSIS SLIGHT; POLYCHROMASIA SLIGHT
[2016-12-15] MEDS: CATHETER FLUSH 10 ML SYR IV SCH ×3 (05:46→21:52)
[2016-12-15] MEDS: metroNIDAZOLE 500MG/100ML IVPB 100 ML IV SCH ×2 (05:46→16:37)
[2016-12-15] MEDS: MAGNESIUM 1 GM/100 ML IVPB 100 ML IV SCH ×4 (05:48→09:00)
[2016-12-15] MEDS: inSUlin (REGULAR) HUMAN 1 UNIT/0.01 ML (CHARGE PER UNIT) SC SCH ×3 (05:48→16:00)
[2016-12-15] MEDS: POTASSIUM CL 10MEQ/50ML IVPB 50 ML IV SCH ×2 (05:48→06:43)
[2016-12-15] MEDS ORDERED: MAGNESIUM 1 GM/100 ML IVPB 100 ML IV SCH (06:00)
[2016-12-15] MEDS ORDERED: POTASSIUM CL 10MEQ/50ML IVPB 50 ML IV SCH (06:00)
[2016-12-15] MEDS ORDERED: KCL 20 MEQ TAB (K-DUR) PO SCH (06:00)
[2016-12-15] MEDS: NYSTATIN ORAL SUSP 5 ML UDC PO SCH ×2 (06:00→12:00)
[2016-12-15] MEDS: LEVOTHYROXINE 50 MCG (LEVOTHROID) TAB PO SCH (06:00)
--- NOTE | 2016-12-15 06:03 | Pulmonary Consultation ---
History of Present Illness History of Present Illness Date of Consultation Late entry for 12/14 today is 12/15/16 05:57 Date of Admission Reason for Visit: afib with RVR History of Present Illness 86yo with frequent admission and falls recent fractured ribs and pneumonia presented to ED secondary to dizziness and found to be hypotensive and dehydrated. Pt is getting blood transfusion and IVF boluses. Pt does appear to be responding to hypotension. I am consulted for pulmonary ICU management. Allergies and Home Medications Allergies Coded Allergies: No Known Drug Allergies (Verified , 11/20/16) Home Medications Amoxicillin/Potassium Clav 1 Each Tablet 1 TAB PO BID (Reported) STARTED 12/12/16 FOR A 7 DAY THERAPY Atorvastatin Calcium 20 Mg Tablet 10 MG PO HS (Reported) TAKES 1/2 OF A (20 MG) TABLET Cyanocobalamin 1,000 Mcg Tablet 1,000 MCG PO DAILY (Reported) Diltiazem HCl 180 Mg Cap.er.24h 180 MG PO DAILY (Reported) Docusate Sodium 100 Mg Capsule 100 MG PO DAILY (Reported) Folic Acid 0.8 Mg Tablet 0.8 MG PO DAILY (Reported) Guaifenesin 600 Mg Tab.er.12h 600 MG PO BID (Reported) Hydrocodone/Acetaminophen 1 Each Tablet 1 TAB PO Q4H PRN PRN PAIN (Reported) Hydrocortisone Valerate 15 Gm Cream..g. TP DAILY (Reported) USES DAILY BEHIND EARS Ibuprofen 600 Mg Tablet 600 MG PO QID (Reported) Ipratropium/Albuterol Sulfate 3 Ml Ampul.neb 3 ML IH Q4H PRN PRN SHORTNESS OF BREATH (Reported) Ipratropium/Albuterol Sulfate 3 Ml Ampul.neb 3 ML IH TID (Reported) L. Acidophilus/Bulgaricus 1 Each Tablet 1 TAB PO TID (Reported) TO TAKE WHILE ON ANTIBIOTICS Lactobacillus Acidophilus 1 Each Capsule 1 CAP PO DAILY (Reported) Levetiracetam 250 Mg Tablet 250 MG PO BID (Reported) Levomefolate/B6/B12/Algal Oil 1 Each Capsule 1 TAB PO DAILY (Reported) Levothyroxine Sodium 50 Mcg Tablet 25 MCG PO SuWe (Reported) TAKES 1/2 (50 MCG) TABLET Levothyroxine Sodium 50 Mcg Tablet 50 MCG PO MoTuThFrSa (Reported) Lutein 20 Mg Capsule 20 MG PO DAILY (Reported) Magnesium Hydroxide 400 Mg/5 Ml Oral.susp 30 ML PO DAILY PRN PRN CONSTIPATION ( Reported) Nitroglycerin 0.4 Mg Tab 0.4 MG SL UD PRN PRN CHEST PAIN (Reported) 1 TABLET EVERY 5 MINUTES X 3 DOSES NEEDED FOR CHEST PAIN Nystatin 100,000 Unit/1 Ml Oral.susp 5 ML PO Q6H (Reported) Pantoprazole Sodium 40 Mg Tablet.dr 40 MG PO HS (Reported) Sennosides/Docusate Sodium 1 Each Tablet 1 TAB PO BID (Reported) Past Plrygbl-Rimpfh-Xyyrgv Hx Patient Social History Alcohol Use: Denies Use Recreational Drug Use: No Smoking Status: Former Smoker Type Used: Pipe Former Smoker/When Quit: Sep 27, 1996 2nd Hand Smoke Exposure: No Recent Foreign Travel: No Contact w/Someone Who Travel: No Recent Infectious Disease Expo: No Recent Hopitalizations: No Physical Abuse Screen: No Sexual Abuse: No Immunizations Up To Date Tetanus Booster (TDap): More than 5yrs PED Vaccines UTD: No Date of Pneumonia Vaccine: Jul 17, 2012 Date of Influenza Vaccine: Aug 27, 2016 Seasonal Allergies Seasonal Allergies: No Surgeries HX Surgeries: Yes (VASECTOMY; HAND SURGERY; [place] LEFT CHEST; PROSTATE ; CRANIOTOMY/EVACUTION OF SUBDURAL HEMATOMA; CARDIAC CATHS WITH STENTS X 4 AT [facility]; LITHOTRIPSY 12/01/16 ) Surgeries: Cardiac, Coronary Stent, Neurological, Orthopedic, Renal, Transurethral Resection, Vasectomy Respiratory Hx Respiratory Disorders: Yes Respiratory Disorders: Pneumonia Cardiovascular Hx Cardiac Disorders: Yes (MITRAL REGURGITATION, STENTS X4) Cardiac Disorders: Atrial Fibrillation, Coronary Artery Disease, High Cholesterol, Hypertension Neurological Hx Neurological Disorders: Yes (SUBDURAL HEMATOMA WITH CRANIOTOMY AND EVACUATION OF HEMATOMA; CHRONIC POOR BALANCE FOLLOWING SUBDURAL) Neurological Disorders: Seizure Disorder, Traumatic Brain Injury, Vertigo Reproductive System Hx Reproductive Disorders: No Sexually Transmitted Disease: No HIV/AIDS: No Genitourinary Hx Genitourinary Disorders: Yes (BLADDER/PROSTATE CANCER; ESWL LEFT RENAL STONE 12/01/16) Genitourinary Disorders: Kidney Infection, Prostate Problems, Bladder Infection , Kidney Stones Gastrointestinal Hx Gastrointestinal Disorders: Yes Gastrointestinal Disorders: Gastroesophageal Reflux, Chronic Constipation Musculoskeletal Hx Musculoskeletal Disorders: Yes (L1 COMPRESSION FRACTURE; MULTIPLE LEFT RIB FX'S 10/2016) Musculoskeletal Disorders: Fractures Endocrine Hx Endocrine Disorders: Yes Endocrine Disorders: Hypothyroidsim, Diabetes, Non-Insulin dep HEENT HX ENT Disorders: Yes (MISSING TEETH) HEENT Disorders: Cataract Loss of Vision: Denies Hearing Impairment: Hard of Hearing Cancer Hx Cancer: Yes Cancer: Bladder, Prostate, Lung, Skin Psychosocial Hx Psychiatric Problems: Yes Behavioral Health Disorders: Anxiety Integumentary HX Skin/Integumentary Disorder: Yes (SKIN CANCER; DECUBITUS ULCERS) Skin/Integumentary Disorders: Psoriasis Blood Transfusions Hx Blood Disorders: No Adverse Reaction to a Blood Tr: No Family Medical History Significant Family History: No Pertinent Family Hx, Heart Disease, Hypertension Family Medial History: Chest pain 03 FATHER, Onset:Unknown Myocardial infarction 03 FATHER, Onset:60 years & older Exam Exam Vital Signs Date Time Temp Pulse Resp B/P Pulse Ox O2 Delivery O2 Flow Rate FiO2 12/15/16 04:20 97 Vapotherm 20.00 75 12/15/16 03:00 99.8 89 21 116/62 93 NIV/Bilevel 75.00 20.00 12/15/16 02:00 96 19 134/72 94 NIV/Bilevel 75.00 20.00 12/15/16 01:00 96 12/15/16 01:00 82 22 90/35 98 NIV/Bilevel 75.00 20.00 12/15/16 00:16 75 26 12/15/16 00:05 99 22 102/50 95 NIV/Bilevel 75.00 20.00 12/15/16 00:05 NIV/Bilevel 75.00 20.00 12/15/16 00:00 94 Vapotherm 20.00 75 12/14/16 23:39 NIV/Bilevel 100.00 12/14/16 23:10 100.0 20.00 12/14/16 23:00 112 42 158/93 91 NIV/Bilevel 75.00 20.00 12/14/16 22:52 88 15.00 70 12/14/16 22:01 96 15.00 70 12/14/16 22:00 97 29 156/80 96 NIV/Bilevel 75.00 15.00 12/14/16 21:00 101 27 161/82 98 NIV/Bilevel 75.00 15.00 12/14/16 20:10 94 Vapotherm 75 12/14/16 20:00 99.3 94 31 139/72 90 NIV/Bilevel 75.00 15.00 12/14/16 19:00 90 21 131/68 96 NIV/Bilevel 75.00 15.00 12/14/16 19:00 96 12/14/16 18:53 96 15.00 75 12/14/16 18:00 89 18 104/81 95 NIV/Bilevel 75.00 15.00 12/14/16 17:00 97.9 12/14/16 17:00 96 23 140/79 95 NIV/Bilevel 75.00 15.00 12/14/16 16:07 92 12.00 60 12/14/16 16:00 98 35 134/81 99 Nasal Cannula 5.00 12/14/16 15:00 89 30 126/64 93 Nasal Cannula 4.00 12/14/16 14:00 95 32 111/60 96 Nasal Cannula 4.00 12/14/16 13:31 97.8 124 93/56 12/14/16 13:00 125 19 103/67 98 Nasal Cannula 4.00 12/14/16 13:00 116 12/14/16 12:35 97.6 12/14/16 12:35 Simple Mask 4.00 12/14/16 12:35 97.6 120 70/46 12/14/16 12:32 96 3.50 12/14/16 12:10 97.8 133 26 82/66 4.00 12/14/16 12:00 131 19 82/66 96 Simple Mask 4.00 12/14/16 11:40 96.2 141 18 62/43 97 4.00 12/14/16 11:30 134 22 64/47 94 Simple Mask 4.00 12/14/16 11:20 96.9 116 24 80/44 94 4.00 12/14/16 10:15 97.4 120 24 76/45 96 4.00 12/14/16 10:14 80/47 12/14/16 10:02 98.0 24 96 4.00 12/14/16 08:00 Nasal Cannula 4.00 12/14/16 08:00 97.4 98 20 116/53 94 Nasal Cannula 2.00 12/14/16 07:13 92 3.50 I & O 12/15/16 07:00 Intake Total 4875 ml Output Total 3000 ml Balance 1875 ml General Appearance: Moderate Distress HEENT: PERRL/EOMI TMs Normal Neck: Full Range of Motion Normal Inspection Non Tender Respiratory: Decreased Breath Sounds Cardiovascular: No Edema Systolic Murmur Irregularly Irregular Tachycardia Capillary Refill: Less Than 3 Seconds Gastrointestinal: normal bowel sounds non tender soft no organomegaly Extremity: No Pedal Edema Neurologic/Psychiatric: Alert Oriented x3 Normal Mood/Affect hospice director II-XII Norm as Tested Skin: Warm/Dry Lymphatic: No Adenopathy Results Lab Laboratory Tests 12/13/16 17:07 12/14/16 05:44 12/14/16 15:50 12/15/16 04:15 Assessment/Plan Assessment/Plan Infiltrates r/o PNA vs pulm edema and pleural effusion - currently no fever and no leukocytosis Moderate loculated pleural effusion - probably hemothorax from fractured ribs -Consult radiology for thoracentesis Afib RVR Hypotensive -IVF Anemia - getting blood transfusion Hx of lung Squamous cell cancer 2014 with new nodule found on CT scan -repeat CT as out patient in 2-3 mo Thursh Pts overall prognosis is poor hospice/ comfort care would be best for patient. Pt is refusing BiPAP - will D/C . Pt is a DNR. Clinical Quality Measures DVT/VTE Risk/Contraindication: Risk Factor Score Per Nursin RFS Level Per Nursing on Admit: 4+=Very High CARMEN PEÑA DO Dec 15, 2016 06:03 DYSPHAGIA PNEUMONIA - RESTARTED PNEUMONIA PROTOCOL, MONITOR SYMPTOMS - REPEAT CHEST XRAY TOMORROW - PT HAD THORACENTESIS AND HAS RETURN OF PLEURAL FLUID ON RECENT CHEST XRAY. DISCUSSED WITH DR. DYER - HE WILL LOOK AT NEW CHEST XRAY TOMORROW TO DETERMINE IF A REPEAT THORACENTESIS IS WARRANTED AT THIS TIME. 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 LOOSE STOOLS - STOPPED METFORMIN -STOOLS HAVE SOLIDIFIED THRUSH - RX FOR NYSTATIN RESTARTED DECREASED APPETITE DUE TO AVAILABLE FOOD CHOICES, CONTINUE WITH SUPPORTIVE CARE , OUTSIDE FOOD IF ABLE TO OBTAIN DYSPHAGIA - PT COUGHS AFTER DRINKING WATER -WILL ORDER SPEECH EVAL. JASPER DISCUSSION WITH NELA TODAY - HE STATES THAT HE HAS A POOR RELATIONSHIP WITH HIS CHILDREN - HE HAS MINIMAL CONTACT WITH HIS DAUGHTER EMANUEL, AND NO CONTACT WITH HIS OTHER KIDS IN [place]. HE WILL GIVE THE STAFF THE NUMBER OF HIS BROTHER - ZAMZAM - WHOM WE CAN CONTACT. Clinical Quality Measures DVT/VTE Risk/Contraindication: Risk Factor Score Per Nursin RFS Level Per Nursing on Admit: 4+=Very High CARMEN PEÑA DO Dec 15, 2016 06:03
--- NOTE | 2016-12-15 06:28 | Pulmonary Progress Note ---
Subjective Subjective/Events-last exam PT is more SOB probably secondary to IVF Exam Exam Vital Signs Date Time Temp Pulse Resp B/P Pulse Ox O2 Delivery O2 Flow Rate FiO2 12/15/16 04:20 97 Vapotherm 20.00 75 12/15/16 03:00 99.8 89 21 116/62 93 NIV/Bilevel 75.00 20.00 12/15/16 02:00 96 19 134/72 94 NIV/Bilevel 75.00 20.00 12/15/16 01:00 96 12/15/16 01:00 82 22 90/35 98 NIV/Bilevel 75.00 20.00 12/15/16 00:16 75 26 12/15/16 00:05 99 22 102/50 95 NIV/Bilevel 75.00 20.00 12/15/16 00:05 NIV/Bilevel 75.00 20.00 12/15/16 00:00 94 Vapotherm 20.00 75 12/14/16 23:39 NIV/Bilevel 100.00 12/14/16 23:10 100.0 20.00 12/14/16 23:00 112 42 158/93 91 NIV/Bilevel 75.00 20.00 12/14/16 22:52 88 15.00 70 12/14/16 22:01 96 15.00 70 12/14/16 22:00 97 29 156/80 96 NIV/Bilevel 75.00 15.00 12/14/16 21:00 101 27 161/82 98 NIV/Bilevel 75.00 15.00 12/14/16 20:10 94 Vapotherm 75 12/14/16 20:00 99.3 94 31 139/72 90 NIV/Bilevel 75.00 15.00 12/14/16 19:00 90 21 131/68 96 NIV/Bilevel 75.00 15.00 12/14/16 19:00 96 12/14/16 18:53 96 15.00 75 12/14/16 18:00 89 18 104/81 95 NIV/Bilevel 75.00 15.00 12/14/16 17:00 97.9 12/14/16 17:00 96 23 140/79 95 NIV/Bilevel 75.00 15.00 12/14/16 16:07 92 12.00 60 12/14/16 16:00 98 35 134/81 99 Nasal Cannula 5.00 12/14/16 15:00 89 30 126/64 93 Nasal Cannula 4.00 12/14/16 14:00 95 32 111/60 96 Nasal Cannula 4.00 12/14/16 13:31 97.8 124 93/56 12/14/16 13:00 125 19 103/67 98 Nasal Cannula 4.00 12/14/16 13:00 116 12/14/16 12:35 97.6 12/14/16 12:35 Simple Mask 4.00 12/14/16 12:35 97.6 120 70/46 12/14/16 12:32 96 3.50 12/14/16 12:10 97.8 133 26 82/66 4.00 12/14/16 12:00 131 19 82/66 96 Simple Mask 4.00 12/14/16 11:40 96.2 141 18 62/43 97 4.00 12/14/16 11:30 134 22 64/47 94 Simple Mask 4.00 12/14/16 11:20 96.9 116 24 80/44 94 4.00 12/14/16 10:15 97.4 120 24 76/45 96 4.00 12/14/16 10:14 80/47 12/14/16 10:02 98.0 24 96 4.00 12/14/16 08:00 Nasal Cannula 4.00 12/14/16 08:00 97.4 98 20 116/53 94 Nasal Cannula 2.00 12/14/16 07:13 92 3.50 I & O 12/15/16 07:00 Intake Total 4875 ml Output Total 3000 ml Balance 1875 ml General Appearance: Moderate Distress HEENT: PERRL/EOMI TMs Normal Neck: Full Range of Motion Normal Inspection Non Tender Respiratory: Decreased Breath Sounds Cardiovascular: No Edema Systolic Murmur Irregularly Irregular Tachycardia Capillary Refill: Less Than 3 Seconds Gastrointestinal: normal bowel sounds non tender soft no organomegaly Extremity: No Pedal Edema Neurologic/Psychiatric: Alert Oriented x3 Normal Mood/Affect art gilder II-XII Norm as Tested Skin: Warm/Dry Lymphatic: No Adenopathy Results Lab Laboratory Tests 12/13/16 17:07 12/14/16 05:44 12/14/16 15:50 12/15/16 04:15 Assessment/Plan Assessment/Plan PNA -Pt is currently on Cefepime, levaquin, vanco, and flagyl -D/C Levaquin Moderate loculated pleural effusion - probably hemothorax from fractured ribs -Consult radiology for thoracentesis Afib RVR Hypotensive - -- resolved Worse respiratory failure today s/p IVF and blood -Give Lasix 40mg IV x 1 Anemia - getting blood transfusion Hx of lung Squamous cell cancer 2014 with new nodule found on CT scan -repeat CT as out patient in 2-3 mo Thursh Pts overall prognosis is poor hospice/ comfort care would be best for patient. Pt is refusing BiPAP - will D/C . Pt is a DNR. Clinical Quality Measures DVT/VTE Risk/Contraindication: Risk Factor Score Per Nursin RFS Level Per Nursing on Admit: 4+=Very High CARMEN PEÑA DO Dec 15, 2016 06:28
[2016-12-15] MEDS ORDERED: morphine INJ 4 MG/ML 1 ML (VIAL/SYRINGE) ONE (06:37)
[2016-12-15] MEDS: morphine INJ 4 MG/ML 1 ML (VIAL/SYRINGE) IVP PRN ×3 (06:42→16:17)
[2016-12-15] MEDS ORDERED: FUROSEMIDE 40 MG/4 ML INJ (LASIX) IVP ONE (06:45)
--- NOTE | 2016-12-15 07:36 | Cardiology Progress Note ---
Subjective Subjective/Events-last exam patient is laying down in bed, still lethargic, blood pressure is better, heart rate is better. Review of Systems General: No Chills, No Night Sweats, No Fatigue, No Malaise, No Appetite, No Other HEENT: No Head Aches, No Visual Changes, No Eye Pain, No Ear Pain, No Dysphasia , No Sinus Congestion, No Post Nasal Drip, No Sore Throat, No Other Pulmonary: DyspneaNo Cough, No Pleuritic Chest Pain, No Other Cardiovascular: No: Chest Pain, Edema, Lt Headedness, Orthopnea, Other, Palpitations, Paroxysmal Noc. Dyspnea Objective-Cardiology Exam Last Set of Vital Signs Vital Signs 12/15/16 12/15/16 12/15/16 03:00 04:20 06:00 Temp 99.8 Pulse 94 Resp 28 B/P 116/61 Pulse Ox 100 O2 Delivery NIV/Bilevel O2 Flow Rate 75.00 20.00 FiO2 75 Capillary Refill : Less Than 3 SecondsLess Than 3 Seconds I&O Intake and Output 12/15/16 00:00 Intake Total 5925 ml Output Total 1475 ml Balance 4450 ml Intake Oral 420 ml IV Total 4000 ml Other 1505 ml Output Urine Total 1475 ml # Voids 5 # Bowel Movements 7 General: Alert, Oriented X3, Cooperative, Mild Distress HEENT: Atraumatic, PERRLA Neck: Supple, No JVD, No Thyromegaly Lungs: Normal Air Movement, Other (bilateral rhonchi) Heart: Regular Rate, Normal S1, Normal S2, Other (systolic murmur at the left sternal border) Abdomen: Normal Bowel Sounds, Soft, No Tenderness, No Hepatosplenomegaly, No Masses Extremities: No Clubbing, No Cyanosis, No Edema, Normal Pulses, No Tenderness/ Swelling Skin: No Rashes, No Breakdown, No Significant Lesion Neuro: Normal Speech, Normal Tone Psych/Mental Status: Mental Status NL, Mood NL Results Lab Laboratory Tests 12/14/16 15:50 12/15/16 04:15 A/P-Cardiology Admission Diagnosis Paroxysmal atrial fibrillation Pneumonia Lungs CA Anemia Assessment/Plan Paroxysmal atrial fibrillation, converted back to sinus rhythm, now on sotalol 80 mg twice daily, received one dose of digoxin. Continue to monitor at this time. Patient cannot tolerate oral anticoagulation due to active bleeding. Increased risk of stroke. History of intracranial bleed. Status post hypotension, blood pressure is better at this time. Slightly fluid overloaded received one dose of IV Lasix, continue to monitor fluid status closely. Pneumonia, pleural effusion- continue antibiotics, managed by PCP. History of large left sided traumatic hemathorax, s/p throacentesis on 11/25/16. Continue to monitor CXR. Anemia, status post transfusion, continue to monitor H&H CAD- history of stent placement [place] L Cx [place] [address] Christensen. Continue to monitor. Diastolic CHF- most recent 2D Echo revealed EF 60-65%, Mod History of Lung CA with new nodule on most recent CT scan, planning for reevaluation in 1 mo. History of kidney stones with lithotripsy in the recent past. Dysphagia- further eval with speech evaluation once patient is more stable. DM- managed by PCP Hx of chronic dizziness. Clinical Quality Measures DVT/VTE Risk/Contraindication: Risk Factor Score Per Nursin RFS Level Per Nursing on Admit: 4+=Very High AGATA KRUGER MD Dec 15, 2016 07:36
[2016-12-15] MEDS: RT-ALBUTEROL/IPRATROPIUM 3 ML (DUONEB) VIAL INH SCH ×3 (07:42→14:33)
[2016-12-15] MEDS: SOTALOL 80 MG (BETAPACE) TAB PO SCH (08:20)
[2016-12-15] MEDS: DOCUSATE SODIUM 100 MG (COLACE) CAP PO SCH (08:22)
[2016-12-15] MEDS: SENNA W/DOCUSATE (SENOKOT S) TABLET PO SCH (08:22)
--- NOTE | 2016-12-15 08:23 | Diagnostic Imaging Report ---
EXAMINATION: Portable upright radiograph of the chest. INDICATION: Hypoxia. COMPARISON: 12/14/2016 earlier exam, 10 hours earlier. FINDINGS: There is worsening extensive interstitial and alveolar infiltrates seen bilaterally, worse on the left side with a moderate left pleural effusion or pneumothorax. There is cardiomegaly. There is a tiny effusion on the right side. No pneumothorax. Right PICC line is seen in good position. Multiple rib fractures with mild displacement is seen in the lateral lower left ribs. IMPRESSION: Extensive mixed interstitial and alveolar infiltrates worsening from the prior exam, with a moderate left pleural effusion. Dictated by: Dictated on workstation # [id number]
--- NOTE | 2016-12-15 08:51 | Diagnostic Imaging Report ---
INDICATION: Dyspnea. DISCUSSION: Single portable upright view of the chest was obtained, comparison 12/14/2016. Moderate to large left pleural effusion is stable. Bilateral pulmonary infiltrates, with focal consolidation within the right midlung, is essentially stable given differences in technique. The heart borders are obscured. Right upper extremity PICC line is stable. Left chest wall [id number] is stable. IMPRESSION: 1. Stable chest including moderate to large left pleural effusion and bilateral pulmonary infiltrates. Dictated by: Dictated on workstation # [id number]
[2016-12-15] MEDS: LEVETIRACETAM 500 MG (KEPPRA) TAB PO SCH (09:01)
[2016-12-15] MEDS: guaiFENesin (MUCINEX) 600 MG TAB PO SCH (09:01)
[2016-12-15] MEDS: LACTOBACILLUS Acidoph/Bulgar (LACTINEX/FLORANEX) TAB PO SCH ×2 (09:01→12:21)
--- NOTE | 2016-12-15 09:33 | Progress Note (SOAP) ---
Subjective Subjective/Events-last exam PT REPORTS TO ME THIS MORNING THAT HE IS "DONE" AND HE WANTS TO BE ALLOWED TO PASS AWAY. I TALKED TO THE PATIENT'S FAMILY IN HIS ROOM THIS EVENING AT ABOUT 3:30PM - HIS BROTHER RICCARDO, AND HIS NEPHEW AND THEN ON THE PHONE WITH NINA OJEDA - NELA' S OTHER NEPHEW FROM [place]. NELA AWAKENED WHILE I WAS ON THE PHONE WITH SHEREE AND HE LATER TOLD ME TO " LET ME GO" AND HE TOLD ME AND HIS BROTHER THAT HE WANTED TO BE LET GO AND PASS AWAY. Review of Systems General: No Chills, Fatigue Malaise Pulmonary: DyspneaNo Cough Cardiovascular: : PalpitationsNo: Chest Pain Neurological: : Confusion (INTERMITTENTLY): Weakness Objective Exam Vital Signs Date Time Temp Pulse Resp B/P Pulse Ox O2 Delivery O2 Flow Rate FiO2 12/15/16 08:40 97.1 91 21 80/47 97 NIV/Bilevel 75.00 20.00 12/15/16 07:50 93 15.00 75 12/15/16 06:00 94 28 116/61 100 NIV/Bilevel 75.00 20.00 12/15/16 05:00 98 33 132/75 96 NIV/Bilevel 75.00 20.00 12/15/16 04:20 97 Vapotherm 20.00 75 12/15/16 04:00 94 23 137/72 95 NIV/Bilevel 75.00 20.00 12/15/16 03:00 99.8 89 21 116/62 93 NIV/Bilevel 75.00 20.00 12/15/16 02:00 96 19 134/72 94 NIV/Bilevel 75.00 20.00 12/15/16 01:00 96 12/15/16 01:00 82 22 90/35 98 NIV/Bilevel 75.00 20.00 12/15/16 00:16 75 26 12/15/16 00:05 99 22 102/50 95 NIV/Bilevel 75.00 20.00 12/15/16 00:05 NIV/Bilevel 75.00 20.00 12/15/16 00:00 94 Vapotherm 20.00 75 12/14/16 23:39 NIV/Bilevel 100.00 12/14/16 23:10 100.0 20.00 12/14/16 23:00 112 42 158/93 91 NIV/Bilevel 75.00 20.00 12/14/16 22:52 88 15.00 70 12/14/16 22:01 96 15.00 70 12/14/16 22:00 97 29 156/80 96 NIV/Bilevel 75.00 15.00 12/14/16 21:00 101 27 161/82 98 NIV/Bilevel 75.00 15.00 12/14/16 20:10 94 Vapotherm 75 12/14/16 20:00 99.3 94 31 139/72 90 NIV/Bilevel 75.00 15.00 12/14/16 19:00 90 21 131/68 96 NIV/Bilevel 75.00 15.00 12/14/16 19:00 96 12/14/16 18:53 96 15.00 75 12/14/16 18:00 89 18 104/81 95 NIV/Bilevel 75.00 15.00 12/14/16 17:00 97.9 12/14/16 17:00 96 23 140/79 95 NIV/Bilevel 75.00 15.00 12/14/16 16:07 92 12.00 60 12/14/16 16:00 98 35 134/81 99 Nasal Cannula 5.00 12/14/16 15:00 89 30 126/64 93 Nasal Cannula 4.00 12/14/16 14:00 95 32 111/60 96 Nasal Cannula 4.00 12/14/16 13:31 97.8 124 93/56 12/14/16 13:00 125 19 103/67 98 Nasal Cannula 4.00 12/14/16 13:00 116 12/14/16 12:35 97.6 12/14/16 12:35 Simple Mask 4.00 12/14/16 12:35 97.6 120 70/46 12/14/16 12:32 96 3.50 12/14/16 12:10 97.8 133 26 82/66 4.00 12/14/16 12:00 131 19 82/66 96 Simple Mask 4.00 12/14/16 11:40 96.2 141 18 62/43 97 4.00 12/14/16 11:30 134 22 64/47 94 Simple Mask 4.00 12/14/16 11:20 96.9 116 24 80/44 94 4.00 12/14/16 10:15 97.4 120 24 76/45 96 4.00 12/14/16 10:14 80/47 12/14/16 10:02 98.0 24 96 4.00 I & O 12/15/16 07:00 Intake Total 5125 ml Output Total 3000 ml Balance 2125 ml Capillary Refill : Less Than 3 SecondsLess Than 3 Seconds General Appearance: Moderate Distress Thin Respiratory: Crackles Decreased Breath Sounds Cardiovascular: Irregularly Irregular Tachycardia (HEART RATE IN THE 160'S WITH BLOOD PRESSURE IN THE 80/50 RANGE) Gastrointestinal: normal bowel sounds non tender soft no organomegaly no pulsatile mass Extremity: No Pedal Edema Neurologic/Psychiatric: Other (INTERMITTENT ALERTNESS) Skin: Warm/Dry Lymphatic: No Adenopathy Results Lab Laboratory Tests 12/14/16 12:12: Tirso Test YES-POS, Arterial Blood Base Excess 0.3, Arterial Blood HCO3 25, Arterial Blood Oxygen Saturation 97, Arterial Blood Partial Pressure CO2 45, Arterial Blood Partial Pressure O2 73L, Arterial Blood Total CO2 26.5, Arterial Blood pH 7.36L, Blood Gas Inspired Oxygen 3.5, Blood Gas Patient Temperature 97.8, Blood Gas Puncture Site RT RADIAL, Blood Gas Ventilator Setting NO 12/14/16 13:10: Vancomycin Level Trough 11.4 12/14/16 15:50: Hematocrit 30L, Hemoglobin 9.5#L 12/14/16 21:37: Glucometer 184H 12/14/16 23:10: Tirso Test YES-POS, Arterial Blood Base Excess -1.9, Arterial Blood HCO3 24, Arterial Blood Oxygen Saturation 92L, Arterial Blood Partial Pressure CO2 60H, Arterial Blood Partial Pressure O2 74L, Arterial Blood Total CO2 26.2, Arterial Blood pH 7.24*L, Blood Gas Inspired Oxygen 20L VAPORTHERM, Blood Gas Patient Temperature 100.0, Blood Gas Puncture Site L RAD, Blood Gas Ventilator Setting NO 12/15/16 04:15: Alanine Aminotransferase (ALT/SGPT) 14, Albumin 2.3L, Alkaline Phosphatase 78, Anion Gap 9, Anisocytosis SLIGHT, Aspartate Amino Transf (AST/SGOT) 24, BUN/ Creatinine Ratio 18, Band Neutrophils 10, Basophilic Stippling SLIGHT, Basophils # (Auto) 0.0, Basophils % (Manual) 0, Basophils (%) (Auto) 0, Blood Urea Nitrogen 13, Calcium Level 7.4L, Carbon Dioxide Level 23, Chloride Level 109H, Creatinine 0.74, Elliptocytes SLIGHT, Eosinophils # (Auto) 0.0, Eosinophils % (Manual) 0, Eosinophils (%) (Auto) 0, Estimat Glomerular Filtration Rate > 60, Glucose Level 105, Hematocrit 31L, Hemoglobin 10.2L, Lymphocytes # (Auto) 1.1, Lymphocytes % (Manual) 4, Lymphocytes (%) (Auto) 8L, Macrocytosis SLIGHT, Magnesium Level 1.1L, Mean Corpuscular Hemoglobin 32, Mean Corpuscular Hemoglobin Concent 33, Mean Corpuscular Volume 96, Mean Platelet Volume 11.0H, Monocytes # (Auto) 0.5, Monocytes % (Manual) 0, Monocytes (%) ( Auto) 4, Neutrophils # (Auto) 12.2H, Neutrophils % (Manual) 86, Neutrophils (%) (Auto) 88H, Phosphorus Level 2.2L, Platelet Count 137, Poikilocytosis SLIGHT, Polychromasia SLIGHT, Potassium Level 3.6, Red Blood Count 3.22L, Red Cell Distribution Width 15.4H, Sodium Level 141, Total Bilirubin 0.3, Total Protein 4.8L, White Blood Count 13.8H 12/15/16 04:25: Tirso Test YES-POS, Arterial Blood Base Excess 1.0, Arterial Blood HCO3 26, Arterial Blood Oxygen Saturation 90L, Arterial Blood Partial Pressure CO2 51H, Arterial Blood Partial Pressure O2 56L, Arterial Blood Total CO2 27.9, Arterial Blood pH 7.33*L, Blood Gas Inspired Oxygen 20L, Blood Gas Patient Temperature 97.7, Blood Gas Puncture Site R RAD, Blood Gas Ventilator Setting NO Microbiology 12/12/16 Blood Culture - Preliminary, Resulted No growth 12/14/16 C. difficile GDH Antigen & Toxins - Final, Complete 12/13/16 Urine Culture - Final, Complete Assessment/Plan Assessment/Plan Assess & Plan/Chief Complaint PNEUMONIA PLEURAL EFFUSION ANEMIA RIB PAIN ON LEFT RIB FRACTURES ATRIAL FIBRILLATION DIABETES MELLITUS 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 LOOSE STOOLS - STOPPED METFORMIN -STOOLS HAVE SOLIDIFIED THRUSH - RX FOR NYSTATIN RESTARTED DECREASED APPETITE DUE TO AVAILABLE FOOD CHOICES, CONTINUE WITH SUPPORTIVE CARE , OUTSIDE FOOD IF ABLE TO OBTAIN DYSPHAGIA - PT COUGHS AFTER DRINKING WATER -WILL ORDER SPEECH EVAL. JASPER DISCUSSION WITH NELA TODAY - HE STATES THAT HE HAS A POOR RELATIONSHIP WITH HIS CHILDREN - HE HAS MINIMAL CONTACT WITH HIS DAUGHTER EMANUEL, AND NO CONTACT WITH HIS OTHER KIDS IN [place]. HE WILL GIVE THE STAFF THE NUMBER OF HIS BROTHER - ZAMZAM - WHOM WE CAN CONTACT. I TALKED TO ZAMZAM AND THEN TO OTHER FAMILY MEMBERS WHO FOUND OUT ABOUT NELA'S ILLNESS FROM HIS ESTRANGED DAUGHTER. NELA WILL BE PLACED ON COMFORT CARE AFTER HIS NEPHEW NINA COMES TO [facility]. Clinical Quality Measures DVT/VTE Risk/Contraindication: Risk Factor Score Per Nursin RFS Level Per Nursing on Admit: 4+=Very High GUTIERREZ PHAM MD Dec 15, 2016 09:32
--- NOTE | 2016-12-15 11:09 | Speech Therapy Progress Note ---
Therapy Progress Note The speech pathology attempted the dysphagia evaluation for the second time on this date. The patient's RN stated the patient is currently refusing oral intake and is pending a decision regarding comfort care. The RN stated the swallow evaluation could be cancelled at this time. If the patient becomes appropriate for speech pathology intervention, please reconsult services. Thank you. CELSA COSTELLO Dec 15, 2016 11:09
[2016-12-15] MEDS ORDERED: DIGOXIN 0.25 MG/ML (LANOXIN) 2 ML AMP IV NR (17:15)
[2016-12-15] MEDS ORDERED: GLYCOPYRROLATE 0.2 MG/ML (ROBINUL) 2 ML VIAL IV PRN (17:45)
[2016-12-15] MEDS ORDERED: SALIVA STIMULANT MOUTH SPRAY (BIOTENE) 1.5 OZ MM PRN (17:45)
[2016-12-15] MEDS ORDERED: ARTIFICAL TEARS 0.4 ML UNIT DOSE (REFRESH PLUS) OU PRN (17:45)
[2016-12-15] MEDS ORDERED: ACETAMINOPHEN 650 MG SUPP (TYLENOL) PR PRN (17:45)
[2016-12-15] MEDS ORDERED: ONDANSETRON 4 MG/2 ML (SDV) Z0FRAN IVP PRN (17:45)
[2016-12-15] MEDS: LORazepam INJ 2 MG/ML (ATIVAN) VIAL IVP PRN (18:37)
[2016-12-15] MEDS: morphine INJ 4 MG/ML 1 ML (VIAL/SYRINGE) IV PRN (21:52)
[2016-12-16] MEDS: LORazepam INJ 2 MG/ML (ATIVAN) VIAL IVP PRN ×2 (00:35→02:30)
[2016-12-16] MEDS: morphine INJ 4 MG/ML 1 ML (VIAL/SYRINGE) IV PRN ×2 (00:35→02:30)
[2016-12-16] MEDS: CATHETER FLUSH 10 ML SYR IV SCH ×2 (00:35→02:30)
--- NOTE | 2016-12-18 09:06 | Physician Query ---
PQ-Intro New Diagnosis Admission/Discharge Admission Date: Dec 12, 2016 at 22:39 Discharge Date: Dec 16, 2016 at 05:05 The medical record reflects the following clinical scenario: History/Risk Factors Pneumonia and dehydration on admission. Patient has been in hospital since 11/01 after multiple left rib fractures on left. Clinical Findings: Per history and physical- "He was found to be hypotensive with dehydration and worsening left lung infiltrate around his left rib fractures. Treatment: IV antibiotics/Triple therapy-Vancomycin, Levofloxacin/Cefepime. Nebulizer treatments and Incentive Spirometry. Question: What condition best reflects the above clinical scenario? Please document below. 1. Pneumonia-a complication from fall with multiple left rib fractures. 2. Pneumonia-not related to trauma. 3. Other, with explanation of the clinical findings. 4. Clinically undetermined, no explanation for the clinical findings. PHYSICIAN RESPONSE Explanation of clincal finding What condition best reflects the above clinical scenario? Please document below. 1. Pneumonia-a complication from fall with multiple left rib fractures. - YES PNEUMONIA RELATED TO FALL WITH RIB FRACTURES Please remember a lack of response to the above will prompt a phone page by [facility]/ coding staff. In responding to this query, please exercise your independent professional judgment. The purpose of this communication is to more accurately reflect the complexity of your patients condition. The fact that a question is asked does not imply that any particular answer is desired or expected. Thank you for your timely response to this clarification. Requestors name: Kenia March [facility] Phone # ext [phone] or [phone] THIS PHYSICIAN QUERY FORM IS A PERMANENT PART OF THE MEDICAL RECORD KENIA MARCH Dec 18, 2016 09:06 GUTIERREZ PHAM MD Dec 21, 2016 17:19
--- NOTE | 2016-12-18 09:16 | Physician Query ---
PQ-Intro New Diagnosis Admission/Discharge Admission Date: Dec 12, 2016 at 22:39 Discharge Date: Dec 16, 2016 at 05:05 The medical record reflects the following clinical scenario: History/Risk Factors: Diarrhea before admission per patient.ocean transportation intermediary antibiotics. Clinical Findings: Diarrhea/Culture positive for C Difficile antigen and toxin A/B 12/14. Treatment: IV antibiotics. Question: What condition best reflects the above clinical scenario? Please document below. 1. C Difficile colitis. 2. Diarrhea only. 3. Other, with explanation of the clinical findings. 4. Clinically undetermined, no explanation for the clinical findings. PHYSICIAN RESPONSE What condition reflects above: 1 Please remember a lack of response to the above will prompt a phone page by CDI/ coding staff. In responding to this query, please exercise your independent professional judgment. The purpose of this communication is to more accurately reflect the complexity of your patients condition. The fact that a question is asked does not imply that any particular answer is desired or expected. Thank you for your timely response to this clarification. Requestors name: Kenia March [facility] Phone # ext [phone] or [phone] THIS PHYSICIAN QUERY FORM IS A PERMANENT PART OF THE MEDICAL RECORD KENIA MARCH Dec 18, 2016 09:16 GUTIERREZ PHAM MD Dec 21, 2016 17:19
--- NOTE | 2016-12-23 13:28 | Discharge Summary ---
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 HE HAD PNEUMONIA, WAS TREATED, WITH RECURRENT PNEUMONIA AND PLEURAL EFFUSIONS AFTER RIB FRACTURES FROM A FALL AT HOME. NELA HAD NEVER RECOVERED WELL POST RIB FRACTURES, AND WAS NOT EATING WELL IN THE HOSPITAL WHICH LED TO FURTHER DECLINE IN FUNCTION. 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 I TALKED TO ZAMZAM AND THEN TO OTHER FAMILY MEMBERS WHO FOUND OUT ABOUT NELA'S ILLNESS FROM HIS ESTRANGED DAUGHTER. NELA WILL BE PLACED ON COMFORT CARE AFTER HIS NEPHEW NINA COMES TO [facility]. - PT ABOUT 3 HOURS AFTER HIS NEPHEW SHEREE CAME INTO [facility] AND NELA'S OXYGEN WAS DISCONTINUED. Discharge Condition at discharge PT Instructions to patient/family PT Discharge Medications PT Clinical Quality Measures DVT/VTE Risk/Contraindication: Risk Factor Score Per Nursin RFS Level Per Nursing on Admit: 4+=Very High GUTIERREZ PHAM MD Dec 23, 2016 13:28
== END 2016-12-16 05:05 | disposition expired | DRG 922 ==
LOC: EDUNIT# 20:37 → ER 20:38 → 4TH 22:39 → ICU 12-14 11:24
PROVIDERS: ADMIT Family Medicine; ATTEND Family Medicine
PROC: 02HV33Z Insertion of Infusion Device into Superior Vena Cava, Percutaneous Approach (ICD-10-PCS; principal; 2016-12-14)
DX: T79.8XXA Other early complications of trauma, initial encounter (principal); J18.9 Pneumonia, unspecified organism; S22.42XD Multiple fractures of ribs, left side, subsequent encounter for fracture with routine healing; S27.1XXD Traumatic hemothorax, subsequent encounter; R57.9 Shock, unspecified; J96.90 Respiratory failure, unspecified, unspecified whether with hypoxia or hypercapnia; Z66 Do not resuscitate; Z51.5 Encounter for palliative care; E86.0 Dehydration; I11.0 Hypertensive heart disease with heart failure; I50.30 Unspecified diastolic (congestive) heart failure; B37.0 Candidal stomatitis; A04.7 Enterocolitis due to Clostridium difficile; I48.0 Paroxysmal atrial fibrillation; D64.9 Anemia, unspecified; I25.10 Atherosclerotic heart disease of native coronary artery without angina pectoris; E11.9 Type 2 diabetes mellitus without complications; R91.1 Solitary pulmonary nodule; L89.309 Pressure ulcer of unspecified buttock, unspecified stage; G40.909 Epilepsy, unspecified, not intractable, without status epilepticus; E03.9 Hypothyroidism, unspecified; F41.9 Anxiety disorder, unspecified; Z87.820 Personal history of traumatic brain injury; Z79.84 Long term (current) use of oral hypoglycemic drugs; Z87.891 Personal history of nicotine dependence; Z85.118 Personal history of other malignant neoplasm of bronchus and lung; Z85.51 Personal history of malignant neoplasm of bladder; Z85.46 Personal history of malignant neoplasm of prostate; Z95.5 Presence of coronary angioplasty implant and graft
CPT/HCPCS: 36415; 36569; 71010; 74020; 76937; 80053; 80202; 81000; 82150; 82805; 82962; 83605; 83690; 83735; 83880; 84100; 84484; 85007; 85014; 85018; 85025; 85027; 85610; 85730; 86850; 86900; 86901; 86920; 87040; 87088; 87324; 87449; 93005; 94640; 94660; 94664; 94760; 96361; 96365; 96375